=== PATIENT | female | born 1950 | race Caucasian/White ===

== ENCOUNTER 2016-09-25 15:00 | Inpatient (IN) | payer MEDICARE ==
[2016-09-25] MEDS ORDERED: methylPREDNISolone SOD SUCCI 125 MG/2 ML VIAL IV STA (15:08)
--- NOTE | 2016-09-25 15:13 | ED ---
SOB HPI - General Stated Complaint: FRANCOIS Time Seen by Provider: 09/25/16 15:00 Source: EMS, RN notes reviewed Mode of arrival: EMS - History of Present Illness Initial Comments: This is a 65-year-old female history of asthma who states she had the onset about one hour ago severe shortness of breath. She also states she's had a fever since last night and got up to 100F. She has had some green nasal discharge and cough with minimal phlegm production. No overt chest pain. She had very nervous when she cannot breathe. EMS was summoned she did get a DuoNeb treatment on the way in. She does feel somewhat better MD Complaint: shortness of breath - Related Data Home Medications Medication Instructions Recorded Confirmed Albuterol Inhaler [Ventolin Hfa 2 puff INHALATION RT-Q4H PRN 12/26/15 09/25/16 Inhaler] Aspirin EC [Ecotrin Low Dose] 81 mg PO DAILY 12/26/15 09/25/16 Gabapentin [Neurontin] 1,200 mg PO TID 12/26/15 09/25/16 Montelukast [Singulair] 10 mg PO HS 12/26/15 09/25/16 Nitroglycerin Sl Tabs [Nitrostat] 0.4 mg SUBLINGUAL Q5M PRN 12/26/15 09/25/16 Prazosin HCl [Minipress] 6 mg PO HS 02/10/16 09/25/16 Calcium Carbonate [Calcium] 600 mg PO TID 04/30/16 09/25/16 DULoxetine HCL [Cymbalta] 60 mg PO BID 04/30/16 09/25/16 Lisinopril [Prinivil] 10 mg PO QAM 04/30/16 09/25/16 Simvastatin [Zocor] 10 mg PO HS 06/02/16 09/25/16 Fluticasone/Salmeterol [Advair 2 puff INHALATION RT-BID 09/01/16 09/25/16 250-50 Diskus] Omeprazole [PriLOSEC] 20 mg PO AC-BRKFST 09/01/16 09/25/16 Sertraline HCl [Zoloft] 50 mg PO QAM 09/09/16 09/25/16 Etodolac [Lodine] 400 mg PO BID 09/16/16 09/25/16 Famotidine [Pepcid] 60 mg PO BID 09/16/16 09/25/16 Ferrous Gluconate 240 mg PO QAM 09/16/16 09/25/16 traZODone HCL [Desyrel] 100 mg PO HS 09/16/16 09/25/16 Hydrocodone/Acetaminophen [[place] 1 tab PO TID 09/25/16 09/25/16 7.5-325] Levothyroxine Sodium [Synthroid] 50 mcg PO DAILY 09/25/16 09/25/16 Ondansetron [Zofran] 4 mg PO Q8H PRN 09/25/16 09/25/16 Previous Rx's Medication Instructions Recorded oxyCODONE HCL [OxyCONTIN] 20 mg PO Q12H #60 tab.er.12h 08/02/16 QUEtiapine [SEROquel] 150 mg PO HS #30 tablet 09/03/16 Allergies Allergy/AdvReac Type Severity Reaction Status Date / Time amoxicillin Allergy Unknown Verified 09/25/16 15:20 baclofen Allergy Rash/Hives Verified 09/25/16 15:20 morphine Allergy Itching Verified 09/25/16 15:20 Penicillins Allergy Unknown Verified 09/25/16 15:20 prochlorperazine Allergy Racing Verified 09/25/16 15:20 [From Compazine] Heart prochlorperazine edisylate Allergy Racing Verified 09/25/16 15:20 [From Compazine] Heart prochlorperazine maleate Allergy Racing Verified 09/25/16 15:20 [From Compazine] Heart tetracycline Allergy Unknown Verified 09/25/16 15:20 SILK TAPE Allergy Unknown Uncoded 09/25/16 15:20 Review of Systems ROS Statement: Those systems with pertinent positive or pertinent negative responses have been documented in the HPI. ROS Other: All systems not noted in ROS Statement are negative. Past Medical History Past Medical History: Atrial Fibrillation, Asthma, COPD, Deep Vein Thrombosis ( DVT), Fibromyalgia, GERD/Reflux, Hypertension, Myocardial Infarction (non Q-wave ), Osteoarthritis (OA), Thyroid Disorder Additional Past Medical History / Comment(s): uterine cancer,CERVICAL CANCER, LEUKEMIA, RT BREAST CANCER, dvt in left calf, heart murmer, scoliosis, right foot drop, anemia, UTI'S,INCONT OF URINE WEARS A PAD, UTI(ECOLI 9-26-16), HEMORRHOIDS, RECTAL PROLAPSE Last Myocardial Infarction Date:: 2006 History of Any Multi-Drug Resistant Organisms: None Reported Date of last positivie culture/infection: 2007 MDRO Source:: stool Past Surgical History: Breast Surgery, Cholecystectomy, Heart Catheterization With Stent, Hysterectomy, Tonsillectomy Additional Past Surgical History / Comment(s): Lumpectomy right side from breast cancer, back surgery x7, ortho sx-recent Fx C5-pain in neck, 02/19/2016 revision S2-Thoracic/lumbar area, bilat. cataracts removed 2014, SX FOR PROLAPSED RECTUM APPROX MONTH AGO AT [facility]. Past Anesthesia/Blood Transfusion Reactions: No Reported Reaction Date of Last Stent Placement:: 2006 Past Psychological History: Anxiety, Depression Additional Psychological History / Comment(s): PT ADMITS TO FEELINGS OF SADNESS - SON A YEAR AGO. PT LIVES ALONE IN [facility], HAS SUPPORT FROM BROTHER,FRIEND AND [employer]RIENS. ALSO HAS [facility] CARE NURSE AND PT., USES A CANE WHEN UP Smoking Status: Never smoker Past Alcohol Use History: None Reported Past Drug Use History: None Reported - Past Family History Father Family Medical History: Cancer Additional Family Medical History / Comment(s): skin cancer. Mother Family Medical History: Cancer Additional Family Medical History / Comment(s): uterine cancer. Daughter(s) Family Medical History: Cancer, Thyroid Disorder Additional Family Medical History / Comment(s): Thyroid CA removed General Exam - General Exam Comments Initial Comments: This is a well-developed well-nourished awake alert anxious appearing female General appearance: alert, anxious, in distress Head exam: Present: atraumatic, normocephalic, normal inspection Eye exam: Present: normal appearance, PERRL, EOMI. Absent: scleral icterus, conjunctival injection, periorbital swelling ENT exam: Present: normal exam, mucous membranes moist Neck exam: Present: normal inspection. Absent: tenderness, meningismus, lymphadenopathy Respiratory exam: Present: decreased breath sounds, other (She does demonstrate marked kyphosis). Absent: respiratory distress, wheezes, rales, rhonchi, stridor Cardiovascular Exam: Present: normal rhythm, tachycardia, normal heart sounds. Absent: systolic murmur, diastolic murmur, rubs, gallop, clicks GI/Abdominal exam: Present: soft, normal bowel sounds. Absent: distended, tenderness, guarding, rebound, rigid Extremities exam: Present: normal inspection, full ROM, normal capillary refill. Absent: tenderness, pedal edema, joint swelling, calf tenderness Back exam: Present: normal inspection Neurological exam: Present: alert, oriented X3, CN II-XII intact Psychiatric exam: Present: normal affect, normal mood Skin exam: Present: warm, dry, intact, normal color. Absent: rash Course Vital Signs 09/25/16 09/25/16 09/25/16 15:05 15:36 16:06 Temperature 98.6 F Pulse Rate 103 H 108 H 86 Respiratory 26 H 24 24 Rate Blood Pressure 156/89 121/83 145/77 O2 Sat by Pulse 93 L 100 99 Oximetry 09/25/16 09/25/16 16:37 16:49 Temperature Pulse Rate 92 90 Respiratory Rate Blood Pressure O2 Sat by Pulse Oximetry - Reevaluation(s) Reevaluation #1: 09/25/16 16:53 The patient had minimal improvement for the initial treatment. She was still dyspneic. Reevaluation #2: 09/25/16 16:53 Reevaluation after repeated therapy shows patient is still dyspneic with diminished breath sounds and wheezing. Additionally patient did admit that she had a syncopal which she forgot to tell us about when she arrived. Medical Decision Making - Lab Data Result diagrams: 09/25/16 15:40 09/25/16 15:40 Lab Results 09/25/16 09/25/16 09/25/16 Range/Units 15:40 15:40 15:40 WBC 6.1 (3.8-10.6) k/uL RBC 4.24 (3.80-5.40) m/uL Hgb 11.0 L (11.4-16.0) gm/dL Hct 36.9 (34.0-46.0) % MCV 87.1 (80.0-100.0) fL MCH 26.0 (25.0-35.0) pg MCHC 29.8 L (31.0-37.0) g/dL RDW 16.6 H (11.5-15.5) % Plt Count 269 (150-450) k/uL Neutrophils % 73 % Lymphocytes % 17 % Monocytes % 6 % Eosinophils % 1 % Basophils % 0 % Neutrophils # 4.4 (1.3-7.7) k/uL Lymphocytes # 1.0 (1.0-4.8) k/uL Monocytes # 0.4 (0-1.0) k/uL Eosinophils # 0.1 (0-0.7) k/uL Basophils # 0.0 (0-0.2) k/uL Hypochromasia Slight Anisocytosis Slight PT (9.0-12.0) sec INR (<1.1) APTT (22.0-30.0) sec Sodium 143 (137-145) mmol/L Potassium 4.0 (3.5-5.1) mmol/L Chloride 108 H (98-107) mmol/L Carbon Dioxide 25 (22-30) mmol/L Anion Gap 10 mmol/L BUN 10 (7-17) mg/dL Creatinine 0.69 (0.52-1.04) mg/dL Est GFR (MDRD) Af Amer >60 (>60 ml/min/1.73 sqM) Est GFR (MDRD) Non-Af >60 (>60 ml/min/1.73 sqM) Glucose 108 H (74-99) mg/dL Calcium 9.0 (8.4-10.2) mg/dL Magnesium 2.0 (1.6-2.3) mg/dL Total Bilirubin 0.3 (0.2-1.3) mg/dL AST 19 (14-36) U/L ALT 26 (9-52) U/L Alkaline Phosphatase 81 (38-126) U/L Total Creatine Kinase 42 (30-135) U/L CK-MB (CK-2) <0.2 (0.0-2.4) ng/mL CK-MB (CK-2) Rel Index Troponin I <0.012 (0.000-0.034) ng/mL NT-Pro-B Natriuret Pep pg/mL Total Protein 6.3 (6.3-8.2) g/dL Albumin 3.6 (3.5-5.0) g/dL 09/25/16 09/25/16 Range/Units 15:40 15:40 WBC (3.8-10.6) k/uL RBC (3.80-5.40) m/uL Hgb (11.4-16.0) gm/dL Hct (34.0-46.0) % MCV (80.0-100.0) fL MCH (25.0-35.0) pg MCHC (31.0-37.0) g/dL RDW (11.5-15.5) % Plt Count (150-450) k/uL Neutrophils % % Lymphocytes % % Monocytes % % Eosinophils % % Basophils % % Neutrophils # (1.3-7.7) k/uL Lymphocytes # (1.0-4.8) k/uL Monocytes # (0-1.0) k/uL Eosinophils # (0-0.7) k/uL Basophils # (0-0.2) k/uL Hypochromasia Anisocytosis PT 9.7 (9.0-12.0) sec INR 0.9 (<1.1) APTT 23.2 (22.0-30.0) sec Sodium (137-145) mmol/L Potassium (3.5-5.1) mmol/L Chloride (98-107) mmol/L Carbon Dioxide (22-30) mmol/L Anion Gap mmol/L BUN (7-17) mg/dL Creatinine (0.52-1.04) mg/dL Est GFR (MDRD) Af Amer (>60 ml/min/1.73 sqM) Est GFR (MDRD) Non-Af (>60 ml/min/1.73 sqM) Glucose (74-99) mg/dL Calcium (8.4-10.2) mg/dL Magnesium (1.6-2.3) mg/dL Total Bilirubin (0.2-1.3) mg/dL AST (14-36) U/L ALT (9-52) U/L Alkaline Phosphatase (38-126) U/L Total Creatine Kinase (30-135) U/L CK-MB (CK-2) (0.0-2.4) ng/mL CK-MB (CK-2) Rel Index Troponin I (0.000-0.034) ng/mL NT-Pro-B Natriuret Pep 145 pg/mL Total Protein (6.3-8.2) g/dL Albumin (3.5-5.0) g/dL - EKG Data -: EKG Interpreted by Dc EKG shows normal: sinus rhythm (Sinus rhythm a rate of 90. Interval 154 QRS duration 82 QT/QTc is 370/452 middle voltage criteria for LVH artifact is present.) - Radiology Data Radiology results: report reviewed (3 shows no acute markings or findings that is consistent with COPD.), image reviewed Critical Care Time Critical Care Time: Yes Critical Care Time: 30 minutes of critical care time which includes initial monitoring of the EMS run and discussed with paramedics. History physical lab and x-ray evaluation. Multiple re-evaluations patient to responsive therapy. Review of old charting. Discussion with the admitting physician. Admission orders and documentation of the above. Disposition Clinical Impression: Adult respiratory distress syndrome, Acute exacerbation of chronic obstructive airways disease, Syncope Disposition: ADMITTED IP TO THIS HOSP Condition: Stable
[2016-09-25] MEDS ORDERED: HYDROmorphone 1 MG/ML 1 ML SYRINGE IVP STA (15:26)
[2016-09-25] MEDS ORDERED: LORazepam 2 MG/ML SYRINGE IV STA (15:26)
[2016-09-25 15:54] LABS: Anisocytosis Slight; Basophils % (A) 0 %; CH 27.2; CHCM 31.3; Eosinophils # (A) 0.1 k/uL (0-0.7); Eosinophils % (A) 1 %; HCT 36.9 % (34.0-46.0); HDW 2.61; Hypochromasia Slight; Luc # (Auto) 0.14; Luc % (Auto) 2; Lymphocytes % (A) 17 %; MCHC 29.8 g/dL (31.0-37.0); MCV 87.1 fL (80.0-100.0); Mean Platelet Volume 7.3; Monocytes # (A) 0.4 k/uL (0-1.0); Monocytes % (A) 6 %; Neutrophils # (A) 4.4 k/uL (1.3-7.7); Neutrophils % (A) 73 %; RBC 4.24 m/uL (3.80-5.40); RDW 16.6 % (11.5-15.5); WBC 6.1 k/uL (3.8-10.6); WBC (Perox) 6.51
--- NOTE | 2016-09-25 16:01 | XR ---
EXAMINATION TYPE: XR chest 2V DATE OF EXAM: 09/25/2016 3:57 PM COMPARISON: Prior chest x-ray September 16, 2016 HISTORY: Severe shortness of breath TECHNIQUE: Frontal and lateral views of the chest are obtained. FINDINGS: Underlying emphysematous change is present. There is left basilar linear scarring redemons trated. There is no focal air space opacity, pleural effusion, or pneumothorax seen. The cardiac brennan houette size is within normal limits. Retrocardiac opacity consistent with moderate size hiatal her santo is redemonstrated. Coronary stent left complex is suspected. No change into the upper lumbar spin e is redemonstrated. Surgical clips overlie the right breast. IMPRESSION: Chronic changes without acute pulmonary process. No significant change from prior.
[2016-09-25 16:07] LABS: ALT 26 U/L (9-52); AST 19 U/L (14-36); Alkaline Phosphatase 81 U/L (38-126); Anion Gap 10 mmol/L; Blood Urea Nitrogen 10 mg/dL (7-17); Carbon Dioxide 25 mmol/L (22-30); Chloride 108 mmol/L (98-107); Glucose 108 mg/dL (74-99); Non-African American GFR(MDRD) >60 (>60 ml/min/1.73 sqM); Sodium 143 mmol/L (137-145); Total Bilirubin 0.3 mg/dL (0.2-1.3); Total Protein 6.3 g/dL (6.3-8.2)
[2016-09-25 16:16] LABS: INR 0.9 (<1.1); Partial Thromboplastin Time 23.2 sec (22.0-30.0); Prothrombin Time 9.7 sec (9.0-12.0)
[2016-09-25 16:21] LABS: Creatine Kinase 42 U/L (30-135)
[2016-09-25] MEDS ORDERED: IPRATROPIUM-ALBUTEROL 3 ML NEB INHALATION STA (16:21)
[2016-09-25 16:34] LABS: Creatine Kinase MB <0.2 ng/mL (0.0-2.4); Troponin I <0.012 ng/mL (0.000-0.034)
[2016-09-25] MEDS ORDERED: NITROGLYCERIN SL TABS 0.4 MG TAB SUBLINGUAL PRN (16:57)
[2016-09-25] MEDS: oxyCODONE ER 20 MG TAB.ER.12H PO SCH (18:06)
[2016-09-25] MEDS: methylPREDNISolone SOD SUCCI 125 MG/2 ML VIAL IV SCH ×2 (18:57→23:01)
[2016-09-25] MEDS: HYDROmorphone 1 MG/ML 1 ML SYRINGE IVP PRN (19:46)
[2016-09-25] MEDS ORDERED: IPRATROPIUM-ALBUTEROL 3 ML NEB INHALATION SCH (20:00)
[2016-09-25] MEDS: SYMBICORT 80-4.5 MCG INHALER INHALATION SCH (20:42)
[2016-09-25] MEDS: IPRATROPIUM 0.5 MG/2.5 ML NEBU INHALATION SCH (20:42)
[2016-09-25] MEDS: LEVALBUTEROL NEB (CONC) 1.25 MG/0.5 ML AMP INHALATION SCH (20:42)
[2016-09-25 21:21] LABS: Glucose,Whole Blood 165 mg/dL (75-99)
[2016-09-25] MEDS: ATORVASTATIN 10 MG TAB PO SCH (21:25)
[2016-09-25] MEDS: DULoxetine HCL 60 MG CAPSULE.DR PO SCH (21:26)
[2016-09-25] MEDS: ETODOLAC 400 MG TAB PO SCH (21:26)
[2016-09-25] MEDS: PRAZOSIN 1 MG CAP PO SCH (21:26)
[2016-09-25] MEDS: MONTELUKAST 10 MG TAB PO SCH (21:26)
[2016-09-25] MEDS: GABAPENTIN 400 MG CAP PO SCH (21:26)
[2016-09-25] MEDS: FAMOTIDINE 20 MG TAB PO SCH (21:26)
[2016-09-25] MEDS: QUEtiapine 50 MG TAB PO SCH (21:27)
[2016-09-25] MEDS: traZODone HCL 100 MG TAB PO SCH (21:27)
[2016-09-25] MEDS: HYDROcodone/APAP 7.5-325MG 1 EACH TAB PO SCH (21:28)
[2016-09-25] MEDS: CALCIUM CARBONATE 500 MG CHEWABLE PO SCH (21:28)
[2016-09-25] MEDS: LORazepam 2 MG/ML SYRINGE IV PRN (21:46)
[2016-09-25] MEDS ORDERED: TEMAZEPAM 15 MG CAP PO PRN (21:46)
[2016-09-25] MEDS: HEPARIN SODIUM,PORCINE 5,000 UNIT/ML 1 ML VIAL SQ SCH (23:01)
[2016-09-26] MEDS: HYDROmorphone 1 MG/ML 1 ML SYRINGE IVP PRN ×5 (00:25→18:40)
[2016-09-26] MEDS: IPRATROPIUM-ALBUTEROL 3 ML NEB INHALATION PRN (02:47)
[2016-09-26] MEDS: oxyCODONE ER 20 MG TAB.ER.12H PO SCH ×2 (05:01→17:01)
[2016-09-26] MEDS: methylPREDNISolone SOD SUCCI 125 MG/2 ML VIAL IV SCH ×3 (06:07→17:06)
[2016-09-26] MEDS: LEVOTHYROXINE 50 MCG TAB PO SCH (06:07)
[2016-09-26 07:24] LABS: Glucose,Whole Blood 115 mg/dL (75-99)
[2016-09-26] MEDS: INSULIN LISPRO (humaLOG) 300 UNIT/3 ML VIAL SQ SCH ×4 (08:08→21:49)
[2016-09-26] MEDS: ASPIRIN 81 MG CHEW PO SCH (08:12)
[2016-09-26] MEDS: PANTOPRAZOLE 40 MG TABLET PO SCH (08:12)
[2016-09-26] MEDS: CALCIUM CARBONATE 500 MG CHEWABLE PO SCH ×3 (08:12→21:49)
[2016-09-26] MEDS: ETODOLAC 400 MG TAB PO SCH ×2 (08:12→21:49)
[2016-09-26] MEDS: DULoxetine HCL 60 MG CAPSULE.DR PO SCH ×2 (08:12→21:51)
[2016-09-26] MEDS: LISINOPRIL 10 MG TAB PO SCH (08:13)
[2016-09-26] MEDS: FERROUS SULFATE 325 MG TAB PO SCH (08:13)
[2016-09-26] MEDS: HEPARIN SODIUM,PORCINE 5,000 UNIT/ML 1 ML VIAL SQ SCH ×2 (08:13→21:49)
[2016-09-26] MEDS: FAMOTIDINE 20 MG TAB PO SCH ×2 (08:13→21:51)
[2016-09-26] MEDS: GABAPENTIN 400 MG CAP PO SCH ×3 (08:13→21:49)
[2016-09-26] MEDS: SERTRALINE 50 MG TAB PO SCH (08:14)
[2016-09-26] MEDS: HYDROcodone/APAP 7.5-325MG 1 EACH TAB PO SCH ×3 (08:14→22:06)
--- NOTE | 2016-09-26 08:33 | HP ---
DATE OF ADMISSION: 09/25/2016 HISTORY OF PRESENT ILLNESS: This 65-year-old woman with a past medical history of multiple medical problems, atrial fibrillation, asthma, chronic obstructive pulmonary disease, fibromyalgia, GERD, hypertension, history of uterine cancer, breast cancer, cholecystectomy, CAD stent being followed by Dr. Yudy Riggs in the outpatient setting was complaining of shortness of breath over the past several days. The patient also had a fever up to 100 degrees, and patient had greenish nasal discharge with some minimal phlegm. Because of multiple medical issues, patient came to [facility] and admitted for further evaluation and treatment. Chest x-ray was done on admission which showed chronic changes without an acute pulmonary process. The patient admitted for further evaluation and treatment. There is no history of any fever, rigors or chills. No history of headache, loss of consciousness or seizures. Diffuse tremors also present. PAST MEDICAL HISTORY: History of atrial fibrillation, asthma, COPD, DVT, fibromyalgia, GERD, hypertension, history of myocardial infarction, cholecystectomy, CAD/stent. Medications prior to admission include: 1. Desyrel 100 mg q.8h. 2. OxyContin 20 mg p.o. b.i.d. 3. Zocor 10 mg q.6h p.r.n. 4. Zoloft 250 mg 6. Zofran 4 mg q.8 p.r.n. 7. Prilosec 20 mg a.c. breakfast. 8. Nitrostat 0.4 q.5 p.r.n. 9. Singulair 10 mg q.h.s. 10. Prinivil 10 mg q.a.m. 11. Synthroid 50 mcg p.o. daily. 12. [place] 7.5 mg one p.o. t.i.d. 13. Neurontin 1200 mg p.o. t.i.d. 14. Advair 250/50 2 puffs b.i.d. 15. Gluconate 240 mg q.a.m. 16. Pepcid 60 mg p.o. b.i.d. 17. Lodine 400 mg p.o. b.i.d. 18. Cymbalta 60 mg daily. 19. Calcium 600 mg p.o. t.i.d. 20. Ecotrin 81 mg p.o. daily. 21. Ventolin HFA 2 puffs q.4 p.r.n. ALLERGIES: AMOXICILLIN, MORPHINE, PENICILLIN, COMPAZINE AND TETRACYCLINE, ADHESIVE TAPES. FAMILY HISTORY: History of skin cancer. SOCIAL HISTORY: No history of smoking. No history of alcohol intake. REVIEW OF SYSTEMS: ENT: No diminished hearing or diminished vision. CARDIOVASCULAR: No angina or palpitations. RESPIRATORY : As mentioned earlier. GASTROINTESTINAL: No nausea or vomiting. GENITOURINARY: No dysuria. CENTRAL NERVOUS SYSTEM: No numbness, weakness. ALLERGY/IMMUNOLOGY: No asthma or hayfever. MUSCULOSKELETAL: As mentioned earlier. HEMATOLOGY/ONCOLOGY: No history of anemia. ENDOCRINE: No history of diabetes mellitus. Hypothyroidism present. CONSTITUTIONAL: As mentioned earlier. DERMATOLOGY: Negative. RHEUMATOLOGY: Negative. PSYCHIATRY: As mentioned earlier. PHYSICAL EXAMINATION: GENERAL: Alert and oriented times three. VITAL SIGNS: Pulse 100, blood pressure 135/100, respiratory rate 20, temperature 99.1, pulse ox 98% on 2 L. HEENT: Conjunctivae normal. Oral mucosa moist. NECK: No jugular venous distention. No carotid bruit. No lymph node enlargement. CARDIOVASCULAR: S1, S2 muffled. RESPIRATORY: Breath sounds diminished at the bases. Bilateral scattered rhonchi and crackles. Expiratory wheezing also present. ABDOMEN: Soft, nontender. No mass palpable. LEGS: No edema. No swelling. CENTRAL NERVOUS SYSTEM: Higher functions as mentioned earlier. Moves all four limbs. No focal deficits. LYMPHATICS: No lymph nodes palpable in the neck, axillae or groin. SKIN: No ulcer, rash or bleeding. LABS: WBC 6.9, hemoglobin 11. Glucose 108. ASSESSMENT: 1. Chronic obstructive pulmonary disease exacerbation with acute purulent tracheobronchitis. 2. Increased random blood sugar. 3. Anemia, normocytic, anemia of chronic disease. 4. Diffuse tremors secondary to albuterol. 5. Atrial fibrillation history. 6. Asthma, chronic obstructive pulmonary disease. 7. History of DVTs. 8. Fibromyalgia. 9. History of gastroesophageal reflux disease. 10. Hypertension. 11. History of myocardial infarction. 12. History of degenerative joint disease. 13. History of uterine cancer. 14. History of leukemia. 15. History of cancer. 16. Right foot drop. 17. History of coronary artery disease and stent. 18. History of cholecystectomy. 19. Degenerative joint disease. 20. Anxiety, depression, not otherwise specified. RECOMMENDATIONS AND DISCUSSION: In this 65-year-old woman who presented with multiple complex medical issues, we will monitor the patient closely, continue the current medications, Atrovent and Xopenex, continue with empiric antibiotics. IV steroids. Monitor blood sugars closely. Continue antibiotics. I would also recommend pulmonary consultation. Continue current medications. DVT prophylaxis. See orders for further details. Further recommendations to follow. A copy of dictation will be forwarded to Dr. Yudy Riggs who is the primary care physician. QUIRINO
[2016-09-26] MEDS: LORazepam 2 MG/ML SYRINGE IV PRN ×2 (08:46→22:09)
[2016-09-26] MEDS: LEVALBUTEROL NEB (CONC) 1.25 MG/0.5 ML AMP INHALATION SCH ×4 (08:59→20:46)
[2016-09-26] MEDS: IPRATROPIUM 0.5 MG/2.5 ML NEBU INHALATION SCH ×4 (08:59→20:46)
[2016-09-26] MEDS: SYMBICORT 80-4.5 MCG INHALER INHALATION SCH ×2 (08:59→20:46)
[2016-09-26 10:14] LABS: Anisocytosis Slight; Basophils % (A) 0 %; CH 26.9; CHCM 30.2; Eosinophils % (A) 0 %; HCT 34.8 % (34.0-46.0); HDW 2.54; HGB 10.2 gm/dL (11.4-16.0); Hypochromasia Moderate; Luc # (Auto) 0.03; Luc % (Auto) 1; Lymphocytes # (A) 0.4 k/uL (1.0-4.8); Lymphocytes % (A) 9 %; MCH 26.2 pg (25.0-35.0); MCHC 29.3 g/dL (31.0-37.0); MCV 89.7 fL (80.0-100.0); Mean Platelet Volume 7.1; Monocytes # (A) 0.2 k/uL (0-1.0); Monocytes % (A) 4 %; Neutrophils # (A) 4.4 k/uL (1.3-7.7); Neutrophils % (A) 87 %; RBC 3.88 m/uL (3.80-5.40); RDW 16.6 % (11.5-15.5); WBC (Perox) 5.51
[2016-09-26 10:35] LABS: Anion Gap 9 mmol/L; Blood Urea Nitrogen 10 mg/dL (7-17); Calcium 8.7 mg/dL (8.4-10.2); Carbon Dioxide 24 mmol/L (22-30); Chloride 106 mmol/L (98-107); Glucose 173 mg/dL (74-99); Non-African American GFR(MDRD) >60 (>60 ml/min/1.73 sqM); Potassium 3.9 mmol/L (3.5-5.1); Sodium 139 mmol/L (137-145)
[2016-09-26] MEDS: ONDANSETRON 4 MG TAB PO PRN (11:12)
[2016-09-26 11:14] LABS: Hemoglobin A1C 5.1 % (4.2-6.1)
[2016-09-26] MEDS ORDERED: LORazepam 2 MG/ML SYRINGE IV PRN (11:17)
[2016-09-26 12:20] LABS: Glucose,Whole Blood 101 mg/dL (75-99)
[2016-09-26 17:02] LABS: Glucose,Whole Blood 124 mg/dL (75-99)
[2016-09-26 21:24] LABS: Glucose,Whole Blood 145 mg/dL (75-99)
[2016-09-26] MEDS: MONTELUKAST 10 MG TAB PO SCH (21:50)
[2016-09-26] MEDS: QUEtiapine 50 MG TAB PO SCH (21:50)
[2016-09-26] MEDS: PRAZOSIN 1 MG CAP PO SCH (21:51)
[2016-09-26] MEDS: traZODone HCL 100 MG TAB PO SCH (21:51)
[2016-09-26] MEDS: ATORVASTATIN 10 MG TAB PO SCH (21:51)
[2016-09-27] MEDS: methylPREDNISolone SOD SUCCI 125 MG/2 ML VIAL IV SCH ×5 (00:48→23:17)
[2016-09-27] MEDS: HYDROmorphone 1 MG/ML 1 ML SYRINGE IVP PRN ×6 (00:50→23:20)
[2016-09-27] MEDS: IPRATROPIUM-ALBUTEROL 3 ML NEB INHALATION PRN (02:55)
[2016-09-27] MEDS: oxyCODONE ER 20 MG TAB.ER.12H PO SCH ×2 (06:08→18:15)
[2016-09-27] MEDS: LEVOTHYROXINE 50 MCG TAB PO SCH (06:51)
[2016-09-27 07:26] LABS: Glucose,Whole Blood 150 mg/dL (75-99)
[2016-09-27] MEDS: HEPARIN SODIUM,PORCINE 5,000 UNIT/ML 1 ML VIAL SQ SCH ×2 (07:51→22:16)
[2016-09-27] MEDS: SERTRALINE 50 MG TAB PO SCH (07:51)
[2016-09-27] MEDS: CALCIUM CARBONATE 500 MG CHEWABLE PO SCH ×3 (07:51→22:15)
[2016-09-27] MEDS: FAMOTIDINE 20 MG TAB PO SCH ×2 (07:51→22:15)
[2016-09-27] MEDS: LISINOPRIL 10 MG TAB PO SCH (07:51)
[2016-09-27] MEDS: PANTOPRAZOLE 40 MG TABLET PO SCH (07:52)
[2016-09-27] MEDS: ASPIRIN 81 MG CHEW PO SCH (07:52)
[2016-09-27] MEDS: FERROUS SULFATE 325 MG TAB PO SCH (07:52)
[2016-09-27] MEDS: DULoxetine HCL 60 MG CAPSULE.DR PO SCH ×2 (07:52→22:16)
[2016-09-27] MEDS: GABAPENTIN 400 MG CAP PO SCH ×3 (07:52→22:16)
[2016-09-27] MEDS: ETODOLAC 400 MG TAB PO SCH ×2 (07:52→22:17)
[2016-09-27] MEDS: INSULIN LISPRO (humaLOG) 300 UNIT/3 ML VIAL SQ SCH ×4 (07:53→22:18)
[2016-09-27] MEDS: HYDROcodone/APAP 7.5-325MG 1 EACH TAB PO SCH ×2 (08:01→15:29)
[2016-09-27] MEDS: LEVALBUTEROL NEB (CONC) 1.25 MG/0.5 ML AMP INHALATION SCH ×4 (08:39→19:58)
[2016-09-27] MEDS: IPRATROPIUM 0.5 MG/2.5 ML NEBU INHALATION SCH ×4 (08:39→19:58)
[2016-09-27] MEDS: SYMBICORT 80-4.5 MCG INHALER INHALATION SCH (08:39)
[2016-09-27 09:09] LABS: Anisocytosis Slight; Basophils % (A) 0 %; CH 26.2; CHCM 29.4; Eosinophils % (A) 0 %; HCT 35.8 % (34.0-46.0); HDW 2.55; HGB 10.7 gm/dL (11.4-16.0); Hypochromasia Marked; Luc # (Auto) 0.09; Luc % (Auto) 2; Lymphocytes # (A) 0.4 k/uL (1.0-4.8); Lymphocytes % (A) 7 %; MCH 26.7 pg (25.0-35.0); MCHC 29.9 g/dL (31.0-37.0); MCV 89.2 fL (80.0-100.0); Mean Platelet Volume 6.6; Monocytes # (A) 0.2 k/uL (0-1.0); Monocytes % (A) 4 %; Neutrophils % (A) 87 %; RBC 4.02 m/uL (3.80-5.40); RDW 16.3 % (11.5-15.5); WBC 5.7 k/uL (3.8-10.6); WBC (Perox) 6.16
[2016-09-27 09:22] LABS: Anion Gap 11 mmol/L; Blood Urea Nitrogen 11 mg/dL (7-17); Carbon Dioxide 24 mmol/L (22-30); Chloride 108 mmol/L (98-107); Glucose 114 mg/dL (74-99); Non-African American GFR(MDRD) >60 (>60 ml/min/1.73 sqM); Potassium 4.6 mmol/L (3.5-5.1); Sodium 143 mmol/L (137-145)
[2016-09-27] MEDS: LORazepam 2 MG/ML SYRINGE IV PRN ×2 (09:41→15:28)
--- NOTE | 2016-09-27 10:26 | PN ---
DATE OF SERVICE: 09/26/2016 This 65-year-old woman who was admitted with COPD acute exacerbation, also had acute purulent tracheobronchitis. The patient is on bronchodilators and steroids also. The patient has significant anxiety. No chest pain or palpitations. No fever. On exam, alert and oriented. Pulse 102, blood pressure 130/70, respirations 20, temperature 99.4, pulse of 90% on 2 liters. HEENT: Conjunctivae normal. CARDIOVASCULAR: S1 and S2 muffled. LUNGS: Breath sounds are diminished at the bases. Few scattered rhonchi and crackles. ABDOMEN: Soft, nontender. EXTREMITIES: No edema. 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 LABS: Hemoglobin 10.2. WBC 5. Glucose 173. ASSESSMENT: 1. Chronic obstructive pulmonary disease acute exacerbation purulent tracheobronchitis. 2. Increased random blood sugar. 3. Anemia, normocytic, anemia of chronic disease. 4. Diffuse tremors secondary to albuterol. 5. Atrial fibrillation history. 6. History of asthma, chronic obstructive pulmonary disease. 7. History of DVTs. 8. History of fibromyalgia. 9. History of gastroesophageal reflux disease. 10. Hypertension. 11. History of myocardial infarction. 12. History of degenerative joint disease. 13. History of uterine cancer. 14. Leukemia. 15. Right foot drop. 16. History of coronary artery disease and stent. 17. History of cholecystectomy. 18. History of degenerative joint disease. 19. History of anxiety/depression, not otherwise specified. 20. FULL CODE. RECOMMENDATIONS AND DISCUSSION: This 65-year-old with multiple complex medical issues, we will monitor the patient closely, continue the current medications and continue with symptomatic treatment. Continue the bronchodilators and Ativan p.r.n. Otherwise, closely monitor. Further recommendations to follow. We will consult pulmonary also.
[2016-09-27 11:21] VITALS: BMI 24.1
[2016-09-27 11:46] LABS: Glucose,Whole Blood 89 mg/dL (75-99)
[2016-09-27] MEDS: ONDANSETRON 4 MG TAB PO PRN ×2 (13:00→22:14)
[2016-09-27] MEDS ORDERED: RX INFO: IV CONTRAST WAS GIVEN 1 EACH MISC MISCELLANE PRN (14:58)
--- NOTE | 2016-09-27 14:58 | P.CNPUL ---
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 This patient has moderate persistent bronchial asthma and she has been maintained on a combination of Advair 250/50 one puff twice a day and Singulair on an outpatient basis. She claims to have a nebulizer however she does not have the medication to use through the nebulizer. She was doing well and she started having worsening shortness of breath around August 2016. She was hospitalized around [facility] and after being admitted in the hospital for a total of 3 days she got released the day before on a short course of prednisone burst taper which included 20 mg of prednisone that was given to her for only 3 days. She took the treatment and she felt her breathing did not improve completely. She was having progressive tightness and wheezing and increased shortness of breath and this led the patient coming back to the hospital. The chest x-ray was repeated in the hospital and was found to have a small hiatal hernia and her lungs were hyperinflated and this raised the suspicion for COPD. Nevertheless, this patient was never exposed to any form of respiratory irritants or chemicals in the past. She has lived all her life and [facility] and she claims to have lived very close to a [employer] and she could have been exposed to various chemicals over the years. She has multiple other medical problems and comorbidities as listed in my note including coronary artery disease and previous history of breast cancer. In general, the patient tells that her asthma was under fair control. She has not required to take steroids frequently. She has not had multiple hospitalizations or emergency department visits because of breathing. She is not on any oxygen. He has a remote history of a clot in the left lower extremity and she is not on any anticoagulation Review of Systems Full review of system was done and the positive finding is almost above in history of present illness Past Medical History Past Medical History: Atrial Fibrillation, Asthma, COPD, Deep Vein Thrombosis ( DVT), Fibromyalgia, GERD/Reflux, Hypertension, Myocardial Infarction (non Q-wave ), Osteoarthritis (OA), Thyroid Disorder Additional Past Medical History / Comment(s): Bronchial asthma , coronary artery disease and previous history of myocardial infarction and stent insertion in 2006, hypertension uterine cancer, cervical cancer, right breast cancer, DVT in her left lower extremity, 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24, hemorrhoids, rectal prolapse that was surgically repaired,, heart murmur, scoliosis, right foot drop related to a previous back surgery in February 2016, chronic anemia, history of urinary incontinence which improved following her back surgery, UTI(ECOLI 06-14-16), HEMORRHOIDS, RECTAL PROLAPSE Last Myocardial Infarction Date:: 2006 History of Any Multi-Drug Resistant Organisms: None Reported Date of last positivie culture/infection: 2007 MDRO Source:: stool Past Surgical History: Breast Surgery, Cholecystectomy, Heart Catheterization With Stent, Hysterectomy, Tonsillectomy Additional Past Surgical History / Comment(s): Lumpectomy right side from breast cancer, back surgery x7, ortho sx-recent Fx C5-pain in neck, 02/19/2016 revision S2-Thoracic/lumbar area, bilat. cataracts removed 2014, the lateral knee replacement, surgery for rectal prolapse , cardiac catheterization and insertion of a coronary stent Past Anesthesia/Blood Transfusion Reactions: No Reported Reaction Date of Last Stent Placement:: 2006 Past Psychological History: Anxiety, Depression Additional Psychological History / Comment(s): Very apparent anxiety Smoking Status: Never smoker Past Alcohol Use History: None Reported Past Drug Use History: None Reported - Past Family History Father Family Medical History: Cancer Additional Family Medical History / Comment(s): skin cancer. Mother Family Medical History: Cancer Additional Family Medical History / Comment(s): uterine cancer. Daughter(s) Family Medical History: Cancer, Thyroid Disorder Additional Family Medical History / Comment(s): Thyroid CA removed Medications and Allergies Home Medications Medication Instructions Recorded Confirmed Type Albuterol Inhaler [Ventolin Hfa 2 puff INHALATION RT-Q4H PRN 12/26/15 09/25/16 History Inhaler] Aspirin EC [Ecotrin Low Dose] 81 mg PO DAILY 12/26/15 09/25/16 History Gabapentin [Neurontin] 1,200 mg PO TID 12/26/15 09/25/16 History Montelukast [Singulair] 10 mg PO HS 12/26/15 09/25/16 History Nitroglycerin Sl Tabs [Nitrostat] 0.4 mg SUBLINGUAL Q5M PRN 12/26/15 09/25/16 History Prazosin HCl [Minipress] 6 mg PO HS 02/10/16 09/25/16 History Calcium Carbonate [Calcium] 600 mg PO TID 04/30/16 09/25/16 History DULoxetine HCL [Cymbalta] 60 mg PO BID 04/30/16 09/25/16 History Lisinopril [Prinivil] 10 mg PO QAM 04/30/16 09/25/16 History Simvastatin [Zocor] 10 mg PO HS 06/02/16 09/25/16 History Fluticasone/Salmeterol [Advair 2 puff INHALATION RT-BID 09/01/16 09/25/16 History 250-50 Diskus] Omeprazole [PriLOSEC] 20 mg PO AC-BRKFST 09/01/16 09/25/16 History Sertraline HCl [Zoloft] 50 mg PO QAM 09/09/16 09/25/16 History Etodolac [Lodine] 400 mg PO BID 09/16/16 09/25/16 History Famotidine [Pepcid] 60 mg PO BID 09/16/16 09/25/16 History Ferrous Gluconate 240 mg PO QAM 09/16/16 09/25/16 History traZODone HCL [Desyrel] 100 mg PO HS 09/16/16 09/25/16 History Hydrocodone/Acetaminophen [[place] 1 tab PO TID 09/25/16 09/25/16 History 7.5-325] Levothyroxine Sodium [Synthroid] 50 mcg PO DAILY 09/25/16 09/25/16 History Ondansetron [Zofran] 4 mg PO Q8H PRN 09/25/16 09/25/16 History Allergies Allergy/AdvReac Type Severity Reaction Status Date / Time amoxicillin Allergy Unknown Verified 09/25/16 15:20 baclofen Allergy Rash/Hives Verified 09/25/16 15:20 morphine Allergy Itching Verified 09/25/16 15:20 Penicillins Allergy Unknown Verified 09/25/16 15:20 prochlorperazine Allergy Racing Verified 09/25/16 15:20 [From Compazine] Heart prochlorperazine edisylate Allergy Racing Verified 09/25/16 15:20 [From Compazine] Heart prochlorperazine maleate Allergy Racing Verified 09/25/16 15:20 [From Compazine] Heart tetracycline Allergy Unknown Verified 09/25/16 15:20 SILK TAPE Allergy Unknown Uncoded 09/25/16 15:20 Physical Exam Vitals: Vital Signs Temp Pulse Pulse Resp BP Pulse Ox 09/27/16 12:19 100 09/27/16 12:10 102 H 09/27/16 08:53 104 H 09/27/16 08:40 105 H 98 09/27/16 08:00 18 09/27/16 07:00 98.5 F 92 18 134/72 97 09/27/16 03:06 104 H 09/27/16 02:58 100 09/26/16 23:00 97.7 F 101 H 20 132/74 95 09/26/16 20:55 92 09/26/16 20:49 92 09/26/16 16:57 92 09/26/16 16:44 91 99 09/26/16 15:00 99.4 F 102 H 20 137/78 98 Intake and Output 09/26/16 09/27/16 09/27/16 22:59 06:59 14:59 Intake Total 960 Balance 960 Intake: Oral 960 Other: Voiding Method Bedside Commode # Voids 1 2 # Bowel Movements 0 0 Weight 65.771 kg Patient Weight 09/28/16 06:59 Weight 65.771 kg Head exam was generally normal. There was no scleral icterus or corneal arcus. Mucous membranes were moist.Neck was supple and without jugular venous distension, thyromegaly, or carotid bruits. Carotids were easily palpable bilaterally. There was no adenopathy. Lung sounds are diminished and there is some scattered expiratory wheezes heard throughout the lung irwin bilaterally. The patient also has prolongation of expiratory phase of breathing.Cardiac exam revealed the PMI to be normally situated and sized. The rhythm was regular and no extrasystoles were noted during several minutes of auscultation. The first and second heart sounds were normal and physiologic splitting of the second heart sound was noted. There were no murmurs, rubs, clicks, or gallops.Abdominal exam revealed normal bowel sounds. The abdomen was soft, non- tender, and without masses, organomegaly, or appreciable enlargement of the abdominal aorta.Examination of the extremities revealed easily palpable radial, femoral and pedal pulses. There was no cyanosis, clubbing or edema. Results - Laboratory Findings CBC and BMP: 09/27/16 08:17 09/27/16 08:13 PT/INR, D-dimer PT 9.7 sec (9.0-12.0) 09/25/16 15:40 INR 0.9 (<1.1) 09/25/16 15:40 Abnormal lab findings: Abnormal Labs 09/25/16 09/26/16 09/26/16 20:56 07:02 09:45 Hgb 10.2 L MCHC 29.3 L RDW 16.6 H Lymphocytes # 0.4 L Chloride Creatinine Glucose POC Glucose (mg/dL) 165 H 115 H 09/26/16 09/26/16 09/26/16 09:45 11:59 17:00 Hgb MCHC RDW Lymphocytes # Chloride Creatinine 0.42 L Glucose 173 H POC Glucose (mg/dL) 101 H 124 H 09/26/16 09/27/16 09/27/16 20:54 06:58 08:13 Hgb MCHC RDW Lymphocytes # Chloride 108 H Creatinine 0.37 L Glucose 114 H POC Glucose (mg/dL) 145 H 150 H 09/27/16 08:17 Hgb 10.7 L MCHC 29.9 L RDW 16.3 H Lymphocytes # 0.4 L Chloride Creatinine Glucose POC Glucose (mg/dL) - Diagnostic Findings Chest x-ray: image reviewed Assessment and Plan Plan: Assessment 1 shortness of breath secondary to asthma exacerbation. This patient is hospitalized twice over the past month for difficulties and asthma controlled. Rule out underlying COPD mainly due to exposure to respiratory irritants/ industrial chemicals over the years. The patient also has a hiatal hernia which could be another potential contributing factor for her recurrent asthma activity. A CAT scan of the chest will be needed to characterized these abnormalities further. 2 severe persistent bronchial asthma maintained on a combination of Advair and Singulair 3 coronary artery disease 4 breast cancer, history of 5 remote history of a left lower extremity DVT 6 degenerative arthritis of the recent back surgery 7 combination of malignancy including cervical cancer, uterine cancer and remote history of leukemia 8 hypertension 9 hiatal hernia Plan We'll offer this patient albuterol and ipratropium bromide nebulized treatments 4 times a day [id number]. We'll put the patient on a combination of Perforomist and Pulmicort neb last twice a day. He was placed on IV Solu- Medrol and ultimately she'll be transitioned to a prednisone burst taper once her asthma is under better control. Would proceed with a CAT scan of the chest to make sure there is no other pathology contributing to her chronic dyspnea. She is found to have a hiatal hernia that may be another potential trigger for asthma exacerbation. She'll be given with appropriate instructions on eating habits and ultimately she may consider even further evaluation in this regard. We'll place on ProtonSolarus for the time being
[2016-09-27 16:57] LABS: Glucose,Whole Blood 118 mg/dL (75-99)
--- NOTE | 2016-09-27 20:19 | PN ---
DATE OF SERVICE: 09/27/2016 PRESENTING COMPLAINT: Short of breath. INTERVAL HISTORY: This is a patient who has had 3 admissions since September 02. This time she presents with asthma exacerbation yet again. The patient other medical conditions include anxiety, depression, chronic fibromyalgia, GERD, hypertension, coronary artery disease and recent rectal prolapse. Prior to admission, the patient keeps asking for IV Dilaudid and had to get pain control involved and she has had family mishaps to an ( ) did get psychiatry involved on the last admission. On admission not much change in her medication. I spoke to the nurse Cathy and the nurse is very frustrated. Patient keeps asking for IV pain medications. On last admission had a long talk with the patient about cutting back on her pain medications. Also did leave a message with her family doctor. Patient's family and friend at the bedside and out of the room she did tell me they are all concerned about use of her pain medications. Patient has some wheezing. Patient also has got chronic nausea. Review of systems done for constitutional, cardiovascular, GI, pulmonary; relevant findings as above. Current medications are reviewed and include: 1. IV Solu-Medrol. 2. IV Dilaudid. 3. OxyContin. 4. Zoloft. On examination, temperature 98.5, pulse ox 96 respiration 18, blood pressure 142/87. Pulse ox 93% on 2 liters. GENERAL APPEARANCE: Sitting up, very anxious appearing. EYES: Pupils equal. Conjunctivae normal. NECK: JVD not raised. Mass not palpable. RESPIRATORY: Effort increased. LUNGS: Decreased breath sounds. Expiratory wheezing. CARDIOVASCULAR: First and second sounds normal. No edema. ABDOMEN: Soft, nontender. Liver and spleen not palpable. PSYCHIATRY: Alert and oriented x3. Very anxious appearing. INVESTIGATIONS: White count 5.7, hemoglobin 10.77. ASSESSMENT: 1. Acute exacerbation of moderate severe persistent asthma. 2. Anxiety, and depression not otherwise specified. 3. Chronic fibromyalgia. 4. Gastroesophageal reflux disease. 5. Essential hypertension. 6. Primary osteoarthritis of multiple joints. 7. Hypothyroidism. 8. Coronary artery disease with prior history of stent. 9. Recent rectal prolapse surgery with retrosternal pain. 10. Protein calorie malnutrition with decreased oral intake, mild. PLAN: I had very lengthy talk with the patient and patient every admission gets IV Dilaudid and I am really concerned about her. I did explain to her to length that this medication could actually kill the patient especially in asthma setting and she started crying about loss in the family and I was very sympathetic about that. Even talked with the patient's store custodian and store custodian's who is at the bedside to get involved more with Bible studies to help divert her mind. I also called Dr. Ohara and expressed my concern about the patient's events and wants pain medications and going to have him evaluate the patient further. My concern is about the patient's safety. Also placed a call to Dr. Riggs's office for her to call me back so I can discuss the same with her. Patient of course, not happy with my decision, but I did tell her my duty was to make sure she is safe and ( ) I do not think Dilaudid is to be given just because she is in the hospital.
[2016-09-27] MEDS: FORMOTEROL FUMARATE 20 MCG/2 ML NEBU INHALATION SCH (20:36)
[2016-09-27] MEDS: BUDESONIDE 0.5 MG/2 ML NEBU INHALATION SCH (20:36)
[2016-09-27 21:33] LABS: Glucose,Whole Blood 115 mg/dL (75-99)
[2016-09-27] MEDS: QUEtiapine 50 MG TAB PO SCH (22:14)
[2016-09-27] MEDS: traZODone HCL 100 MG TAB PO SCH (22:15)
[2016-09-27] MEDS: PRAZOSIN 1 MG CAP PO SCH (22:15)
[2016-09-27] MEDS: MONTELUKAST 10 MG TAB PO SCH (22:15)
[2016-09-27] MEDS: ATORVASTATIN 10 MG TAB PO SCH (22:15)
[2016-09-28] MEDS: HYDROmorphone 1 MG/ML 1 ML SYRINGE IVP PRN ×7 (02:57→21:38)
[2016-09-28] MEDS: LEVOTHYROXINE 50 MCG TAB PO SCH (06:37)
[2016-09-28] MEDS: methylPREDNISolone SOD SUCCI 125 MG/2 ML VIAL IV SCH ×3 (06:37→19:40)
[2016-09-28] MEDS: oxyCODONE ER 20 MG TAB.ER.12H PO SCH ×2 (06:38→17:56)
[2016-09-28] MEDS: LEVALBUTEROL NEB (CONC) 1.25 MG/0.5 ML AMP INHALATION SCH ×4 (07:14→19:48)
[2016-09-28] MEDS: BUDESONIDE 0.5 MG/2 ML NEBU INHALATION SCH ×2 (07:14→19:48)
[2016-09-28] MEDS: IPRATROPIUM 0.5 MG/2.5 ML NEBU INHALATION SCH ×4 (07:14→19:48)
[2016-09-28] MEDS: FORMOTEROL FUMARATE 20 MCG/2 ML NEBU INHALATION SCH ×2 (07:14→19:48)
[2016-09-28 07:46] LABS: Glucose,Whole Blood 112 mg/dL (75-99)
[2016-09-28] MEDS: INSULIN LISPRO (humaLOG) 300 UNIT/3 ML VIAL SQ SCH ×4 (07:59→22:05)
--- NOTE | 2016-09-28 08:25 | CT ---
EXAMINATION TYPE: CT chest w con DATE OF EXAM: 09/27/2016 6:11 PM COMPARISON: Chest x-ray 25 September 2016 HISTORY: Shortness of breath. History of multiple cancer diagnoses. CT DLP: 565 mGycm Automated exposure control for dose reduction was used. CONTRAST: CT scan of the chest is performed with IV Contrast, patient injected with 100 mL of Omnipaque 300. FINDINGS: LUNGS: Some minimal scarring or atelectasis suspected in the lingula, right middle lobe. Subpleural n odule on axial image 35 of the right lower lobe level measures approximately 4 to 5 mm, axial image 3 7 similar-appearing lesion in the right lower lobe present posteriorly measuring 5 mm. MEDIASTINUM: There are no greater than 1 cm hilar or mediastinal lymph nodes. No pericardial effusi on is seen. Probable coronary artery stent, calcifications noted. Breast calcifications noted on the right. AORTA: Atheromatous changes are present without aneurysm. OTHER: Partial intrathoracic stomach, hiatal hernia is present. Surgical clips are present in the ri ght upper quadrant and along the posterior pleura on the right, there is been rib resection and there are likely pleural calcifications associated suggesting postop change, patient is post cholecystecto my. Postop changes are noted to the lumbar spine. Postop changes are noted in the cervical spine. Deg enerative disc changes in the visualized spine. Some mild pelvic caliectasis present within the left kidney, cortical cyst likely present posterior aspect midpole. IMPRESSION: Indeterminate subpleural pulmonary nodules right lower lobe, follow-up recommended. Hiat al hernia. Postop changes. Indeterminate pelvic caliectasis left kidney. Correlate for possible urete ral obstruction. Additional findings above. Coronary artery disease.
[2016-09-28 09:19] LABS: Anisocytosis Slight; Basophils % (A) 0 %; CH 26.8; CHCM 30.7; Eosinophils % (A) 0 %; HCT 36.9 % (34.0-46.0); HDW 2.59; HGB 10.8 gm/dL (11.4-16.0); Hypochromasia Moderate; Luc # (Auto) 0.07; Luc % (Auto) 1; Lymphocytes # (A) 0.5 k/uL (1.0-4.8); Lymphocytes % (A) 9 %; MCH 25.7 pg (25.0-35.0); MCHC 29.4 g/dL (31.0-37.0); MCV 87.5 fL (80.0-100.0); Mean Platelet Volume 7.2; Monocytes # (A) 0.3 k/uL (0-1.0); Monocytes % (A) 5 %; Neutrophils # (A) 5.1 k/uL (1.3-7.7); Neutrophils % (A) 85 %; RBC 4.21 m/uL (3.80-5.40); RDW 16.6 % (11.5-15.5); WBC (Perox) 6.39
[2016-09-28 09:32] LABS: Anion Gap 8 mmol/L; Blood Urea Nitrogen 14 mg/dL (7-17); Carbon Dioxide 28 mmol/L (22-30); Chloride 105 mmol/L (98-107); Glucose 139 mg/dL (74-99); Non-African American GFR(MDRD) >60 (>60 ml/min/1.73 sqM); Potassium 4.5 mmol/L (3.5-5.1); Sodium 141 mmol/L (137-145)
[2016-09-28] MEDS: HEPARIN SODIUM,PORCINE 5,000 UNIT/ML 1 ML VIAL SQ SCH ×2 (09:45→21:43)
[2016-09-28] MEDS: ASPIRIN 81 MG CHEW PO SCH (09:45)
[2016-09-28] MEDS: GABAPENTIN 400 MG CAP PO SCH ×3 (09:45→21:42)
[2016-09-28] MEDS: SERTRALINE 50 MG TAB PO SCH (09:45)
[2016-09-28] MEDS: LISINOPRIL 10 MG TAB PO SCH (09:45)
[2016-09-28] MEDS: FAMOTIDINE 20 MG TAB PO SCH ×2 (09:45→21:43)
[2016-09-28] MEDS: PANTOPRAZOLE 40 MG TABLET PO SCH (09:45)
[2016-09-28] MEDS: FERROUS SULFATE 325 MG TAB PO SCH (09:45)
[2016-09-28] MEDS: ETODOLAC 400 MG TAB PO SCH ×2 (09:45→21:42)
[2016-09-28] MEDS: CALCIUM CARBONATE 500 MG CHEWABLE PO SCH ×3 (09:45→21:41)
[2016-09-28] MEDS: DULoxetine HCL 60 MG CAPSULE.DR PO SCH ×2 (09:45→21:41)
[2016-09-28] MEDS ORDERED: BISACODYL 5 MG TABLET.DR PO STA (09:51)
--- NOTE | 2016-09-28 11:07 | P.PN ---
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 This patient has moderate persistent bronchial asthma and she has been maintained on a combination of Advair 250/50 one puff twice a day and Singulair on an outpatient basis. She claims to have a nebulizer however she does not have the medication to use through the nebulizer. She was doing well and she started having worsening shortness of breath around August 2016. She was hospitalized around [facility] and after being admitted in the hospital for a total of 3 days she got released the day before on a short course of prednisone burst taper which included 20 mg of prednisone that was given to her for only 3 days. She took the treatment and she felt her breathing did not improve completely. She was having progressive tightness and wheezing and increased shortness of breath and this led the patient coming back to the hospital. The chest x-ray was repeated in the hospital and was found to have a small hiatal hernia and her lungs were hyperinflated and this raised the suspicion for COPD. Nevertheless, this patient was never exposed to any form of respiratory irritants or chemicals in the past. She has lived all her life and [facility] and she claims to have lived very close to a [employer] and she could have been exposed to various chemicals over the years. She has multiple other medical problems and comorbidities as listed in my note including coronary artery disease and previous history of breast cancer. In general, the patient tells that her asthma was under fair control. She has not required to take steroids frequently. She has not had multiple hospitalizations or emergency department visits because of breathing. She is not on any oxygen. He has a remote history of a clot in the left lower extremity and she is not on any anticoagulation On 09/28/2016 the patient is being seen in follow-up. She is slightly improved compared to yesterday. CAT scan of the chest was done and it does not show any evidence of COPD or emphysema. There is a large hiatal hernia which again is visualized. She is still on bronchodilators and systemic steroids. No significant cough or sputum production at this point. CAT scan of the chest did not reveal any pneumonia in addition. No active reflux symptoms and the patient is currently on Protonix. Objective - Vital Signs Vital signs: Vital Signs Temp 97.4 F L 09/28/16 07:00 Pulse 88 09/28/16 07:39 Resp 16 09/28/16 07:00 BP 120/64 09/28/16 07:00 Pulse Ox 97 09/28/16 07:17 Intake & Output 09/27/16 09/28/16 09/28/16 18:59 06:59 18:59 Intake Total 1200 800 Output Total 400 Balance 1200 800 -400 Weight 65.771 kg Intake: Oral 1200 800 Output: Urine 400 Other: Voiding Method Bedside Commode # Voids 2 0 1 # Bowel Movements 0 0 - Exam Head exam was generally normal. There was no scleral icterus or corneal arcus. Mucous membranes were moist.Neck was supple and without jugular venous distension, thyromegaly, or carotid bruits. Carotids were easily palpable bilaterally. There was no adenopathy. Lung sounds are diminished and there is some scattered expiratory wheezes heard throughout the lung irwin bilaterally. The patient also has prolongation of expiratory phase of breathing.Cardiac exam revealed the PMI to be normally situated and sized. The rhythm was regular and no extrasystoles were noted during several minutes of auscultation. The first and second heart sounds were normal and physiologic splitting of the second heart sound was noted. There were no murmurs, rubs, clicks, or gallops.Abdominal exam revealed normal bowel sounds. The abdomen was soft, non- tender, and without masses, organomegaly, or appreciable enlargement of the abdominal aorta.Examination of the extremities revealed easily palpable radial, femoral and pedal pulses. There was no cyanosis, clubbing or edema. - Labs CBC & Chem 7: 09/28/16 08:24 09/28/16 08:24 Labs: Abnormal Lab Results - Last 24 Hours (Table) 09/27/16 09/27/16 09/28/16 Range/Units 16:50 21:11 07:19 Hgb (11.4-16.0) gm/dL MCHC (31.0-37.0) g/dL RDW (11.5-15.5) % Lymphocytes # (1.0-4.8) k/uL Creatinine (0.52-1.04) mg/dL Glucose (74-99) mg/dL POC Glucose (mg/dL) 118 H 115 H 112 H (75-99) mg/dL 01/10/17 01/10/17 Range/Units 08:24 08:24 Hgb 10.8 L (11.4-16.0) gm/dL MCHC 29.4 L (31.0-37.0) g/dL RDW 16.6 H (11.5-15.5) % Lymphocytes # 0.5 L (1.0-4.8) k/uL Creatinine 0.44 L (0.52-1.04) mg/dL Glucose 139 H (74-99) mg/dL POC Glucose (mg/dL) (75-99) mg/dL Assessment and Plan Plan: Assessment 1 shortness of breath secondary to asthma exacerbation. This patient is hospitalized twice over the past month for difficulties and asthma controlled. Rule out underlying COPD mainly due to exposure to respiratory irritants/ industrial chemicals over the years. The patient also has a hiatal hernia which could be another potential contributing factor for her recurrent asthma activity. A CAT scan of the chest will be needed to characterized these abnormalities further. On 09/28/2016 the patient is improved. She is feeling better. She is less short of breath. She is on bronchodilators and systemic steroids. CAT scan of the chest was completed and there is no evidence of COPD or chronic parenchymal lung disease. There is a large hiatal hernia which probably is contributing to her 2 severe persistent bronchial asthma maintained on a combination of Advair and Singulair 3 coronary artery disease 4 breast cancer, history of 5 remote history of a left lower extremity DVT 6 degenerative arthritis of the recent back surgery 7 combination of malignancy including cervical cancer, uterine cancer and remote history of leukemia 8 hypertension 9 hiatal hernia Plan Continue same asthma treatment. Continue Protonix. Clinically improving. Anticipate improvement within next 24-48 hours. Outpatient evaluation and possible surgical evaluation regarding her hiatal hernia.
[2016-09-28 12:02] LABS: Glucose,Whole Blood 71 mg/dL (75-99)
[2016-09-28] MEDS: ONDANSETRON 4 MG/2 ML VIAL IVP PRN (12:24)
[2016-09-28 17:08] LABS: Glucose,Whole Blood 148 mg/dL (75-99)
--- NOTE | 2016-09-28 20:45 | P.CONS ---
History of Present Illness - Reason for Consult Consult date: 09/27/16 - History of Present Illness This is a 65 years FEMALE with a chronic history of severe low back pain, and she is followed at [facility] pain clinic, patient had multiple lumbar laminectomy and fusion surgery and she continued to have severe low back pain, and she is currently on OxyContin 20 mg twice a day, and Rochester 7.5/325 every 8 hours, and Neurontin 1200 mg every 8 hours, and patient was stable on this regimen as an outpatient, a few days ago ago she was admitted to [facility] because of shortness of breath and asthma exacerbation, and patient pain was not controlled with the current regimen, and pain management consultation was requested, patient denies any fever or night sweats she denies any change in the bowel movements or urination and she denies any motor or sensory deficits Past Medical History Past Medical History: Atrial Fibrillation, Asthma, COPD, Deep Vein Thrombosis ( DVT), Fibromyalgia, GERD/Reflux, Hypertension, Myocardial Infarction (non Q-wave ), Osteoarthritis (OA), Thyroid Disorder Additional Past Medical History / Comment(s): Bronchial asthma , coronary artery disease and previous history of myocardial infarction and stent insertion in 2006, hypertension uterine cancer, cervical cancer, right breast cancer, DVT in her left lower extremity, 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24, hemorrhoids, rectal prolapse that was surgically repaired,, heart murmur, scoliosis, right foot drop related to a previous back surgery in February 2016, chronic anemia, history of urinary incontinence which improved following her back surgery, UTI(ECOLI 9-26-16), HEMORRHOIDS, RECTAL PROLAPSE Last Myocardial Infarction Date:: 2006 History of Any Multi-Drug Resistant Organisms: None Reported Year Discovered:: 2008 MDRO Source:: stool Past Surgical History: Breast Surgery, Cholecystectomy, Heart Catheterization With Stent, Hysterectomy, Tonsillectomy Additional Past Surgical History / Comment(s): Lumpectomy right side from breast cancer, back surgery x7, ortho sx-recent Fx C5-pain in neck, 02/19/2016 revision S2-Thoracic/lumbar area, bilat. cataracts removed 2014, the lateral knee replacement, surgery for rectal prolapse , cardiac catheterization and insertion of a coronary stent Past Anesthesia/Blood Transfusion Reactions: No Reported Reaction Date of Last Stent Placement:: 2006 Past Psychological History: Anxiety, Depression Additional Psychological History / Comment(s): Very apparent anxiety Smoking Status: Never smoker Past Alcohol Use History: None Reported Past Drug Use History: None Reported - Past Family History Father Family Medical History: Cancer Additional Family Medical History / Comment(s): skin cancer. Mother Family Medical History: Cancer Additional Family Medical History / Comment(s): uterine cancer. Daughter(s) Family Medical History: Cancer, Thyroid Disorder Additional Family Medical History / Comment(s): Thyroid CA removed Medications and Allergies Home Medications Medication Instructions Recorded Confirmed Type Albuterol Inhaler [Ventolin Hfa 2 puff INHALATION RT-Q4H PRN 12/26/15 09/25/16 History Inhaler] Aspirin EC [Ecotrin Low Dose] 81 mg PO DAILY 12/26/15 09/25/16 History Gabapentin [Neurontin] 1,200 mg PO TID 12/26/15 09/25/16 History Montelukast [Singulair] 10 mg PO HS 12/26/15 09/25/16 History Nitroglycerin Sl Tabs [Nitrostat] 0.4 mg SUBLINGUAL Q5M PRN 12/26/15 09/25/16 History Prazosin HCl [Minipress] 6 mg PO HS 02/10/16 09/25/16 History Calcium Carbonate [Calcium] 600 mg PO TID 04/30/16 09/25/16 History DULoxetine HCL [Cymbalta] 60 mg PO BID 04/30/16 09/25/16 History Lisinopril [Prinivil] 10 mg PO QAM 04/30/16 09/25/16 History Simvastatin [Zocor] 10 mg PO HS 06/02/16 09/25/16 History Fluticasone/Salmeterol [Advair 2 puff INHALATION RT-BID 09/01/16 09/25/16 History 250-50 Diskus] Omeprazole [PriLOSEC] 20 mg PO AC-BRKFST 09/01/16 09/25/16 History Sertraline HCl [Zoloft] 50 mg PO QAM 09/09/16 09/25/16 History Etodolac [Lodine] 400 mg PO BID 09/16/16 09/25/16 History Famotidine [Pepcid] 60 mg PO BID 09/16/16 09/25/16 History Ferrous Gluconate 240 mg PO QAM 09/16/16 09/25/16 History traZODone HCL [Desyrel] 100 mg PO HS 09/16/16 09/25/16 History Hydrocodone/Acetaminophen [Rochester 1 tab PO TID 09/25/16 09/25/16 History 7.5-325] Levothyroxine Sodium [Synthroid] 50 mcg PO DAILY 09/25/16 09/25/16 History Ondansetron [Zofran] 4 mg PO Q8H PRN 09/25/16 09/25/16 History Allergies Allergy/AdvReac Type Severity Reaction Status Date / Time amoxicillin Allergy Unknown Verified 09/25/16 15:20 baclofen Allergy Rash/Hives Verified 09/25/16 15:20 morphine Allergy Itching Verified 09/25/16 15:20 Penicillins Allergy Unknown Verified 09/25/16 15:20 prochlorperazine Allergy Racing Verified 09/25/16 15:20 [From Compazine] Heart prochlorperazine edisylate Allergy Racing Verified 09/25/16 15:20 [From Compazine] Heart prochlorperazine maleate Allergy Racing Verified 09/25/16 15:20 [From Compazine] Heart tetracycline Allergy Unknown Verified 09/25/16 15:20 SILK TAPE Allergy Unknown Uncoded 09/25/16 15:20 Physical Exam Vitals: Vital Signs Temp Pulse Pulse Resp BP Pulse Ox 09/28/16 20:17 86 09/28/16 20:01 86 09/28/16 20:00 86 09/28/16 19:48 86 09/28/16 16:14 84 09/28/16 16:00 84 09/28/16 15:00 99.0 F 92 16 149/83 96 09/28/16 11:21 82 09/28/16 11:09 82 09/28/16 07:39 88 09/28/16 07:26 84 09/28/16 07:25 84 09/28/16 07:17 80 97 09/28/16 07:00 97.4 F L 86 16 120/64 97 09/27/16 23:55 98.1 F 99 20 126/67 97 Intake and Output 09/28/16 09/28/16 09/28/16 06:59 14:59 22:59 Intake Total 100 1250 Output Total 400 Balance 100 850 Intake: Oral 100 1250 Output: Urine 400 Other: # Voids 0 2 # Bowel Movements 0 Physical Examinations : 1-Constitutional : Cooperative , not in acute distress . 2-HEENT : nech ; supple , no Lymphadenopathy , no Thyromegaly , eyes , no icterus, no photophobia . ENT : , normal oropharynx , no Thrush 3- Respiratory : Diminished breath sounds Bilaterally , no wheezing . 4- Cardiovascular : regular rate and rhythem , S1 , S2 , no S3 , no S4. 5- Gastrointestinal: abdomen soft no tenderness , no organomegally . 6- Genitourinary : Defferred . 7-Integumentary : No cellulitis , no ulcers , normal skin turgor , no cyanotic . 8- neurologic : Cranial nerve II to XII intact , no focal neurological deffecit 9-psychatric : alert , oriented X 3 , appropriate affect , intact judgment and insight . 10-Lymphatic : no Lymphadenopathy. 11- musculoskeltal: exams of the Lumber spine = moter stegnth lower extremities , thigh and legs 4/5 Right side , 4/5 Left side deep tendon reflexes : normal Knee Jerk , normal ankle Jerk positive lumber facet Loading Test Range of motion of the lumbar spine Flexion 30 degrees, extension 10 degrees strait leg raising test , positive at 30 degree Fabere test positive RT and positive LT . Results CBC & Chem 7: 09/28/16 08:24 09/28/16 08:24 Labs: Abnormal Lab Results - Last 24 Hours (Table) 09/27/16 09/28/16 09/28/16 Range/Units 21:11 07:19 08:24 Hgb 10.8 L (11.4-16.0) gm/dL MCHC 29.4 L (31.0-37.0) g/dL RDW 16.6 H (11.5-15.5) % Lymphocytes # 0.5 L (1.0-4.8) k/uL Creatinine (0.52-1.04) mg/dL Glucose (74-99) mg/dL POC Glucose (mg/dL) 115 H 112 H (75-99) mg/dL 09/28/16 09/28/16 09/28/16 Range/Units 08:24 12:01 17:03 Hgb (11.4-16.0) gm/dL MCHC (31.0-37.0) g/dL RDW (11.5-15.5) % Lymphocytes # (1.0-4.8) k/uL Creatinine 0.44 L (0.52-1.04) mg/dL Glucose 139 H (74-99) mg/dL POC Glucose (mg/dL) 71 L 148 H (75-99) mg/dL Assessment and Plan Plan: Assessment and plan = - Chronic low back pain secondary to , lumbar spondylosis with facet arthropathy without myelopathy , failed back surgery syndrome lumbar area -chronic and current use of high-risk medication (Opioids). -Recommend continue OxyContin 20 mg twice a day, start patient on Dilaudid half a milligram every 2 hours when necessary for breakthrough pain, continue Neurontin 1200 mg 3 times a day, hold [place] 7.5/325 , and after the pain is controlled then we can restart Rochester Time with Patient: Less than 30
[2016-09-28] MEDS: ATORVASTATIN 10 MG TAB PO SCH (21:40)
[2016-09-28] MEDS: PRAZOSIN 1 MG CAP PO SCH (21:41)
[2016-09-28] MEDS: MONTELUKAST 10 MG TAB PO SCH (21:42)
[2016-09-28] MEDS: QUEtiapine 50 MG TAB PO SCH (21:42)
[2016-09-28] MEDS: traZODone HCL 100 MG TAB PO SCH (21:43)
[2016-09-28 21:57] LABS: Glucose,Whole Blood 114 mg/dL (75-99)
--- NOTE | 2016-09-28 22:14 | PN ---
SUBJECTIVE/HOSPITAL COURSE: This is a 65-year-old lady that was admitted to the hospital with progressive worsening of her breathing. Patient apparently has a diagnosis of moderate persistent bronchial asthma and was admitted to the hospital multiple times with exacerbation of asthma. Patient was initially cared by Dr. Jaime. This time around patient, however, requested another physician hence I have taken over care today. Initially patient's chest x-ray does not reveal any acute pneumonic infiltrate. Patient was noted to be ( ) and hence was started on IV steroids and breathing treatments. Patient apparently has a long history of lower back pain and has chronic pain issues. Patient states that she is had some acute worsening of pain and hence was requesting some IV pain medications. Patient was evaluated by Dr. Hines today and is currently maintained on IV Dilaudid as needed. Patient states that she is slightly improved today, however, is not back to her baseline at this time. Denies having any fevers, chills, nausea, vomiting. OBJECTIVE DATA: Temperature 97.4, heart rate 88, respiratory rate 16, blood pressure 120/64, pulse oxygen is 97% on 3 liters supplemental oxygen. GENERAL APPEARANCE: Alert, oriented x3 in no distress. Neck is supple. No JVD. LUNGS: Good air movement. No wheezing or rhonchi appreciated. However, wheezing is reported on examinations by earlier physicians. HEART: Regular rate and rhythm. No murmurs appreciated. ABDOMEN: Soft, nontender, no organomegaly. NEUROLOGIC: No focal motor or sensory deficits appreciated. LABORATORY DATA: Hemoglobin 10.8, hematocrit 36.9, white count of 6, platelets 238, sodium 141, potassium 4.4, chloride 105, bicarb 20, BUN 14, creatinine 0.44. ASSESSMENT AND PLAN: 1. Acute hypoxic respiratory failure currently maintained on 3 liters supplemental oxygen secondary to an acute exacerbation of asthma. Underlying CO2 is suspected due to the patient being exposed to chemicals at times in the past. 2. History of coronary artery disease. 3. History of breast cancer. 4. Remote history of thromboembolism. 5. Degenerative arthritis and degenerative arthritis of the upper lumbar and lower thoracic spine. 6. History of cervical cancer is also reported. 7. Hypertension. 8. Hiatal hernia. PLAN: Continue ongoing care with the current breathing treatments. The patient also maintained on steroids. The patient is evaluated by pain specialist. Will defer management of lower back pain that is chronic and may be mild acute component to Dr. Hines. Patient will likely be discharged in the next 24 to 48 hours. Patient should be evaluated by a neurosurgeon. However, discussed with her comorbidities and no clinical signs of radiculopathy that may be detrimental to treating her pain. We will defer to patient's outpatient visit to a neurosurgeon. Continue DVT prophylaxis. Will follow.
[2016-09-28] MEDS: LORazepam 2 MG/ML SYRINGE IV PRN (22:38)
[2016-09-29] MEDS: HYDROmorphone 1 MG/ML 1 ML SYRINGE IVP PRN ×10 (00:19→22:46)
[2016-09-29] MEDS: methylPREDNISolone SOD SUCCI 125 MG/2 ML VIAL IV SCH ×5 (00:51→23:37)
[2016-09-29] MEDS: oxyCODONE ER 20 MG TAB.ER.12H PO SCH ×2 (06:20→17:21)
[2016-09-29] MEDS: LEVOTHYROXINE 50 MCG TAB PO SCH (06:21)
[2016-09-29 07:00] LABS: Glucose,Whole Blood 126 mg/dL (75-99)
[2016-09-29] MEDS: INSULIN LISPRO (humaLOG) 300 UNIT/3 ML VIAL SQ SCH ×4 (08:02→21:35)
[2016-09-29 08:05] LABS: Anisocytosis Slight; Basophils % (A) 0 %; CH 26.4; CHCM 30.2; Eosinophils % (A) 0 %; HCT 36.8 % (34.0-46.0); HDW 2.55; HGB 11.2 gm/dL (11.4-16.0); Hypochromasia Marked; Luc # (Auto) 0.06; Luc % (Auto) 1; Lymphocytes # (A) 0.3 k/uL (1.0-4.8); Lymphocytes % (A) 6 %; MCH 26.7 pg (25.0-35.0); MCHC 30.4 g/dL (31.0-37.0); MCV 87.6 fL (80.0-100.0); Mean Platelet Volume 6.6; Monocytes # (A) 0.3 k/uL (0-1.0); Monocytes % (A) 5 %; Neutrophils # (A) 4.6 k/uL (1.3-7.7); Neutrophils % (A) 88 %; RDW 16.2 % (11.5-15.5); WBC 5.2 k/uL (3.8-10.6); WBC (Perox) 5.65
[2016-09-29] MEDS: ASPIRIN 81 MG CHEW PO SCH (08:21)
[2016-09-29] MEDS: CALCIUM CARBONATE 500 MG CHEWABLE PO SCH ×3 (08:22→22:45)
[2016-09-29] MEDS: FAMOTIDINE 20 MG TAB PO SCH ×2 (08:22→20:34)
[2016-09-29] MEDS: PANTOPRAZOLE 40 MG TABLET PO SCH (08:23)
[2016-09-29] MEDS: FERROUS SULFATE 325 MG TAB PO SCH (08:23)
[2016-09-29] MEDS: ETODOLAC 400 MG TAB PO SCH ×2 (08:23→20:34)
[2016-09-29] MEDS: GABAPENTIN 400 MG CAP PO SCH ×3 (08:23→22:46)
[2016-09-29] MEDS: DOCUSATE 100 MG CAP PO SCH (08:24)
[2016-09-29] MEDS: DULoxetine HCL 60 MG CAPSULE.DR PO SCH ×2 (08:24→20:35)
[2016-09-29] MEDS: LISINOPRIL 10 MG TAB PO SCH (08:25)
[2016-09-29] MEDS: HEPARIN SODIUM,PORCINE 5,000 UNIT/ML 1 ML VIAL SQ SCH ×2 (08:25→20:35)
[2016-09-29] MEDS: SERTRALINE 50 MG TAB PO SCH (08:26)
[2016-09-29] MEDS: BUDESONIDE 0.5 MG/2 ML NEBU INHALATION SCH ×2 (08:33→21:17)
[2016-09-29] MEDS: FORMOTEROL FUMARATE 20 MCG/2 ML NEBU INHALATION SCH ×2 (08:33→21:17)
[2016-09-29] MEDS: LEVALBUTEROL NEB (CONC) 1.25 MG/0.5 ML AMP INHALATION SCH ×4 (08:34→21:18)
[2016-09-29] MEDS: IPRATROPIUM 0.5 MG/2.5 ML NEBU INHALATION SCH ×4 (08:34→21:18)
[2016-09-29 08:44] LABS: Anion Gap 10 mmol/L; Blood Urea Nitrogen 17 mg/dL (7-17); Calcium 9.2 mg/dL (8.4-10.2); Carbon Dioxide 27 mmol/L (22-30); Chloride 104 mmol/L (98-107); Glucose 122 mg/dL (74-99); Non-African American GFR(MDRD) >60 (>60 ml/min/1.73 sqM); Potassium 4.3 mmol/L (3.5-5.1); Sodium 141 mmol/L (137-145)
[2016-09-29 11:59] LABS: Glucose,Whole Blood 85 mg/dL (75-99)
--- NOTE | 2016-09-29 16:06 | P.PN ---
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 This patient has moderate persistent bronchial asthma and she has been maintained on a combination of Advair 250/50 one puff twice a day and Singulair on an outpatient basis. She claims to have a nebulizer however she does not have the medication to use through the nebulizer. She was doing well and she started having worsening shortness of breath around August 2016. She was hospitalized around [facility] and after being admitted in the hospital for a total of 3 days she got released the day before on a short course of prednisone burst taper which included 20 mg of prednisone that was given to her for only 3 days. She took the treatment and she felt her breathing did not improve completely. She was having progressive tightness and wheezing and increased shortness of breath and this led the patient coming back to the hospital. The chest x-ray was repeated in the hospital and was found to have a small hiatal hernia and her lungs were hyperinflated and this raised the suspicion for COPD. Nevertheless, this patient was never exposed to any form of respiratory irritants or chemicals in the past. She has lived all her life and [facility] and she claims to have lived very close to a [employer] and she could have been exposed to various chemicals over the years. She has multiple other medical problems and comorbidities as listed in my note including coronary artery disease and previous history of breast cancer. In general, the patient tells that her asthma was under fair control. She has not required to take steroids frequently. She has not had multiple hospitalizations or emergency department visits because of breathing. She is not on any oxygen. He has a remote history of a clot in the left lower extremity and she is not on any anticoagulation. She is seen again today 09/29/2016 in follow-up. She is better today as compared to yesterday. She is less dyspneic on minimal exertion. Her CAT scan did not reveal any COPD or emphysema. She is mostly being treated for an acute exacerbation of chronic asthma. He is noted to have a large hiatal hernia and some of this may be from reflux. No evidence of pneumonia. He is maintaining good O2 saturations in the high 90s on 2 L/m per nasal cannula. She is afebrile. No leukocytosis. Objective - Vital Signs Vital signs: Vital Signs Temp 98.0 F 01/11/17 15:00 Pulse 84 09/29/16 15:51 Resp 20 09/29/16 15:00 BP 126/83 09/29/16 15:00 Pulse Ox 99 09/29/16 15:00 Intake & Output 09/28/16 09/29/16 09/29/16 18:59 06:59 18:59 Intake Total 1250 Output Total 400 4 Balance 850 -4 Intake: Oral 1250 Output: Urine 400 4 Other: Voiding Method Bedside Commode # Voids 2 3 # Bowel Movements 1 1 - Exam GENERAL EXAM: Alert, active, comfortable in no apparent distress. HEAD: Normocephalic. EYES: Normal reaction of pupils, equal size. NOSE: Clear with pink turbinates. THROAT: No erythema or exudates. NECK: No masses, no JVD. CHEST: No chest wall deformity. LUNGS: Equal air entry with no crackles, wheeze, rhonchi or dullness. CVS: S1 and S2 normal with no audible murmurs, regular rhythm. ABDOMEN: No hepatosplenomegaly, normal bowel sounds, no guarding or rigidity. SPINE: No scoliosis or deformity SKIN: No rashes CENTRAL NERVOUS SYSTEM: No focal deficits, tone is normal in all 4 extremities. Extremities: There is no significant peripheral edema. No clubbing, no cyanosis. Peripheral pulses are intact. - Labs CBC & Chem 7: 09/29/16 07:26 09/29/16 07:26 Labs: Abnormal Lab Results - Last 24 Hours (Table) 09/28/16 09/28/16 09/29/16 Range/Units 17:03 21:55 06:58 Hgb (11.4-16.0) gm/dL MCHC (31.0-37.0) g/dL RDW (11.5-15.5) % Lymphocytes # (1.0-4.8) k/uL Creatinine (0.52-1.04) mg/dL Glucose (74-99) mg/dL POC Glucose (mg/dL) 148 H 114 H 126 H (75-99) mg/dL 09/29/16 09/29/16 Range/Units 07:26 07:26 Hgb 11.2 L (11.4-16.0) gm/dL MCHC 30.4 L (31.0-37.0) g/dL RDW 16.2 H (11.5-15.5) % Lymphocytes # 0.3 L (1.0-4.8) k/uL Creatinine 0.36 L (0.52-1.04) mg/dL Glucose 122 H (74-99) mg/dL POC Glucose (mg/dL) (75-99) mg/dL Assessment and Plan Plan: Impression: #1 shortness of breath secondary to asthma exacerbation. This patient is hospitalized twice over the past month for difficulties and asthma controlled. Rule out underlying COPD mainly due to exposure to respiratory irritants/ industrial chemicals over the years. The patient also has a hiatal hernia which could be another potential contributing factor for her recurrent asthma activity. A CAT scan of the chest will be needed to characterized these abnormalities further. #2 severe persistent bronchial asthma maintained on a combination of Advair and Singulair #3 coronary artery disease #4 breast cancer, history of #5 remote history of a left lower extremity DVT #6 degenerative arthritis of the recent back surgery #7 combination of malignancy including cervical cancer, uterine cancer and remote history of leukemia #8 hypertension #9 hiatal hernia Plan: The patient was seen and evaluated by Dr. Kemp. She is better today as compared to yesterday. Most likely be discharged home tomorrow. We'll continue with her current medications. We'll increase her activity as tolerated. We'll continue to follow make further recommendations based on her clinical status.
[2016-09-29 16:51] LABS: Glucose,Whole Blood 132 mg/dL (75-99)
[2016-09-29] MEDS: ONDANSETRON 4 MG/2 ML VIAL IVP PRN (17:20)
[2016-09-29] MEDS: PRAZOSIN 1 MG CAP PO SCH (20:34)
[2016-09-29] MEDS: MONTELUKAST 10 MG TAB PO SCH (20:34)
[2016-09-29] MEDS: ATORVASTATIN 10 MG TAB PO SCH (20:35)
[2016-09-29 20:51] LABS: Glucose,Whole Blood 129 mg/dL (75-99)
--- NOTE | 2016-09-29 21:38 | PN ---
SUBJECTIVE DATA: This is a 65-year-old lady; I have taken over her care from Dr. Jaime. Patient was admitted for moderate persistent bronchial asthma with an acute exacerbation. Patient was started on IV steroids and breathing treatments. Patient apparently has some chronic lower back problems with some degenerative disc disease. Patient apparently was having worsening pain along her lower thoracic spine. We did discuss it could be pleuritic in nature. Patient was on IV pain medications and apparently the patient requests IV pain medications on every hospitalization. Patient was seen by Dr. Ohara, who is our pain specialist, and he changed ( ) some medications. Patient is currently happy with her pain control. States that she has a cough productive of yellowish sputum. Denies having any fevers, chills, nausea, vomiting at this time. OBJECTIVE DATA: VITALS: Temperature is 98 degrees. Heart rate is 96, respiratory rate 20, blood pressure 126/83. Saturating 99% on 2 L supplemental oxygen. GENERAL APPEARANCE: Alert, oriented x3. No distress. LUNGS: Good air movement. Trace expiratory wheeze appreciated today. HEART: Regular rate and rhythm. No murmurs appreciated. ABDOMEN: Soft, nontender. No organomegaly. Neurologically no focal motor or sensory deficit appreciated. PSYCHIATRIC: Calm. Denies any suicide ideation. ASSESSMENT AND PLAN: 1. Acute hypoxic respiratory failure secondary to an acute exacerbation of asthma with underlying chronic obstructive pulmonary disease that is suspected due to exposure to chemicals in the past. 2. History of coronary artery disease. 3. History of breast cancer. 4. Remote history of venous thromboembolism. 5. Degenerative disc disease of the spine. 6. History of cervical cancer. 7. Hypertension. 8. Hiatal hernia. PLAN: Patient is slightly improved. Continue current pain management. Will defer to Dr. Ohara for long-term management of her pain control. Continue with breathing treatments, steroids at this time. Patient will likely be discharged in the next 24 hours to continue oral steroid therapy and antibiotic therapy thereafter.
[2016-09-29] MEDS: traZODone HCL 100 MG TAB PO SCH (22:46)
[2016-09-29] MEDS: QUEtiapine 50 MG TAB PO SCH (22:46)
[2016-09-30] MEDS: HYDROmorphone 1 MG/ML 1 ML SYRINGE IVP PRN ×5 (01:13→13:18)
[2016-09-30] MEDS: oxyCODONE ER 20 MG TAB.ER.12H PO SCH (05:47)
[2016-09-30] MEDS: LEVOTHYROXINE 50 MCG TAB PO SCH (06:36)
[2016-09-30] MEDS: methylPREDNISolone SOD SUCCI 125 MG/2 ML VIAL IV SCH ×2 (06:37→13:16)
[2016-09-30 07:03] LABS: Glucose,Whole Blood 115 mg/dL (75-99)
[2016-09-30] MEDS: BUDESONIDE 0.5 MG/2 ML NEBU INHALATION SCH (07:39)
[2016-09-30] MEDS: FORMOTEROL FUMARATE 20 MCG/2 ML NEBU INHALATION SCH (07:39)
[2016-09-30] MEDS: DULoxetine HCL 60 MG CAPSULE.DR PO SCH (07:48)
[2016-09-30] MEDS: FAMOTIDINE 20 MG TAB PO SCH (07:48)
[2016-09-30] MEDS: SERTRALINE 50 MG TAB PO SCH (07:48)
[2016-09-30] MEDS: CALCIUM CARBONATE 500 MG CHEWABLE PO SCH (07:48)
[2016-09-30] MEDS: GABAPENTIN 400 MG CAP PO SCH (07:48)
[2016-09-30] MEDS: LISINOPRIL 10 MG TAB PO SCH (07:49)
[2016-09-30] MEDS: DOCUSATE 100 MG CAP PO SCH (07:49)
[2016-09-30] MEDS: PANTOPRAZOLE 40 MG TABLET PO SCH (07:49)
[2016-09-30] MEDS: ETODOLAC 400 MG TAB PO SCH (07:49)
[2016-09-30] MEDS: ASPIRIN 81 MG CHEW PO SCH (07:49)
[2016-09-30] MEDS: FERROUS SULFATE 325 MG TAB PO SCH (07:50)
[2016-09-30] MEDS: HEPARIN SODIUM,PORCINE 5,000 UNIT/ML 1 ML VIAL SQ SCH (07:50)
[2016-09-30] MEDS: IPRATROPIUM 0.5 MG/2.5 ML NEBU INHALATION SCH ×2 (07:51→11:26)
[2016-09-30] MEDS: LEVALBUTEROL NEB (CONC) 1.25 MG/0.5 ML AMP INHALATION SCH ×2 (07:51→11:26)
[2016-09-30] MEDS: INSULIN LISPRO (humaLOG) 300 UNIT/3 ML VIAL SQ SCH ×2 (07:51→13:16)
[2016-09-30 12:36] LABS: Glucose,Whole Blood 93 mg/dL (75-99)
[2016-09-30 14:42] VITALS: BP 142/82; PULSE 98; RESP 20; TEMP 98.8
--- NOTE | 2016-09-30 16:34 | P.DS ---
Providers Date of admission: 09/25/16 16:59 Expected date of discharge: 09/30/16 Attending physician: Kianna Brice Consults: 09/26/16 17:40 Consult Physician Routine Consulting Provider: Peyman Berman Consult Reason/Comments: copd Do you want consulting provider notified?: Yes 09/27/16 13:55 Consult Physician Routine Consulting Provider: Philip Ohara Consult Reason/Comments: pain management Do you want consulting provider notified?: Already Contacted Primary care physician: Ramon Riggs [facility] Course: #1 acute hypoxic respiratory failure secondary to an exacerbation of asthma This patient is hospitalized twice over the past month for difficulties and asthma controlled. Rule out underlying COPD mainly due to exposure to respiratory irritants/industrial chemicals over the years. The patient also has a hiatal hernia which could be another potential contributing factor for her recurrent asthma activity. A CAT scan of the chest will be needed to characterized these abnormalities further. #2 severe persistent bronchial asthma maintained on a combination of Advair and Singulair #3 coronary artery disease #4 breast cancer, history of #5 remote history of a left lower extremity DVT #6 degenerative arthritis of the recent back surgery #7 combination of malignancy including cervical cancer, uterine cancer and remote history of leukemia #8 hypertension #9 hiatal hernia This is a 65-year-old lady that was initially admitted to Dr. evans, then care was taken over by me as patient had some disagreement with her prior physician. Patient was admitted to the hospital difficulty in breathing was noted to have an acute exacerbation of asthma. Patient was given IV steroids and breathing treatments. Patient improved significantly. On the day of discharge patient had a mild cough however was able to a minute without difficulty. Patient was off oxygen at the same time. Patient initially was on 3 L supplement oxygen. Patient also complaining of some lower thoracic upper lumbar spine pain initially was attribute it to pleuritic kind of pain from the last exacerbation cough however patient stated that she is has a history of disc herniation the past and required IV pain medications. A pain specialist was consulted. Patient was given IV Dilaudid during the hospital physician. Patient is recommended to follow up with the the pain specialist on discharge. Patient will be given morphine XL 10 mg twice a day which patient retakes and Sun 10 mg/325 mg every 6 hours when necessary. Patient underwent to follow-up with Dr. Yudy Riggs in one week. Patient Condition at Discharge: Stable Plan - Discharge Summary New Discharge Prescriptions: Benzonatate [Tessalon Perles] 100 mg PO TID #20 cap Fluticasone/Salmeterol [Advair 250-50 Diskus] 2 puff INHALATION RT-BID #5 blst.w.dev HYDROcodone/APAP 10-325MG [Sun 10-325] 1 tab PO Q6H PRN #30 tab PRN Reason: Pain predniSONE [Deltasone] 20 mg PO DIRECTED #45 tablet Discharge Medication List Albuterol Inhaler [Ventolin Hfa Inhaler] 2 puff INHALATION RT-Q4H PRN 12/26/15 [ History] Aspirin EC [Ecotrin Low Dose] 81 mg PO DAILY 12/26/15 [History] Gabapentin [Neurontin] 1,200 mg PO TID 12/26/15 [History] Montelukast [Singulair] 10 mg PO HS 12/26/15 [History] Nitroglycerin Sl Tabs [Nitrostat] 0.4 mg SUBLINGUAL Q5M PRN 12/26/15 [History] Prazosin HCl [Minipress] 6 mg PO HS 02/10/16 [History] Calcium Carbonate [Calcium] 600 mg PO TID 04/30/16 [History] DULoxetine HCL [Cymbalta] 60 mg PO BID 04/30/16 [History] Lisinopril [Prinivil] 10 mg PO QAM 04/30/16 [History] Simvastatin [Zocor] 10 mg PO HS 06/02/16 [History] oxyCODONE HCL [OxyCONTIN] 20 mg PO Q12H #60 tab.er.12h 08/02/16 [Rx] Omeprazole [PriLOSEC] 20 mg PO AC-BRKFST 09/01/16 [History] QUEtiapine [SEROquel] 150 mg PO HS #30 tablet 09/03/16 [Rx] Sertraline HCl [Zoloft] 50 mg PO QAM 09/09/16 [History] Etodolac [Lodine] 400 mg PO BID 09/16/16 [History] Famotidine [Pepcid] 60 mg PO BID 09/16/16 [History] Ferrous Gluconate 240 mg PO QAM 09/16/16 [History] traZODone HCL [Desyrel] 100 mg PO HS 09/16/16 [History] Levothyroxine Sodium [Synthroid] 50 mcg PO DAILY 09/25/16 [History] Ondansetron [Zofran] 4 mg PO Q8H PRN 09/25/16 [History] Benzonatate [Tessalon Perles] 100 mg PO TID #20 cap 09/30/16 [Rx] Docusate [Colace] 100 mg PO DAILY cap 09/30/16 [Rx] Fluticasone/Salmeterol [Advair 250-50 Diskus] 2 puff INHALATION RT-BID #5 blst.w.dev 09/30/16 [Rx] HYDROcodone/APAP 10-325MG [Sun 10-325] 1 tab PO Q6H PRN #30 tab 09/30/16 [Rx] predniSONE [Deltasone] 20 mg PO DIRECTED #45 tablet 09/30/16 [Rx] Follow up Appointment(s)/Referral(s): Philip Ohara MD [STAFF PHYSICIAN] - 1 Week (Pt will schedule her own appointment) Ramon Riggs DO [Primary Care Provider] - 1-2 days (Pt will schedule her own appointment. ) Patient Instructions/Handouts: COPD (Chronic Obstructive Pulmonary Disease) (DC ) Activity/Diet/Wound Care/Special Instructions: Home Care [facility] - [phone] Cardiac diet. Discharge Disposition: HOME WITH HOME HEALTH SERVICES
== END 2016-09-30 16:14 | disposition home health service (06) | DRG 202 ==
LOC: EC 15:00 → 4MS4W 16:59 → 6SEL 17:11 → 4MS4W 17:43
PROVIDERS: ADMIT Internal Medicine; ATTEND Internal Medicine
DX: J45.51 Severe persistent asthma with (acute) exacerbation (principal); J96.01 Acute respiratory failure with hypoxia; E46 Unspecified protein-calorie malnutrition; C95.90 Leukemia, unspecified not having achieved remission; I48.91 Unspecified atrial fibrillation; J44.9 Chronic obstructive pulmonary disease, unspecified; M41.9 Scoliosis, unspecified; K21.9 Gastro-esophageal reflux disease without esophagitis; D63.8 Anemia in other chronic diseases classified elsewhere; E03.9 Hypothyroidism, unspecified; F32.9 Major depressive disorder, single episode, unspecified; I10 Essential (primary) hypertension; F41.9 Anxiety disorder, unspecified; I25.10 Atherosclerotic heart disease of native coronary artery without angina pectoris; K44.9 Diaphragmatic hernia without obstruction or gangrene; M19.91 Primary osteoarthritis, unspecified site; M21.371 Foot drop, right foot; M51.36 Other intervertebral disc degeneration, lumbar region; Z96.659 Presence of unspecified artificial knee joint; M79.7 Fibromyalgia; I25.2 Old myocardial infarction; Z79.51 Long term (current) use of inhaled steroids; Z85.3 Personal history of malignant neoplasm of breast; Z85.41 Personal history of malignant neoplasm of cervix uteri; Z85.42 Personal history of malignant neoplasm of other parts of uterus; Z86.718 Personal history of other venous thrombosis and embolism; Z95.5 Presence of coronary angioplasty implant and graft; Z79.899 Other long term (current) drug therapy; Z88.1 Allergy status to other antibiotic agents; Z88.5 Allergy status to narcotic agent; Z88.0 Allergy status to penicillin; Z57.5 Occupational exposure to toxic agents in other industries
CPT/HCPCS: 36415; 71020; 71260; 80048; 80053; 82550; 82553; 83036; 83735; 83880; 84484; 85025; 85610; 85730; 87040; 93005; 94640; 94760; 96374; 96375; 99291

== ENCOUNTER 2016-10-04 10:23 | Emergency (ER) | payer MEDICARE ==
[2016-10-04 11:15] LABS: Anisocytosis Slight; Basophils % (A) 0 %; CHCM 31.3; Eosinophils % (A) 0 %; HCT 37.6 % (34.0-46.0); HDW 2.54; HGB 11.4 gm/dL (11.4-16.0); Hypochromasia Slight; Luc # (Auto) 0.04; Luc % (Auto) 1; Lymphocytes # (A) 0.3 k/uL (1.0-4.8); Lymphocytes % (A) 3 %; MCH 26.3 pg (25.0-35.0); MCHC 30.4 g/dL (31.0-37.0); MCV 86.6 fL (80.0-100.0); Mean Platelet Volume 7.2; Monocytes # (A) 0.2 k/uL (0-1.0); Monocytes % (A) 2 %; Neutrophils # (A) 8.3 k/uL (1.3-7.7); Neutrophils % (A) 94 %; RBC 4.34 m/uL (3.80-5.40); RDW 16.7 % (11.5-15.5); WBC 8.8 k/uL (3.8-10.6); WBC (Perox) 9.04
[2016-10-04] MEDS ORDERED: LORazepam 2 MG/ML SYRINGE IV STA (11:22)
[2016-10-04] MEDS ORDERED: HYDROmorphone 1 MG/ML 1 ML SYRINGE IVP STA (11:22)
--- NOTE | 2016-10-04 11:30 | ED ---
General Adult HPI - General Chief complaint: Recheck/Abnormal Lab/Rx Stated complaint: Anxiety Time Seen by Provider: 10/04/16 10:43 Source: patient, EMS, RN notes reviewed Mode of arrival: EMS Limitations: no limitations - History of Present Illness Initial comments: This patient is a 65-year-old woman who comes in by EMS to be evaluated for which she is calling involuntary movements. The patient states that this is come on over the course of the last evening and this morning. She phoned her primary physician and was directed to come in here. She had started taking Zoloft about 3 weeks ago. Of note the patient is also complaining of feeling anxious and having nausea and vomiting. She has run out of her OxyContin about 3 days ago. She is also complaining of pain everywhere. -: hour(s) Associated Symptoms: nausea/vomiting Treatments Prior to Arrival: none - Related Data Home Medications Medication Instructions Recorded Confirmed Albuterol Inhaler [Ventolin Hfa 2 puff INHALATION RT-Q4H PRN 12/26/15 10/04/16 Inhaler] Aspirin EC [Ecotrin Low Dose] 81 mg PO DAILY 12/26/15 10/04/16 Gabapentin [Neurontin] 1,200 mg PO TID 12/26/15 10/04/16 Montelukast [Singulair] 10 mg PO HS 12/26/15 10/04/16 Nitroglycerin Sl Tabs [Nitrostat] 0.4 mg SUBLINGUAL Q5M PRN 12/26/15 10/04/16 Prazosin HCl [Minipress] 6 mg PO HS 02/10/16 10/04/16 Calcium Carbonate [Calcium] 600 mg PO TID 04/30/16 10/04/16 DULoxetine HCL [Cymbalta] 60 mg PO BID 04/30/16 10/04/16 Lisinopril [Prinivil] 10 mg PO QAM 04/30/16 10/04/16 Simvastatin [Zocor] 10 mg PO HS 06/02/16 10/04/16 Omeprazole [PriLOSEC] 20 mg PO AC-BRKFST 09/01/16 10/04/16 Sertraline HCl [Zoloft] 50 mg PO QAM 09/09/16 10/04/16 Etodolac [Lodine] 400 mg PO BID 09/16/16 10/04/16 Famotidine [Pepcid] 60 mg PO BID 09/16/16 10/04/16 Ferrous Gluconate 240 mg PO QAM 09/16/16 10/04/16 traZODone HCL [Desyrel] 100 mg PO HS 09/16/16 10/04/16 Levothyroxine Sodium [Synthroid] 50 mcg PO DAILY 09/25/16 10/04/16 Ondansetron [Zofran] 4 mg PO Q8H PRN 09/25/16 10/04/16 predniSONE [Deltasone] See Taper PO DAILY 10/04/16 10/04/16 Previous Rx's Medication Instructions Recorded oxyCODONE HCL [OxyCONTIN] 20 mg PO Q12H #60 tab.er.12h 08/02/16 QUEtiapine [SEROquel] 150 mg PO HS #30 tablet 09/03/16 Benzonatate [Tessalon Perles] 100 mg PO TID #20 cap 09/30/16 Docusate [Colace] 100 mg PO DAILY cap 09/30/16 Fluticasone/Salmeterol [Advair 2 puff INHALATION RT-BID #5 09/30/16 250-50 Diskus] blst.w.dev HYDROcodone/APAP 10-325MG [Green 1 tab PO Q6H PRN #30 tab 09/30/16 10-325] Allergies Allergy/AdvReac Type Severity Reaction Status Date / Time amoxicillin Allergy Unknown Verified 10/04/16 10:26 baclofen Allergy Rash/Hives Verified 10/04/16 10:26 morphine Allergy Itching Verified 10/04/16 10:26 Penicillins Allergy Unknown Verified 10/04/16 10:26 prochlorperazine Allergy Racing Verified 10/04/16 10:26 [From Compazine] Heart prochlorperazine edisylate Allergy Racing Verified 10/04/16 10:26 [From Compazine] Heart prochlorperazine maleate Allergy Racing Verified 10/04/16 10:26 [From Compazine] Heart tetracycline Allergy Unknown Verified 10/04/16 10:26 SILK TAPE Allergy Unknown Uncoded 10/04/16 10:26 Review of Systems ROS Statement: Those systems with pertinent positive or pertinent negative responses have been documented in the HPI. ROS Other: All systems not noted in ROS Statement are negative. Constitutional: Reports: chills. Denies: fever, weakness Eyes: Denies: vision change Respiratory: Denies: cough, dyspnea Cardiovascular: Denies: chest pain, palpitations, syncope Gastrointestinal: Reports: nausea, vomiting, diarrhea. Denies: abdominal pain, constipation, melena, hematochezia Genitourinary: Denies: dysuria, hematuria Musculoskeletal: Denies: back pain Skin: Denies: rash Neurological: Denies: headache, weakness, numbness Past Medical History Past Medical History: Atrial Fibrillation, Asthma, COPD, Deep Vein Thrombosis ( DVT), Fibromyalgia, GERD/Reflux, Hypertension, Myocardial Infarction (non Q-wave ), Osteoarthritis (OA), Thyroid Disorder Additional Past Medical History / Comment(s): uterine cancer,CERVICAL CANCER, LEUKEMIA, RT BREAST CANCER, dvt in left calf, heart murmer, scoliosis, right foot drop, anemia, UTI'S,INCONT OF URINE WEARS A PAD, UTI(ECOLI 9-26-16), HEMORRHOIDS, RECTAL PROLAPSE Last Myocardial Infarction Date:: 2006 History of Any Multi-Drug Resistant Organisms: C-DIFF Date of last positivie culture/infection: 2007 MDRO Source:: stool Past Surgical History: Breast Surgery, Cholecystectomy, Heart Catheterization With Stent, Hysterectomy, Tonsillectomy Additional Past Surgical History / Comment(s): Lumpectomy right side from breast cancer, back surgery x7, ortho sx-recent Fx C5-pain in neck, 02/19/2016 revision S2-Thoracic/lumbar area, bilat. cataracts removed 2014, SX FOR PROLAPSED RECTUM APPROX MONTH AGO AT [facility]. Past Anesthesia/Blood Transfusion Reactions: No Reported Reaction Date of Last Stent Placement:: 2006 Past Psychological History: Anxiety, Depression Additional Psychological History / Comment(s): Very apparent anxiety Smoking Status: Never smoker Past Alcohol Use History: None Reported Past Drug Use History: None Reported - Past Family History Father Family Medical History: Cancer Additional Family Medical History / Comment(s): skin cancer. Mother Family Medical History: Cancer Additional Family Medical History / Comment(s): uterine cancer. Daughter(s) Family Medical History: Cancer, Thyroid Disorder Additional Family Medical History / Comment(s): Thyroid CA removed General Exam Limitations: no limitations General appearance: alert Head exam: Present: atraumatic, normocephalic Eye exam: Present: normal appearance. Absent: scleral icterus, conjunctival injection ENT exam: Present: mucous membranes dry Neck exam: Present: normal inspection, full ROM Respiratory exam: Present: normal lung sounds bilaterally. Absent: respiratory distress, wheezes, rales, rhonchi, stridor Cardiovascular Exam: Present: regular rate, normal rhythm, normal heart sounds. Absent: systolic murmur, diastolic murmur, rubs, gallop GI/Abdominal exam: Present: soft. Absent: distended, tenderness, guarding, rebound, mass Extremities exam: Present: normal inspection, normal capillary refill. Absent: pedal edema, calf tenderness Back exam: Present: normal inspection. Absent: CVA tenderness (R), CVA tenderness (L) Neurological exam: Present: alert, oriented X3. Absent: motor sensory deficit Psychiatric exam: Present: agitated Skin exam: Present: warm, intact, normal color, diaphoretic. Absent: rash Course Vital Signs 10/04/16 10/04/16 10:23 14:34 Temperature 100.7 F H 98.7 F Pulse Rate 87 100 Respiratory 20 18 Rate Blood Pressure 151/77 149/72 O2 Sat by Pulse 96 98 Oximetry Medical Decision Making - Medical Decision Making Patient is a 65-year-old woman who presents with complaint of nausea and vomiting, feeling like she needs to move involuntarily. Her symptoms have improved markedly from arrival after receiving narcotic analgesia. Based on the timeline and her presentation, it seems to be the most of her symptoms are related to narcotic withdrawal, though given the possibility of serotonergic symptoms, patient advised to stop taking the Zoloft. Appropriate further care and follow-up discussed and the patient will return if any of the symptoms recur or if she develops any new symptoms. She is otherwise going to follow up with her physician, to have renewal of her pain regimen. She was given dose of long-acting relief of in the form of methadone. - Lab Data Result diagrams: 10/04/16 10:50 10/04/16 10:50 Lab Results 10/04/16 10/04/16 10/04/16 Range/Units 10:50 10:50 10:50 WBC 8.8 (3.8-10.6) k/uL RBC 4.34 (3.80-5.40) m/uL Hgb 11.4 (11.4-16.0) gm/dL Hct 37.6 (34.0-46.0) % MCV 86.6 (80.0-100.0) fL MCH 26.3 (25.0-35.0) pg MCHC 30.4 L (31.0-37.0) g/dL RDW 16.7 H (11.5-15.5) % Plt Count 259 (150-450) k/uL Neutrophils % 94 % Lymphocytes % 3 % Monocytes % 2 % Eosinophils % 0 % Basophils % 0 % Neutrophils # 8.3 H (1.3-7.7) k/uL Lymphocytes # 0.3 L (1.0-4.8) k/uL Monocytes # 0.2 (0-1.0) k/uL Eosinophils # 0.0 (0-0.7) k/uL Basophils # 0.0 (0-0.2) k/uL Hypochromasia Slight Anisocytosis Slight Sodium 135 L (137-145) mmol/L Potassium 5.4 H (3.5-5.1) mmol/L Chloride 102 (98-107) mmol/L Carbon Dioxide 24 (22-30) mmol/L Anion Gap 9 mmol/L BUN 12 (7-17) mg/dL Creatinine 0.44 L (0.52-1.04) mg/dL Est GFR (MDRD) Af Amer >60 (>60 ml/min/1.73 sqM) Est GFR (MDRD) Non-Af >60 (>60 ml/min/1.73 sqM) Glucose 119 H (74-99) mg/dL Calcium 8.6 (8.4-10.2) mg/dL Total Bilirubin 0.6 (0.2-1.3) mg/dL AST 37 H (14-36) U/L ALT 38 (9-52) U/L Alkaline Phosphatase 68 (38-126) U/L Total Creatine Kinase 25 L (30-135) U/L CK-MB (CK-2) 0.9 (0.0-2.4) ng/mL CK-MB (CK-2) Rel Index 3.6 Troponin I <0.012 (0.000-0.034) ng/mL Total Protein 6.2 L (6.3-8.2) g/dL Albumin 3.5 (3.5-5.0) g/dL Urine Color Urine Appearance (Clear) Urine pH (5.0-8.0) Ur Specific [place] (1.001-1.035) Urine Protein (Negative) Urine Glucose (UA) (Negative) Urine Ketones (Negative) Urine Blood (Negative) Urine Nitrate (Negative) Urine Bilirubin (Negative) Urine Urobilinogen (<2.0) mg/dL Ur Leukocyte Esterase (Negative) Serum Alcohol <10 mg/dL 10/04/16 Range/Units 12:14 WBC (3.8-10.6) k/uL RBC (3.80-5.40) m/uL Hgb (11.4-16.0) gm/dL Hct (34.0-46.0) % MCV (80.0-100.0) fL MCH (25.0-35.0) pg MCHC (31.0-37.0) g/dL RDW (11.5-15.5) % Plt Count (150-450) k/uL Neutrophils % % Lymphocytes % % Monocytes % % Eosinophils % % Basophils % % Neutrophils # (1.3-7.7) k/uL Lymphocytes # (1.0-4.8) k/uL Monocytes # (0-1.0) k/uL Eosinophils # (0-0.7) k/uL Basophils # (0-0.2) k/uL Hypochromasia Anisocytosis Sodium (137-145) mmol/L Potassium (3.5-5.1) mmol/L Chloride (98-107) mmol/L Carbon Dioxide (22-30) mmol/L Anion Gap mmol/L BUN (7-17) mg/dL Creatinine (0.52-1.04) mg/dL Est GFR (MDRD) Af Amer (>60 ml/min/1.73 sqM) Est GFR (MDRD) Non-Af (>60 ml/min/1.73 sqM) Glucose (74-99) mg/dL Calcium (8.4-10.2) mg/dL Total Bilirubin (0.2-1.3) mg/dL AST (14-36) U/L ALT (9-52) U/L Alkaline Phosphatase (38-126) U/L Total Creatine Kinase (30-135) U/L CK-MB (CK-2) (0.0-2.4) ng/mL CK-MB (CK-2) Rel Index Troponin I (0.000-0.034) ng/mL Total Protein (6.3-8.2) g/dL Albumin (3.5-5.0) g/dL Urine Color Light Yellow Urine Appearance Clear (Clear) Urine pH 7.0 (5.0-8.0) Ur Specific [place] 1.002 (1.001-1.035) Urine Protein Negative (Negative) Urine Glucose (UA) Negative (Negative) Urine Ketones Negative (Negative) Urine Blood Negative (Negative) Urine Nitrate Negative (Negative) Urine Bilirubin 1+ H (Negative) Urine Urobilinogen <2.0 (<2.0) mg/dL Ur Leukocyte Esterase Negative (Negative) Serum Alcohol mg/dL Disposition Clinical Impression: Withdrawal from opioids Disposition: HOME SELF-CARE Condition: Fair Instructions: Opioid Withdrawal (ED) Referrals: Ramon Riggs DO [Primary Care Provider] - 1-2 days
[2016-10-04 11:34] LABS: ALT 38 U/L (9-52); AST 37 U/L (14-36); Alcohol <10 mg/dL; Alkaline Phosphatase 68 U/L (38-126); Anion Gap 9 mmol/L; Blood Urea Nitrogen 12 mg/dL (7-17); Calcium 8.6 mg/dL (8.4-10.2); Carbon Dioxide 24 mmol/L (22-30); Chloride 102 mmol/L (98-107); Glucose 119 mg/dL (74-99); Non-African American GFR(MDRD) >60 (>60 ml/min/1.73 sqM); Sodium 135 mmol/L (137-145); Total Bilirubin 0.6 mg/dL (0.2-1.3); Total Protein 6.2 g/dL (6.3-8.2)
[2016-10-04] MEDS ORDERED: ONDANSETRON 4 MG/2 ML VIAL IVP STA (11:34)
[2016-10-04 11:42] LABS: Potassium 5.4 mmol/L (3.5-5.1)
[2016-10-04 12:14] LABS: Creatine Kinase 25 U/L (30-135)
[2016-10-04 12:27] LABS: Creatine Kinase MB 0.9 ng/mL (0.0-2.4); Troponin I <0.012 ng/mL (0.000-0.034)
[2016-10-04 12:28] LABS: Appearance,Urine Clear (Clear); Bilirubin,Urine 1+ (Negative); Glucose,Urine (UA) Negative (Negative); Ketones,Urine Negative (Negative); Leukocyte Esterase,Urine Negative (Negative); Nitrite,Urine Negative (Negative); Protein,Urine Negative (Negative); Specific Gravity,Urine 1.002 (1.001-1.035); UA Billing (MACRO vs. MICRO) CHEM; Urobilinogen,Urine <2.0 mg/dL (<2.0)
[2016-10-04] MEDS ORDERED: METHADONE 5 MG TAB PO STA (12:50)
[2016-10-04] MEDS ORDERED: METHADONE 10 MG TAB PO STA (12:56)
[2016-10-04 14:36] VITALS: BP 149/72; PULSE 100; RESP 18; TEMP 98.7
== END 2016-10-04 14:36 | disposition home or self-care (01) ==
LOC: EC 10:23
DX: F11.23 Opioid dependence with withdrawal (principal); I10 Essential (primary) hypertension; M79.7 Fibromyalgia; K21.9 Gastro-esophageal reflux disease without esophagitis; J44.9 Chronic obstructive pulmonary disease, unspecified; J45.909 Unspecified asthma, uncomplicated; M19.90 Unspecified osteoarthritis, unspecified site; Z88.8 Allergy status to other drugs, medicaments and biological substances; F41.9 Anxiety disorder, unspecified; F32.9 Major depressive disorder, single episode, unspecified; Z79.82 Long term (current) use of aspirin; Z79.1 Long term (current) use of non-steroidal anti-inflammatories (NSAID); Z79.899 Other long term (current) drug therapy; Z88.0 Allergy status to penicillin; Z88.1 Allergy status to other antibiotic agents; Z88.5 Allergy status to narcotic agent
CPT/HCPCS: 36415; 80053; 82550; 82553; 84484; 85025; 81003; 80320; 99284; 96374; 96375 ×2; J2060; J2405; S0109; J1170

== ENCOUNTER 2016-10-07 15:06 | Emergency (ER) | payer MEDICARE ==
[2016-10-07] MEDS ORDERED: LORazepam 2 MG/ML SYRINGE IV STA (15:27)
[2016-10-07] MEDS ORDERED: IPRATROPIUM-ALBUTEROL 3 ML NEB INHALATION STA (15:27)
[2016-10-07 15:49] LABS: Anisocytosis Slight; Basophils % (A) 0 %; Eosinophils % (A) 0 %; HCT 36.6 % (34.0-46.0); HDW 2.54; Hypochromasia Slight; Luc # (Auto) 0.02; Luc % (Auto) 0; Lymphocytes # (A) 0.4 k/uL (1.0-4.8); Lymphocytes % (A) 5 %; MCH 26.2 pg (25.0-35.0); MCV 87.5 fL (80.0-100.0); Mean Platelet Volume 7.6; Monocytes # (A) 0.2 k/uL (0-1.0); Monocytes % (A) 3 %; Neutrophils # (A) 7.1 k/uL (1.3-7.7); Neutrophils % (A) 92 %; RBC 4.19 m/uL (3.80-5.40); WBC 7.8 k/uL (3.8-10.6); WBC (Perox) 8.06
--- NOTE | 2016-10-07 15:53 | ED ---
SOB HPI - General Chief Complaint: Shortness of Breath Stated Complaint: diff breathing Time Seen by Provider: 10/07/16 15:18 Source: patient, EMS, RN notes reviewed Mode of arrival: EMS Limitations: no limitations - History of Present Illness Initial Comments: 65-year-old female presents emergency Department with chief complaint of shortness breath. Patient states she started having shortness of breath 1 hour prior arrival. Patient states she just feels tight and feels that she's having problems with her COPD. Patient states she was discharged one week ago for her COPD. Patient states that she does not have any of her albuterol at home so she called EMS. Patient denies any chest pain. Patient denies fever, chills. Patient states that she occasionally has a cough which is nonproductive. Denies any runny nose. Patient denies any headache, dizziness, nausea, vomiting. Patient does state that she is very anxious and states that she usually requires Ativan - Related Data Home Medications Medication Instructions Recorded Confirmed Albuterol Inhaler [Ventolin Hfa 2 puff INHALATION RT-Q4H PRN 12/26/15 10/07/16 Inhaler] Aspirin EC [Ecotrin Low Dose] 81 mg PO DAILY 12/26/15 10/07/16 Gabapentin [Neurontin] 1,200 mg PO TID 12/26/15 10/07/16 Montelukast [Singulair] 10 mg PO HS 12/26/15 10/07/16 Nitroglycerin Sl Tabs [Nitrostat] 0.4 mg SUBLINGUAL Q5M PRN 12/26/15 10/07/16 Prazosin HCl [Minipress] 6 mg PO HS 02/10/16 10/07/16 Calcium Carbonate [Calcium] 600 mg PO TID 04/30/16 10/07/16 DULoxetine HCL [Cymbalta] 60 mg PO BID 04/30/16 10/07/16 Lisinopril [Prinivil] 10 mg PO QAM 04/30/16 10/07/16 Simvastatin [Zocor] 10 mg PO HS 06/02/16 10/07/16 Omeprazole [PriLOSEC] 20 mg PO AC-BRKFST 09/01/16 10/07/16 Sertraline HCl [Zoloft] 50 mg PO QAM 09/09/16 10/07/16 Etodolac [Lodine] 400 mg PO BID 09/16/16 10/07/16 Famotidine [Pepcid] 60 mg PO BID 09/16/16 10/07/16 Ferrous Gluconate 240 mg PO QAM 09/16/16 10/07/16 traZODone HCL [Desyrel] 100 mg PO HS 09/16/16 10/07/16 Levothyroxine Sodium [Synthroid] 50 mcg PO DAILY 09/25/16 10/07/16 Ondansetron [Zofran] 4 mg PO Q8H PRN 09/25/16 10/07/16 predniSONE [Deltasone] See Taper PO DAILY 10/04/16 10/07/16 Previous Rx's Medication Instructions Recorded oxyCODONE HCL [OxyCONTIN] 20 mg PO Q12H #60 tab.er.12h 08/02/16 QUEtiapine [SEROquel] 150 mg PO HS #30 tablet 09/03/16 Benzonatate [Tessalon Perles] 100 mg PO TID #20 cap 09/30/16 Docusate [Colace] 100 mg PO DAILY cap 09/30/16 Fluticasone/Salmeterol [Advair 2 puff INHALATION RT-BID #5 09/30/16 250-50 Diskus] blst.w.dev HYDROcodone/APAP 10-325MG [[place] 1 tab PO Q6H PRN #30 tab 09/30/16 10-325] Albuterol Nebulized [Ventolin 2.5 mg INHALATION Q4H PRN #25 nebu 10/07/16 Nebulized] Allergies Allergy/AdvReac Type Severity Reaction Status Date / Time amoxicillin Allergy Unknown Verified 10/07/16 15:38 baclofen Allergy Rash/Hives Verified 10/07/16 15:38 morphine Allergy Itching Verified 10/07/16 15:38 Penicillins Allergy Unknown Verified 10/07/16 15:38 prochlorperazine Allergy Racing Verified 10/07/16 15:38 [From Compazine] Heart prochlorperazine edisylate Allergy Racing Verified 10/07/16 15:38 [From Compazine] Heart prochlorperazine maleate Allergy Racing Verified 10/07/16 15:38 [From Compazine] Heart tetracycline Allergy Unknown Verified 10/07/16 15:38 SILK TAPE Allergy Unknown Uncoded 10/07/16 15:19 Review of Systems ROS Statement: Those systems with pertinent positive or pertinent negative responses have been documented in the HPI. ROS Other: All systems not noted in ROS Statement are negative. Past Medical History Past Medical History: Atrial Fibrillation, Asthma, COPD, Deep Vein Thrombosis ( DVT), Fibromyalgia, GERD/Reflux, Hypertension, Myocardial Infarction (non Q-wave ), Osteoarthritis (OA), Thyroid Disorder Additional Past Medical History / Comment(s): uterine cancer,CERVICAL CANCER, LEUKEMIA, RT BREAST CANCER, dvt in left calf, heart murmer, scoliosis, right foot drop, anemia, UTI'S,INCONT OF URINE WEARS A PAD, UTI(ECOLI 9-26-16), HEMORRHOIDS, RECTAL PROLAPSE Last Myocardial Infarction Date:: 2006 History of Any Multi-Drug Resistant Organisms: C-DIFF Date of last positivie culture/infection: 2007 MDRO Source:: stool Past Surgical History: Breast Surgery, Cholecystectomy, Heart Catheterization With Stent, Hysterectomy, Tonsillectomy Additional Past Surgical History / Comment(s): Lumpectomy right side from breast cancer, back surgery x7, ortho sx-recent Fx C5-pain in neck, 02/19/2016 revision S2-Thoracic/lumbar area, bilat. cataracts removed 2014, SX FOR PROLAPSED RECTUM APPROX MONTH AGO AT [facility]. Past Anesthesia/Blood Transfusion Reactions: No Reported Reaction Date of Last Stent Placement:: 2006 Past Psychological History: Anxiety, Depression Additional Psychological History / Comment(s): Very apparent anxiety Smoking Status: Never smoker Past Alcohol Use History: None Reported Past Drug Use History: None Reported - Past Family History Father Family Medical History: Cancer Additional Family Medical History / Comment(s): skin cancer. Mother Family Medical History: Cancer Additional Family Medical History / Comment(s): uterine cancer. Daughter(s) Family Medical History: Cancer, Thyroid Disorder Additional Family Medical History / Comment(s): Thyroid CA removed General Exam Limitations: no limitations General appearance: alert, in no apparent distress Head exam: Present: atraumatic, normocephalic, normal inspection Neck exam: Present: normal inspection. Absent: tenderness, meningismus, lymphadenopathy Respiratory exam: Present: normal lung sounds bilaterally. Absent: respiratory distress, wheezes, rales, rhonchi, stridor Cardiovascular Exam: Present: regular rate, normal rhythm, normal heart sounds. Absent: systolic murmur, diastolic murmur, rubs, gallop, clicks Psychiatric exam: Present: anxious Course Vital Signs 10/07/16 10/07/16 10/07/16 15:16 15:42 15:49 Temperature 99.4 F Pulse Rate 95 90 89 Respiratory 24 Rate Blood Pressure 155/79 O2 Sat by Pulse 97 Oximetry Medical Decision Making - Medical Decision Making 65-year-old female presented emergency department for shortness breath. Patient ran out of her albuterol treatment. Patient we discharged with this. Chest x-ray shows no acute abnormality. Patient is very anxious though she regular comes emergency Department with similar complaints. Patient was given Ativan. She is requesting Dilaudid repeatedly for her chronic pain though she was recently here for opiate withdrawal. Patient we discharged at this time. Patient is resting comfortably in the bed she has no wheezing no hypoxia and no retractions noted. - Lab Data Result diagrams: 10/07/16 15:27 10/07/16 15:27 Lab Results 10/07/16 10/07/16 10/07/16 Range/Units 15:27 15:27 15:27 WBC 7.8 (3.8-10.6) k/uL RBC 4.19 (3.80-5.40) m/uL Hgb 11.0 L (11.4-16.0) gm/dL Hct 36.6 (34.0-46.0) % MCV 87.5 (80.0-100.0) fL MCH 26.2 (25.0-35.0) pg MCHC 30.0 L (31.0-37.0) g/dL RDW 17.0 H (11.5-15.5) % Plt Count 285 (150-450) k/uL Neutrophils % 92 % Lymphocytes % 5 % Monocytes % 3 % Eosinophils % 0 % Basophils % 0 % Neutrophils # 7.1 (1.3-7.7) k/uL Lymphocytes # 0.4 L (1.0-4.8) k/uL Monocytes # 0.2 (0-1.0) k/uL Eosinophils # 0.0 (0-0.7) k/uL Basophils # 0.0 (0-0.2) k/uL Hypochromasia Slight Anisocytosis Slight PT (9.0-12.0) sec INR (<1.1) APTT (22.0-30.0) sec Sodium 140 (137-145) mmol/L Potassium 4.5 (3.5-5.1) mmol/L Chloride 106 (98-107) mmol/L Carbon Dioxide 26 (22-30) mmol/L Anion Gap 8 mmol/L BUN 11 (7-17) mg/dL Creatinine 0.54 (0.52-1.04) mg/dL Est GFR (MDRD) Af Amer >60 (>60 ml/min/1.73 sqM) Est GFR (MDRD) Non-Af >60 (>60 ml/min/1.73 sqM) Glucose 165 H (74-99) mg/dL Calcium 8.3 L (8.4-10.2) mg/dL Magnesium 2.2 (1.6-2.3) mg/dL Total Bilirubin 0.3 (0.2-1.3) mg/dL AST 17 (14-36) U/L ALT 29 (9-52) U/L Alkaline Phosphatase 101 (38-126) U/L Total Creatine Kinase 26 L (30-135) U/L CK-MB (CK-2) 0.8 (0.0-2.4) ng/mL CK-MB (CK-2) Rel Index 3.1 Troponin I <0.012 (0.000-0.034) ng/mL NT-Pro-B Natriuret Pep pg/mL Total Protein 5.6 L (6.3-8.2) g/dL Albumin 3.2 L (3.5-5.0) g/dL 10/07/16 10/07/16 Range/Units 15:27 15:27 WBC (3.8-10.6) k/uL RBC (3.80-5.40) m/uL Hgb (11.4-16.0) gm/dL Hct (34.0-46.0) % MCV (80.0-100.0) fL MCH (25.0-35.0) pg MCHC (31.0-37.0) g/dL RDW (11.5-15.5) % Plt Count (150-450) k/uL Neutrophils % % Lymphocytes % % Monocytes % % Eosinophils % % Basophils % % Neutrophils # (1.3-7.7) k/uL Lymphocytes # (1.0-4.8) k/uL Monocytes # (0-1.0) k/uL Eosinophils # (0-0.7) k/uL Basophils # (0-0.2) k/uL Hypochromasia Anisocytosis PT 9.8 (9.0-12.0) sec INR 1.0 (<1.1) APTT 21.0 L (22.0-30.0) sec Sodium (137-145) mmol/L Potassium (3.5-5.1) mmol/L Chloride (98-107) mmol/L Carbon Dioxide (22-30) mmol/L Anion Gap mmol/L BUN (7-17) mg/dL Creatinine (0.52-1.04) mg/dL Est GFR (MDRD) Af Amer (>60 ml/min/1.73 sqM) Est GFR (MDRD) Non-Af (>60 ml/min/1.73 sqM) Glucose (74-99) mg/dL Calcium (8.4-10.2) mg/dL Magnesium (1.6-2.3) mg/dL Total Bilirubin (0.2-1.3) mg/dL AST (14-36) U/L ALT (9-52) U/L Alkaline Phosphatase (38-126) U/L Total Creatine Kinase (30-135) U/L CK-MB (CK-2) (0.0-2.4) ng/mL CK-MB (CK-2) Rel Index Troponin I (0.000-0.034) ng/mL NT-Pro-B Natriuret Pep 491 pg/mL Total Protein (6.3-8.2) g/dL Albumin (3.5-5.0) g/dL 10/07/16 15:53 EKG performed at 15:29 sinus rhythm with PAC, rate 92 [place] interval 146 QRS duration 86 QT/QTC 358/442 Disposition Clinical Impression: COPD (chronic obstructive pulmonary disease), Anxiety Disposition: HOME SELF-CARE Condition: Stable Instructions: COPD (Chronic Obstructive Pulmonary Disease) (ED) Additional Instructions: Please return to the Emergency Department if symptoms worsen or any other concerns. Prescriptions: Albuterol Nebulized [Ventolin Nebulized] 2.5 mg INHALATION Q4H PRN #25 nebu PRN Reason: difficulty in breathing Time of Disposition: 16:51
[2016-10-07 16:02] LABS: ALT 29 U/L (9-52); AST 17 U/L (14-36); Alkaline Phosphatase 101 U/L (38-126); Anion Gap 8 mmol/L; Blood Urea Nitrogen 11 mg/dL (7-17); Calcium 8.3 mg/dL (8.4-10.2); Carbon Dioxide 26 mmol/L (22-30); Chloride 106 mmol/L (98-107); Glucose 165 mg/dL (74-99); Magnesium 2.2 mg/dL (1.6-2.3); Non-African American GFR(MDRD) >60 (>60 ml/min/1.73 sqM); Potassium 4.5 mmol/L (3.5-5.1); Sodium 140 mmol/L (137-145); Total Bilirubin 0.3 mg/dL (0.2-1.3); Total Protein 5.6 g/dL (6.3-8.2)
[2016-10-07 16:04] LABS: Prothrombin Time 9.8 sec (9.0-12.0)
--- NOTE | 2016-10-07 16:11 | XR ---
2 view chest x-ray HISTORY: Difficulty breathing 2 views of the chest correlated to prior dated 25 September 2016 Prominent lung volumes suggest COPD. Retrocardiac lucency and density compatible with hiatal hernia. Postop changes present in the thoracic lumbar junction. No pneumothorax or pleural effusion. Patient is rotated. Cardiac mediastinal silhouette, pulmonary vascularity and nica are stable. Surgical clips over the right chest as on prior exam, there are overlying cardiac leads. IMPRESSION: Postoperative changes, hiatal hernia, COPD, no acute cardiopulmonary disease is evident.
[2016-10-07 16:14] LABS: Creatine Kinase 26 U/L (30-135)
[2016-10-07 16:26] LABS: Creatine Kinase MB 0.8 ng/mL (0.0-2.4); Troponin I <0.012 ng/mL (0.000-0.034)
[2016-10-07] MEDS ORDERED: KETOROLAC 30 MG/ML 1 ML VIAL IVP STA (16:43)
[2016-10-07 17:04] VITALS: BP 125/82; PULSE 83; RESP 18; TEMP 99.8
== END 2016-10-07 17:16 | disposition home or self-care (01) ==
LOC: EC 15:06
DX: J44.9 Chronic obstructive pulmonary disease, unspecified (principal); F41.9 Anxiety disorder, unspecified; Z79.899 Other long term (current) drug therapy; Z79.82 Long term (current) use of aspirin; I10 Essential (primary) hypertension; K21.9 Gastro-esophageal reflux disease without esophagitis; Z79.51 Long term (current) use of inhaled steroids; Z88.5 Allergy status to narcotic agent; Z88.0 Allergy status to penicillin; Z88.8 Allergy status to other drugs, medicaments and biological substances; Z91.048 Other nonmedicinal substance allergy status; E07.9 Disorder of thyroid, unspecified; M79.7 Fibromyalgia; M19.90 Unspecified osteoarthritis, unspecified site; F32.9 Major depressive disorder, single episode, unspecified; I25.2 Old myocardial infarction; I48.91 Unspecified atrial fibrillation; Z86.718 Personal history of other venous thrombosis and embolism
CPT/HCPCS: 36415; 94640; 93005; 83880; 80053; 82550; 82553; 83735; 84484; 85025; 85610; 85730; 71020; 96374; 96375; 99285; J2060; J1885

== ENCOUNTER 2016-10-10 10:09 | Inpatient (IN) | payer MEDICARE ==
--- NOTE | 2016-10-10 10:34 | ED ---
General Adult HPI - General Chief complaint: Shortness of Breath Stated complaint: Anxiety Time Seen by Provider: 10/10/16 10:13 Source: patient, EMS, RN notes reviewed Mode of arrival: EMS Limitations: no limitations - History of Present Illness Initial comments: Patient is a pleasant 65-year-old female presenting to the emergency department complaining of shortness of breath and anxiety. Patient has had previous symptoms associated with COPD. Patient took her inhaler at home without improvement of symptoms. Patient had a nebulizer treatment by EMS states symptoms are much improved at this time. Patient still feels anxious and requests medication for anxiety. No fevers. Occasional cough. No chest pain. Patient requests medication for anxiety. - Related Data Home Medications Medication Instructions Recorded Confirmed Aspirin EC [Ecotrin Low Dose] 81 mg PO DAILY 12/26/15 10/10/16 Gabapentin [Neurontin] 1,200 mg PO TID 12/26/15 10/10/16 Montelukast [Singulair] 10 mg PO HS 12/26/15 10/10/16 Nitroglycerin Sl Tabs [Nitrostat] 0.4 mg SUBLINGUAL Q5M PRN 12/26/15 10/10/16 Prazosin HCl [Minipress] 6 mg PO HS 02/10/16 10/10/16 Calcium Carbonate [Calcium] 600 mg PO TID 04/30/16 10/10/16 DULoxetine HCL [Cymbalta] 60 mg PO BID 04/30/16 10/10/16 Lisinopril [Prinivil] 10 mg PO QAM 04/30/16 10/10/16 Simvastatin [Zocor] 10 mg PO HS 06/02/16 10/10/16 Omeprazole [PriLOSEC] 20 mg PO AC-BRKFST 09/01/16 10/10/16 Sertraline HCl [Zoloft] 50 mg PO QAM 09/09/16 10/10/16 Etodolac [Lodine] 400 mg PO BID 09/16/16 10/10/16 Famotidine [Pepcid] 60 mg PO BID 09/16/16 10/10/16 Ferrous Gluconate 240 mg PO QAM 09/16/16 10/10/16 traZODone HCL [Desyrel] 100 mg PO HS 09/16/16 10/10/16 Levothyroxine Sodium [Synthroid] 50 mcg PO DAILY 09/25/16 10/10/16 Ondansetron [Zofran] 4 mg PO Q8H PRN 09/25/16 10/10/16 predniSONE [Deltasone] See Taper PO DAILY 10/04/16 10/10/16 Levalbuterol Hfa Inhaler [Xopenex 1 puff INHALATION RT-Q6H 10/10/16 10/10/16 Hfa Inhaler] Previous Rx's Medication Instructions Recorded oxyCODONE HCL [OxyCONTIN] 20 mg PO Q12H #60 tab.er.12h 08/02/16 QUEtiapine [SEROquel] 150 mg PO HS #30 tablet 09/03/16 Benzonatate [Tessalon Perles] 100 mg PO TID #20 cap 09/30/16 Docusate [Colace] 100 mg PO DAILY cap 09/30/16 Fluticasone/Salmeterol [Advair 2 puff INHALATION RT-BID #5 09/30/16 250-50 Diskus] [facility] HYDROcodone/APAP 10-325MG [[place] 1 tab PO Q6H PRN #30 tab 09/30/16 10-325] Albuterol Nebulized [Ventolin 2.5 mg INHALATION Q4H PRN #25 nebu 10/07/16 Nebulized] Allergies Allergy/AdvReac Type Severity Reaction Status Date / Time amoxicillin Allergy Unknown Verified 10/10/16 12:30 baclofen Allergy Rash/Hives Verified 10/10/16 12:30 morphine Allergy Itching Verified 10/10/16 12:30 Penicillins Allergy Unknown Verified 10/10/16 12:30 prochlorperazine Allergy Racing Verified 10/10/16 12:30 [From Compazine] Heart prochlorperazine edisylate Allergy Racing Verified 10/10/16 12:30 [From Compazine] Heart prochlorperazine maleate Allergy Racing Verified 10/10/16 12:30 [From Compazine] Heart tetracycline Allergy Unknown Verified 10/10/16 12:30 SILK TAPE Allergy Unknown Uncoded 10/10/16 10:12 Review of Systems ROS Statement: Those systems with pertinent positive or pertinent negative responses have been documented in the HPI. ROS Other: All systems not noted in ROS Statement are negative. Constitutional: Denies: fever, chills Eyes: Denies: eye pain ENT: Denies: ear pain Respiratory: Reports: dyspnea Cardiovascular: Denies: chest pain Endocrine: Denies: fatigue Gastrointestinal: Denies: abdominal pain Genitourinary: Denies: dysuria Musculoskeletal: Denies: back pain Skin: Denies: rash Neurological: Denies: weakness Psychiatric: Reports: anxiety Past Medical History Past Medical History: Atrial Fibrillation, Asthma, COPD, Deep Vein Thrombosis ( DVT), Fibromyalgia, GERD/Reflux, Hypertension, Myocardial Infarction (non Q-wave ), Osteoarthritis (OA), Thyroid Disorder Additional Past Medical History / Comment(s): uterine cancer,CERVICAL CANCER, LEUKEMIA, RT BREAST CANCER, dvt in left calf, heart murmer, scoliosis, right foot drop, anemia, UTI'S,INCONT OF URINE WEARS A PAD, UTI(ECOLI 9-26-16), HEMORRHOIDS, RECTAL PROLAPSE Last Myocardial Infarction Date:: 2006 History of Any Multi-Drug Resistant Organisms: C-DIFF Date of last positivie culture/infection: 2007 MDRO Source:: stool Past Surgical History: Breast Surgery, Cholecystectomy, Heart Catheterization With Stent, Hysterectomy, Tonsillectomy Additional Past Surgical History / Comment(s): Lumpectomy right side from breast cancer, back surgery x7, ortho sx-recent Fx C5-pain in neck, 02/19/2016 revision S2-Thoracic/lumbar area, bilat. cataracts removed 2014, SX FOR PROLAPSED RECTUM APPROX MONTH AGO AT [facility]. Past Anesthesia/Blood Transfusion Reactions: No Reported Reaction Date of Last Stent Placement:: 2006 Past Psychological History: Anxiety, Depression Additional Psychological History / Comment(s): Very apparent anxiety Smoking Status: Never smoker Past Alcohol Use History: None Reported Past Drug Use History: None Reported - Past Family History Father Family Medical History: Cancer Additional Family Medical History / Comment(s): skin cancer. Mother Family Medical History: Cancer Additional Family Medical History / Comment(s): uterine cancer. Daughter(s) Family Medical History: Cancer, Thyroid Disorder Additional Family Medical History / Comment(s): Thyroid CA removed General Exam Limitations: no limitations General appearance: alert, in no apparent distress Head exam: Present: atraumatic Eye exam: Present: normal appearance, PERRL ENT exam: Present: normal oropharynx Neck exam: Present: normal inspection Respiratory exam: Present: wheezes (Occasional expiratory wheeze). Absent: respiratory distress, accessory muscle use Cardiovascular Exam: Present: regular rate, normal rhythm GI/Abdominal exam: Present: soft. Absent: tenderness Extremities exam: Present: normal inspection. Absent: pedal edema, calf tenderness Neurological exam: Present: alert Psychiatric exam: Present: normal affect, normal mood Skin exam: Absent: rash Course Vital Signs 10/10/16 10/10/16 10/10/16 10:12 12:31 12:39 Temperature 97.8 F Pulse Rate 97 96 92 Respiratory 20 Rate Blood Pressure 165/90 O2 Sat by Pulse 97 Oximetry Medical Decision Making - Medical Decision Making Patient was seen by mental health services, who will admit. - Lab Data Result diagrams: 10/10/16 11:50 10/10/16 11:50 Lab Results 10/10/16 10/10/16 Range/Units 11:50 11:50 WBC 8.8 (3.8-10.6) k/uL RBC 4.24 (3.80-5.40) m/uL Hgb 11.2 L (11.4-16.0) gm/dL Hct 36.8 (34.0-46.0) % MCV 86.6 (80.0-100.0) fL MCH 26.5 (25.0-35.0) pg MCHC 30.6 L (31.0-37.0) g/dL RDW 17.0 H (11.5-15.5) % Plt Count 282 (150-450) k/uL Neutrophils % 90 % Lymphocytes % 5 % Monocytes % 5 % Eosinophils % 0 % Basophils % 0 % Neutrophils # 7.9 H (1.3-7.7) k/uL Lymphocytes # 0.4 L (1.0-4.8) k/uL Monocytes # 0.4 (0-1.0) k/uL Eosinophils # 0.0 (0-0.7) k/uL Basophils # 0.0 (0-0.2) k/uL Hypochromasia Slight Anisocytosis Slight Sodium 141 (137-145) mmol/L Potassium 5.1 (3.5-5.1) mmol/L Chloride 102 (98-107) mmol/L Carbon Dioxide 32 H (22-30) mmol/L Anion Gap 7 mmol/L BUN 11 (7-17) mg/dL Creatinine 0.57 (0.52-1.04) mg/dL Est GFR (MDRD) Af Amer >60 (>60 ml/min/1.73 sqM) Est GFR (MDRD) Non-Af >60 (>60 ml/min/1.73 sqM) Glucose 125 H (74-99) mg/dL Calcium 8.8 (8.4-10.2) mg/dL Serum Alcohol <10 mg/dL - Radiology Data Radiology results: image reviewed (Chest x-ray shows hiatal hernia and some right hilar fullness.) Disposition Clinical Impression: Depression, Anxiety Disposition: TRANSFER TO PSYCH HOSP/UNIT
[2016-10-10] MEDS ORDERED: LORazepam 2 MG/ML SYRINGE IM STA (10:42)
--- NOTE | 2016-10-10 11:24 | XR ---
EXAMINATION TYPE: XR chest 2V DATE OF EXAM: 10/10/2016 11:19 AM COMPARISON: 10/07/2016 INDICATION: Dyspnea COPD short of breath TECHNIQUE: Frontal and lateral views of the chest are obtained. FINDINGS: The heart size is normal. The pulmonary vasculature is normal. Some right perihilar infiltrate may be developing. Peripheral consolidation is not identified. Hiata l hernia is present. IMPRESSION: 1. Clinical correlation recommended for developing right perihilar infiltrate. This is a change from comparison. Follow-up can be performed as clinically indicated. 2. Hiatal hernia.
[2016-10-10 12:10] LABS: Anisocytosis Slight; Basophils % (A) 0 %; CH 26.9; CHCM 31.2; Eosinophils % (A) 0 %; HCT 36.8 % (34.0-46.0); HDW 2.58; HGB 11.2 gm/dL (11.4-16.0); Hypochromasia Slight; Luc # (Auto) 0.04; Luc % (Auto) 1; Lymphocytes # (A) 0.4 k/uL (1.0-4.8); Lymphocytes % (A) 5 %; MCH 26.5 pg (25.0-35.0); MCHC 30.6 g/dL (31.0-37.0); MCV 86.6 fL (80.0-100.0); Mean Platelet Volume 7.1; Monocytes # (A) 0.4 k/uL (0-1.0); Monocytes % (A) 5 %; Neutrophils # (A) 7.9 k/uL (1.3-7.7); Neutrophils % (A) 90 %; RBC 4.24 m/uL (3.80-5.40); WBC 8.8 k/uL (3.8-10.6); WBC (Perox) 9.02
[2016-10-10 12:19] LABS: Alcohol <10 mg/dL; Anion Gap 7 mmol/L; Blood Urea Nitrogen 11 mg/dL (7-17); Calcium 8.8 mg/dL (8.4-10.2); Carbon Dioxide 32 mmol/L (22-30); Chloride 102 mmol/L (98-107); Glucose 125 mg/dL (74-99); Non-African American GFR(MDRD) >60 (>60 ml/min/1.73 sqM); Potassium 5.1 mmol/L (3.5-5.1); Sodium 141 mmol/L (137-145)
[2016-10-10] MEDS ORDERED: IPRATROPIUM-ALBUTEROL 3 ML NEB INHALATION STA (12:22)
[2016-10-10] MEDS ORDERED: ACETAMINOPHEN TAB 325 MG TAB PO STA (12:22)
[2016-10-10] MEDS ORDERED: KETOROLAC 30 MG/ML 1 ML VIAL IVP STA (12:28)
[2016-10-10] MEDS ORDERED: GABAPENTIN 400 MG CAP PO STA (14:43)
[2016-10-10] MEDS ORDERED: MAGNESIUM HYDROXIDE 2,400 MG/10 ML CUP PO PRN (15:22)
[2016-10-10] MEDS ORDERED: MAG HYDROX/AL HYDROX/SIMETH 30 ML CUP PO PRN (15:22)
[2016-10-10] MEDS ORDERED: ALBUTEROL NEBULIZED 2.5 MG/3 ML INHALATION PRN (15:29)
[2016-10-10] MEDS ORDERED: NITROGLYCERIN SL TABS 0.4 MG TAB SUBLINGUAL PRN (15:50)
[2016-10-10] MEDS ORDERED: ONDANSETRON 4 MG TAB PO PRN (15:50)
[2016-10-10 16:12] VITALS: BMI 25.4
[2016-10-10] MEDS: ACETAMINOPHEN TAB 325 MG TAB PO PRN (17:08)
[2016-10-10] MEDS: LORazepam 1 MG TAB PO PRN ×2 (17:10→20:44)
[2016-10-10] MEDS: CALCIUM CARBONATE 500 MG CHEWABLE PO SCH ×2 (17:10→20:43)
[2016-10-10] MEDS: BENZONATATE 100 MG CAP PO SCH ×2 (17:13→20:43)
[2016-10-10] MEDS: SYMBICORT 80-4.5 MCG INHALER INHALATION SCH (20:08)
[2016-10-10] MEDS ORDERED: predniSONE 20 MG TAB PO STA (20:14)
[2016-10-10] MEDS: IPRATROPIUM-ALBUTEROL 3 ML NEB INHALATION PRN (20:16)
[2016-10-10 20:37] LABS: Glucose,Whole Blood 94 mg/dL (75-99)
[2016-10-10] MEDS: GABAPENTIN 400 MG CAP PO SCH (20:42)
[2016-10-10] MEDS: FAMOTIDINE 20 MG TAB PO SCH (20:42)
[2016-10-10] MEDS: ATORVASTATIN 10 MG TAB PO SCH (20:43)
[2016-10-10] MEDS ORDERED: predniSONE 20 MG TAB PO SCH (21:00)
[2016-10-10] MEDS: LEVOFLOXACIN 500 MG TAB PO SCH (21:55)
[2016-10-10] MEDS: QUEtiapine 50 MG TAB PO SCH (22:25)
[2016-10-10] MEDS: PRAZOSIN 1 MG CAP PO SCH (22:25)
[2016-10-10] MEDS: oxyCODONE ER 20 MG TAB.ER.12H PO SCH (22:25)
[2016-10-10] MEDS: traZODone HCL 100 MG TAB PO SCH (22:27)
[2016-10-10] MEDS: DULoxetine HCL 60 MG CAPSULE.DR PO SCH (22:28)
[2016-10-11] MEDS: LEVOTHYROXINE 50 MCG TAB PO SCH (05:38)
[2016-10-11] MEDS: ACETAMINOPHEN TAB 325 MG TAB PO PRN ×2 (05:40→16:33)
[2016-10-11] MEDS: IPRATROPIUM-ALBUTEROL 3 ML NEB INHALATION PRN ×4 (06:24→19:13)
[2016-10-11] MEDS: SYMBICORT 80-4.5 MCG INHALER INHALATION SCH (06:24)
[2016-10-11] MEDS ORDERED: predniSONE 20 MG TAB PO SCH ×2 (08:00→09:00)
[2016-10-11] MEDS: LISINOPRIL 10 MG TAB PO SCH (09:06)
[2016-10-11] MEDS: BENZONATATE 100 MG CAP PO SCH ×3 (09:06→21:26)
[2016-10-11] MEDS: DOCUSATE 100 MG CAP PO SCH (09:06)
[2016-10-11] MEDS: CALCIUM CARBONATE 500 MG CHEWABLE PO SCH ×3 (09:06→21:26)
[2016-10-11] MEDS: predniSONE 20 MG TAB PO SCH (09:06)
[2016-10-11] MEDS: ASPIRIN 81 MG CHEW PO SCH (09:07)
[2016-10-11] MEDS: GABAPENTIN 400 MG CAP PO SCH ×3 (09:10→21:28)
[2016-10-11] MEDS: FERROUS SULFATE 325 MG TAB PO SCH (09:10)
[2016-10-11] MEDS: PANTOPRAZOLE 40 MG TABLET PO SCH (09:10)
[2016-10-11] MEDS: oxyCODONE ER 20 MG TAB.ER.12H PO SCH ×2 (09:13→21:52)
[2016-10-11] MEDS: DULoxetine HCL 60 MG CAPSULE.DR PO SCH ×2 (09:13→21:24)
[2016-10-11] MEDS: LORazepam 1 MG TAB PO PRN ×2 (09:57→19:33)
--- NOTE | 2016-10-11 10:25 | P.CNPUL ---
History of Present Illness Consult date: 10/11/16 Reason for consult: dyspnea, asthma, COPD Chief complaint: Shortness of breath History of present illness: This is a 65-year-old female who is in the psychiatric unit. She was admitted with a apparently with a diagnosis of anxiety and possible depression. She apparently lost her son recently to suicide. Airway most that history can be obtained from the psychiatric evaluation. I'm asked to see this patient because of difficulty breathing. She apparently sees Dr. Kemp in the outpatient setting for "COPD/asthma". Anyway the patient states that she's been short of breath. She is coughing and wheezing. Not really bringing up much phlegm up any phlegm. Not coughing up any blood. No fever no chills. His been going on for a couple days. She does apparently have appointment with Dr. Kemp on the of this month. At home she apparently takes she says Brethine 10 mg at bedtime she also apparently is on Advair discus 500/50 one puff twice and has an albuterol rescue inhaler. She also states that she apparently was recently on some prednisone or still may be on prednisone. Review of Systems A 12 point review of system is positive for shortness breath chest tightness wheezing and cough under the pulmonary system. The rest of the 12 point review of system is unremarkable. Past Medical History Past Medical History: Atrial Fibrillation, Asthma, COPD, Deep Vein Thrombosis ( DVT), Fibromyalgia, GERD/Reflux, Hypertension, Myocardial Infarction (non Q-wave ), Osteoarthritis (OA), Thyroid Disorder Additional Past Medical History / Comment(s): uterine cancer,CERVICAL CANCER, LEUKEMIA, RT BREAST CANCER, dvt in left calf, heart murmer, scoliosis, right foot drop, anemia, UTI'S,INCONT OF URINE WEARS A PAD, UTI(ECOLI 9-26-16), HEMORRHOIDS, RECTAL PROLAPSE Last Myocardial Infarction Date:: 2006 History of Any Multi-Drug Resistant Organisms: None Reported Date of last positivie culture/infection: None MDRO Source:: None Past Surgical History: Breast Surgery, Cholecystectomy, Heart Catheterization With Stent, Hysterectomy, Tonsillectomy Additional Past Surgical History / Comment(s): Lumpectomy right side from breast cancer, back surgery x7, ortho sx-recent Fx C5-pain in neck, 02/19/2016 revision S2-Thoracic/lumbar area, bilat. cataracts removed 2014, SX FOR PROLAPSED RECTUM APPROX MONTH AGO AT [facility]. Past Anesthesia/Blood Transfusion Reactions: No Reported Reaction Date of Last Stent Placement:: 2006 Past Psychological History: Anxiety, Depression Additional Psychological History / Comment(s): Very apparent anxiety Smoking Status: Never smoker Past Alcohol Use History: None Reported Past Drug Use History: None Reported - Past Family History Father Family Medical History: Cancer Additional Family Medical History / Comment(s): skin cancer. Mother Family Medical History: Cancer Additional Family Medical History / Comment(s): uterine cancer. Daughter(s) Family Medical History: Cancer, Thyroid Disorder Additional Family Medical History / Comment(s): Thyroid CA removed Medications and Allergies Home Medications Medication Instructions Recorded Confirmed Type Aspirin EC [Ecotrin Low Dose] 81 mg PO DAILY 12/26/15 10/10/16 History Gabapentin [Neurontin] 1,200 mg PO TID 12/26/15 10/10/16 History Montelukast [Singulair] 10 mg PO HS 12/26/15 10/10/16 History Nitroglycerin Sl Tabs [Nitrostat] 0.4 mg SUBLINGUAL Q5M PRN 12/26/15 10/10/16 History Prazosin HCl [Minipress] 6 mg PO HS 02/10/16 10/10/16 History Calcium Carbonate [Calcium] 600 mg PO TID 04/30/16 10/10/16 History DULoxetine HCL [Cymbalta] 60 mg PO BID 04/30/16 10/10/16 History Lisinopril [Prinivil] 10 mg PO QAM 04/30/16 10/10/16 History Simvastatin [Zocor] 10 mg PO HS 06/02/16 10/10/16 History Omeprazole [PriLOSEC] 20 mg PO AC-BRKFST 09/01/16 10/10/16 History Sertraline HCl [Zoloft] 50 mg PO QAM 09/09/16 10/10/16 History Etodolac [Lodine] 400 mg PO BID 09/16/16 10/10/16 History Famotidine [Pepcid] 60 mg PO BID 09/16/16 10/10/16 History Ferrous Gluconate 240 mg PO QAM 09/16/16 10/10/16 History traZODone HCL [Desyrel] 100 mg PO HS 09/16/16 10/10/16 History Levothyroxine Sodium [Synthroid] 50 mcg PO DAILY 09/25/16 10/10/16 History Ondansetron [Zofran] 4 mg PO Q8H PRN 09/25/16 10/10/16 History predniSONE [Deltasone] See Taper PO DAILY 10/04/16 10/10/16 History Levalbuterol Hfa Inhaler [Xopenex 1 puff INHALATION RT-Q6H 10/10/16 10/10/16 History Hfa Inhaler] Allergies Allergy/AdvReac Type Severity Reaction Status Date / Time amoxicillin Allergy Unknown Verified 10/10/16 12:30 baclofen Allergy Rash/Hives Verified 10/10/16 12:30 morphine Allergy Itching Verified 10/10/16 12:30 Penicillins Allergy Unknown Verified 10/10/16 12:30 prochlorperazine Allergy Racing Verified 10/10/16 12:30 [From Compazine] Heart prochlorperazine edisylate Allergy Racing Verified 10/10/16 12:30 [From Compazine] Heart prochlorperazine maleate Allergy Racing Verified 10/10/16 12:30 [From Compazine] Heart tetracycline Allergy Unknown Verified 10/10/16 12:30 SILK TAPE Allergy Unknown Uncoded 10/10/16 10:12 Physical Exam Osteopathic Statement: *. No significant issues noted on an osteopathic structural exam other than those noted in the History and Physical/Consult. Vitals: Vital Signs Temp Pulse Pulse Pulse Resp BP BP 10/11/16 10:00 88 10/11/16 09:50 80 10/11/16 06:30 76 10/11/16 06:15 84 10/11/16 06:00 98.3 F 86 18 10/10/16 22:10 97 14 10/10/16 21:23 89 10/10/16 20:29 96 10/10/16 20:16 96 10/10/16 19:53 90 18 10/10/16 15:25 99.0 F 109 H 22 163/82 10/10/16 15:19 99 F 103 H 16 148/70 BP Pulse Ox 10/11/16 10:00 10/11/16 09:50 10/11/16 06:30 10/11/16 06:15 10/11/16 06:00 121/61 96 10/10/16 22:10 119/60 97 10/10/16 21:23 169/85 99 10/10/16 20:29 10/10/16 20:16 10/10/16 19:53 134/83 96 10/10/16 15:25 97 10/10/16 15:19 98 Intake and Output 10/10/16 10/11/16 10/11/16 22:59 06:59 14:59 Other: Weight 69.4 kg No acute distress, oriented 3. No audible wheezing. No haider respiratory difficulty. HEENT examination is grossly unremarkable. Mucous membranes are moist. Neck supple. Full range of motion. No adenopathy. Cardiovascular examination reveals regular rhythm rate. S1-S2 normal. Lungs reveal some coarse rhonchi. Symmetrical story wheezes. Breath sounds are heard diminished throughout. The rest of the examination including the abdomen and extremities are normal. Results - Laboratory Findings CBC and BMP: 10/10/16 11:50 10/10/16 11:50 - Diagnostic Findings Chest x-ray: image reviewed (Chest x-ray shows a possible infiltrate in the right perihilar region as well as a large hiatal hernia.) Assessment and Plan (1) Asthma exacerbation Status: Acute (2) Acute exacerbation of chronic obstructive airways disease Status: Acute Plan: Plan Medications will be reviewed. Additional recommendations suggestions will be forthcoming. We'll make sure the patient's on appropriate medication for it appears to be an asthma exacerbation possibly competent by minimal infiltrate in the right lung versus tracheobronchitis. The patient apparently does have an appointment with Dr. Kemp October 15. She hopes to be out of the psychiatric unit before then so she can go to an appointment. Time with Patient: Greater than 30
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
[2016-10-11] MEDS: FAMOTIDINE 20 MG TAB PO SCH ×2 (14:40→21:24)
[2016-10-11] MEDS: HYDROcodone/APAP 5-325MG 1 EACH TAB PO PRN (17:41)
[2016-10-11] MEDS: SYMBICORT 160-4.5 MCG INHALER INHALATION SCH (19:13)
[2016-10-11] MEDS: ATORVASTATIN 10 MG TAB PO SCH (21:23)
[2016-10-11] MEDS: MONTELUKAST 10 MG TAB PO SCH (21:23)
[2016-10-11] MEDS: LEVOFLOXACIN 500 MG TAB PO SCH (21:24)
[2016-10-11] MEDS: PRAZOSIN 1 MG CAP PO SCH (21:25)
[2016-10-11] MEDS: traZODone HCL 100 MG TAB PO SCH (21:26)
[2016-10-11] MEDS: QUEtiapine 50 MG TAB PO SCH (21:52)
[2016-10-12] MEDS: LEVOTHYROXINE 50 MCG TAB PO SCH (06:32)
[2016-10-12] MEDS: SYMBICORT 160-4.5 MCG INHALER INHALATION SCH ×2 (07:44→20:15)
[2016-10-12] MEDS: IPRATROPIUM-ALBUTEROL 3 ML NEB INHALATION PRN ×4 (07:45→20:15)
[2016-10-12] MEDS: HYDROcodone/APAP 5-325MG 1 EACH TAB PO PRN ×2 (08:04→16:24)
[2016-10-12] MEDS: BENZONATATE 100 MG CAP PO SCH ×3 (09:16→21:10)
[2016-10-12] MEDS: PANTOPRAZOLE 40 MG TABLET PO SCH (09:16)
[2016-10-12] MEDS: CALCIUM CARBONATE 500 MG CHEWABLE PO SCH ×3 (09:16→21:10)
[2016-10-12] MEDS: FERROUS SULFATE 325 MG TAB PO SCH (09:16)
[2016-10-12] MEDS: FAMOTIDINE 20 MG TAB PO SCH ×2 (09:16→21:08)
[2016-10-12] MEDS: ASPIRIN 81 MG CHEW PO SCH (09:16)
[2016-10-12] MEDS: oxyCODONE ER 20 MG TAB.ER.12H PO SCH ×2 (09:17→21:06)
[2016-10-12] MEDS: GABAPENTIN 400 MG CAP PO SCH ×3 (09:17→21:12)
[2016-10-12] MEDS: DOCUSATE 100 MG CAP PO SCH (09:18)
[2016-10-12] MEDS: predniSONE 20 MG TAB PO SCH (09:18)
[2016-10-12] MEDS: LISINOPRIL 10 MG TAB PO SCH (09:19)
[2016-10-12] MEDS: DULoxetine HCL 60 MG CAPSULE.DR PO SCH ×2 (09:19→21:08)
[2016-10-12] MEDS: LORazepam 1 MG TAB PO PRN ×2 (10:21→21:14)
--- NOTE | 2016-10-12 13:11 | P.PN ---
Progress Note - Text SUBJECTIVE: Ms. Flores talked about her concerns over her medical problems. She described increasing anxiety as she developed shortness of breath. The anxiety increases to a "panic state" where she becomes frightened that she would . When she becomes extremely anxious she is unable to control her anxiety or her breathing. We talked about treatment options and she reported a marked decrease in anxiety and improved control over her breathing with the 1 mg dose of Ativan. She pleaded to be given a prescription of Ativan 1 mg when she she is discharged. She also talked about her difficulties with sleep. She recognizes that she has several reasons for her poor sleep including her multiple medical problems and her advanced age. However she requested if she can try a different sleep medication than the current regimen. We discussed options. She agreed to discontinue trazodone and begin a trial of Sinequan. OBJECTIVE: She presented as an elderly and pale appearing 65-year-old woman who looked much older than her stated age. She walks slowly with the aid of a wheeled walker. Her gait was unsteady. She maintained eye contact, tended to the interview and engaged in the interview. She had a anxious facial expression. She was alert and oriented to person, place and time. She showed psychomotor retardation but no abnormal movements. Her speech was spontaneous with normal rate, rhythm and volume. She had no articulation difficulties. She was anxious. She denied suicidal ideation or wishes. She denied homicidal ideation. She expressed some depressive cognitions including helplessness and hopelessness or her severe and multiple medical problems. She ruminated about the difficulty she has adjusting to her respiratory problems and talked about how anxious she has when she becomes short of breath. She denied obsessions or compulsions. She did not express ideas reference or paranoid ideation. Her thinking was abstract and associations are coherent and logical. She denied hallucinations and didn't appear to responding to internal stimuli. ASSESSMENT: She appears less anxious than on admission and her anxiety fluctuates with the severity of her respiratory distress. PLAN: Discontinue trazodone 100 mg at bedtime and begin a trial of Sinequan 10 mg at bedtime for sleep, continue Seroquel 150 mg at bedtime and duloxetine 60 mg twice a day. Continue duloxetine 60 mg by mouth twice a day. Continue other medications as prescribed including respiratory treatments as needed. Social work has submitted a request with [facility] for home-based mental health services. Continue participation in therapeutic groups and activities. Evaluate clinical status response to treatment on a daily basis. Consider discharge on 10/13/2016.
[2016-10-12] MEDS: MONTELUKAST 10 MG TAB PO SCH ×2 (21:06→23:41)
[2016-10-12] MEDS: ATORVASTATIN 10 MG TAB PO SCH (21:07)
[2016-10-12] MEDS: DOXEPIN 10 MG CAP PO SCH (21:07)
[2016-10-12] MEDS: LEVOFLOXACIN 500 MG TAB PO SCH (21:08)
[2016-10-12] MEDS: QUEtiapine 50 MG TAB PO SCH (21:09)
[2016-10-12] MEDS: PRAZOSIN 1 MG CAP PO SCH (21:11)
[2016-10-13] MEDS: HYDROcodone/APAP 5-325MG 1 EACH TAB PO PRN ×2 (04:04→13:12)
[2016-10-13] MEDS: LEVOTHYROXINE 50 MCG TAB PO SCH (06:25)
[2016-10-13] MEDS: LORazepam 1 MG TAB PO PRN ×2 (06:32→16:01)
[2016-10-13] MEDS ORDERED: predniSONE 10 MG TAB PO SCH (08:00)
[2016-10-13] MEDS: predniSONE 20 MG TAB PO SCH (08:56)
[2016-10-13] MEDS: LISINOPRIL 10 MG TAB PO SCH (08:56)
[2016-10-13] MEDS: CALCIUM CARBONATE 500 MG CHEWABLE PO SCH ×3 (08:57→21:01)
[2016-10-13] MEDS: PANTOPRAZOLE 40 MG TABLET PO SCH (08:57)
[2016-10-13] MEDS: ASPIRIN 81 MG CHEW PO SCH (08:57)
[2016-10-13] MEDS: DULoxetine HCL 60 MG CAPSULE.DR PO SCH ×2 (08:57→21:03)
[2016-10-13] MEDS: DOCUSATE 100 MG CAP PO SCH (08:57)
[2016-10-13] MEDS: FAMOTIDINE 20 MG TAB PO SCH ×2 (08:57→21:01)
[2016-10-13] MEDS: GABAPENTIN 400 MG CAP PO SCH ×3 (08:57→21:02)
[2016-10-13] MEDS: oxyCODONE ER 20 MG TAB.ER.12H PO SCH ×2 (08:58→21:03)
[2016-10-13] MEDS: FERROUS SULFATE 325 MG TAB PO SCH (08:58)
[2016-10-13] MEDS: BENZONATATE 100 MG CAP PO SCH ×3 (09:01→21:02)
[2016-10-13] MEDS: IPRATROPIUM-ALBUTEROL 3 ML NEB INHALATION PRN ×3 (09:39→21:42)
[2016-10-13] MEDS: SYMBICORT 160-4.5 MCG INHALER INHALATION SCH ×2 (09:40→21:42)
[2016-10-13] MEDS ORDERED: QUEtiapine 25 MG TAB PO STA (12:37)
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
[2016-10-13] MEDS: QUEtiapine 50 MG TAB PO SCH ×2 (17:18→21:04)
[2016-10-13] MEDS: ATORVASTATIN 10 MG TAB PO SCH (21:01)
[2016-10-13] MEDS: LEVOFLOXACIN 500 MG TAB PO SCH (21:01)
[2016-10-13] MEDS: MONTELUKAST 10 MG TAB PO SCH (21:01)
[2016-10-13] MEDS: PRAZOSIN 1 MG CAP PO SCH (21:01)
[2016-10-13] MEDS: DOXEPIN 10 MG CAP PO SCH (21:02)
[2016-10-13] MEDS: ALBUTEROL INHALER 60 PUFF/8 GM INHALER INHALATION SCH ×3 (22:14→22:16)
[2016-10-14] MEDS: HYDROcodone/APAP 5-325MG 1 EACH TAB PO PRN ×2 (00:28→07:51)
[2016-10-14 00:37] VITALS: TEMP 97.9
[2016-10-14] MEDS: LEVOTHYROXINE 50 MCG TAB PO SCH (05:56)
[2016-10-14] MEDS: LORazepam 1 MG TAB PO PRN (06:52)
[2016-10-14 07:55] VITALS: BP 142/64; RESP 20
[2016-10-14] MEDS: PANTOPRAZOLE 40 MG TABLET PO SCH (08:43)
[2016-10-14] MEDS: QUEtiapine 50 MG TAB PO SCH (08:43)
[2016-10-14] MEDS: DOCUSATE 100 MG CAP PO SCH (08:44)
[2016-10-14] MEDS: DULoxetine HCL 60 MG CAPSULE.DR PO SCH (08:44)
[2016-10-14] MEDS: oxyCODONE ER 20 MG TAB.ER.12H PO SCH (08:44)
[2016-10-14] MEDS: BENZONATATE 100 MG CAP PO SCH (08:44)
[2016-10-14] MEDS: ASPIRIN 81 MG CHEW PO SCH (08:44)
[2016-10-14] MEDS: FAMOTIDINE 20 MG TAB PO SCH (08:44)
[2016-10-14] MEDS: CALCIUM CARBONATE 500 MG CHEWABLE PO SCH (08:44)
[2016-10-14] MEDS: GABAPENTIN 400 MG CAP PO SCH (08:45)
[2016-10-14] MEDS: FERROUS SULFATE 325 MG TAB PO SCH (08:45)
[2016-10-14] MEDS: LISINOPRIL 10 MG TAB PO SCH (08:46)
[2016-10-14] MEDS: SYMBICORT 160-4.5 MCG INHALER INHALATION SCH (08:46)
[2016-10-14] MEDS: IPRATROPIUM-ALBUTEROL 3 ML NEB INHALATION PRN (08:46)
[2016-10-14] MEDS ORDERED: predniSONE 50 MG TAB PO SCH (09:00)
[2016-10-14 09:03] VITALS: PULSE 94
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
[2016-10-17] MEDS ORDERED: predniSONE 20 MG TAB PO SCH (09:00)
[2016-10-20] MEDS ORDERED: predniSONE 10 MG TAB PO SCH (09:00)
[2016-10-23] MEDS ORDERED: predniSONE 20 MG TAB PO SCH (09:00)
[2016-10-26] MEDS ORDERED: predniSONE 10 MG TAB PO SCH (09:00)
== END 2016-10-14 12:55 | disposition home or self-care (01) | DRG 885 ==
LOC: EC 10:09 → 3MHU 15:01
PROVIDERS: ADMIT Psychiatry & Neurology Psychiatry; ATTEND Psychiatry & Neurology Psychiatry
DX: F33.9 Major depressive disorder, recurrent, unspecified (principal); F03.90 Unspecified dementia, unspecified severity, without behavioral disturbance, psychotic disturbance, mood disturbance, and anxiety; I48.91 Unspecified atrial fibrillation; J44.1 Chronic obstructive pulmonary disease with (acute) exacerbation; J45.901 Unspecified asthma with (acute) exacerbation; E03.9 Hypothyroidism, unspecified; D64.9 Anemia, unspecified; F41.0 Panic disorder [episodic paroxysmal anxiety]; G89.4 Chronic pain syndrome; I10 Essential (primary) hypertension; I25.10 Atherosclerotic heart disease of native coronary artery without angina pectoris; I25.2 Old myocardial infarction; K21.9 Gastro-esophageal reflux disease without esophagitis; K44.9 Diaphragmatic hernia without obstruction or gangrene; K64.9 Unspecified hemorrhoids; M21.371 Foot drop, right foot; M41.9 Scoliosis, unspecified; M79.7 Fibromyalgia; R32 Unspecified urinary incontinence; Z85.3 Personal history of malignant neoplasm of breast; Z85.41 Personal history of malignant neoplasm of cervix uteri; Z85.42 Personal history of malignant neoplasm of other parts of uterus; Z85.6 Personal history of leukemia; Z86.718 Personal history of other venous thrombosis and embolism; Z92.21 Personal history of antineoplastic chemotherapy; Z92.3 Personal history of irradiation; Z95.5 Presence of coronary angioplasty implant and graft; Z88.1 Allergy status to other antibiotic agents; Z88.5 Allergy status to narcotic agent; Z88.0 Allergy status to penicillin; Z88.8 Allergy status to other drugs, medicaments and biological substances
CPT/HCPCS: 36415; 71020; 80048; 80320; 82075; 84443; 85025; 94640; 96372; 96374; 99285

== ENCOUNTER → 2016-10-18 | Outpatient (CLI) | payer MEDICARE ==
[2016-10-18 13:22] VITALS: BP 107/62; PULSE 104; RESP 16; TEMP 99.1
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
== END | disposition home or self-care (01) ==
LOC: PNWHC3 13:01
PROVIDERS: ATTEND Anesthesiology
DX: M47.896 Other spondylosis, lumbar region (principal); M47.894 Other spondylosis, thoracic region; F32.9 Major depressive disorder, single episode, unspecified; R63.4 Abnormal weight loss
CPT/HCPCS: 80307; G0463; 80346; 80364; 99211

== ENCOUNTER 2016-10-21 09:55 | Inpatient (IN) | payer MEDICARE ==
[2016-10-21] MEDS ORDERED: SODIUM CHLORIDE 0.9% 500 ML IV STA (10:25)
[2016-10-21] MEDS ORDERED: SODIUM CHLORIDE 0.9% 1,000 ML IV STA (10:25)
--- NOTE | 2016-10-21 10:27 | ED ---
General Adult HPI - General Chief complaint: Shortness of Breath Stated complaint: Difficulty Breathing Time Seen by Provider: 10/21/16 10:22 Source: patient, EMS, RN notes reviewed, old records reviewed Mode of arrival: EMS Limitations: no limitations - History of Present Illness Initial comments: This is a 65-year-old female year for evaluation. Patient presents here today for evaluation of shortness of breath cough and congestion. Patient's also complaining of back pain. Does have a significant medical history will noticed facility. Patient states her shortness of breath and cough going on for a few days, getting progressively worse did notice fever yesterday. No nausea vomiting diarrhea and no sick contacts or travel history, multiple recent hospitalizations - Related Data Home Medications Medication Instructions Recorded Confirmed Aspirin EC [Ecotrin Low Dose] 81 mg PO DAILY 12/26/15 10/21/16 Gabapentin [Neurontin] 1,200 mg PO TID 12/26/15 10/21/16 Montelukast [Singulair] 10 mg PO HS 12/26/15 10/21/16 Nitroglycerin Sl Tabs [Nitrostat] 0.4 mg SUBLINGUAL Q5M PRN 12/26/15 10/21/16 Prazosin HCl [Minipress] 6 mg PO HS 02/10/16 10/21/16 Calcium Carbonate [Calcium] 600 mg PO TID 04/30/16 10/21/16 DULoxetine HCL [Cymbalta] 60 mg PO BID 04/30/16 10/21/16 Lisinopril [Prinivil] 10 mg PO QAM 04/30/16 10/21/16 Simvastatin [Zocor] 10 mg PO HS 06/02/16 10/21/16 Omeprazole [PriLOSEC] 20 mg PO AC-BRKFST 09/01/16 10/21/16 Etodolac [Lodine] 400 mg PO BID 09/16/16 10/21/16 Famotidine [Pepcid] 60 mg PO BID 09/16/16 10/21/16 Ferrous Gluconate 240 mg PO QAM 09/16/16 10/21/16 Levothyroxine Sodium [Synthroid] 50 mcg PO DAILY 09/25/16 10/21/16 Ondansetron [Zofran] 4 mg PO Q8H PRN 09/25/16 10/21/16 Levalbuterol Hfa Inhaler [Xopenex 1 puff INHALATION RT-Q6H 10/10/16 10/21/16 Hfa Inhaler] HYDROcodone/APAP 10-325MG [[place] 1 tab PO Q8HR PRN 10/18/16 10/21/16 10-325] LORazepam [Ativan] 1 mg PO TID 10/18/16 10/21/16 predniSONE 20 mg PO DAILY 10/18/16 10/21/16 Previous Rx's Medication Instructions Recorded oxyCODONE HCL [OxyCONTIN] 20 mg PO Q12H #60 tab.er.12h 08/02/16 Benzonatate [Tessalon Perles] 100 mg PO TID #20 cap 09/30/16 Docusate [Colace] 100 mg PO DAILY cap 09/30/16 Fluticasone/Salmeterol [Advair 2 puff INHALATION RT-BID #5 09/30/16 250-50 Diskus] blst.w.dev Albuterol Nebulized [Ventolin 2.5 mg INHALATION Q4H PRN #25 nebu 10/07/16 Nebulized] Budesonide-Formot 160-4.5 Mcg 2 puff INHALATION RT-BID puff 10/14/16 [Symbicort 160-4.5 Mcg Inhaler] Doxepin [SINEquan] 10 mg PO HS 30 Days 10/14/16 Ipratropium-Albuterol Nebulize 3 ml INHALATION RT-QID PRN #0 10/14/16 [Duoneb 0.5 mg-3 mg/3 ml Soln] ampul.neb QUEtiapine [SEROquel] 50 mg PO BID-W/MEALS 30 Days 10/14/16 Allergies Allergy/AdvReac Type Severity Reaction Status Date / Time amoxicillin Allergy Unknown Verified 10/21/16 10:10 baclofen Allergy Rash/Hives Verified 10/21/16 10:10 morphine Allergy Itching Verified 10/21/16 10:10 Penicillins Allergy Unknown Verified 10/21/16 10:10 prochlorperazine Allergy Racing Verified 10/21/16 10:10 [From Compazine] Heart prochlorperazine edisylate Allergy Racing Verified 10/21/16 10:10 [From Compazine] Heart prochlorperazine maleate Allergy Racing Verified 10/21/16 10:10 [From Compazine] Heart tetracycline Allergy Unknown Verified 10/21/16 10:10 SILK TAPE Allergy Unknown Uncoded 10/21/16 10:10 Review of Systems ROS Statement: Those systems with pertinent positive or pertinent negative responses have been documented in the HPI. ROS Other: All systems not noted in ROS Statement are negative. Past Medical History Past Medical History: Atrial Fibrillation, Asthma, COPD, Deep Vein Thrombosis ( DVT), Fibromyalgia, GERD/Reflux, Hypertension, Myocardial Infarction (non Q-wave ), Osteoarthritis (OA), Thyroid Disorder Additional Past Medical History / Comment(s): uterine cancer,CERVICAL CANCER, LEUKEMIA, RT BREAST CANCER, dvt in left calf, heart murmer, scoliosis, right foot drop, anemia, UTI'S,INCONT OF URINE WEARS A PAD, UTI(ECOLI 9-16), HEMORRHOIDS, RECTAL PROLAPSE Last Myocardial Infarction Date:: 2006 History of Any Multi-Drug Resistant Organisms: None Reported Date of last positivie culture/infection: None MDRO Source:: None Past Surgical History: Breast Surgery, Cholecystectomy, Heart Catheterization With Stent, Hysterectomy, Tonsillectomy Additional Past Surgical History / Comment(s): Lumpectomy right side from breast cancer, back surgery x7, ortho sx-recent Fx C5-pain in neck, 02/19/2016 revision S2-Thoracic/lumbar area, bilat. cataracts removed 2014, SX FOR PROLAPSED RECTUM APPROX MONTH AGO AT [facility]. Past Anesthesia/Blood Transfusion Reactions: No Reported Reaction Date of Last Stent Placement:: 2006 Past Psychological History: Anxiety, Depression Additional Psychological History / Comment(s): Very apparent anxiety Smoking Status: Never smoker Past Alcohol Use History: None Reported Past Drug Use History: None Reported - Past Family History Father Family Medical History: Cancer Additional Family Medical History / Comment(s): skin cancer. Mother Family Medical History: Cancer Additional Family Medical History / Comment(s): uterine cancer. Daughter(s) Family Medical History: Cancer, Thyroid Disorder Additional Family Medical History / Comment(s): Thyroid CA removed General Exam Limitations: no limitations General appearance: alert, in no apparent distress, anxious Head exam: Present: atraumatic, normocephalic, normal inspection Eye exam: Present: normal appearance, PERRL, EOMI. Absent: scleral icterus, conjunctival injection, periorbital swelling ENT exam: Present: normal exam, mucous membranes moist Neck exam: Present: normal inspection. Absent: tenderness, meningismus, lymphadenopathy Respiratory exam: Present: normal lung sounds bilaterally. Absent: respiratory distress, wheezes, rales, rhonchi, stridor Cardiovascular Exam: Present: normal rhythm, tachycardia, normal heart sounds. Absent: systolic murmur, diastolic murmur, rubs, gallop, clicks GI/Abdominal exam: Present: soft, normal bowel sounds. Absent: distended, tenderness, guarding, rebound, rigid Extremities exam: Present: normal inspection, full ROM, normal capillary refill. Absent: tenderness, pedal edema, joint swelling, calf tenderness Back exam: Present: normal inspection Neurological exam: Present: alert, oriented X3, CN II-XII intact Psychiatric exam: Present: normal affect, normal mood Skin exam: Present: warm, dry, intact, normal color. Absent: rash Course Vital Signs 10/21/16 10/21/16 10/21/16 10:06 12:20 12:29 Temperature 102.4 F H Pulse Rate 112 H 101 H 109 H Respiratory 20 Rate Blood Pressure 112/64 O2 Sat by Pulse 97 Oximetry - Reevaluation(s) Reevaluation #1: 10/21/16 12:46 The patient pain is able to be controlled but still not feeling well, short of breath EKG Findings - EKG Comments: EKG Findings:: EKG shows sinus tachycardia rate 113, W[place] 1:30, QRS 76, QTC 444 Medical Decision Making - Medical Decision Making 65-year-old ER for evaluation of shortness of breath, congestion and fever. Patient found to have pneumonia, nosocomial acquired, we started on broad- spectrum antibiotics with pseudomonas coverage. Patient given breathing treatments and will be admitted to the hospital for further evaluation and treatment, pain control - Lab Data Result diagrams: 10/21/16 12:04 10/21/16 12:04 Lab Results 10/21/16 10/21/16 10/21/16 Range/Units 10:44 12:04 12:04 WBC 5.4 (3.8-10.6) k/uL RBC 3.70 L (3.80-5.40) m/uL Hgb 9.9 L (11.4-16.0) gm/dL Hct 33.7 L (34.0-46.0) % MCV 91.1 (80.0-100.0) fL MCH 26.7 (25.0-35.0) pg MCHC 29.3 L (31.0-37.0) g/dL RDW 16.5 H (11.5-15.5) % Plt Count 218 (150-450) k/uL Neutrophils % 85 % Lymphocytes % 5 % Monocytes % 6 % Eosinophils % 1 % Basophils % 0 % Neutrophils # 4.6 (1.3-7.7) k/uL Lymphocytes # 0.3 L (1.0-4.8) k/uL Monocytes # 0.3 (0-1.0) k/uL Eosinophils # 0.1 (0-0.7) k/uL Basophils # 0.0 (0-0.2) k/uL Hypochromasia Marked Anisocytosis Slight Sodium 136 L (137-145) mmol/L Potassium 3.8 (3.5-5.1) mmol/L Chloride 108 H (98-107) mmol/L Carbon Dioxide 21 L (22-30) mmol/L Anion Gap 7 mmol/L BUN 20 H (7-17) mg/dL Creatinine 0.50 L (0.52-1.04) mg/dL Est GFR (MDRD) Af Amer >60 (>60 ml/min/1.73 sqM) Est GFR (MDRD) Non-Af >60 (>60 ml/min/1.73 sqM) Glucose 103 H (74-99) mg/dL Calcium 7.5 L (8.4-10.2) mg/dL Phosphorus 2.1 L (2.5-4.5) mg/dL Magnesium 1.9 (1.6-2.3) mg/dL Total Bilirubin 0.6 (0.2-1.3) mg/dL AST 15 (14-36) U/L ALT 35 (9-52) U/L Alkaline Phosphatase 64 (38-126) U/L Total Protein 4.4 L (6.3-8.2) g/dL Albumin 2.4 L (3.5-5.0) g/dL Influenza Type A RNA Not Detected (Not Detectd) Influenza Type B (PCR) Not Detected (Not Detectd) - Radiology Data Radiology results: report reviewed (Chest x-ray two-view positive for pneumonia) , image reviewed Disposition Clinical Impression: Nosocomial pneumonia, Sepsis Disposition: ADMITTED IP TO THIS HOSP Condition: Fair Referrals: Ramon Riggs DO [Primary Care Provider] - 1-2 days
[2016-10-21] MEDS ORDERED: ACETAMINOPHEN IV (For NPO) 1,000 MG in EMPTY BAG 1 BAG IVPB STA (10:46)
[2016-10-21] MEDS ORDERED: IBUPROFEN 800 MG TAB PO STA (10:46)
[2016-10-21] MEDS ORDERED: HYDROmorphone 1 MG/ML 1 ML SYRINGE IVP STA (11:46)
[2016-10-21] MEDS ORDERED: IPRATROPIUM-ALBUTEROL 3 ML NEB INHALATION STA (11:46)
[2016-10-21] MEDS ORDERED: LEVOFLOXACIN 750MG-D5W PMX 750 MG in DEXTROSE/WATER 1 150ML.BAG IVPB STA (11:46)
--- NOTE | 2016-10-21 12:00 | XR ---
EXAMINATION TYPE: XR chest 2V DATE OF EXAM: 10/21/2016 11:30 AM COMPARISON: Prior chest x-ray September HISTORY: Shortness of breath, asthma and hypertension TECHNIQUE: Frontal and lateral views of the chest are obtained. FINDINGS: Interval progression of airspace disease in the perihilar region on the right. There may b e some central lucency which may be due to necrosis, air bronchograms. Retrocardiac density with cent ral lucency is noted compatible with hiatal hernia. Postop changes are noted near the thoracic lumbar junction. Prominent lung volumes compatible with underlying COPD. There may be a spinal curvature, p atient appears rotated. No pneumothorax or pleural effusion. IMPRESSION: Findings may represent pneumonia, follow-up to resolution is recommended.
[2016-10-21 12:27] LABS: Anisocytosis Slight; Basophils % (A) 0 %; CH 26.3; Eosinophils # (A) 0.1 k/uL (0-0.7); Eosinophils % (A) 1 %; HCT 33.7 % (34.0-46.0); HDW 2.54; HGB 9.9 gm/dL (11.4-16.0); Hypochromasia Marked; Luc # (Auto) 0.13; Luc % (Auto) 2; Lymphocytes # (A) 0.3 k/uL (1.0-4.8); Lymphocytes % (A) 5 %; MCH 26.7 pg (25.0-35.0); MCHC 29.3 g/dL (31.0-37.0); MCV 91.1 fL (80.0-100.0); Mean Platelet Volume 6.6; Monocytes # (A) 0.3 k/uL (0-1.0); Monocytes % (A) 6 %; Neutrophils # (A) 4.6 k/uL (1.3-7.7); Neutrophils % (A) 85 %; RDW 16.5 % (11.5-15.5); WBC 5.4 k/uL (3.8-10.6); WBC (Perox) 5.66
[2016-10-21] MEDS ORDERED: PNEUMONIA PROTOCOL UTILIZED 1 EACH MISC PO PRN (12:35)
[2016-10-21 12:38] LABS: ALT 35 U/L (9-52); AST 15 U/L (14-36); Alkaline Phosphatase 64 U/L (38-126); Anion Gap 7 mmol/L; Blood Urea Nitrogen 20 mg/dL (7-17); Calcium 7.5 mg/dL (8.4-10.2); Carbon Dioxide 21 mmol/L (22-30); Chloride 108 mmol/L (98-107); Glucose 103 mg/dL (74-99); Magnesium 1.9 mg/dL (1.6-2.3); Non-African American GFR(MDRD) >60 (>60 ml/min/1.73 sqM); Phosphorous 2.1 mg/dL (2.5-4.5); Potassium 3.8 mmol/L (3.5-5.1); Sodium 136 mmol/L (137-145); Total Bilirubin 0.6 mg/dL (0.2-1.3); Total Protein 4.4 g/dL (6.3-8.2)
[2016-10-21] MEDS ORDERED: CEFEPIME 2 GM in SODIUM CHLORIDE 0.9% 50 ML IVPB STA (12:44)
[2016-10-21 12:47] LABS: Prothrombin Time 10.5 sec (9.0-12.0)
[2016-10-21 12:52] LABS: Partial Thromboplastin Time 21.4 sec (22.0-30.0)
[2016-10-21 12:55] LABS: Creatine Kinase <20 U/L (30-135)
[2016-10-21 13:09] LABS: Creatine Kinase MB 0.4 ng/mL (0.0-2.4); Troponin I <0.012 ng/mL (0.000-0.034)
[2016-10-21] MEDS: SODIUM CHLORIDE 0.9% 1,000 ML IV SCH ×2 (13:35→21:10)
[2016-10-21] MEDS ORDERED: SODIUM CHLORIDE 0.9% 1,000 ML IV ONE (14:29)
[2016-10-21] MEDS ORDERED: NITROGLYCERIN SL TABS 0.4 MG TAB SUBLINGUAL PRN (15:44)
[2016-10-21] MEDS ORDERED: ONDANSETRON 4 MG TAB PO PRN (15:44)
[2016-10-21] MEDS ORDERED: IPRATROPIUM-ALBUTEROL 3 ML NEB INHALATION SCH (16:00)
[2016-10-21] MEDS: IPRATROPIUM 0.5 MG/2.5 ML NEBU INHALATION SCH ×2 (16:09→20:03)
[2016-10-21] MEDS: LEVALBUTEROL NEB (CONC) 1.25 MG/0.5 ML AMP INHALATION SCH ×2 (16:10→20:03)
[2016-10-21] MEDS: GABAPENTIN 400 MG CAP PO SCH ×2 (16:47→21:28)
[2016-10-21] MEDS: CALCIUM CARBONATE 500 MG CHEWABLE PO SCH ×2 (16:47→21:28)
[2016-10-21] MEDS: QUEtiapine 50 MG TAB PO SCH (16:48)
[2016-10-21] MEDS: BENZONATATE 100 MG CAP PO SCH ×2 (16:48→20:04)
[2016-10-21] MEDS: OSELTAMIVIR 75 MG CAP PO SCH (16:49)
[2016-10-21] MEDS: methylPREDNISolone SOD SUCCI 125 MG/2 ML VIAL IV SCH (16:50)
[2016-10-21] MEDS: oxyCODONE ER 20 MG TAB.ER.12H PO SCH (16:51)
[2016-10-21] MEDS: LORazepam 1 MG TAB PO SCH ×2 (16:52→21:28)
[2016-10-21 16:53] LABS: Appearance,Urine Clear (Clear); Bacteria,Urine Rare /hpf; Bilirubin,Urine 2+ (Negative); Glucose,Urine (UA) Negative (Negative); Ketones,Urine Negative (Negative); Leukocyte Esterase,Urine Trace (Negative); Nitrite,Urine Negative (Negative); PH, Urine 6.5 (5.0-8.0); Particle Count 1443; Protein,Urine Negative (Negative); RBC,Urine <1 /hpf (0-5); Squamous Epithelial Cell,Urine 1 /hpf (0-4); UA Billing (MACRO vs. MICRO) MICRO; Urobilinogen,Urine <2.0 mg/dL (<2.0); WBC,Urine 2 /hpf (0-5)
--- NOTE | 2016-10-21 17:27 | HP ---
DATE OF ADMISSION: 10/21/2016 CHIEF COMPLAINT: Shortness of breath. HISTORY OF PRESENT ILLNESS: This 65-year-old woman with a past medical history of atrial fibrillation, history of chronic pain syndrome, history of CAD, COPD, DVT, history of GERD, hypertension, hyperlipidemia, history of myocardial infarction, history of back surgery, history of CAD and stent, being followed by Dr. Ramon Riggs in the outpatient setting, was complaining of not feeling well over the past several days. Patient complains of feeling really weak and tired, cough and sputum. Patient came to [facility]. Right lower lobe pneumonia was suspected. Patient was admitted for further evaluation and treatment. Her blood pressure was also slightly low, indicating the possibility of sepsis. The patient complained of acute on chronic back pain also. The previous CT scan also showed some hiatal hernia. There is no history of any fever, rigors or chills. No history or headache, loss of consciousness, seizures. PAST MEDICAL HISTORY: 1. History of atrial fibrillation. 2. Asthma. 3. CAD. 4. COPD. 5. DVT. 6. Fibromyalgia. 7. GERD. 8. History of myocardial infarction. 9. History of hypothyroidism. 10. History of back surgery. 11. DJD. HOME MEDICATIONS: 1. Prednisone 20 mg p.o. daily. 2. OxyContin 20 mg p.o. b.i.d. 3. Zocor 10 mg at bedtime. 4. Seroquel 50 mg p.o. b.i.d. 5. Minipress 6 mg at bedtime. 6. Zofran 4 mg q.8. 7. Prilosec 20 mg before breakfast. 8. Nitrostat 0.4 sublingually q.5 p.r.n. 9. Singulair 10 mg at bedtime. 10. Prinivil 10 mg each morning. 11. Synthroid 50 mcg p.o. daily. 12. Xopenex 1 puff q.6 hours. 13. Ativan 1 mg p.o. t.i.d. 14. DuoNeb q.i.d. and p.r.n. 15. [place] 10 mg q.8 p.r.n. 16. Neurontin 1200 mg p.o. t.i.d. 17. Advair 250/50 two puffs b.i.d. 18. Gluconate 240 mg p.o. each morning. 19. Pepcid 60 mg p.o. b.i.d. 20. Lodine 400 mg b.i.d. 21. Doxepin 10 mg at bedtime p.r.n. 22. Colace 100 mg p.o. daily. 23. Cymbalta 60 mg p.o. b.i.d. 24. Calcium 600 mg p.o. t.i.d. 25. Symbicort 160/4.5 two puffs b.i.d. 26. Tessalon Perles 100 mg p.o. t.i.d. 27. Ecotrin 81 mg p.o. daily. 28. Albuterol 2.5 q.4 p.r.n. ALLERGIES: 1. AMOXICILLIN. 2. BACLOFEN. 3. MORPHINE. 4. PENICILLIN. 5. PROCHLORPERAZINE. 6. TETRACYCLINE. 7. SILK TAPE. FAMILY HISTORY: History of skin cancer in the family. SOCIAL HISTORY: No history of smoking. No history of alcohol intake. REVIEW OF SYSTEMS: ENT: No diminished hearing. No diminished vision. CARDIOVASCULAR: No angina or palpitations. RESPIRATORY: As mentioned earlier. GI: No nausea, vomiting. : No dysuria. NERVOUS SYSTEM: No numbness or weakness. ALLERGY/IMMUNOLOGY: As mentioned earlier. MUSCULOSKELETAL: As mentioned earlier. HEMATOLOGY/ONCOLOGY: No history of anemia. ENDOCRINE: As mentioned earlier. CONSTITUTIONAL: As mentioned earlier. DERMATOLOGY: Negative. RHEUMATOLOGY: Negative. PSYCHIATRY: As mentioned earlier. PHYSICAL EXAMINATION: Patient is alert and oriented x3. Pulse 115, blood pressure 86/47, respiration 18, temperature 100.4, pulse ox 90% on 2 L. HEENT: Conjunctivae normal. Oral mucosa moist. NECK: No jugular venous distention. No carotid bruit. No lymph node enlargement. CARDIOVASCULAR SYSTEM: S1, S2 muffled. No S3. No S4. RESPIRATORY: Breath sounds diminished at the bases. Bilateral scattered rhonchi and expiratory wheezing, especially in the bases. ABDOMEN: Soft, nontender. No mass palpable. LEGS: No edema. No swelling. NERVOUS SYSTEM: Higher functions as mentioned earlier. Moves all 4 limbs. No focal motor or sensory deficit. LYMPHATICS: No lymph node palpable in neck, axillae or groin. SKIN: No ulcer, rash, bleeding. LABS: WBC 5.4, hemoglobin 9.9. Sodium 136, potassium 3.8. ASSESSMENT: 1. Acute right lower lobe pneumonia and severe sepsis and hypotension. 2. Chronic obstructive pulmonary disease, acute exacerbation. 3. Rule out acute flu. 4. Anemia; normocytic anemia of chronic disease. 5. Hyponatremia. 6. Hypoalbuminemia. 7. Hiatal hernia. 8. Asthma, chronic obstructive pulmonary disease. 9. History of atrial fibrillation. 10. History of coronary artery disease. 11. History of deep venous thrombosis. 12. History of fibromyalgia. 13. History of gastroesophageal reflux disease. 14. Hypertension. 15. Hyperlipidemia. 16. History of coronary artery disease and stent and myocardial infarction. 17. History of acute hypoxic respiratory failure secondary to asthma exacerbation. 18. History of leukemia. 19. History of breast cancer. 20. History of back pain, degenerative joint disease. 21. History of coronary artery disease and stent. 22. History of anxiety, depression not otherwise specified. 23. FULL CODE. RECOMMENDATIONS AND DISCUSSION: In this 65-year-old woman who presented with multiple complex medical issues, we will monitor the patient closely, continue the current medications, continue with symptomatic treatment. Will initiate broad-spectrum IV antibiotics. I would also recommend bronchodilators and IV fluids. Consult Dr. Kemp. Cefepime has been initiated. DVT prophylaxis. Resume the home medications. IV boluses. Guarded prognosis because of multiple complex medical issues. Further recommendations to follow. A copy of this dictation is being forwarded to Dr. Ramon Riggs, who is the primary physician.
[2016-10-21 17:31] LABS: Glucose,Whole Blood 100 mg/dL (75-99)
[2016-10-21] MEDS: INSULIN LISPRO (humaLOG) 300 UNIT/3 ML VIAL SQ SCH ×2 (17:42→21:28)
[2016-10-21] MEDS: HYDROmorphone 1 MG/ML 1 ML SYRINGE IVP PRN ×2 (18:35→22:25)
[2016-10-21] MEDS: FORMOTEROL FUMARATE 20 MCG/2 ML NEBU INHALATION SCH (20:03)
[2016-10-21] MEDS: BUDESONIDE 1 MG/2 ML NEBU INHALATION SCH (20:03)
[2016-10-21] MEDS: ATORVASTATIN 10 MG TAB PO SCH (20:04)
[2016-10-21] MEDS: HYDROcodone/APAP 10-325MG 1 EACH TAB PO PRN (20:04)
[2016-10-21] MEDS: DOXEPIN 10 MG CAP PO SCH (20:04)
[2016-10-21] MEDS: PRAZOSIN 1 MG CAP PO SCH (20:04)
[2016-10-21] MEDS: MONTELUKAST 10 MG TAB PO SCH (20:04)
[2016-10-21] MEDS: DULoxetine HCL 60 MG CAPSULE.DR PO SCH (20:04)
[2016-10-21 20:36] LABS: Glucose,Whole Blood 151 mg/dL (75-99)
[2016-10-21] MEDS: CEFEPIME 2 GM in SODIUM CHLORIDE 0.9% 50 ML IVPB SCH (21:28)
[2016-10-21 22:36] LABS: Hemoglobin A1C 5.3 % (4.2-6.1)
[2016-10-22] MEDS: methylPREDNISolone SOD SUCCI 125 MG/2 ML VIAL IV SCH ×5 (00:52→23:30)
[2016-10-22] MEDS: HYDROmorphone 1 MG/ML 1 ML SYRINGE IVP PRN ×4 (03:12→19:41)
[2016-10-22] MEDS: oxyCODONE ER 20 MG TAB.ER.12H PO SCH ×2 (05:40→17:13)
[2016-10-22] MEDS: LEVOTHYROXINE 50 MCG TAB PO SCH (06:23)
[2016-10-22] MEDS: BUDESONIDE 1 MG/2 ML NEBU INHALATION SCH ×2 (07:10→20:45)
[2016-10-22] MEDS: FORMOTEROL FUMARATE 20 MCG/2 ML NEBU INHALATION SCH ×2 (07:10→20:45)
[2016-10-22] MEDS: LEVALBUTEROL NEB (CONC) 1.25 MG/0.5 ML AMP INHALATION SCH ×4 (07:10→20:45)
[2016-10-22] MEDS: IPRATROPIUM 0.5 MG/2.5 ML NEBU INHALATION SCH ×4 (07:10→20:45)
[2016-10-22] MEDS ORDERED: NON-FORMULARY DRUG (Omeprazole 20 MG) PO SCH (07:30)
[2016-10-22] MEDS: INSULIN LISPRO (humaLOG) 300 UNIT/3 ML VIAL SQ SCH ×4 (07:42→22:11)
[2016-10-22] MEDS: PANTOPRAZOLE 40 MG TABLET PO SCH (07:43)
[2016-10-22] MEDS: QUEtiapine 50 MG TAB PO SCH ×2 (07:43→17:13)
[2016-10-22] MEDS: SODIUM CHLORIDE 0.9% 1,000 ML IV SCH ×2 (07:49→23:30)
[2016-10-22 08:00] LABS: Glucose,Whole Blood 116 mg/dL (75-99)
[2016-10-22] MEDS: OSELTAMIVIR 75 MG CAP PO SCH ×2 (08:24→22:10)
[2016-10-22] MEDS: BENZONATATE 100 MG CAP PO SCH ×3 (08:24→22:09)
[2016-10-22] MEDS: DOCUSATE 100 MG CAP PO SCH (08:24)
[2016-10-22] MEDS: CALCIUM CARBONATE 500 MG CHEWABLE PO SCH ×3 (08:24→22:11)
[2016-10-22] MEDS: ASPIRIN 81 MG CHEW PO SCH (08:24)
[2016-10-22] MEDS: LORazepam 1 MG TAB PO SCH ×3 (08:24→22:14)
[2016-10-22] MEDS: HYDROcodone/APAP 10-325MG 1 EACH TAB PO PRN ×2 (08:25→15:12)
[2016-10-22] MEDS: GABAPENTIN 400 MG CAP PO SCH ×3 (08:25→22:11)
[2016-10-22] MEDS: ENOXAPARIN 40 MG/0.4 ML SYRINGE SQ SCH (08:25)
[2016-10-22] MEDS: DULoxetine HCL 60 MG CAPSULE.DR PO SCH ×2 (08:25→20:39)
[2016-10-22] MEDS: CEFEPIME 2 GM in SODIUM CHLORIDE 0.9% 50 ML IVPB SCH ×2 (09:19→22:09)
--- NOTE | 2016-10-22 09:45 | XR ---
EXAMINATION TYPE: XR chest 2V DATE OF EXAM: 10/22/2016 8:04 AM COMPARISON: 10/21/2016 HISTORY: Cough FINDINGS: Right perihilar consolidation stable. There is postsurgical change and evidence of a hiatal hernia. S urgery involving the vertebral column noted. Tiny pleural effusion on the right suspected. No pneumot horax. Heart size stable. IMPRESSION: 1. Perihilar pneumonia or mass is unchanged. Underlying chronic interstitial lung disease or venous c ongestion suspected.
[2016-10-22 11:46] LABS: Glucose,Whole Blood 115 mg/dL (75-99)
[2016-10-22] MEDS: FERROUS SULFATE 325 MG TAB PO SCH (11:48)
[2016-10-22] MEDS ORDERED: LEVOFLOXACIN 750MG-D5W PMX 750 MG in DEXTROSE/WATER 1 150ML.BAG IVPB SCH (13:00)
[2016-10-22 13:54] VITALS: BMI 24.1
[2016-10-22 14:56] LABS: Anisocytosis Slight; CH 26.6; CHCM 29.4; HCT 29.9 % (34.0-46.0); HDW 2.68; HGB 8.8 gm/dL (11.4-16.0); Hypochromasia Marked; MCH 26.8 pg (25.0-35.0); MCHC 29.5 g/dL (31.0-37.0); MCV 90.7 fL (80.0-100.0); Mean Platelet Volume 7.7; RBC 3.29 m/uL (3.80-5.40); RDW 16.9 % (11.5-15.5); WBC 12.6 k/uL (3.8-10.6); WBC (Perox) 13.15
[2016-10-22 15:14] LABS: Anion Gap 10 mmol/L; Blood Urea Nitrogen 9 mg/dL (7-17); Calcium 8.2 mg/dL (8.4-10.2); Carbon Dioxide 20 mmol/L (22-30); Chloride 107 mmol/L (98-107); Glucose 214 mg/dL (74-99); Non-African American GFR(MDRD) >60 (>60 ml/min/1.73 sqM); Potassium 3.6 mmol/L (3.5-5.1); Sodium 137 mmol/L (137-145)
[2016-10-22 15:16] LABS: Add Differential Manual Differential
[2016-10-22 15:19] LABS: Nucleated Red Blood Cells 0 /100 WBC (0-0); Total Cells Counted 100
[2016-10-22 15:22] LABS: Ovalocytes Present
[2016-10-22 16:46] LABS: Glucose,Whole Blood 127 mg/dL (75-99)
--- NOTE | 2016-10-22 18:36 | P.CNPUL ---
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 The patient started having worsening shortness of breath around August 2016. She was hospitalized initially around 2015 and after staying in hospital for that 3 days the patient was released home on a prednisone burst taper, Advair, and Singulair as maintenance and albuterol nebulized treatments around the clock. The patient got to the hospitalized on 09/25/2016 for the same. She was having increased shortness of breath. I ordered a CAT scan of the chest on her at that time that showed a hiatal hernia and subcentimeter subpleural nodule in the right lung base. No evidence of emphysema. No bronchiectasis. The patient was treated and was discharged home to be readmitted again for the same symptoms and she was seen by my associate during her last hospital stay.. The patient is still having some shortness of breath. She is taking a prednisone burst taper and she was started a dose of 50 mg by mouth daily following her discharge from the hospital yesterday. She is having some soreness in her throat and she is febrile with a temperature of 100.6. She is having some occasional wheezing. Shortness of breath has not fully recovered. The patient is having symptoms of reflux probably a complication of a hiatal hernia and at times she feels gastric juices coming all the way up to her mouth. She is taking only Pepcid for now. The patient lived all her life in [facility] and she claims to live very close to a [employer]. She is on no oxygen at this point. She has a remote history of clot in the left lower extremity and she is currently on no anticoagulation. I saw this patient in my office on 10/15/2016 and back then she was felt to be quite appropriate and recovering from her acute asthma exacerbation. At the same time I felt that the exacerbating factor for her asthma was her ongoing symptoms of GE reflux which was probably related to a moderate-sized hiatal hernia as visualized on previous chest x-ray and CAT scan of the chest. I started this patient on Prevacid 30 mg by mouth daily. She was having some edema in lower extremities and I started on Lasix 20 mg by mouth daily. I asked her to complete a prednisone burst taper. I asked her to increase her Ativan to 1 mg 3 times a day for increased anxiety. With all this interventions , the patient was doing well until yesterday when she woke up and she was having increased cough chest congestion and wheezing and for that reason she came back to the hospital. Her chest x-ray shows a new onset right perihilar pulmonary infiltrate suggestive of pneumonia. She again is certain that she has food material coming up her esophagus up to her posterior oropharynx causing her to regurgitate and possibly aspirate. Based on all these abnormalities, the patient was rehospitalized. Review of Systems Full review of system was done and the positive findings are almost above in history of present illness Past Medical History Past Medical History: Atrial Fibrillation, Asthma, Coronary Artery Disease (CAD) , Cancer, COPD, Deep Vein Thrombosis (DVT), Fibromyalgia, GERD/Reflux, Hyperlipidemia, Hypertension, Myocardial Infarction (non Q-wave), Osteoarthritis (OA), Thyroid Disorder Additional Past Medical History / Comment(s): Severe persistent bronchial asthma , hiatal hernia, chronic lower extremity edema, coronary artery disease, history of breast cancer, hypertension, osteoarthritis, malignancy of the cervix /cervical cancer, uterine cancer, right lower extremity DVT, chronic atrial fibrillation, hypothyroidism, GERD, scoliosis deformity of the spine, right foot drop, hiatal hernia, frequent exacerbation of COPD, cardiac murmur, urinary incontinence, rectal prolapse with repair, C5 cervical fracture with chronic neck pain, chronic anemia, E. coli urine checked infection on May 2016 Last Myocardial Infarction Date:: 2006 History of Any Multi-Drug Resistant Organisms: None Reported Date of last positivie culture/infection: None MDRO Source:: None Past Surgical History: Back Surgery, Breast Surgery, Cholecystectomy, Heart Catheterization With Stent, Hysterectomy, Tonsillectomy Additional Past Surgical History / Comment(s): Right umpectomy d/t breast cancer , back surgery x7, ortho sx-recent Fx C5-pain in neck, 02/19/2016 revision S2- Thoracic/lumbar area, bilat. cataracts removed 2014, SX FOR PROLAPSED RECTUM AT [facility]. Past Anesthesia/Blood Transfusion Reactions: No Reported Reaction Date of Last Stent Placement:: 2006 Past Psychological History: Anxiety, Depression Additional Psychological History / Comment(s): Pt states she is on medication for anxiety/depression which helps some and is going to be starting to see a councelor soon. She uses a cane/walker to ambulate. She drives. She currently has [facility] nurse twice a week and an aide twice a week. Smoking Status: Never smoker Past Alcohol Use History: None Reported Past Drug Use History: None Reported - Past Family History Father Family Medical History: Cancer Additional Family Medical History / Comment(s): skin cancer. Mother Family Medical History: Cancer Additional Family Medical History / Comment(s): uterine cancer. Daughter(s) Family Medical History: Cancer, Thyroid Disorder Additional Family Medical History / Comment(s): Thyroid CA removed Medications and Allergies Home Medications Medication Instructions Recorded Confirmed Type Aspirin EC [Ecotrin Low Dose] 81 mg PO DAILY 12/26/15 10/21/16 History Gabapentin [Neurontin] 1,200 mg PO TID 12/26/15 10/21/16 History Montelukast [Singulair] 10 mg PO HS 12/26/15 10/21/16 History Nitroglycerin Sl Tabs [Nitrostat] 0.4 mg SUBLINGUAL Q5M PRN 12/26/15 10/21/16 History Prazosin HCl [Minipress] 6 mg PO HS 02/10/16 10/21/16 History Calcium Carbonate [Calcium] 600 mg PO TID 04/30/16 10/21/16 History DULoxetine HCL [Cymbalta] 60 mg PO BID 04/30/16 10/21/16 History Lisinopril [Prinivil] 10 mg PO QAM 04/30/16 10/21/16 History Simvastatin [Zocor] 10 mg PO HS 06/02/16 10/21/16 History Omeprazole [PriLOSEC] 20 mg PO AC-BRKFST 09/01/16 10/21/16 History Etodolac [Lodine] 400 mg PO BID 09/16/16 10/21/16 History Famotidine [Pepcid] 60 mg PO BID 09/16/16 10/21/16 History Ferrous Gluconate 240 mg PO QAM 09/16/16 10/21/16 History Levothyroxine Sodium [Synthroid] 50 mcg PO DAILY 09/25/16 10/21/16 History Ondansetron [Zofran] 4 mg PO Q8H PRN 09/25/16 10/21/16 History Levalbuterol Hfa Inhaler [Xopenex 1 puff INHALATION RT-Q6H 10/10/16 10/21/16 History Hfa Inhaler] HYDROcodone/APAP 10-325MG [Smoot 1 tab PO Q8HR PRN 10/18/16 10/21/16 History 10-325] LORazepam [Ativan] 1 mg PO TID 10/18/16 10/21/16 History predniSONE 20 mg PO DAILY 10/18/16 10/21/16 History Allergies Allergy/AdvReac Type Severity Reaction Status Date / Time amoxicillin Allergy Unknown Verified 10/21/16 10:10 baclofen Allergy Rash/Hives Verified 10/21/16 10:10 morphine Allergy Itching Verified 10/21/16 10:10 Penicillins Allergy Unknown Verified 10/21/16 10:10 prochlorperazine Allergy Racing Verified 10/21/16 10:10 [From Compazine] Heart prochlorperazine edisylate Allergy Racing Verified 10/21/16 10:10 [From Compazine] Heart prochlorperazine maleate Allergy Racing Verified 10/21/16 10:10 [From Compazine] Heart tetracycline Allergy Unknown Verified 10/21/16 10:10 SILK TAPE Allergy Unknown Uncoded 10/21/16 10:10 Physical Exam Vitals: Vital Signs Temp Pulse Pulse Pulse Pulse Resp BP 10/22/16 16:44 98 10/22/16 16:35 96 10/22/16 16:00 18 10/22/16 15:52 20 10/22/16 15:28 98.8 F 88 18 133/70 10/22/16 15:00 98.8 F 81 16 157/79 10/22/16 11:30 95 10/22/16 11:23 92 10/22/16 08:00 16 10/22/16 07:31 92 10/22/16 07:21 90 10/22/16 07:20 90 10/22/16 07:10 90 10/22/16 07:00 98.8 F 92 92 H 150/67 10/22/16 04:13 97.8 F 83 16 129/67 10/22/16 01:01 97.5 F L 86 18 127/67 10/21/16 22:53 98.9 F 88 18 143/65 10/21/16 20:23 104 H 10/21/16 20:11 100 10/21/16 20:05 96 10/21/16 19:47 95 129/66 10/21/16 19:17 97.7 F 98 21 Pulse Ox 10/22/16 16:44 10/22/16 16:35 10/22/16 16:00 10/22/16 15:52 10/22/16 15:28 99 10/22/16 15:00 98 10/22/16 11:30 10/22/16 11:23 10/22/16 08:00 10/22/16 07:31 10/22/16 07:21 10/22/16 07:20 10/22/16 07:10 10/22/16 07:00 96 10/22/16 04:13 96 10/22/16 01:01 95 10/21/16 22:53 95 10/21/16 20:23 10/21/16 20:11 10/21/16 20:05 10/21/16 19:47 10/21/16 19:17 95 Intake and Output 10/22/16 10/22/16 10/22/16 06:59 14:59 22:59 Intake Total 1880 700 Balance 1880 700 Intake: IV 900 700 Sodium Chloride 0.9% 1, 900 700 000 ml @ 100 mls/hr IV . Q10H [facility] Rx#:[id number] Oral 980 Other: Voiding Method Toilet Bedside Commode Bedside Commode # Voids 1 2 # Bowel Movements 1 Weight 65.771 kg Patient Weight 10/23/16 06:59 Weight 65.771 kg Head exam was generally normal. There was no scleral icterus or corneal arcus. Mucous membranes were moist.Neck was supple and without jugular venous distension, thyromegaly, or carotid bruits. Carotids were easily palpable bilaterally. There was no adenopathy. Lung sounds are diminished along with some few scattered external wheezes bilaterally.Cardiac exam revealed the PMI to be normally situated and sized. The rhythm was regular and no extrasystoles were noted during several minutes of auscultation. The first and second heart sounds were normal and physiologic splitting of the second heart sound was noted. There were no murmurs, rubs, clicks, or gallops.Abdominal exam revealed normal bowel sounds. The abdomen was soft, non-tender, and without masses, organomegaly, or appreciable enlargement of the abdominal aorta.Examination of the extremities revealed easily palpable radial, femoral and pedal pulses. There was no cyanosis, clubbing or edema. Results - Laboratory Findings CBC and BMP: 10/22/16 14:34 10/22/16 14:34 PT/INR, D-dimer PT 10.5 sec (9.0-12.0) 10/21/16 12:04 INR 1.0 (<1.1) 10/21/16 12:04 Abnormal lab findings: Abnormal Labs 10/21/16 10/21/16 10/21/16 14:40 17:29 20:22 WBC RBC Hgb Hct MCHC RDW Neutrophils # (Manual) Lymphocytes # (Manual) Carbon Dioxide Creatinine Glucose POC Glucose (mg/dL) 100 H 151 H Calcium Urine Bilirubin 2+ H Ur Leukocyte Esterase Trace H Urine Bacteria Rare H 10/22/16 10/22/16 10/22/16 07:40 11:45 14:34 WBC 12.6 H RBC 3.29 L Hgb 8.8 L Hct 29.9 L MCHC 29.5 L RDW 16.9 H Neutrophils # (Manual) 12.1 H Lymphocytes # (Manual) 0.1 L Carbon Dioxide Creatinine Glucose POC Glucose (mg/dL) 116 H 115 H Calcium Urine Bilirubin Ur Leukocyte Esterase Urine Bacteria 10/22/16 10/22/16 14:34 16:45 WBC RBC Hgb Hct MCHC RDW Neutrophils # (Manual) Lymphocytes # (Manual) Carbon Dioxide 20 L Creatinine 0.37 L Glucose 214 H POC Glucose (mg/dL) 127 H Calcium 8.2 L Urine Bilirubin Ur Leukocyte Esterase Urine Bacteria - Diagnostic Findings Chest x-ray: image reviewed Assessment and Plan Plan: Impression 1 right perihilar pneumonia, rule out aspiration 2 severe persistent asthma- the patient is having complications of bronchial asthma and she was hospitalized 3 times over the past 2 months for asthma activity and exacerbations. It's likely that the patient is having massive GE reflux contributing to her poor asthma control. She is identified to have a large hiatal hernia and she is having active reflux symptoms. I was aware that the patient was having this symptoms of regurgitation and reflux and possibly aspiration. I put her on Prevacid 30 mg by mouth daily on outpatient basis. I would also consult general surgery for an EGD and possible surgical repair of the hiatal hernia of this becomes an ongoing issue. 3 hiatal hernia on Prevacid in conjunction with Pepcid 4 lower oximetry edema 5 malignant neoplasm of the breast 6 hypertension 7 history of cervical cancer 8 history of uterine cancer 9 chronic atrial fibrillation 10 hypothyroidism 11 GERD 12 scoliosis deformity of the spine 13 right foot. 14 hypothyroidism 15 coronary artery disease with a previous [place] in 2006 requiring a stent insertion 16 DVT of the left lower extremity 17 questionable leukemia at a young age 18 urinary incontinence with occasional urine checked infections Plan I am becoming more certain that this patient is aspirating. Her previous CAT scan of the chest showed no acute pulmonary infiltrates. It's very much likely the patient is having regurgitation and aspiration of gastric material in this patient with her gastric hiatal hernia. She is on IV cefepime and she has responded nicely to the antibiotics and there is improvement in the right perihilar pulmonary infiltrates compared to her admission date. Continue bronchodilators. Continue steroids. Stop Tamiflu as the patient has no indication. We'll follow
--- NOTE | 2016-10-22 19:24 | PN ---
DATE OF SERVICE: 10/22/2016 This 65-year-old woman who was admitted with right lower lobe pneumonia also had asthma, chronic obstructive pulmonary disease exacerbation also. The patient was feeling short of breath. The patient is being closely monitored. Past medical history reviewed. PHYSICAL EXAMINATION: Patient is alert and oriented times three. Pulse is 90, blood pressure is 150/67, respirations 20, temperature 98.8, pulse ox 96% on 2 L. HEENT: Conjunctivae normal. NECK: No jugular venous distention. CARDIOVASCULAR: S1, S2 muffled. RESPIRATORY: Breath sounds diminished at the bases. Bilateral scattered rhonchi and crackles. ABDOMEN: Soft, nontender. Legs: No edema, no swelling. Nervous system: No focal deficits. LABS: Hemoglobin 9.9, sodium 136. ASSESSMENT: 1. Acute right lower lobe pneumonia with severe sepsis and hypotension present on admission. 2. Chronic obstructive pulmonary disease/asthma acute exacerbation. 3. Rule out acute flu. 4. Anemia, normocytic, anemia of chronic disease. 5. Hyponatremia. 6. Hypoalbuminemia. 7. Hiatal hernia. 8. Asthma, chronic obstructive pulmonary disease history. 9. History of atrial fibrillation. 10. History of coronary artery disease. 11. History of deep venous thrombosis. 12. History of fibromyalgia. 13. History of gastroesophageal reflux disease. 14. Hypertension. 15. Hyperlipidemia. 16. History of coronary artery disease and stent myocardial infarction. 17. History of acute hypoxic respiratory failure acute exacerbation. 18. History of leukemia. 19. History of breast cancer. 20. History of back pain. 21. Degenerative joint disease. 22. History of coronary artery disease/stent. 23. History of anxiety, depression, not otherwise specified. 24. FULL CODE. RECOMMENDATIONS AND DISCUSSION: In this 65-year-old woman who presented with multiple complex medical issues, we will monitor the patient closely. Optimize bronchodilator. Symptomatic treatment. Otherwise, antibiotics, steroids. Guarded prognosis because of multiple complex medical issues and empiric Tamiflu. Guarded prognosis. Further recommendations to follow. Repeat labs will be ordered. MTDD
[2016-10-22 20:26] LABS: Glucose,Whole Blood 182 mg/dL (75-99)
[2016-10-22] MEDS: ATORVASTATIN 10 MG TAB PO SCH (20:37)
[2016-10-22] MEDS: DOXEPIN 10 MG CAP PO SCH (20:38)
[2016-10-22] MEDS: PRAZOSIN 1 MG CAP PO SCH (22:10)
[2016-10-22] MEDS: MONTELUKAST 10 MG TAB PO SCH (22:10)
[2016-10-22] MEDS: ZOLPIDEM 5 MG TAB PO PRN (23:35)
[2016-10-23] MEDS: LEVOTHYROXINE 50 MCG TAB PO SCH (06:20)
[2016-10-23] MEDS: oxyCODONE ER 20 MG TAB.ER.12H PO SCH ×2 (06:20→17:24)
[2016-10-23] MEDS: methylPREDNISolone SOD SUCCI 125 MG/2 ML VIAL IV SCH ×4 (06:21→23:41)
[2016-10-23 06:54] LABS: Glucose,Whole Blood 124 mg/dL (75-99)
[2016-10-23] MEDS: LEVALBUTEROL NEB (CONC) 1.25 MG/0.5 ML AMP INHALATION SCH ×4 (07:30→21:36)
[2016-10-23] MEDS: BUDESONIDE 1 MG/2 ML NEBU INHALATION SCH ×2 (07:33→21:36)
[2016-10-23] MEDS: FORMOTEROL FUMARATE 20 MCG/2 ML NEBU INHALATION SCH ×2 (07:33→21:36)
[2016-10-23] MEDS: IPRATROPIUM 0.5 MG/2.5 ML NEBU INHALATION SCH ×4 (07:33→21:36)
[2016-10-23] MEDS: INSULIN LISPRO (humaLOG) 300 UNIT/3 ML VIAL SQ SCH ×4 (07:45→21:28)
[2016-10-23] MEDS: SODIUM CHLORIDE 0.9% 1,000 ML IV SCH ×4 (07:45→18:40)
[2016-10-23] MEDS: LORazepam 1 MG TAB PO SCH ×3 (07:56→21:28)
[2016-10-23] MEDS: ENOXAPARIN 40 MG/0.4 ML SYRINGE SQ SCH (07:56)
[2016-10-23] MEDS: GABAPENTIN 400 MG CAP PO SCH ×3 (07:57→21:29)
[2016-10-23] MEDS: ASPIRIN 81 MG CHEW PO SCH (07:58)
[2016-10-23] MEDS: BENZONATATE 100 MG CAP PO SCH ×3 (07:58→21:29)
[2016-10-23] MEDS: OSELTAMIVIR 75 MG CAP PO SCH (07:59)
[2016-10-23] MEDS: DULoxetine HCL 60 MG CAPSULE.DR PO SCH ×2 (08:00→21:28)
[2016-10-23] MEDS: CALCIUM CARBONATE 500 MG CHEWABLE PO SCH ×3 (08:00→21:29)
[2016-10-23 08:01] LABS: Anisocytosis Slight; Basophils % (A) 0 %; CH 26.1; CHCM 28.8; Eosinophils % (A) 0 %; HCT 31.2 % (34.0-46.0); HGB 9.2 gm/dL (11.4-16.0); Hypochromasia Marked; Luc % (Auto) 1; Lymphocytes # (A) 0.3 k/uL (1.0-4.8); Lymphocytes % (A) 3 %; MCHC 29.6 g/dL (31.0-37.0); MCV 91.2 fL (80.0-100.0); Mean Platelet Volume 7.2; Monocytes # (A) 0.5 k/uL (0-1.0); Monocytes % (A) 5 %; Neutrophils % (A) 92 %; RBC 3.42 m/uL (3.80-5.40); RDW 16.6 % (11.5-15.5); WBC 10.9 k/uL (3.8-10.6); WBC (Perox) 12.02
[2016-10-23] MEDS: QUEtiapine 50 MG TAB PO SCH ×2 (08:01→17:24)
[2016-10-23] MEDS: CEFEPIME 2 GM in SODIUM CHLORIDE 0.9% 50 ML IVPB SCH ×2 (08:01→21:27)
[2016-10-23] MEDS: PANTOPRAZOLE 40 MG TABLET PO SCH (08:01)
[2016-10-23] MEDS: DOCUSATE 100 MG CAP PO SCH (08:02)
[2016-10-23 08:12] LABS: Anion Gap 9 mmol/L; Blood Urea Nitrogen 11 mg/dL (7-17); Calcium 8.5 mg/dL (8.4-10.2); Carbon Dioxide 21 mmol/L (22-30); Chloride 109 mmol/L (98-107); Glucose 106 mg/dL (74-99); Non-African American GFR(MDRD) >60 (>60 ml/min/1.73 sqM); Potassium 4.1 mmol/L (3.5-5.1); Sodium 139 mmol/L (137-145)
[2016-10-23] MEDS: HYDROmorphone 1 MG/ML 1 ML SYRINGE IVP PRN ×3 (08:14→21:38)
[2016-10-23 11:49] LABS: Glucose,Whole Blood 110 mg/dL (75-99)
--- NOTE | 2016-10-23 12:18 | XR ---
EXAMINATION TYPE: XR chest 2V DATE OF EXAM: 10/23/2016 12:13 PM COMPARISON: October 22, 2016 HISTORY: Shortness of breath TECHNIQUE: Frontal and lateral views of the chest are obtained. FINDINGS: Scattered senescent parenchymal changes noted. Hyperinflation compatible with COPD. There is persistent right perihilar infiltrate without significant interval change. Heart size is stable. Mediastinal structures are stable and grossly unremarkable. No evidence for hilar prominence. Degenerative changes dorsal spine. Fixed hiatal hernia noted. IMPRESSION: 1. There is persistent right perihilar infiltrate without significant interval change.
--- NOTE | 2016-10-23 12:28 | P.GSCN ---
History of Present Illness Consult date: 10/23/16 Reason for Consult: GERD History of present illness: This is a 65-year-old female who is admitted to the hospital for treatment of asthma. The patient has had several admissions for the treatment of asthma over the last several weeks. The patient states that she has significant reflux. She states that when she lies down and is in the supine position she' ll reflux 3-4 times per night the patient states that she needs to get up to spit the vomit out of her mouth. She states that she's been having significant reflux for 3-4 years. She has been on multiple medications for acid suppression. Review of Systems - Constitutional Reports as per HPI Past Medical History Past Medical History: Atrial Fibrillation, Asthma, Coronary Artery Disease (CAD) , Cancer, COPD, Deep Vein Thrombosis (DVT), Fibromyalgia, GERD/Reflux, Hyperlipidemia, Hypertension, Myocardial Infarction (non Q-wave), Osteoarthritis (OA), Thyroid Disorder Additional Past Medical History / Comment(s): Severe persistent bronchial asthma , hiatal hernia, chronic lower extremity edema, coronary artery disease, history of breast cancer, hypertension, osteoarthritis, malignancy of the cervix /cervical cancer, uterine cancer, right lower extremity DVT, chronic atrial fibrillation, hypothyroidism, GERD, scoliosis deformity of the spine, right foot drop, hiatal hernia, frequent exacerbation of COPD, cardiac murmur, urinary incontinence, rectal prolapse with repair, C5 cervical fracture with chronic neck pain, chronic anemia, E. coli urine checked infection on May 2016 Last Myocardial Infarction Date:: 2006 History of Any Multi-Drug Resistant Organisms: None Reported Year Discovered:: None MDRO Source:: None Past Surgical History: Back Surgery, Breast Surgery, Cholecystectomy, Heart Catheterization With Stent, Hysterectomy, Tonsillectomy Additional Past Surgical History / Comment(s): Right umpectomy d/t breast cancer , back surgery x7, ortho sx-recent Fx C5-pain in neck, 02/19/2016 revision S2- Thoracic/lumbar area, bilat. cataracts removed 2014, SX FOR PROLAPSED RECTUM AT [facility]. Past Anesthesia/Blood Transfusion Reactions: No Reported Reaction Date of Last Stent Placement:: 2006 Past Psychological History: Anxiety, Depression Additional Psychological History / Comment(s): Pt states she is on medication for anxiety/depression which helps some and is going to be starting to see a councelor soon. She uses a cane/walker to ambulate. She drives. She currently has [facility] nurse twice a week and an aide twice a week. Smoking Status: Never smoker Past Alcohol Use History: None Reported Past Drug Use History: None Reported - Past Family History Father Family Medical History: Cancer Additional Family Medical History / Comment(s): skin cancer. Mother Family Medical History: Cancer Additional Family Medical History / Comment(s): uterine cancer. Daughter(s) Family Medical History: Cancer, Thyroid Disorder Additional Family Medical History / Comment(s): Thyroid CA removed Medications and Allergies Home Medications Medication Instructions Recorded Confirmed Type Aspirin EC [Ecotrin Low Dose] 81 mg PO DAILY 12/26/15 10/21/16 History Gabapentin [Neurontin] 1,200 mg PO TID 12/26/15 10/21/16 History Montelukast [Singulair] 10 mg PO HS 12/26/15 10/21/16 History Nitroglycerin Sl Tabs [Nitrostat] 0.4 mg SUBLINGUAL Q5M PRN 12/26/15 10/21/16 History Prazosin HCl [Minipress] 6 mg PO HS 02/10/16 10/21/16 History Calcium Carbonate [Calcium] 600 mg PO TID 04/30/16 10/21/16 History DULoxetine HCL [Cymbalta] 60 mg PO BID 04/30/16 10/21/16 History Lisinopril [Prinivil] 10 mg PO QAM 04/30/16 10/21/16 History Simvastatin [Zocor] 10 mg PO HS 06/02/16 10/21/16 History Omeprazole [PriLOSEC] 20 mg PO AC-BRKFST 09/01/16 10/21/16 History Etodolac [Lodine] 400 mg PO BID 09/16/16 10/21/16 History Famotidine [Pepcid] 60 mg PO BID 09/16/16 10/21/16 History Ferrous Gluconate 240 mg PO QAM 09/16/16 10/21/16 History Levothyroxine Sodium [Synthroid] 50 mcg PO DAILY 09/25/16 10/21/16 History Ondansetron [Zofran] 4 mg PO Q8H PRN 09/25/16 10/21/16 History Levalbuterol Hfa Inhaler [Xopenex 1 puff INHALATION RT-Q6H 10/10/16 10/21/16 History Hfa Inhaler] HYDROcodone/APAP 10-325MG [[place] 1 tab PO Q8HR PRN 10/18/16 10/21/16 History 10-325] LORazepam [Ativan] 1 mg PO TID 10/18/16 10/21/16 History predniSONE 20 mg PO DAILY 10/18/16 10/21/16 History Allergies Allergy/AdvReac Type Severity Reaction Status Date / Time amoxicillin Allergy Unknown Verified 10/21/16 10:10 baclofen Allergy Rash/Hives Verified 10/21/16 10:10 morphine Allergy Itching Verified 10/21/16 10:10 Penicillins Allergy Unknown Verified 10/21/16 10:10 prochlorperazine Allergy Racing Verified 10/21/16 10:10 [From Compazine] Heart prochlorperazine edisylate Allergy Racing Verified 10/21/16 10:10 [From Compazine] Heart prochlorperazine maleate Allergy Racing Verified 10/21/16 10:10 [From Compazine] Heart tetracycline Allergy Unknown Verified 10/21/16 10:10 SILK TAPE Allergy Unknown Uncoded 10/21/16 10:10 Surgical - Exam Vital Signs Temp Pulse Resp BP Pulse Ox 102.4 F H 112 H 20 112/64 97 10/21/16 10:06 10/21/16 10:06 10/21/16 10:06 10/21/16 10:06 10/21/16 10:06 - General well developed, no distress - Eyes PERRL - ENT normal pinna - Neck no masses - Respiratory normal expansion - Cardiovascular Rhythm: regular - Abdomen Abdomen: soft, non tender Results - Labs 10/23/16 07:05 10/23/16 07:05 Abnormal Lab Results - Last 24 Hours (Table) 10/22/16 10/22/16 10/22/16 Range/Units 14:34 14:34 16:45 WBC 12.6 H (3.8-10.6) k/uL RBC 3.29 L (3.80-5.40) m/uL Hgb 8.8 L (11.4-16.0) gm/dL Hct 29.9 L (34.0-46.0) % MCHC 29.5 L (31.0-37.0) g/dL RDW 16.9 H (11.5-15.5) % Neutrophils # (1.3-7.7) k/uL Neutrophils # (Manual) 12.1 H (1.3-7.7) k/uL Lymphocytes # (1.0-4.8) k/uL Lymphocytes # (Manual) 0.1 L (1.0-4.8) k/uL Chloride (98-107) mmol/L Carbon Dioxide 20 L (22-30) mmol/L Creatinine 0.37 L (0.52-1.04) mg/dL Glucose 214 H (74-99) mg/dL POC Glucose (mg/dL) 127 H (75-99) mg/dL Calcium 8.2 L (8.4-10.2) mg/dL 10/22/16 10/23/16 10/23/16 Range/Units 20:24 06:52 07:05 WBC 10.9 H (3.8-10.6) k/uL RBC 3.42 L (3.80-5.40) m/uL Hgb 9.2 L (11.4-16.0) gm/dL Hct 31.2 L (34.0-46.0) % MCHC 29.6 L (31.0-37.0) g/dL RDW 16.6 H (11.5-15.5) % Neutrophils # 10.0 H (1.3-7.7) k/uL Neutrophils # (Manual) (1.3-7.7) k/uL Lymphocytes # 0.3 L (1.0-4.8) k/uL Lymphocytes # (Manual) (1.0-4.8) k/uL Chloride (98-107) mmol/L Carbon Dioxide (22-30) mmol/L Creatinine (0.52-1.04) mg/dL Glucose (74-99) mg/dL POC Glucose (mg/dL) 182 H 124 H (75-99) mg/dL Calcium (8.4-10.2) mg/dL 10/23/16 10/23/16 Range/Units 07:05 11:48 WBC (3.8-10.6) k/uL RBC (3.80-5.40) m/uL Hgb (11.4-16.0) gm/dL Hct (34.0-46.0) % MCHC (31.0-37.0) g/dL RDW (11.5-15.5) % Neutrophils # (1.3-7.7) k/uL Neutrophils # (Manual) (1.3-7.7) k/uL Lymphocytes # (1.0-4.8) k/uL Lymphocytes # (Manual) (1.0-4.8) k/uL Chloride 109 H (98-107) mmol/L Carbon Dioxide 21 L (22-30) mmol/L Creatinine 0.34 L (0.52-1.04) mg/dL Glucose 106 H (74-99) mg/dL POC Glucose (mg/dL) 110 H (75-99) mg/dL Calcium (8.4-10.2) mg/dL Microbiology - Last 24 Hours (Table) 10/21/16 14:40 Urine Culture - Final Urine,Clean Catch Diabetes panel 10/22/16 10/23/16 Range/Units 14:34 07:05 Sodium 137 139 (137-145) mmol/L Potassium 3.6 4.1 (3.5-5.1) mmol/L Chloride 107 109 H (98-107) mmol/L Carbon Dioxide 20 L 21 L (22-30) mmol/L BUN 9 11 (7-17) mg/dL Creatinine 0.37 L 0.34 L (0.52-1.04) mg/dL Glucose 214 H 106 H (74-99) mg/dL Calcium 8.2 L 8.5 (8.4-10.2) mg/dL Calcium panel 10/22/16 10/23/16 Range/Units 14:34 07:05 Calcium 8.2 L 8.5 (8.4-10.2) mg/dL Pituitary panel 10/22/16 10/23/16 Range/Units 14:34 07:05 Sodium 137 139 (137-145) mmol/L Potassium 3.6 4.1 (3.5-5.1) mmol/L Chloride 107 109 H (98-107) mmol/L Carbon Dioxide 20 L 21 L (22-30) mmol/L BUN 9 11 (7-17) mg/dL Creatinine 0.37 L 0.34 L (0.52-1.04) mg/dL Glucose 214 H 106 H (74-99) mg/dL Calcium 8.2 L 8.5 (8.4-10.2) mg/dL Adrenal panel 10/22/16 10/23/16 Range/Units 14:34 07:05 Sodium 137 139 (137-145) mmol/L Potassium 3.6 4.1 (3.5-5.1) mmol/L Chloride 107 109 H (98-107) mmol/L Carbon Dioxide 20 L 21 L (22-30) mmol/L BUN 9 11 (7-17) mg/dL Creatinine 0.37 L 0.34 L (0.52-1.04) mg/dL Glucose 214 H 106 H (74-99) mg/dL Calcium 8.2 L 8.5 (8.4-10.2) mg/dL - Imaging Chest x-ray: report reviewed (Right perihilar pneumonia) CT scan - chest: report reviewed Assessment and Plan Plan: 65-year-old female with significant GERD. Patient's asthma symptoms are most likely related to her GERD. Patient will undergo EGD on Tuesday for evaluation of her intrathoracic stomach.
--- NOTE | 2016-10-23 13:00 | P.PN ---
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 The patient started having worsening shortness of breath around August 2016. She was hospitalized initially around 2015 and after staying in hospital for that 3 days the patient was released home on a prednisone burst taper, Advair, and Singulair as maintenance and albuterol nebulized treatments around the clock. The patient got to the hospitalized on 09/25/2016 for the same. She was having increased shortness of breath. I ordered a CAT scan of the chest on her at that time that showed a hiatal hernia and subcentimeter subpleural nodule in the right lung base. No evidence of emphysema. No bronchiectasis. The patient was treated and was discharged home to be readmitted again for the same symptoms and she was seen by my associate during her last hospital stay.. The patient is still having some shortness of breath. She is taking a prednisone burst taper and she was started a dose of 50 mg by mouth daily following her discharge from the hospital yesterday. She is having some soreness in her throat and she is febrile with a temperature of 100.6. She is having some occasional wheezing. Shortness of breath has not fully recovered. The patient is having symptoms of reflux probably a complication of a hiatal hernia and at times she feels gastric juices coming all the way up to her mouth. She is taking only Pepcid for now. The patient lived all her life in [facility] and she claims to live very close to a [employer]. She is on no oxygen at this point. She has a remote history of clot in the left lower extremity and she is currently on no anticoagulation. I saw this patient in my office on 10/15/2016 and back then she was felt to be quite appropriate and recovering from her acute asthma exacerbation. At the same time I felt that the exacerbating factor for her asthma was her ongoing symptoms of GE reflux which was probably related to a moderate-sized hiatal hernia as visualized on previous chest x-ray and CAT scan of the chest. I started this patient on Prevacid 30 mg by mouth daily. She was having some edema in lower extremities and I started on Lasix 20 mg by mouth daily. I asked her to complete a prednisone burst taper. I asked her to increase her Ativan to 1 mg 3 times a day for increased anxiety. With all this interventions , the patient was doing well until yesterday when she woke up and she was having increased cough chest congestion and wheezing and for that reason she came back to the hospital. Her chest x-ray shows a new onset right perihilar pulmonary infiltrate suggestive of pneumonia. She again is certain that she has food material coming up her esophagus up to her posterior oropharynx causing her to regurgitate and possibly aspirate. Based on all these abnormalities, the patient was rehospitalized. On 10/23/2016 I'm seeing this patient in follow-up. The patient is less short of breath compared to yesterday. As mentioned the patient is having massive regurgitation and aspiration of gastric juice/vomitus and this has been occurring on multiple occasions. She had developed a right perihilar pneumonia and she seems to be doing well on the current antibiotic coverage. I discussed the case with Dr. Radha clark from general surgery and the patient will be considered for EGD and possible surgical repair of the hiatal hernia to later stage. She is currently on IV Protonix. Antibiotic coverage would include cefepime. The patient is also IV Solu-Medrol. She is on bronchodilators around the clock. Tamiflu can be discontinued as there is no indication of any acute influenza infection. Objective - Vital Signs Vital signs: Vital Signs Temp 98.8 F 10/23/16 07:00 Pulse 80 10/23/16 11:14 Resp 16 10/23/16 07:00 BP 161/99 10/23/16 07:00 Pulse Ox 95 10/23/16 07:00 Intake & Output 10/22/16 10/23/16 10/23/16 18:59 06:59 18:59 Intake Total 700 1150 Balance 700 1150 Weight 65.771 kg Intake: IV 700 1150 Sodium Chloride 0.9% 1, 700 1150 000 ml @ 100 mls/hr IV . Q10H [facility] Rx#:[id number] Other: Voiding Method Bedside Commode Bedside Commode Bedside Commode # Voids 2 1 1 - Exam Head exam was generally normal. There was no scleral icterus or corneal arcus. Mucous membranes were moist.Neck was supple and without jugular venous distension, thyromegaly, or carotid bruits. Carotids were easily palpable bilaterally. There was no adenopathy. Lung sounds are diminished bilaterally along with some few scattered external wheezes throughout the lung irwin.Cardiac exam revealed the PMI to be normally situated and sized. The rhythm was regular and no extrasystoles were noted during several minutes of auscultation. The first and second heart sounds were normal and physiologic splitting of the second heart sound was noted. There were no murmurs, rubs, clicks, or gallops. Abdominal exam revealed normal bowel sounds. The abdomen was soft, non-tender, and without masses, organomegaly, or appreciable enlargement of the abdominal aorta. Examination of the extremities revealed easily palpable radial, femoral and pedal pulses. There was no cyanosis, clubbing or edema. - Labs CBC & Chem 7: 10/23/16 07:05 10/23/16 07:05 Labs: Abnormal Lab Results - Last 24 Hours (Table) 10/22/16 10/22/16 10/22/16 Range/Units 14:34 14:34 16:45 WBC 12.6 H (3.8-10.6) k/uL RBC 3.29 L (3.80-5.40) m/uL Hgb 8.8 L (11.4-16.0) gm/dL Hct 29.9 L (34.0-46.0) % MCHC 29.5 L (31.0-37.0) g/dL RDW 16.9 H (11.5-15.5) % Neutrophils # (1.3-7.7) k/uL Neutrophils # (Manual) 12.1 H (1.3-7.7) k/uL Lymphocytes # (1.0-4.8) k/uL Lymphocytes # (Manual) 0.1 L (1.0-4.8) k/uL Chloride (98-107) mmol/L Carbon Dioxide 20 L (22-30) mmol/L Creatinine 0.37 L (0.52-1.04) mg/dL Glucose 214 H (74-99) mg/dL POC Glucose (mg/dL) 127 H (75-99) mg/dL Calcium 8.2 L (8.4-10.2) mg/dL 10/22/16 10/23/16 10/23/16 Range/Units 20:24 06:52 07:05 WBC 10.9 H (3.8-10.6) k/uL RBC 3.42 L (3.80-5.40) m/uL Hgb 9.2 L (11.4-16.0) gm/dL Hct 31.2 L (34.0-46.0) % MCHC 29.6 L (31.0-37.0) g/dL RDW 16.6 H (11.5-15.5) % Neutrophils # 10.0 H (1.3-7.7) k/uL Neutrophils # (Manual) (1.3-7.7) k/uL Lymphocytes # 0.3 L (1.0-4.8) k/uL Lymphocytes # (Manual) (1.0-4.8) k/uL Chloride (98-107) mmol/L Carbon Dioxide (22-30) mmol/L Creatinine (0.52-1.04) mg/dL Glucose (74-99) mg/dL POC Glucose (mg/dL) 182 H 124 H (75-99) mg/dL Calcium (8.4-10.2) mg/dL 10/23/16 10/23/16 Range/Units 07:05 11:48 WBC (3.8-10.6) k/uL RBC (3.80-5.40) m/uL Hgb (11.4-16.0) gm/dL Hct (34.0-46.0) % MCHC (31.0-37.0) g/dL RDW (11.5-15.5) % Neutrophils # (1.3-7.7) k/uL Neutrophils # (Manual) (1.3-7.7) k/uL Lymphocytes # (1.0-4.8) k/uL Lymphocytes # (Manual) (1.0-4.8) k/uL Chloride 109 H (98-107) mmol/L Carbon Dioxide 21 L (22-30) mmol/L Creatinine 0.34 L (0.52-1.04) mg/dL Glucose 106 H (74-99) mg/dL POC Glucose (mg/dL) 110 H (75-99) mg/dL Calcium (8.4-10.2) mg/dL Microbiology - Last 24 Hours (Table) 10/21/16 14:40 Urine Culture - Final Urine,Clean Catch Assessment and Plan Plan: Impression 1 right perihilar pneumonia, rule out aspiration 2 severe persistent asthma- the patient is having complications of bronchial asthma and she was hospitalized 3 times over the past 2 months for asthma activity and exacerbations. It's likely that the patient is having massive GE reflux contributing to her poor asthma control. She is identified to have a large hiatal hernia and she is having active reflux symptoms. I was aware that the patient was having this symptoms of regurgitation and reflux and possibly aspiration. I put her on Prevacid 30 mg by mouth daily on outpatient basis. I would also consult general surgery for an EGD and possible surgical repair of the hiatal hernia of this becomes an ongoing issue. On 10/23/2016 the patient is being seen in follow-up. She is doing better. Pneumonia is being treated. She is on bronchodilators. She is on systemic steroids. She is on IV Protonix. Gen. surgery will be consulting on this patient in regards to the hiatal hernia and recurrent aspirations. 3 hiatal hernia on Prevacid in conjunction with Pepcid 4 lower extremity edema 5 malignant neoplasm of the breast 6 hypertension 7 history of cervical cancer 8 history of uterine cancer 9 chronic atrial fibrillation 10 hypothyroidism 11 GERD 12 scoliosis deformity of the spine 13 right foot. 14 hypothyroidism 15 coronary artery disease with a previous AL in 2006 requiring a stent insertion 16 DVT of the left lower extremity 17 questionable leukemia at a young age 18 urinary incontinence with occasional urine checked infections Plan I am becoming more certain that this patient is aspirating. Her previous CAT scan of the chest showed no acute pulmonary infiltrates. It's very much likely the patient is having regurgitation and aspiration of gastric material in this patient with her gastric hiatal hernia. She is on IV cefepime and she has responded nicely to the antibiotics and there is improvement in the right perihilar pulmonary infiltrates compared to her admission date. Continue bronchodilators. Continue steroids. Stop Tamiflu as the patient has no indication. Will repeat the chest x-ray in a.m. EGD on Tuesday. Consult Dr. Araya regarding her hiatal hernia and GE reflux.
[2016-10-23] MEDS: FERROUS SULFATE 325 MG TAB PO SCH (13:14)
[2016-10-23] MEDS: ONDANSETRON 4 MG/2 ML VIAL IVP PRN (15:15)
[2016-10-23] MEDS: HYDROcodone/APAP 10-325MG 1 EACH TAB PO PRN ×2 (15:17→23:45)
[2016-10-23 16:34] LABS: Glucose,Whole Blood 139 mg/dL (75-99)
--- NOTE | 2016-10-23 18:21 | PN ---
DATE OF SERVICE: 10/23/2016 This 65-year-old woman who was admitted with a right lower lobe pneumonia, also history of acute exacerbation. The patient is being closely monitored. No chest pain, no palpitations. No fever. On exam, alert and oriented x3. Pulse 87, blood pressure 119/90, respirations 16, temperature 97 degrees, pulse ox 94% on room air. HEENT: Conjunctivae normal. NECK: No jugular venous distention. CARDIOVASCULAR: S1 and S2, muffled. RESPIRATORY: Breath sounds diminished at the bases. Bilateral scattered rhonchi and crackles. ABDOMEN: Soft, nontender. LEGS: No edema, no swelling. NERVOUS SYSTEM: No focal deficits. LABS: WBC 6.9, hemoglobin 9.2. Other labs are noted. ASSESSMENT: 1. Acute right lower lobe pneumonia with severe sepsis and hypotension present on admission. 2. Chronic obstructive pulmonary disease, acute exacerbation. 3. Anemia, normocytic, anemia of chronic disease. 4. Hyponatremia. 5. Hypoalbuminemia. 6. Hiatal hernia. 7. Asthma and chronic obstructive pulmonary disease. 8. History of atrial fibrillation. 9. History of coronary artery disease. 10. History of deep venous thrombosis. 11. History of fibromyalgia. 12. History of gastroesophageal reflux disease. 13. Hypertension. 14. Hyperlipidemia. 15. History of coronary artery disease and stent and myocardial infarction. 16. History of acute hypoxic respiratory failure previously. 17. History of leukemia. 18. History of breast cancer. 19. History of back pain. 20. History of degenerative joint disease. 21. History of anxiety and depression, not otherwise specified. 22. FULL CODE. RECOMMENDATIONS AND DISCUSSION: In this 65-year-old woman who presented with multiple complex medical issues, will monitor the patient closely. Continue the current medications and symptomatic treatment. Otherwise bronchodilators, steroids. Closely follow with Dr. Kemp. Guarded prognosis. Further recommendations to follow.
[2016-10-23 20:38] LABS: Glucose,Whole Blood 215 mg/dL (75-99)
[2016-10-23] MEDS: ATORVASTATIN 10 MG TAB PO SCH (21:27)
[2016-10-23] MEDS: DOXEPIN 10 MG CAP PO SCH (21:28)
[2016-10-23] MEDS: MONTELUKAST 10 MG TAB PO SCH (21:28)
[2016-10-23] MEDS: PRAZOSIN 1 MG CAP PO SCH (21:29)
[2016-10-23] MEDS: ZOLPIDEM 5 MG TAB PO PRN (23:23)
[2016-10-24] MEDS: HYDROmorphone 1 MG/ML 1 ML SYRINGE IVP PRN ×3 (03:57→16:22)
[2016-10-24] MEDS: LEVOTHYROXINE 50 MCG TAB PO SCH (06:31)
[2016-10-24] MEDS: methylPREDNISolone SOD SUCCI 125 MG/2 ML VIAL IV SCH ×4 (06:32→23:22)
[2016-10-24] MEDS: oxyCODONE ER 20 MG TAB.ER.12H PO SCH ×2 (06:32→18:34)
[2016-10-24] MEDS: SODIUM CHLORIDE 0.9% 1,000 ML IV SCH ×4 (06:35→23:13)
[2016-10-24 06:57] LABS: Glucose,Whole Blood 130 mg/dL (75-99)
[2016-10-24] MEDS: IPRATROPIUM 0.5 MG/2.5 ML NEBU INHALATION SCH ×4 (07:20→19:34)
[2016-10-24] MEDS: BUDESONIDE 1 MG/2 ML NEBU INHALATION SCH ×2 (07:20→19:34)
[2016-10-24] MEDS: LEVALBUTEROL NEB (CONC) 1.25 MG/0.5 ML AMP INHALATION SCH ×4 (07:20→19:34)
[2016-10-24] MEDS: FORMOTEROL FUMARATE 20 MCG/2 ML NEBU INHALATION SCH ×2 (07:20→19:34)
[2016-10-24 07:24] LABS: Anisocytosis Slight; Basophils % (A) 0 %; CH 26.7; CHCM 30.7; Eosinophils # (A) 0.1 k/uL (0-0.7); Eosinophils % (A) 1 %; HCT 29.3 % (34.0-46.0); HDW 2.91; HGB 9.1 gm/dL (11.4-16.0); Hypochromasia Moderate; Luc # (Auto) 0.06; Luc % (Auto) 1; Lymphocytes # (A) 0.4 k/uL (1.0-4.8); Lymphocytes % (A) 5 %; MCV 87.1 fL (80.0-100.0); Mean Platelet Volume 7.2; Monocytes # (A) 0.4 k/uL (0-1.0); Monocytes % (A) 5 %; Neutrophils # (A) 7.4 k/uL (1.3-7.7); Neutrophils % (A) 89 %; RBC 3.37 m/uL (3.80-5.40); RDW 16.7 % (11.5-15.5); WBC 8.4 k/uL (3.8-10.6)
[2016-10-24 08:24] LABS: Anion Gap 7 mmol/L; Blood Urea Nitrogen 15 mg/dL (7-17); Calcium 8.5 mg/dL (8.4-10.2); Carbon Dioxide 24 mmol/L (22-30); Chloride 109 mmol/L (98-107); Glucose 115 mg/dL (74-99); Non-African American GFR(MDRD) >60 (>60 ml/min/1.73 sqM); Sodium 140 mmol/L (137-145)
[2016-10-24 08:27] LABS: Potassium 3.9 mmol/L (3.5-5.1)
[2016-10-24] MEDS: CEFEPIME 2 GM in SODIUM CHLORIDE 0.9% 50 ML IVPB SCH ×2 (09:04→21:05)
[2016-10-24] MEDS: CALCIUM CARBONATE 500 MG CHEWABLE PO SCH ×3 (09:06→21:08)
[2016-10-24] MEDS: LORazepam 1 MG TAB PO SCH ×3 (09:06→22:15)
[2016-10-24] MEDS: FUROSEMIDE 40 MG TAB PO SCH (09:06)
[2016-10-24] MEDS: GABAPENTIN 400 MG CAP PO SCH ×3 (09:07→21:04)
[2016-10-24] MEDS: INSULIN LISPRO (humaLOG) 300 UNIT/3 ML VIAL SQ SCH ×4 (09:08→21:07)
[2016-10-24] MEDS: ENOXAPARIN 40 MG/0.4 ML SYRINGE SQ SCH (09:08)
[2016-10-24] MEDS: BENZONATATE 100 MG CAP PO SCH ×3 (09:09→21:08)
[2016-10-24] MEDS: ASPIRIN 81 MG CHEW PO SCH (09:09)
[2016-10-24] MEDS: QUEtiapine 50 MG TAB PO SCH ×2 (09:09→18:34)
[2016-10-24] MEDS: DULoxetine HCL 60 MG CAPSULE.DR PO SCH ×2 (09:09→21:07)
[2016-10-24] MEDS: PANTOPRAZOLE 40 MG TABLET PO SCH (09:09)
[2016-10-24] MEDS: DOCUSATE 100 MG CAP PO SCH (09:10)
[2016-10-24] MEDS: ONDANSETRON 4 MG/2 ML VIAL IVP PRN (10:22)
[2016-10-24 11:05] LABS: Glucose,Whole Blood 115 mg/dL (75-99)
--- NOTE | 2016-10-24 11:23 | P.PN ---
Progress Note - Text The patient is resting comfortably in bed. She states she had some reflux last night. On exam her vital signs are stable. Her abdomen soft. Patient be scheduled for EGD in a.m.
[2016-10-24] MEDS: HYDROcodone/APAP 10-325MG 1 EACH TAB PO PRN ×2 (12:05→21:18)
[2016-10-24] MEDS: FERROUS SULFATE 325 MG TAB PO SCH (12:06)
--- NOTE | 2016-10-24 12:46 | P.PN ---
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 The patient started having worsening shortness of breath around August 2016. She was hospitalized initially around 2015 and after staying in hospital for that 3 days the patient was released home on a prednisone burst taper, Advair, and Singulair as maintenance and albuterol nebulized treatments around the clock. The patient got to the hospitalized on 09/25/2016 for the same. She was having increased shortness of breath. I ordered a CAT scan of the chest on her at that time that showed a hiatal hernia and subcentimeter subpleural nodule in the right lung base. No evidence of emphysema. No bronchiectasis. The patient was treated and was discharged home to be readmitted again for the same symptoms and she was seen by my associate during her last hospital stay.. The patient is still having some shortness of breath. She is taking a prednisone burst taper and she was started a dose of 50 mg by mouth daily following her discharge from the hospital yesterday. She is having some soreness in her throat and she is febrile with a temperature of 100.6. She is having some occasional wheezing. Shortness of breath has not fully recovered. The patient is having symptoms of reflux probably a complication of a hiatal hernia and at times she feels gastric juices coming all the way up to her mouth. She is taking only Pepcid for now. The patient lived all her life in [facility] and she claims to live very close to a [employer]. She is on no oxygen at this point. She has a remote history of clot in the left lower extremity and she is currently on no anticoagulation. I saw this patient in my office on 10/15/2016 and back then she was felt to be quite appropriate and recovering from her acute asthma exacerbation. At the same time I felt that the exacerbating factor for her asthma was her ongoing symptoms of GE reflux which was probably related to a moderate-sized hiatal hernia as visualized on previous chest x-ray and CAT scan of the chest. I started this patient on Prevacid 30 mg by mouth daily. She was having some edema in lower extremities and I started on Lasix 20 mg by mouth daily. I asked her to complete a prednisone burst taper. I asked her to increase her Ativan to 1 mg 3 times a day for increased anxiety. With all this interventions , the patient was doing well until yesterday when she woke up and she was having increased cough chest congestion and wheezing and for that reason she came back to the hospital. Her chest x-ray shows a new onset right perihilar pulmonary infiltrate suggestive of pneumonia. She again is certain that she has food material coming up her esophagus up to her posterior oropharynx causing her to regurgitate and possibly aspirate. Based on all these abnormalities, the patient was rehospitalized. On 10/23/2016 I'm seeing this patient in follow-up. The patient is less short of breath compared to yesterday. As mentioned the patient is having massive regurgitation and aspiration of gastric juice/vomitus and this has been occurring on multiple occasions. She had developed a right perihilar pneumonia and she seems to be doing well on the current antibiotic coverage. I discussed the case with Dr. Radha clark from general surgery and the patient will be considered for EGD and possible surgical repair of the hiatal hernia to later stage. She is currently on IV Protonix. Antibiotic coverage would include cefepime. The patient is also IV Solu-Medrol. She is on bronchodilators around the clock. Tamiflu can be discontinued as there is no indication of any acute influenza infection. To [id number] I'm seeing the patient in follow-up. We have consulted general surgery and the patient would have a EGD tomorrow for hiatal hernia workup and ultimately she may need a fundoplication based on the fact that she is having significant regurgitation, reflux and aspiration. She is also being treated for a right perihilar pneumonia. The chest x-ray that was done yesterday showed persistent infiltration without much of an improvement. The infiltrate remains stable. Clinically however the patient is feeling better. Her cough and congestion is improved. Objective - Vital Signs Vital signs: Vital Signs Temp 98.0 F 10/24/16 07:00 Pulse 92 10/24/16 11:38 Resp 16 10/24/16 07:00 BP 152/79 10/24/16 07:00 Pulse Ox 96 10/24/16 07:00 Intake & Output 10/23/16 10/24/16 10/24/16 18:59 06:59 18:59 Intake Total 590 800 Balance 590 800 Intake: IV 800 Sodium Chloride 0.9% 1, 800 000 ml @ 100 mls/hr IV . Q10H [facility] Rx#:[id number] Oral 590 Other: Voiding Method Bedside Commode Toilet Toilet # Voids 4 1 - Exam Head exam was generally normal. There was no scleral icterus or corneal arcus. Mucous membranes were moist.Neck was supple and without jugular venous distension, thyromegaly, or carotid bruits. Carotids were easily palpable bilaterally. There was no adenopathy. Lung sounds are diminished bilaterally along with some few scattered external wheezes throughout the lung irwin.Cardiac exam revealed the PMI to be normally situated and sized. The rhythm was regular and no extrasystoles were noted during several minutes of auscultation. The first and second heart sounds were normal and physiologic splitting of the second heart sound was noted. There were no murmurs, rubs, clicks, or gallops. Abdominal exam revealed normal bowel sounds. The abdomen was soft, non-tender, and without masses, organomegaly, or appreciable enlargement of the abdominal aorta. Examination of the extremities revealed easily palpable radial, femoral and pedal pulses. There was no cyanosis, clubbing or edema. - Labs CBC & Chem 7: 10/24/16 07:00 10/24/16 07:00 Labs: Abnormal Lab Results - Last 24 Hours (Table) 10/23/16 10/23/16 10/24/16 Range/Units 16:33 20:36 06:55 RBC (3.80-5.40) m/uL Hgb (11.4-16.0) gm/dL Hct (34.0-46.0) % RDW (11.5-15.5) % Lymphocytes # (1.0-4.8) k/uL Chloride (98-107) mmol/L Creatinine (0.52-1.04) mg/dL Glucose (74-99) mg/dL POC Glucose (mg/dL) 139 H 215 H 130 H (75-99) mg/dL 10/24/16 10/24/16 10/24/16 Range/Units 07:00 07:00 11:04 RBC 3.37 L (3.80-5.40) m/uL Hgb 9.1 L (11.4-16.0) gm/dL Hct 29.3 L (34.0-46.0) % RDW 16.7 H (11.5-15.5) % Lymphocytes # 0.4 L (1.0-4.8) k/uL Chloride 109 H (98-107) mmol/L Creatinine 0.33 L (0.52-1.04) mg/dL Glucose 115 H (74-99) mg/dL POC Glucose (mg/dL) 115 H (75-99) mg/dL Assessment and Plan Plan: Impression 1 right perihilar pneumonia, rule out aspiration 2 severe persistent asthma- the patient is having complications of bronchial asthma and she was hospitalized 3 times over the past 2 months for asthma activity and exacerbations. It's likely that the patient is having massive GE reflux contributing to her poor asthma control. She is identified to have a large hiatal hernia and she is having active reflux symptoms. I was aware that the patient was having this symptoms of regurgitation and reflux and possibly aspiration. I put her on Prevacid 30 mg by mouth daily on outpatient basis. I would also consult general surgery for an EGD and possible surgical repair of the hiatal hernia of this becomes an ongoing issue. On 10/23/2016 the patient is being seen in follow-up. She is doing better. Pneumonia is being treated. She is on bronchodilators. She is on systemic steroids. She is on IV Protonix. Gen. surgery will be consulting on this patient in regards to the hiatal hernia and recurrent aspirations. On 10/24/2016, the patient is being seen in follow-up. Clinically much improved. He is still stable right perihilar pulmonary infiltrates suggestive of underlying pneumonia. She is still on the spectrum antibiotics which she is still taking. 3 hiatal hernia on Prevacid in conjunction with Pepcid 4 lower extremity edema 5 malignant neoplasm of the breast 6 hypertension 7 history of cervical cancer 8 history of uterine cancer 9 chronic atrial fibrillation 10 hypothyroidism 11 GERD 12 scoliosis deformity of the spine 13 right foot. 14 hypothyroidism 15 coronary artery disease with a previous OK in 2007 requiring a stent insertion 16 DVT of the left lower extremity 17 questionable leukemia at a young age 18 urinary incontinence with occasional urine checked infections Plan I am becoming more certain that this patient is aspirating. Her previous CAT scan of the chest showed no acute pulmonary infiltrates. It's very much likely the patient is having regurgitation and aspiration of gastric material in this patient with her gastric hiatal hernia. She is on IV cefepime and she has responded nicely to the antibiotics and there is improvement in the right perihilar pulmonary infiltrates compared to her admission date. Continue bronchodilators. Continue steroids. I discussed the case with Dr. Butler. I consulted him. The patient will have a EGD tomorrow and probably a fundoplication at a later stage regarding her symptomatic large hiatal hernia.
[2016-10-24 17:28] LABS: Glucose,Whole Blood 113 mg/dL (75-99)
[2016-10-24 20:48] LABS: Glucose,Whole Blood 168 mg/dL (75-99)
[2016-10-24] MEDS: DOXEPIN 10 MG CAP PO SCH (21:04)
[2016-10-24] MEDS: PRAZOSIN 1 MG CAP PO SCH (21:05)
[2016-10-24] MEDS: MONTELUKAST 10 MG TAB PO SCH (21:06)
[2016-10-24] MEDS: ATORVASTATIN 10 MG TAB PO SCH (21:07)
[2016-10-24] MEDS: ZOLPIDEM 5 MG TAB PO PRN (23:24)
[2016-10-25] MEDS: LEVOTHYROXINE 50 MCG TAB PO SCH (06:05)
[2016-10-25] MEDS: oxyCODONE ER 20 MG TAB.ER.12H PO SCH ×2 (06:05→18:01)
[2016-10-25] MEDS: methylPREDNISolone SOD SUCCI 125 MG/2 ML VIAL IV SCH ×3 (06:05→18:01)
[2016-10-25 07:15] LABS: Anisocytosis Slight; Basophils % (A) 0 %; CH 26.4; CHCM 30.2; Eosinophils % (A) 0 %; HCT 31.3 % (34.0-46.0); HDW 2.92; HGB 9.4 gm/dL (11.4-16.0); Hypochromasia Marked; Luc # (Auto) 0.07; Luc % (Auto) 1; Lymphocytes # (A) 0.3 k/uL (1.0-4.8); Lymphocytes % (A) 4 %; MCH 26.4 pg (25.0-35.0); MCHC 30.1 g/dL (31.0-37.0); MCV 87.8 fL (80.0-100.0); Mean Platelet Volume 6.7; Monocytes # (A) 0.2 k/uL (0-1.0); Monocytes % (A) 4 %; Neutrophils # (A) 5.4 k/uL (1.3-7.7); Neutrophils % (A) 91 %; RBC 3.56 m/uL (3.80-5.40); RDW 16.4 % (11.5-15.5); WBC (Perox) 6.29
[2016-10-25 07:21] LABS: Anion Gap 8 mmol/L; Blood Urea Nitrogen 18 mg/dL (7-17); Calcium 8.4 mg/dL (8.4-10.2); Carbon Dioxide 27 mmol/L (22-30); Chloride 106 mmol/L (98-107); Glucose 118 mg/dL (74-99); Non-African American GFR(MDRD) >60 (>60 ml/min/1.73 sqM); Potassium 3.3 mmol/L (3.5-5.1); Sodium 141 mmol/L (137-145)
[2016-10-25 07:21] LABS: Glucose,Whole Blood 123 mg/dL (75-99)
[2016-10-25] MEDS: FORMOTEROL FUMARATE 20 MCG/2 ML NEBU INHALATION SCH ×2 (07:44→19:35)
[2016-10-25] MEDS: BUDESONIDE 1 MG/2 ML NEBU INHALATION SCH ×2 (07:44→19:35)
[2016-10-25] MEDS: LEVALBUTEROL NEB (CONC) 1.25 MG/0.5 ML AMP INHALATION SCH ×4 (07:44→19:34)
[2016-10-25] MEDS: IPRATROPIUM 0.5 MG/2.5 ML NEBU INHALATION SCH ×4 (07:44→19:34)
[2016-10-25] MEDS: HYDROmorphone 1 MG/ML 1 ML SYRINGE IVP PRN ×3 (08:30→20:46)
[2016-10-25] MEDS: ASPIRIN 81 MG CHEW PO SCH (08:33)
[2016-10-25] MEDS: GABAPENTIN 400 MG CAP PO SCH ×3 (08:33→20:49)
[2016-10-25] MEDS: PANTOPRAZOLE 40 MG TABLET PO SCH (08:34)
[2016-10-25] MEDS: DULoxetine HCL 60 MG CAPSULE.DR PO SCH ×2 (08:34→20:51)
[2016-10-25] MEDS: LORazepam 1 MG TAB PO SCH ×3 (08:34→22:05)
[2016-10-25] MEDS: FUROSEMIDE 40 MG TAB PO SCH (08:35)
[2016-10-25] MEDS: CALCIUM CARBONATE 500 MG CHEWABLE PO SCH ×3 (08:35→20:51)
[2016-10-25] MEDS: BENZONATATE 100 MG CAP PO SCH ×3 (08:35→20:51)
[2016-10-25] MEDS: DOCUSATE 100 MG CAP PO SCH (08:35)
[2016-10-25] MEDS: QUEtiapine 50 MG TAB PO SCH ×2 (08:35→18:02)
[2016-10-25] MEDS: INSULIN LISPRO (humaLOG) 300 UNIT/3 ML VIAL SQ SCH ×4 (08:36→20:56)
[2016-10-25] MEDS: CEFEPIME 2 GM in SODIUM CHLORIDE 0.9% 50 ML IVPB SCH ×2 (08:39→20:59)
[2016-10-25] MEDS ORDERED: HYDROmorphone 1 MG/ML 1 ML SYRINGE IVP STA (11:16)
[2016-10-25 12:17] LABS: Glucose,Whole Blood 103 mg/dL (75-99)
[2016-10-25] MEDS ORDERED: PROPOFOL 10 MG/ML 20 ML VIAL IV ONE (12:38)
[2016-10-25] MEDS ORDERED: IV FLUID CONTINUATION 1,000 ML IV ONE (12:45)
--- NOTE | 2016-10-25 12:53 | P.OP ---
Date of Procedure: 10/25/16 Preoperative Diagnosis: GERD Postoperative Diagnosis: GERD Hiatal hernia Antral gastritis Esophagitis Procedure(s) Performed: EGD Anesthesia: MAC Surgeon: Tobias Butler Pathology: other (Antrum, esophagus) Condition: stable Disposition: PACU Description of Procedure: The patient's placed on the endoscopy table in the lateral position. She received IV sedation. The gastroscope some placed oropharynx passed into the esophagus and into the stomach. The scope was then placed through the pylorus. The first and second portion of the duodenum appeared normal. Scope was then brought back the antrum and this appeared mildly inflamed. A biopsies performed. Scope was unretroflexed and the remainder of the stomach appeared normal. There was a moderate size hiatal hernia. The GE junction was at 40 cm s. The distal esophagus appeared minimally inflamed and a biopsies performed. The proximal esophagusAppeared Normal. The scope was withdrawn for patient.
[2016-10-25] MEDS: ENOXAPARIN 40 MG/0.4 ML SYRINGE SQ SCH (13:24)
[2016-10-25] MEDS: FERROUS SULFATE 325 MG TAB PO SCH (13:24)
[2016-10-25] MEDS: HYDROcodone/APAP 10-325MG 1 EACH TAB PO PRN ×2 (13:35→22:00)
--- NOTE | 2016-10-25 16:25 | PN ---
INTERVAL HISTORY: Ms. Flores is a 66-year-old female who was admitted to the hospital with a right perihilar infiltrate. Possible aspiration is being considered and patient has multiple admissions for acute asthma exacerbation and the patient also has hiatal hernia. Patient is undergoing EGD tomorrow for evaluation of hiatal hernia and a possible fundoplication at a later time. Otherwise, the patient is being continued on antibiotics for pneumonia. Chest x-ray showed persistent infiltrates. Pulmonary and Surgery are surgery are following the patient. Otherwise, patient clinically much improved today. Denied any worsening short of breath or chest pain. No fever. No chills. No acute overnight issues. REVIEW OF SYSTEMS: CONSTITUTIONAL: No fever. No chills. RESPIRATORY: No cough or sputum production. CARDIOVASCULAR: No chest pain. No worsening shortness of breath. ABDOMEN: No nausea, vomiting, abdominal pain. GENITOURINARY: Negative. ENDOCRINE: Negative. PSYCHIATRIC: Negative. SKIN: Negative. MUSCULOSKELETAL: Negative. Other 14-point review of systems negative except as above. Current medications include: 1. [place] 10. 2. Aspirin. 3. Atorvastatin. 4. Tessalon Perles. 5. Pulmicort. 6. Cefepime. 7. Colace. 8. Doxepin. 9. Lovenox subcu. 10. Ferrous sulfate. 11. Perforomist. 12. Lasix. 13. Gabapentin. 14. Dilaudid. 15. Insulin sliding scale. 16. Ipratropium. 17. Levalbuterol. 18. Levothyroxine. 19. Ativan. 20. Solu-Medrol. 21. Singulair. 22. Zofran. 23. Oxycodone. 24. Protonix and 25. Seroquel. 26. Minipress. 27. Zolpidem. PHYSICAL EXAM: A 66-year-old female, lying in the bed; awake, alert, oriented x3, appears to be in no apparent distress. VITAL SIGNS: Blood pressure is 118/64, pulse is 99, respirations 18, temperature afebrile, pulse ox 98% on room air. HEENT: Atraumatic, normocephalic. Neck is supple. No JVD. CVS: S1, S2 heard. No murmurs. No gallop. LUNGS: Bilateral air entry is present and decreased bilateral basally. Expiratory wheezing positive and rhonchi positive as well. Nonlabored breathing. Abdomen is soft, nontender. Bowel sounds are present. CUTTER AND PRESSER: Awake, alert, oriented x3. No focal deficit. EXTREMITIES: No edema. Pulses palpable bilaterally. No clubbing or cyanosis. PSYCHIATRIC: Cooperative. LABORATORY DATA: WBC 8.4, hemoglobin 9.1, platelets 214. Sodium 140, potassium 3.9, chloride 109, bicarb is 24, BUN 13, creatinine 0.33, blood sugar is 115. Calcium 8.5. IMPRESSION: 1. Right perihilar pneumonia, possible aspiration. 2. Severe sepsis and hypotension on admission. 3. Chronic obstructive pulmonary disease with acute exacerbation and with multiple admissions. 4. Hiatal hernia. Esophagogastroduodenoscopy tomorrow for evaluation. 5. Normocytic anemia/anemia of chronic disease. 6. Hyponatremia, improved. 7. Hypoalbuminemia. 8. Asthma. 9. History of atrial fibrillation. 10. History of coronary artery disease. 11. History of deep venous thrombosis. 12. History of fibromyalgia. 13. Gastroesophageal reflux disease. 14. Hypertension. 15. Hyperlipidemia. 16. History of coronary artery, stent placement and history of myocardial infarction. 17. History of acute hypoxic respiratory failure previously. 18. History of leukemia. 19. History of breast cancer. 20. History of back pain. 21. Degenerative joint disease. 22. Anxiety, depression. 23. FULL CODE. 24. DVT proph with Lovenox subcu. DISCUSSION AND PLAN: Patient ill continued on antibiotics in the form of cefepime and continue with the breathing treatments. Continue with IV steroids and follow up closely. Continue with PPI and further recommendations based on the clinical course. Pulmonary and General Surgery is following this patient. Prognosis is guarded. Further recommendations based on the clinical course. [facility]
[2016-10-25 17:19] LABS: Glucose,Whole Blood 124 mg/dL (75-99)
[2016-10-25] MEDS: SODIUM CHLORIDE 0.9% 1,000 ML IV SCH (17:30)
--- NOTE | 2016-10-25 18:24 | P.PN ---
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 The patient started having worsening shortness of breath around August 2016. She was hospitalized initially around 2015 and after staying in hospital for that 3 days the patient was released home on a prednisone burst taper, Advair, and Singulair as maintenance and albuterol nebulized treatments around the clock. The patient got to the hospitalized on 09/25/2016 for the same. She was having increased shortness of breath. I ordered a CAT scan of the chest on her at that time that showed a hiatal hernia and subcentimeter subpleural nodule in the right lung base. No evidence of emphysema. No bronchiectasis. The patient was treated and was discharged home to be readmitted again for the same symptoms and she was seen by my associate during her last hospital stay.. The patient is still having some shortness of breath. She is taking a prednisone burst taper and she was started a dose of 50 mg by mouth daily following her discharge from the hospital yesterday. She is having some soreness in her throat and she is febrile with a temperature of 100.6. She is having some occasional wheezing. Shortness of breath has not fully recovered. The patient is having symptoms of reflux probably a complication of a hiatal hernia and at times she feels gastric juices coming all the way up to her mouth. She is taking only Pepcid for now. The patient lived all her life in [facility] and she claims to live very close to a [employer]. She is on no oxygen at this point. She has a remote history of clot in the left lower extremity and she is currently on no anticoagulation. I saw this patient in my office on 10/15/2016 and back then she was felt to be quite appropriate and recovering from her acute asthma exacerbation. At the same time I felt that the exacerbating factor for her asthma was her ongoing symptoms of GE reflux which was probably related to a moderate-sized hiatal hernia as visualized on previous chest x-ray and CAT scan of the chest. I started this patient on Prevacid 30 mg by mouth daily. She was having some edema in lower extremities and I started on Lasix 20 mg by mouth daily. I asked her to complete a prednisone burst taper. I asked her to increase her Ativan to 1 mg 3 times a day for increased anxiety. With all this interventions , the patient was doing well until yesterday when she woke up and she was having increased cough chest congestion and wheezing and for that reason she came back to the hospital. Her chest x-ray shows a new onset right perihilar pulmonary infiltrate suggestive of pneumonia. She again is certain that she has food material coming up her esophagus up to her posterior oropharynx causing her to regurgitate and possibly aspirate. Based on all these abnormalities, the patient was rehospitalized. On 10/23/2016 I'm seeing this patient in follow-up. The patient is less short of breath compared to yesterday. As mentioned the patient is having massive regurgitation and aspiration of gastric juice/vomitus and this has been occurring on multiple occasions. She had developed a right perihilar pneumonia and she seems to be doing well on the current antibiotic coverage. I discussed the case with Dr. Radha clark from general surgery and the patient will be considered for EGD and possible surgical repair of the hiatal hernia to later stage. She is currently on IV Protonix. Antibiotic coverage would include cefepime. The patient is also IV Solu-Medrol. She is on bronchodilators around the clock. Tamiflu can be discontinued as there is no indication of any acute influenza infection. 10/24/2016 I'm seeing the patient in follow-up. We have consulted general surgery and the patient would have a EGD tomorrow for hiatal hernia workup and ultimately she may need a fundoplication based on the fact that she is having significant regurgitation, reflux and aspiration. She is also being treated for a right perihilar pneumonia. The chest x-ray that was done yesterday showed persistent infiltration without much of an improvement. The infiltrate remains stable. Clinically however the patient is feeling better. Her cough and congestion is improved. Patient was reevaluated today on 10/25/2016 she seems to be doing well, and I had a discussion with her surgeon Dr. Butler, and I believe he is planning fundoplication because of severe GERD. Otherwise the patient will continue to aspirate, and continues to have recurrent pneumonia. Clinically the patient is doing well, no cough no wheezing no shortness of breath. I ordered a chest x- ray to be done in the morning, and based on that showed I would likely clear the patient for surgery. Objective - Vital Signs Vital signs: Vital Signs Temp 99.0 F 10/25/16 15:00 Pulse 99 10/25/16 16:00 Resp 16 10/25/16 16:00 BP 149/86 10/25/16 15:00 Pulse Ox 99 10/25/16 15:00 Intake & Output 10/24/16 10/25/16 10/25/16 18:59 06:59 18:59 Intake Total 400 0 530 Balance 400 0 530 Intake: IV 400 50 Sodium Chloride 0.9% 1, 400 000 ml @ 100 mls/hr IV . Q10H [facility] Rx#:[id number] Oral 0 480 Other: Voiding Method Toilet Toilet Toilet # Voids 2 - Exam Head exam was generally normal. There was no scleral icterus or corneal arcus. Mucous membranes were moist.Neck was supple and without jugular venous distension, thyromegaly, or carotid bruits. Carotids were easily palpable bilaterally. There was no adenopathy. Lung sounds are diminished bilaterally along with some few scattered external wheezes throughout the lung irwin.Cardiac exam revealed the PMI to be normally situated and sized. The rhythm was regular and no extrasystoles were noted during several minutes of auscultation. The first and second heart sounds were normal and physiologic splitting of the second heart sound was noted. There were no murmurs, rubs, clicks, or gallops. Abdominal exam revealed normal bowel sounds. The abdomen was soft, non-tender, and without masses, organomegaly, or appreciable enlargement of the abdominal aorta. Examination of the extremities revealed easily palpable radial, femoral and pedal pulses. There was no cyanosis, clubbing or edema. - Labs CBC & Chem 7: 10/25/16 06:43 10/25/16 06:43 Labs: Abnormal Lab Results - Last 24 Hours (Table) 10/24/16 10/25/16 10/25/16 Range/Units 20:47 06:43 06:43 RBC 3.56 L (3.80-5.40) m/uL Hgb 9.4 L (11.4-16.0) gm/dL Hct 31.3 L (34.0-46.0) % MCHC 30.1 L (31.0-37.0) g/dL RDW 16.4 H (11.5-15.5) % Lymphocytes # 0.3 L (1.0-4.8) k/uL Potassium 3.3 L (3.5-5.1) mmol/L BUN 18 H (7-17) mg/dL Creatinine 0.42 L (0.52-1.04) mg/dL Glucose 118 H (74-99) mg/dL POC Glucose (mg/dL) 168 H (75-99) mg/dL 10/25/16 10/25/16 10/25/16 Range/Units 07:16 12:13 17:12 RBC (3.80-5.40) m/uL Hgb (11.4-16.0) gm/dL Hct (34.0-46.0) % MCHC (31.0-37.0) g/dL RDW (11.5-15.5) % Lymphocytes # (1.0-4.8) k/uL Potassium (3.5-5.1) mmol/L BUN (7-17) mg/dL Creatinine (0.52-1.04) mg/dL Glucose (74-99) mg/dL POC Glucose (mg/dL) 123 H 103 H 124 H (75-99) mg/dL Assessment and Plan Plan: 1 right perihilar pneumonia, most likely secondary to aspiration pneumonia 2 severe persistent asthma- the patient is having complications of bronchial asthma and she was hospitalized 3 times over the past 2 months for asthma activity and exacerbations. It's likely that the patient is having massive GE reflux contributing to her poor asthma control. She is identified to have a large hiatal hernia and she is having active reflux symptoms. I was aware that the patient was having this symptoms of regurgitation and reflux and possibly aspiration. I put her on Prevacid 30 mg by mouth daily on outpatient basis. I would also consult general surgery for an EGD and possible surgical repair of the hiatal hernia of this becomes an ongoing issue. On 10/23/2016 the patient is being seen in follow-up. She is doing better. Pneumonia is being treated. She is on bronchodilators. She is on systemic steroids. She is on IV Protonix. Gen. surgery will be consulting on this patient in regards to the hiatal hernia and recurrent aspirations. On 10/24/2016, the patient is being seen in follow-up. Clinically much improved. He is still stable right perihilar pulmonary infiltrates suggestive of underlying pneumonia. She is still on the spectrum antibiotics which she is still taking. On 10/25/2016, patient is clinically better and improved. 3 hiatal hernia on Prevacid in conjunction with Pepcid 4 lower extremity edema 5 malignant neoplasm of the breast 6 hypertension 7 history of cervical cancer 8 history of uterine cancer 9 chronic atrial fibrillation 10 hypothyroidism 11 GERD 12 scoliosis deformity of the spine 13 right foot. 14 hypothyroidism 15 coronary artery disease with a previous [place] in 2006 requiring a stent insertion 16 DVT of the left lower extremity 17 questionable leukemia at a young age 18 urinary incontinence with occasional urine checked infections Recommendation: Continue present treatment plan, patient is responding well to the present course of antibiotics, I will review the chest x-ray in a.m., and will likely clear for surgery possibly on Tuesday. Time with Patient: Less than 30
[2016-10-25] MEDS: DOXEPIN 10 MG CAP PO SCH (20:50)
[2016-10-25] MEDS: MONTELUKAST 10 MG TAB PO SCH (20:50)
[2016-10-25] MEDS: ATORVASTATIN 10 MG TAB PO SCH (20:50)
[2016-10-25 20:57] LABS: Glucose,Whole Blood 162 mg/dL (75-99)
[2016-10-25] MEDS: PRAZOSIN 1 MG CAP PO SCH (20:59)
[2016-10-25] MEDS: ZOLPIDEM 5 MG TAB PO PRN (23:01)
[2016-10-25 23:02] LABS: Glucose,Whole Blood 167 mg/dL (75-99)
[2016-10-26] MEDS: methylPREDNISolone SOD SUCCI 125 MG/2 ML VIAL IV SCH ×2 (00:48→06:25)
[2016-10-26] MEDS: SODIUM CHLORIDE 0.9% 1,000 ML IV SCH (01:19)
[2016-10-26] MEDS: oxyCODONE ER 20 MG TAB.ER.12H PO SCH ×2 (05:49→18:16)
[2016-10-26] MEDS: LEVOTHYROXINE 50 MCG TAB PO SCH (06:25)
[2016-10-26 06:57] LABS: Glucose,Whole Blood 116 mg/dL (75-99)
[2016-10-26] MEDS: FORMOTEROL FUMARATE 20 MCG/2 ML NEBU INHALATION SCH ×2 (07:56→19:34)
[2016-10-26] MEDS: BUDESONIDE 1 MG/2 ML NEBU INHALATION SCH ×2 (07:56→19:34)
[2016-10-26] MEDS: IPRATROPIUM 0.5 MG/2.5 ML NEBU INHALATION SCH ×4 (07:57→19:34)
[2016-10-26] MEDS: LEVALBUTEROL NEB (CONC) 1.25 MG/0.5 ML AMP INHALATION SCH ×4 (07:57→19:35)
[2016-10-26] MEDS: PANTOPRAZOLE 40 MG TABLET PO SCH (08:10)
[2016-10-26] MEDS: HYDROmorphone 1 MG/ML 1 ML SYRINGE IVP PRN ×3 (08:10→20:46)
[2016-10-26] MEDS: GABAPENTIN 400 MG CAP PO SCH ×3 (08:11→20:48)
[2016-10-26] MEDS: DULoxetine HCL 60 MG CAPSULE.DR PO SCH ×2 (08:12→20:48)
[2016-10-26] MEDS: ENOXAPARIN 40 MG/0.4 ML SYRINGE SQ SCH (08:12)
[2016-10-26] MEDS: DOCUSATE 100 MG CAP PO SCH (08:12)
[2016-10-26] MEDS: FUROSEMIDE 40 MG TAB PO SCH (08:12)
[2016-10-26] MEDS: ASPIRIN 81 MG CHEW PO SCH (08:13)
[2016-10-26] MEDS: INSULIN LISPRO (humaLOG) 300 UNIT/3 ML VIAL SQ SCH ×4 (08:13→20:45)
[2016-10-26] MEDS: QUEtiapine 50 MG TAB PO SCH ×2 (08:13→18:16)
[2016-10-26] MEDS: BENZONATATE 100 MG CAP PO SCH ×3 (08:13→20:48)
[2016-10-26] MEDS: CALCIUM CARBONATE 500 MG CHEWABLE PO SCH ×3 (08:13→20:48)
[2016-10-26] MEDS: CEFEPIME 2 GM in SODIUM CHLORIDE 0.9% 50 ML IVPB SCH (08:19)
[2016-10-26] MEDS: LORazepam 1 MG TAB PO SCH ×3 (08:20→23:29)
--- NOTE | 2016-10-26 08:56 | XR ---
EXAMINATION TYPE: XR chest 1V portable DATE OF EXAM: 10/26/2016 7:36 AM COMPARISON: 10/23/2016 HISTORY: Pneumonia TECHNIQUE: Single frontal view of the chest is obtained. FINDINGS: Right perihilar infiltrate or mass is noted. Underlying COPD seen. Appears to been previou s surgery involving the vertebral, and right lung. Left lung is clear. Heart size stable. IMPRESSION: 1. Persistent right hilar prominence with evidence of COPD and perihilar infiltrate unchanged from th e previous exam.
--- NOTE | 2016-10-26 10:20 | PN ---
DATE OF SERVICE: 10/25/2016 INTERVAL HISTORY: Ms. Flores is a 66-year-old female admitted to hospital with right perihilar infiltrate and pneumonia, possible aspiration pneumonia. Patient had multiple admissions for acute exacerbation of asthma as well as pneumonia. The patient does have hiatal hernia. Patient underwent EGD today for evaluation of hiatal hernia and found to have hiatal hernia, duodenitis and gastritis. Otherwise, patient is symptomatically improved with antibiotics, possible hiatal hernia repair is being considered at this time. Pulmonary and General Surgery is following the patient. Patient did complain of back pain today, which improved with pain medications. No fever, no chills. No worsening short of breath or chest pain. No acute overnight issues. REVIEW OF SYSTEMS: CONSTITUTIONAL: No fever. No chills. RESPIRATORY: No cough or sputum production. CARDIOVASCULAR: No chest pain or shortness of breath. ABDOMEN: No nausea, vomiting or abdominal pain. GENITOURINARY: Negative. ENDOCRINE: Negative. PSYCHIATRIC: Negative. SKIN: Negative. All other 14-point review of systems negative except as above. CURRENT MEDICATIONS: Reviewed. PHYSICAL EXAMINATION: A 66-year-old female, lying in bed comfortably. Patient seems anxious and in no apparent distress. VITALS: Blood pressure is 144/84, pulse 106, respirations 20, temperature afebrile, pulse ox 97% on room air. HEENT: Atraumatic, normocephalic. Neck is supple. No JVD. CVS EXAM: S1, S2 heard. No murmurs, no gallop. LUNGS: Bilateral air entry is present. No wheezing. No crackles. Nonlabored breathing. ABDOMEN: Soft, nontender. Bowel sounds present. DIGITAL PROGRAM MANAGER: Awake, alert and oriented x3. No focal deficits. EXTREMITIES: No edema. Pulses palpable bilaterally. No clubbing or cyanosis. PSYCHIATRIC: Cooperative. LABORATORY DATA: WBC6.0, hemoglobin 9.4, platelets 269. Sodium 141, potassium 3.3, chloride 106, bicarb 27, BUN 18, creatinine 0.42. Calcium 8.4. IMPRESSION: 1. Right perihilar pneumonia, most likely aspiration pneumonia. 2. Severe sepsis and hypotension on admission. 3. Hiatal hernia. Suspected recurrent asthma exacerbation and aspiration secondary to that. 4. Chronic obstructive pulmonary disease with acute exacerbation and multiple admissions. 5. Normocytic anemia/anemia of chronic disease. 6. Hyponatremia, improved. 7. Hypoalbuminemia. 8. Asthma. 9. History of atrial fibrillation. 10. History of coronary artery disease. 11. History of deep venous thrombosis. 12. Fibromyalgia. 13. Gastroesophageal reflux disease. 14. Hypertension. 15. Hyperlipidemia. 16. History of coronary artery disease, status post stent placement and history of myocardial infarction. 17. History of acute hypoxic respiratory failure. 18. History of leukemia. 19. History of breast cancer. 20. Chronic back pain. 21. Degenerative disc disease. 22. Anxiety and depression. 23. Deep venous thrombosis prophylaxis with Lovenox subcutaneous. 24. FULL CODE. DISCUSSION AND PLAN: Patient will be continued on antibiotics in the form of cefepime. Continue with the breathing treatments and continue with IV steroids. Follow up closely. Pulmonary is following this patient. Patient is clinically improving. Continue with the PPI. General Surgery and Pulmonary are following this patient. Further recommendations based on clinical course.
[2016-10-26 10:59] LABS: Anisocytosis Slight; Basophils % (A) 0 %; CH 26.1; CHCM 29.1; Eosinophils % (A) 0 %; HCT 34.8 % (34.0-46.0); HGB 10.4 gm/dL (11.4-16.0); Hypochromasia Marked; Luc # (Auto) 0.05; Luc % (Auto) 1; Lymphocytes # (A) 0.2 k/uL (1.0-4.8); Lymphocytes % (A) 3 %; MCH 26.8 pg (25.0-35.0); MCHC 29.7 g/dL (31.0-37.0); MCV 90.1 fL (80.0-100.0); Mean Platelet Volume 7.3; Monocytes # (A) 0.3 k/uL (0-1.0); Monocytes % (A) 5 %; Neutrophils # (A) 5.7 k/uL (1.3-7.7); Neutrophils % (A) 92 %; RBC 3.87 m/uL (3.80-5.40); RDW 16.3 % (11.5-15.5); WBC 6.2 k/uL (3.8-10.6); WBC (Perox) 6.82
[2016-10-26 11:01] LABS: Glucose,Whole Blood 141 mg/dL (75-99)
[2016-10-26] MEDS: FERROUS SULFATE 325 MG TAB PO SCH (11:16)
[2016-10-26] MEDS: HYDROcodone/APAP 10-325MG 1 EACH TAB PO PRN ×2 (11:16→22:44)
[2016-10-26 11:17] LABS: Anion Gap 14 mmol/L; Blood Urea Nitrogen 20 mg/dL (7-17); Carbon Dioxide 22 mmol/L (22-30); Chloride 103 mmol/L (98-107); Glucose 215 mg/dL (74-99); Non-African American GFR(MDRD) >60 (>60 ml/min/1.73 sqM); Sodium 139 mmol/L (137-145)
[2016-10-26] MEDS ORDERED: Potassium Replacement Protocol 1 EACH MISC MISCELLANE PRN (11:30)
[2016-10-26] MEDS: POTASSIUM CHLORIDE 10 MEQ in WATER FOR INJECTION 1 100ML.BAG IVPB SCH ×2 (12:07→12:42)
--- NOTE | 2016-10-26 13:04 | PN ---
Patient is a 66-year-old admitted with asthma exacerbation. Patient has intractable gastroesophageal reflux disease which is contributing to her frequent asthma exacerbations apparently. Because of that reason, patient is going for Damaso fundoplication tomorrow and patient is clear on the lung exam because of which I am changing her steroid to daily basis after surgery. Whenever she is able to tolerate, patient will be switched to oral steroids. Patient had a hiatal hernia, duodenitis and gastritis and apparently patient has a perihilar infiltrate and patient is being treated for pneumonia with cefepime, although sputum cultures are so far negative because of which I am changing her antibiotics to Rocephin once daily basis. REVIEW OF SYSTEMS: RESPIRATORY: Complaining of shortness of breath. I believe her respiratory issue is mostly psychological than actually physical. CARDIOVASCULAR: No chest pain, no orthopnea, no PND, no palpitations. GASTROINTESTINAL: No diarrhea, nausea or vomiting. No abdominal pain. Normoactive bowel sounds. NEUROLOGIC: No headaches, no weakness, no numbness. Medications were reviewed, medication changes as mentioned in the interval history. PHYSICAL EXAMINATION: VITAL SIGNS: Temperature 98.6, pulse of 73, respiratory rate of 16. Blood pressure 162/77, saturating at 95% on room air. GENERAL: The patient is alert and oriented x3, not in any acute distress. Well developed, well nourished. HEENT: Pupils are round and equally reacting to light. EOMI. No scleral icterus. No conjunctival pallor. Normocephalic, atraumatic. No pharyngeal erythema. No thyromegaly. CARDIOVASCULAR: S1 and S2 present. No murmurs, rubs, or gallops. PULMONARY: Chest is clear to auscultation, no wheezing or crackles. ABDOMEN: Soft, nontender, nondistended, normoactive bowel sounds. No palpable organomegaly. MUSCULOSKELETAL: No joint swelling or deformity. EXTREMITIES: No cyanosis, clubbing, or pedal edema. NEUROLOGICAL: Gross neurological examination did not reveal any focal deficits. SKIN: No rashes. LABORATORY DATA: CBC essentially within normal limits. ASSESSMENT AND PLAN: 1. Possible right perihilar pneumonia. 2. Sepsis secondary to pneumonia. 3. Hiatal hernia and frequent aspirations leading to asthma exacerbations. 4. Chronic obstructive pulmonary disease with acute exacerbation. 5. Atrial fibrillation, rate controlled at this point of time, unsure if it is paroxysmal or not. 6. Coronary artery disease. 7. History of deep venous thrombosis in the past. 8. Fibromyalgia. 9. Hyperlipidemia. 10. Hypertension. 11. Acute hypoxic respiratory failure on admission as per Dr. Stubbs's dictation. 12. History of breast cancer in remission. 13. Anxiety, depression. PLAN: Continue present medications. The rest of the management as mentioned in the interval history itself.
[2016-10-26] MEDS: POTASSIUM CHLORIDE 10 MEQ, LIDOCAINE 2% INJ 10 MG in SODIUM CHLORIDE 0.9% 100 ML IV SCH ×2 (13:13→14:47)
--- NOTE | 2016-10-26 14:13 | P.PN ---
Subjective Patient is a 65-year-old female admitted to the hospital with acute right perihilar pneumonia secondary to aspiration suspect secondary to GERD secondary to hiatal hernia. Patient did undergo an EGD on 10/25/2016 with evidence of hiatal hernia, antral gastritis, and esophagitis. Patient has been cleared from a pulmonary standpoint and will undergo laparoscopic Damaso fundoplication tomorrow. Patient is currently complaining of nonproductive cough. Denies nausea, vomiting, shortness of breath, chest pain, abdominal pain. Afebrile. No evidence of leukocytosis. Hemoglobin 10.4. Objective - Vital Signs Vital signs: Vital Signs Temp 98.6 F 10/26/16 07:00 Pulse 73 10/26/16 07:00 Resp 16 10/26/16 07:00 BP 162/77 10/26/16 07:00 Pulse Ox 95 10/26/16 07:00 Intake & Output 10/25/16 10/26/16 10/26/16 18:59 06:59 18:59 Intake Total 530 390 Balance 530 390 Intake: IV 50 Oral 480 390 Other: Voiding Method Toilet Toilet # Voids 2 - Exam GENERAL: Pt awake and alert, well-appearing, well-nourished, and in no acute distress. LUNGS: Breath sounds clear to auscultation bilaterally. No wheezes, rales, or rhonchi. HEART: Heart S1, S2, no S3 or S4. Regular rate and rhythm. No murmurs, rubs or gallops. ABDOMEN: Soft, nontender, nondistended, normoactive bowel sounds. - Labs CBC & Chem 7: 10/26/16 09:19 10/26/16 09:19 Labs: Abnormal Lab Results - Last 24 Hours (Table) 10/25/16 10/25/16 10/25/16 Range/Units 17:12 20:55 23:00 Hgb (11.4-16.0) gm/dL MCHC (31.0-37.0) g/dL RDW (11.5-15.5) % Lymphocytes # (1.0-4.8) k/uL Potassium (3.5-5.1) mmol/L BUN (7-17) mg/dL Creatinine (0.52-1.04) mg/dL Glucose (74-99) mg/dL POC Glucose (mg/dL) 124 H 162 H 167 H (75-99) mg/dL Calcium (8.4-10.2) mg/dL 10/26/16 10/26/16 10/26/16 Range/Units 06:46 09:19 09:19 Hgb 10.4 L (11.4-16.0) gm/dL MCHC 29.7 L (31.0-37.0) g/dL RDW 16.3 H (11.5-15.5) % Lymphocytes # 0.2 L (1.0-4.8) k/uL Potassium 3.0 L* (3.5-5.1) mmol/L BUN 20 H (7-17) mg/dL Creatinine 0.39 L (0.52-1.04) mg/dL Glucose 215 H (74-99) mg/dL POC Glucose (mg/dL) 116 H (75-99) mg/dL Calcium 8.0 L (8.4-10.2) mg/dL 10/26/16 Range/Units 10:56 Hgb (11.4-16.0) gm/dL MCHC (31.0-37.0) g/dL RDW (11.5-15.5) % Lymphocytes # (1.0-4.8) k/uL Potassium (3.5-5.1) mmol/L BUN (7-17) mg/dL Creatinine (0.52-1.04) mg/dL Glucose (74-99) mg/dL POC Glucose (mg/dL) 141 H (75-99) mg/dL Calcium (8.4-10.2) mg/dL Assessment and Plan Plan: Impression: 1. Possible right perihilum pneumonia suspect secondary to aspiration secondary to severe reflux disease. 2. Status post EGD on 10/25/2016 with findings of GERD; hiatal hernia; antral gastritis; and esophagitis Plan: Patient will undergo laparoscopic Damaso fundoplication tomorrow. Patient will be kept nothing by mouth after midnight. Continue PPI. Repeat CBC and BMP in a.m. The above impression and plan have been discussed and directed by Dr. Butler. Mohan DONAHUE acting as scribe for Dr. Butler.
--- NOTE | 2016-10-26 15:08 | P.PN ---
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 The patient started having worsening shortness of breath around August 2016. She was hospitalized initially around 2015 and after staying in hospital for that 3 days the patient was released home on a prednisone burst taper, Advair, and Singulair as maintenance and albuterol nebulized treatments around the clock. The patient got to the hospitalized on 09/25/2016 for the same. She was having increased shortness of breath. I ordered a CAT scan of the chest on her at that time that showed a hiatal hernia and subcentimeter subpleural nodule in the right lung base. No evidence of emphysema. No bronchiectasis. The patient was treated and was discharged home to be readmitted again for the same symptoms and she was seen by my associate during her last hospital stay.. The patient is still having some shortness of breath. She is taking a prednisone burst taper and she was started a dose of 50 mg by mouth daily following her discharge from the hospital yesterday. She is having some soreness in her throat and she is febrile with a temperature of 100.6. She is having some occasional wheezing. Shortness of breath has not fully recovered. The patient is having symptoms of reflux probably a complication of a hiatal hernia and at times she feels gastric juices coming all the way up to her mouth. She is taking only Pepcid for now. The patient lived all her life in [facility] and she claims to live very close to a [employer]. She is on no oxygen at this point. She has a remote history of clot in the left lower extremity and she is currently on no anticoagulation. She follows with Dr. Dr. Kemp in our office to have a developer evangelist in the area established. She is seen again today in follow-up on 10/26/2016 on the regular medical floor. She is awake and alert in no acute distress. She has no shortness of breath, cough or congestion. She is feeling quite a bit better. She did undergo an EGD yesterday by Dr. Butler and was found to have a hiatal hernia, antral gastritis and esophagitis and the plan is for laparoscopic Damaso fundoplication tomorrow. Objective - Vital Signs Vital signs: Vital Signs Temp 98.1 F 10/26/16 14:11 Pulse 102 H 10/26/16 14:11 Resp 20 10/26/16 14:11 BP 163/85 10/26/16 14:11 Pulse Ox 95 10/26/16 14:11 Intake & Output 10/25/16 10/26/16 10/26/16 18:59 06:59 18:59 Intake Total 530 390 Balance 530 390 Intake: IV 50 Oral 480 390 Other: Voiding Method Toilet Toilet # Voids 2 2 - Exam GENERAL EXAM: Alert, active, comfortable in no apparent distress. HEAD: Normocephalic. EYES: Normal reaction of pupils, equal size. NOSE: Clear with pink turbinates. THROAT: No erythema or exudates. NECK: No masses, no JVD. CHEST: No chest wall deformity. LUNGS: Equal air entry with no crackles, wheeze, rhonchi or dullness. CVS: S1 and S2 normal with no audible mumurs, regular rhythm. ABDOMEN: No hepatosplenomegaly, normal bowel sounds, no guarding or rigidity. SPINE: No scoliosis or deformity SKIN: No rashes CENTRAL NERVOUS SYSTEM: No focal deficits, tone is normal in all 4 extremities. Extremities: There is no peripheral edema. No clubbing, no cyanosis. Peripheral pulses are intact. - Labs CBC & Chem 7: 10/26/16 09:19 10/26/16 09:19 Labs: Abnormal Lab Results - Last 24 Hours (Table) 10/25/16 10/25/16 10/25/16 Range/Units 17:12 20:55 23:00 Hgb (11.4-16.0) gm/dL MCHC (31.0-37.0) g/dL RDW (11.5-15.5) % Lymphocytes # (1.0-4.8) k/uL Potassium (3.5-5.1) mmol/L BUN (7-17) mg/dL Creatinine (0.52-1.04) mg/dL Glucose (74-99) mg/dL POC Glucose (mg/dL) 124 H 162 H 167 H (75-99) mg/dL Calcium (8.4-10.2) mg/dL 10/26/16 10/26/16 10/26/16 Range/Units 06:46 09:19 09:19 Hgb 10.4 L (11.4-16.0) gm/dL MCHC 29.7 L (31.0-37.0) g/dL RDW 16.3 H (11.5-15.5) % Lymphocytes # 0.2 L (1.0-4.8) k/uL Potassium 3.0 L* (3.5-5.1) mmol/L BUN 20 H (7-17) mg/dL Creatinine 0.39 L (0.52-1.04) mg/dL Glucose 215 H (74-99) mg/dL POC Glucose (mg/dL) 116 H (75-99) mg/dL Calcium 8.0 L (8.4-10.2) mg/dL 10/26/16 Range/Units 10:56 Hgb (11.4-16.0) gm/dL MCHC (31.0-37.0) g/dL RDW (11.5-15.5) % Lymphocytes # (1.0-4.8) k/uL Potassium (3.5-5.1) mmol/L BUN (7-17) mg/dL Creatinine (0.52-1.04) mg/dL Glucose (74-99) mg/dL POC Glucose (mg/dL) 141 H (75-99) mg/dL Calcium (8.4-10.2) mg/dL Assessment and Plan Plan: Impression: 1 right perihilar pneumonia, most likely secondary to aspiration pneumonia 2 severe persistent asthma- the patient is having complications of bronchial asthma and she was hospitalized 3 times over the past 2 months for asthma activity and exacerbations. It's likely that the patient is having massive GE reflux contributing to her poor asthma control. She is identified to have a large hiatal hernia and she is having active reflux symptoms. On 10/25/2016 she had undergone EGD which did reveal evidence of hiatal hernia, antral gastritis, esophagitis. 3 hiatal hernia on Prevacid in conjunction with Pepcid 4 lower extremity edema 5 malignant neoplasm of the breast 6 hypertension 7 history of cervical cancer 8 history of uterine cancer 9 chronic atrial fibrillation 10 hypothyroidism 11 GERD 12 scoliosis deformity of the spine 13 right foot. 14 hypothyroidism 15 coronary artery disease with a previous [place] in 2006 requiring a stent insertion 16 DVT of the left lower extremity 17 questionable leukemia at a young age 17 urinary incontinence with occasional urine tract infections Plan: The patient was seen and evaluated by Dr. Rollins. She has improved clinically. The plan is for laparoscopic Damaso fundoplication tomorrow. She is cleared from the pulmonary standpoint. We'll continue to follow her postoperatively as well. In the interim we'll continue with her current medications. We'll increase her activity as tolerated. She is educated regarding the use of the incentive spirometer and cough and deep breathing exercises.
[2016-10-26] MEDS ORDERED: POTASSIUM CHLORIDE ER 20 MEQ TAB.ER PO STA (16:33)
[2016-10-26 17:14] LABS: Glucose,Whole Blood 112 mg/dL (75-99)
[2016-10-26] MEDS ORDERED: POTASSIUM CHLORIDE ER 20 MEQ TAB.ER PO ONE (18:30)
[2016-10-26 20:35] LABS: Glucose,Whole Blood 105 mg/dL (75-99)
[2016-10-26] MEDS: ONDANSETRON 4 MG/2 ML VIAL IVP PRN (20:46)
[2016-10-26] MEDS: DOXEPIN 10 MG CAP PO SCH (20:47)
[2016-10-26] MEDS: ATORVASTATIN 10 MG TAB PO SCH (20:47)
[2016-10-26] MEDS: PRAZOSIN 1 MG CAP PO SCH (20:48)
[2016-10-26] MEDS: MONTELUKAST 10 MG TAB PO SCH (20:48)
[2016-10-26] MEDS: ZOLPIDEM 5 MG TAB PO PRN (22:44)
[2016-10-27] MEDS: HYDROmorphone 1 MG/ML 1 ML SYRINGE IVP PRN ×5 (03:50→21:11)
[2016-10-27] MEDS: ONDANSETRON 4 MG/2 ML VIAL IVP PRN ×2 (03:57→12:23)
[2016-10-27] MEDS: oxyCODONE ER 20 MG TAB.ER.12H PO SCH ×2 (05:28→17:50)
[2016-10-27] MEDS: LEVOTHYROXINE 50 MCG TAB PO SCH (06:20)
[2016-10-27 07:22] LABS: Glucose,Whole Blood 72 mg/dL (75-99)
[2016-10-27] MEDS: INSULIN LISPRO (humaLOG) 300 UNIT/3 ML VIAL SQ SCH ×4 (07:27→21:13)
[2016-10-27] MEDS ORDERED: DEXTROSE 50%-WATER 50 ML SYRINGE IVP ONE (08:07)
[2016-10-27] MEDS: IPRATROPIUM-ALBUTEROL 3 ML NEB INHALATION SCH ×4 (08:08→20:14)
[2016-10-27] MEDS: BUDESONIDE 1 MG/2 ML NEBU INHALATION SCH ×2 (08:08→20:14)
[2016-10-27] MEDS: DOCUSATE 100 MG CAP PO SCH (08:08)
[2016-10-27] MEDS: FORMOTEROL FUMARATE 20 MCG/2 ML NEBU INHALATION SCH ×2 (08:08→20:14)
[2016-10-27 08:23] LABS: Glucose,Whole Blood 69 mg/dL (75-99)
[2016-10-27 08:54] LABS: Glucose,Whole Blood 102 mg/dL (75-99)
[2016-10-27] MEDS ORDERED: Potassium Replacement Protocol 1 EACH MISC MISCELLANE PRN (09:00)
[2016-10-27] MEDS: LORazepam 1 MG TAB PO SCH ×3 (09:32→23:26)
[2016-10-27] MEDS: methylPREDNISolone SOD SUCCI 125 MG/2 ML VIAL IV SCH (09:32)
[2016-10-27 09:56] LABS: Anion Gap 6 mmol/L; Blood Urea Nitrogen 19 mg/dL (7-17); Carbon Dioxide 28 mmol/L (22-30); Chloride 106 mmol/L (98-107); Glucose 79 mg/dL (74-99); Non-African American GFR(MDRD) >60 (>60 ml/min/1.73 sqM); Potassium 4.4 mmol/L (3.5-5.1); Sodium 140 mmol/L (137-145)
[2016-10-27] MEDS: BENZONATATE 100 MG CAP PO SCH ×3 (10:00→21:12)
[2016-10-27] MEDS: CALCIUM CARBONATE 500 MG CHEWABLE PO SCH ×3 (10:00→21:12)
[2016-10-27] MEDS: DULoxetine HCL 60 MG CAPSULE.DR PO SCH ×2 (10:00→21:12)
[2016-10-27] MEDS: PANTOPRAZOLE 40 MG TABLET PO SCH (10:00)
[2016-10-27] MEDS: ASPIRIN 81 MG CHEW PO SCH (10:00)
[2016-10-27] MEDS: GABAPENTIN 400 MG CAP PO SCH ×3 (10:00→21:11)
[2016-10-27] MEDS: QUEtiapine 50 MG TAB PO SCH ×2 (10:00→17:43)
[2016-10-27 11:24] LABS: Glucose,Whole Blood 83 mg/dL (75-99)
[2016-10-27 11:31] LABS: Anisocytosis Slight; Basophils % (A) 0 %; CH 26.5; CHCM 31.2; Eosinophils % (A) 0 %; HCT 34.6 % (34.0-46.0); HDW 3.15; HGB 10.8 gm/dL (11.4-16.0); Hypochromasia Moderate; Luc # (Auto) 0.11; Luc % (Auto) 2; Lymphocytes # (A) 0.8 k/uL (1.0-4.8); Lymphocytes % (A) 12 %; MCH 26.5 pg (25.0-35.0); MCHC 31.1 g/dL (31.0-37.0); MCV 85.2 fL (80.0-100.0); Mean Platelet Volume 7.8; Monocytes # (A) 0.7 k/uL (0-1.0); Monocytes % (A) 9 %; Neutrophils # (A) 5.6 k/uL (1.3-7.7); Neutrophils % (A) 77 %; RBC 4.07 m/uL (3.80-5.40); RDW 16.3 % (11.5-15.5); WBC 7.2 k/uL (3.8-10.6); WBC (Perox) 7.62
[2016-10-27] MEDS: FERROUS SULFATE 325 MG TAB PO SCH (12:00)
[2016-10-27] MEDS: POTASSIUM CHLORIDE 10 MEQ in WATER FOR INJECTION 1 100ML.BAG IVPB SCH (12:36)
--- NOTE | 2016-10-27 13:05 | PN ---
Patient is admitted for asthma exacerbation. Patient was found to have gastroesophageal reflux disease contributing her asthma exacerbation. Patient is going for Damaso fundoplication today. REVIEW OF SYSTEMS: CARDIOVASCULAR: No chest pain, no orthopnea, no PND, no palpitations. PULMONARY: Denied any shortness of breath. No cough or hemoptysis. GASTROINTESTINAL: No diarrhea, nausea or vomiting. No abdominal pain. Normoactive bowel sounds. NEUROLOGIC: No headaches, no weakness, no numbness. Medications were reviewed. PHYSICAL EXAMINATION: Temperature 99.1, pulse 87, respiratory rate of 18, blood pressure 134/85, saturating at 94% on room air. GENERAL: The patient is alert and oriented x3, not in any acute distress. Well developed, well nourished. HEENT: Pupils are round and equally reacting to light. EOMI. No scleral icterus. No conjunctival pallor. Normocephalic, atraumatic. No pharyngeal erythema. No thyromegaly. CARDIOVASCULAR: S1 and S2 present. No murmurs, rubs, or gallops. PULMONARY: Chest is clear to auscultation, no wheezing or crackles. ABDOMEN: Soft, nontender, nondistended, normoactive bowel sounds. No palpable organomegaly. MUSCULOSKELETAL: No joint swelling or deformity. EXTREMITIES: No cyanosis, clubbing, or pedal edema. NEUROLOGICAL: Gross neurological examination did not reveal any focal deficits. SKIN: No rashes. LABORATORY DATA: Potassium is low at 3.0, which will be supplemented. ASSESSMENT AND PLAN: 1. Possible right perihilar pneumonia. 2. Sepsis secondary to pneumonia. 3. Asthma exacerbation. 4. Hiatal hernia leading to gastroesophageal reflux disease, which is leading to frequent asthma exacerbations. 5. Atrial fibrillation, rate controlled at this point of time. 6. Coronary artery disease. 7. Deep venous thrombosis in the past. 8. Fibromyalgia. 9. Hyperlipidemia. 10. Hypertension. 11. Acute hypoxic respiratory failure on admission as per the previous dictations. 12. History of breast cancer in remission. 13. Anxiety, depression. PLAN: Continue with present medication. Patient is going for Damaso fundoplication today.
[2016-10-27] MEDS ORDERED: ONDANSETRON 4 MG/2 ML VIAL IVP ONE ×2 (13:15→17:16)
[2016-10-27] MEDS ORDERED: DEXAMETHASONE SOD PHOSPHATE 10 MG/ML 1 ML VIAL IV ONE (13:15)
[2016-10-27] MEDS ORDERED: HYDROmorphone 1 MG/ML 1 ML SYRINGE IVP PRN (13:15)
--- NOTE | 2016-10-27 13:16 | P.PN ---
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 The patient started having worsening shortness of breath around August 2016. She was hospitalized initially around 2015 and after staying in hospital for that 3 days the patient was released home on a prednisone burst taper, Advair, and Singulair as maintenance and albuterol nebulized treatments around the clock. The patient got to the hospitalized on 09/25/2016 for the same. She was having increased shortness of breath. I ordered a CAT scan of the chest on her at that time that showed a hiatal hernia and subcentimeter subpleural nodule in the right lung base. No evidence of emphysema. No bronchiectasis. The patient was treated and was discharged home to be readmitted again for the same symptoms and she was seen by my associate during her last hospital stay.. The patient is still having some shortness of breath. She is taking a prednisone burst taper and she was started a dose of 50 mg by mouth daily following her discharge from the hospital yesterday. She is having some soreness in her throat and she is febrile with a temperature of 100.6. She is having some occasional wheezing. Shortness of breath has not fully recovered. The patient is having symptoms of reflux probably a complication of a hiatal hernia and at times she feels gastric juices coming all the way up to her mouth. She is taking only Pepcid for now. The patient lived all her life in [facility] and she claims to live very close to a [employer]. She is on no oxygen at this point. She has a remote history of clot in the left lower extremity and she is currently on no anticoagulation. She follows with Dr. Dr. Kemp in our office to have a technical product manager in the area established. She is seen again today in follow-up on 10/27/2016 on the regular medical floor. She did undergo an EGD by Dr. Butler and was found to have a hiatal hernia, antral gastritis and esophagitis and the plan is for laparoscopic Damaso fundoplication today at 2 PM. Presently, she is resting quite comfortably in bed. She denies any shortness of breath, cough or congestion. No significant abdominal discomfort. No complaints of acid reflux. Objective - Vital Signs Vital signs: Vital Signs Temp 99.1 F 10/27/16 07:00 Pulse 87 10/27/16 07:00 Resp 18 10/27/16 07:00 BP 134/85 10/27/16 07:00 Pulse Ox 94 L 10/27/16 07:00 Intake & Output 10/26/16 10/27/16 10/27/16 18:59 06:59 18:59 Intake Total 600 Balance 600 Intake: IV 200 Sodium Chloride 0.9% 1, 200 000 ml @ 100 mls/hr IV . Q10H [facility] Rx#:[id number] Oral 400 Other: Voiding Method Toilet Toilet Toilet # Voids 2 1 - Exam GENERAL EXAM: Alert, active, comfortable in no apparent distress. HEAD: Normocephalic. EYES: Normal reaction of pupils, equal size. NOSE: Clear with pink turbinates. THROAT: No erythema or exudates. NECK: No masses, no JVD. CHEST: No chest wall deformity. LUNGS: Equal air entry with no crackles, wheeze, rhonchi or dullness. CVS: S1 and S2 normal with no audible mumurs, regular rhythm. ABDOMEN: No hepatosplenomegaly, normal bowel sounds, no guarding or rigidity. SPINE: No scoliosis or deformity SKIN: No rashes CENTRAL NERVOUS SYSTEM: No focal deficits, tone is normal in all 4 extremities. Extremities: There is no peripheral edema. No clubbing, no cyanosis. Peripheral pulses are intact. - Labs CBC & Chem 7: 10/27/16 08:45 10/27/16 08:45 Labs: Abnormal Lab Results - Last 24 Hours (Table) 10/26/16 10/26/16 10/26/16 Range/Units 15:44 17:12 20:33 Hgb (11.4-16.0) gm/dL RDW (11.5-15.5) % Lymphocytes # (1.0-4.8) k/uL Potassium 3.0 L* (3.5-5.1) mmol/L BUN (7-17) mg/dL Creatinine (0.52-1.04) mg/dL POC Glucose (mg/dL) 112 H 105 H (75-99) mg/dL Calcium (8.4-10.2) mg/dL 10/27/16 10/27/16 10/27/16 Range/Units 07:19 08:05 08:33 Hgb (11.4-16.0) gm/dL RDW (11.5-15.5) % Lymphocytes # (1.0-4.8) k/uL Potassium (3.5-5.1) mmol/L BUN (7-17) mg/dL Creatinine (0.52-1.04) mg/dL POC Glucose (mg/dL) 72 L 69 L 102 H (75-99) mg/dL Calcium (8.4-10.2) mg/dL 10/27/16 10/27/16 Range/Units 08:45 08:45 Hgb 10.8 L (11.4-16.0) gm/dL RDW 16.3 H (11.5-15.5) % Lymphocytes # 0.8 L (1.0-4.8) k/uL Potassium (3.5-5.1) mmol/L BUN 19 H (7-17) mg/dL Creatinine 0.35 L (0.52-1.04) mg/dL POC Glucose (mg/dL) (75-99) mg/dL Calcium 8.0 L (8.4-10.2) mg/dL Assessment and Plan Plan: Impression: 1 right perihilar pneumonia, most likely secondary to aspiration pneumonia 2 severe persistent asthma- the patient is having complications of bronchial asthma and she was hospitalized 3 times over the past 2 months for asthma activity and exacerbations. It's likely that the patient is having massive GE reflux contributing to her poor asthma control. She is identified to have a large hiatal hernia and she is having active reflux symptoms. On 10/25/2016 she had undergone EGD which did reveal evidence of hiatal hernia, antral gastritis, esophagitis. 3 hiatal hernia on Prevacid in conjunction with Pepcid, On 10/27/2016 the plan is for Alberto fundoplication today. 4 lower extremity edema 5 malignant neoplasm of the breast 6 hypertension 7 history of cervical cancer 8 history of uterine cancer 9 chronic atrial fibrillation 10 hypothyroidism 11 GERD 12 scoliosis deformity of the spine 13 right foot. 14 hypothyroidism 15 coronary artery disease with a previous [place] in 2007 requiring a stent insertion 16 DVT of the left lower extremity 17 questionable leukemia at a young age 18 urinary incontinence with occasional urine tract infections Plan: The patient was seen and evaluated by Dr. Rollins. She has improved clinically. The plan is for laparoscopic Damaso fundoplication today. She is cleared from the pulmonary standpoint. In the interim, we'll continue with her current medications. We'll increase her activity as tolerated. She is educated regarding the use of the incentive spirometer and cough and deep breathing exercises. We will continue to follow make further recommendations based on her clinical status.
[2016-10-27] MEDS: LACTATED RINGERS 1,000 ML IV SCH ×3 (13:28→21:25)
[2016-10-27] MEDS ORDERED: fentaNYL (PF) 50 MCG/ML 2 ML AMP IV PRN ×2 (13:41→14:00)
[2016-10-27] MEDS ORDERED: fentaNYL (PF) 50 MCG/ML 2 ML AMP IV ONE (13:52)
[2016-10-27] MEDS ORDERED: methylPREDNISolone SOD SUCCI 125 MG/2 ML VIAL IV STA (13:53)
[2016-10-27 13:55] LABS: Glucose,Whole Blood 89 mg/dL (75-99)
[2016-10-27] MEDS ORDERED: LEVALBUTEROL NEB 1.25 MG/3 ML AMP INHALATION STA (13:59)
[2016-10-27] MEDS ORDERED: IPRATROPIUM 0.5 MG/2.5 ML NEBU INHALATION STA (14:03)
[2016-10-27] MEDS: LEVALBUTEROL NEB (CONC) 1.25 MG/0.5 ML AMP INHALATION SCH (14:10)
[2016-10-27] MEDS ORDERED: MIDAZOLAM 2 MG/2 ML VIAL IVP ONE (14:37)
[2016-10-27] MEDS ORDERED: METHYLENE BLUE 10 MG/ML 1 ML VIAL ONE (15:08)
[2016-10-27] MEDS ORDERED: NEOSTIGMINE 1 MG/ML 10 ML VIAL ONE (15:08)
[2016-10-27] MEDS ORDERED: fentaNYL (PF) 50 MCG/ML 2 ML AMP ONE (15:08)
[2016-10-27] MEDS ORDERED: GLYCOPYRROLATE 0.2 MG/ML 2 ML VIAL ONE (15:08)
[2016-10-27] MEDS ORDERED: LABETALOL 5 MG/ML VIAL MDV ONE (15:08)
[2016-10-27] MEDS ORDERED: ROCURONIUM BROMIDE 10 MG/ML 10 ML VIAL IV ONE (15:08)
[2016-10-27] MEDS ORDERED: LIDOCAINE 1% INJ 10MG/ML (20 ML MDV) ONE (15:08)
[2016-10-27] MEDS ORDERED: SUCCINYLCHOLINE CHLORIDE 100 MG/5 ML SYR IV ONE (15:08)
[2016-10-27] MEDS ORDERED: ePHEDrine 50 MG/ML 1 ML AMP ONE (15:08)
[2016-10-27] MEDS ORDERED: PROPOFOL 10 MG/ML 20 ML VIAL IV ONE (15:08)
[2016-10-27] MEDS ORDERED: MIDAZOLAM 2 MG/2 ML VIAL ONE (15:08)
[2016-10-27] MEDS ORDERED: HYDROmorphone (PF) 1 MG/ML ONE (15:08)
[2016-10-27] MEDS ORDERED: CLINDAMYCIN IV ONE ×2 (15:31)
[2016-10-27] MEDS ORDERED: SODIUM CHLORIDE 0.9% IV ONE ×2 (15:31)
[2016-10-27] MEDS ORDERED: BUPIVACAIN-EPI 0.25%-1:200,000 30 ML VIAL SQ ONE (15:39)
[2016-10-27] MEDS ORDERED: SODIUM CHLORIDE 0.9% IRRIGATION ONE ×2 (16:00)
[2016-10-27] MEDS ORDERED: METHYLENE BLUE IRRIGATION ONE ×2 (16:00)
[2016-10-27] MEDS ORDERED: LACTATED RINGERS 1,000 ML IV ONE ×2 (16:06→16:36)
[2016-10-27] MEDS ORDERED: NALOXONE 0.4 MG/ML 1 ML VIAL IV PRN (16:36)
--- NOTE | 2016-10-27 16:36 | P.OP ---
Date of Procedure: 10/27/16 Preoperative Diagnosis: GERD Dysphagia Postoperative Diagnosis: Recurrent hiatal hernia Procedure(s) Performed: Laparoscopic Damaso fundoplication with mesh Anesthesia: CHARISMA Surgeon: Tobias Butler Estimated Blood Loss (ml): 5 Pathology: none sent Condition: stable Disposition: PACU Description of Procedure: The patient was placed on the operating table in the supine position. The patient received general anesthesia. And was placed in dorsal lithotomy position. The patient was prepped and draped in the usual sterile fashion. The skin incision sites were anesthetized with 1% local Xylocaine. The skin was incised in the left periumbilical area and then using a blade less 5 mm trocar under direct visualization panel cavity was entered. After adequate insufflation the laparoscope was then placed into the peritoneal cavity. Next a 5 mm trochars placed in the right epigastric position. Another 5 millimeter trocar the right lateral position. Another 5 millimeter trocar in the left lateral position a 5 mm trocar is placed in the left epigastric position. And then the initial 5 mm trocar was exchanged for a 10 mm trocar. The left lateral lobe liver was retracted. The hernia was seen. There appeared to be a previous hiatal hernia.. The hiatus was quite stuck to the stomach. The crural defect was then dissected using the Harmonic scissors device. A 360 crural dissection was performed the esophagus stomach was reduced back into the peritoneal Cavity. The crural defect was then closed using 2-0 Ethibond suture. After the crura was appeared. Using the [place] bio a mesh the repair was reinforced using 2-0 Ethibond suture. Next the fundus of the stomach was mobilized using the Harmonic scissors device. The stomach was insufflated with methylene blue normal saline.. There was no injury seen to the stomach or esophagus. It was decided not to perform a complete fundal plication due to the patient's history of dysphagia.. The abdomen was irrigated there is no bleeding seen. The trochars were then withdrawn and then skin incision sites were closed using 3-0 Monocryl suture Steri-Strips are applied. Patient thought procedure well and sent to recovery room in stable condition.ssen
[2016-10-27 17:34] LABS: Glucose,Whole Blood 129 mg/dL (75-99)
[2016-10-27] MEDS: KETOROLAC 30 MG/ML 1 ML VIAL IVP SCH ×2 (17:42→23:26)
[2016-10-27] MEDS: FUROSEMIDE 40 MG TAB PO SCH (17:43)
[2016-10-27] MEDS: HYDROcodone/APAP 5-325MG 1 EACH TAB PO PRN (19:46)
[2016-10-27] MEDS: PRAZOSIN 1 MG CAP PO SCH (21:11)
[2016-10-27 21:12] LABS: Glucose,Whole Blood 116 mg/dL (75-99)
[2016-10-27] MEDS: ATORVASTATIN 10 MG TAB PO SCH (21:13)
[2016-10-27] MEDS: MONTELUKAST 10 MG TAB PO SCH (21:13)
[2016-10-27] MEDS: DOXEPIN 10 MG CAP PO SCH (21:13)
[2016-10-28] MEDS: HYDROcodone/APAP 5-325MG 1 EACH TAB PO PRN ×4 (00:53→20:02)
[2016-10-28] MEDS: HYDROmorphone 1 MG/ML 1 ML SYRINGE IVP PRN ×6 (00:54→21:55)
[2016-10-28] MEDS: LACTATED RINGERS 1,000 ML IV SCH ×3 (04:59→21:49)
[2016-10-28] MEDS: KETOROLAC 30 MG/ML 1 ML VIAL IVP SCH ×4 (06:12→23:43)
[2016-10-28] MEDS: oxyCODONE ER 20 MG TAB.ER.12H PO SCH ×2 (06:12→18:12)
[2016-10-28] MEDS: LEVOTHYROXINE 50 MCG TAB PO SCH (06:13)
[2016-10-28 07:08] LABS: Glucose,Whole Blood 69 mg/dL (75-99)
[2016-10-28] MEDS: INSULIN LISPRO (humaLOG) 300 UNIT/3 ML VIAL SQ SCH ×4 (07:26→21:50)
[2016-10-28 07:34] LABS: Glucose,Whole Blood 92 mg/dL (75-99)
[2016-10-28] MEDS: QUEtiapine 50 MG TAB PO SCH ×2 (07:36→17:04)
[2016-10-28] MEDS: CALCIUM CARBONATE 500 MG CHEWABLE PO SCH ×3 (07:36→21:49)
[2016-10-28] MEDS: GABAPENTIN 400 MG CAP PO SCH ×3 (07:37→21:49)
[2016-10-28] MEDS: PANTOPRAZOLE 40 MG TABLET PO SCH (07:38)
[2016-10-28] MEDS: ASPIRIN 81 MG CHEW PO SCH (07:38)
[2016-10-28] MEDS: DOCUSATE 100 MG CAP PO SCH (07:38)
[2016-10-28] MEDS: DULoxetine HCL 60 MG CAPSULE.DR PO SCH ×2 (07:38→21:49)
[2016-10-28] MEDS: BENZONATATE 100 MG CAP PO SCH ×3 (07:39→21:49)
[2016-10-28] MEDS: methylPREDNISolone SOD SUCCI 125 MG/2 ML VIAL IV SCH (07:40)
[2016-10-28] MEDS: FUROSEMIDE 40 MG TAB PO SCH (07:40)
[2016-10-28] MEDS: BUDESONIDE 1 MG/2 ML NEBU INHALATION SCH ×2 (08:27→21:11)
[2016-10-28] MEDS: IPRATROPIUM-ALBUTEROL 3 ML NEB INHALATION SCH ×4 (08:27→21:11)
[2016-10-28] MEDS: FORMOTEROL FUMARATE 20 MCG/2 ML NEBU INHALATION SCH ×2 (08:27→21:11)
[2016-10-28] MEDS: LORazepam 1 MG TAB PO SCH ×3 (08:28→21:55)
[2016-10-28 09:54] LABS: Anisocytosis Slight; Basophils % (A) 0 %; CH 26.6; CHCM 30.8; Eosinophils % (A) 0 %; HCT 35.9 % (34.0-46.0); HDW 3.12; HGB 10.8 gm/dL (11.4-16.0); Hypochromasia Moderate; Luc # (Auto) 0.09; Luc % (Auto) 1; Lymphocytes # (A) 0.4 k/uL (1.0-4.8); Lymphocytes % (A) 7 %; MCH 26.1 pg (25.0-35.0); MCHC 30.2 g/dL (31.0-37.0); MCV 86.6 fL (80.0-100.0); Mean Platelet Volume 7.5; Monocytes # (A) 0.5 k/uL (0-1.0); Monocytes % (A) 7 %; Neutrophils # (A) 5.2 k/uL (1.3-7.7); Neutrophils % (A) 84 %; RBC 4.15 m/uL (3.80-5.40); RDW 16.3 % (11.5-15.5); WBC 6.2 k/uL (3.8-10.6); WBC (Perox) 6.44
[2016-10-28 10:32] LABS: ALT 106 U/L (9-52); AST 39 U/L (14-36); Alkaline Phosphatase 69 U/L (38-126); Anion Gap 11 mmol/L; Blood Urea Nitrogen 13 mg/dL (7-17); Calcium 8.5 mg/dL (8.4-10.2); Carbon Dioxide 31 mmol/L (22-30); Chloride 97 mmol/L (98-107); Glucose 105 mg/dL (74-99); Non-African American GFR(MDRD) >60 (>60 ml/min/1.73 sqM); Potassium 3.7 mmol/L (3.5-5.1); Sodium 139 mmol/L (137-145); Total Bilirubin 0.6 mg/dL (0.2-1.3); Total Protein 5.3 g/dL (6.3-8.2)
--- NOTE | 2016-10-28 11:24 | FL ---
EXAMINATION TYPE: FL UGI w esophagus DATE OF EXAM: 10/28/2016 11:09 AM COMPARISON: NONE HISTORY: Alberto fundoplication TECHNIQUE: A single contrast UGI study is performed. FINDINGS: No free air is identified under the diaphragm. A minimal right pleural effusion is not excl uded Attention is paid to the distal esophagus. No suspicious extravasation of contrast is evident post Ni ssan fundoplication. Contrast passes through the distal esophagus with mild hesitancy. The stomach ap pears unremarkable. Three overhead radiographs were obtained and appear unremarkable. IMPRESSIONS: 1. No obstruction or extravasation of contrast post Alberto fundoplication.
[2016-10-28 12:18] LABS: Glucose,Whole Blood 150 mg/dL (75-99)
[2016-10-28] MEDS: FERROUS SULFATE 325 MG TAB PO SCH (13:02)
--- NOTE | 2016-10-28 14:15 | P.PN ---
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 The patient started having worsening shortness of breath around August 2016. She was hospitalized initially around 2015 and after staying in hospital for that 3 days the patient was released home on a prednisone burst taper, Advair, and Singulair as maintenance and albuterol nebulized treatments around the clock. The patient got to the hospitalized on 09/25/2016 for the same. She was having increased shortness of breath. I ordered a CAT scan of the chest on her at that time that showed a hiatal hernia and subcentimeter subpleural nodule in the right lung base. No evidence of emphysema. No bronchiectasis. The patient was treated and was discharged home to be readmitted again for the same symptoms and she was seen by my associate during her last hospital stay.. The patient is still having some shortness of breath. She is taking a prednisone burst taper and she was started a dose of 50 mg by mouth daily following her discharge from the hospital yesterday. She is having some soreness in her throat and she is febrile with a temperature of 100.6. She is having some occasional wheezing. Shortness of breath has not fully recovered. The patient is having symptoms of reflux probably a complication of a hiatal hernia and at times she feels gastric juices coming all the way up to her mouth. She is taking only Pepcid for now. The patient lived all her life in [facility] and she claims to live very close to a [employer]. She is on no oxygen at this point. She has a remote history of clot in the left lower extremity and she is currently on no anticoagulation. She follows with Dr. Dr. 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 She is seen again today 10/28/2016 in follow-up on the regular medical floor. She is status post laparoscopic Niesen fundoplication with mesh for recurrent hiatal hernia. This is postoperative day #1. She is awake and alert in no acute distress. Her pain is well controlled. She denies any worsening shortness of breath, cough or congestion. She is maintaining good O2 saturations in the upper 90s on room air. She is afebrile. Hemodynamically stable. Objective - Vital Signs Vital signs: Vital Signs Temp 98.0 F 10/28/16 07:00 Pulse 86 10/28/16 12:36 Resp 18 10/28/16 07:46 BP 117/81 10/28/16 07:00 Pulse Ox 96 10/28/16 07:00 Intake & Output 10/27/16 10/28/16 10/28/16 18:59 06:59 18:59 Intake Total 1450 1875 2290 Output Total 10 Balance 1440 1875 2290 Weight 65.771 kg 65.771 kg Intake: IV 1450 1125 1250 Lactated Ringers 1,000 ml 1125 1200 @ 125 mls/hr IV .Q8H CHANDU Rx#:[id number] cefTRIAXone 1,000 mg In 50 Sodium Chloride 0.9% 50 ml @ 100 mls/hr IVPB Q24HR CHANDU Rx#:[id number] Oral 750 1040 Output: Estimated Blood Loss 10 Other: Voiding Method Toilet Toilet Toilet # Voids 1 1 1 - Exam GENERAL EXAM: Alert, active, comfortable in no apparent distress. HEAD: Normocephalic. EYES: Normal reaction of pupils, equal size. NOSE: Clear with pink turbinates. THROAT: No erythema or exudates. NECK: No masses, no JVD. CHEST: No chest wall deformity. LUNGS: Equal air entry with no crackles, wheeze, rhonchi or dullness. CVS: S1 and S2 normal with no audible mumurs, regular rhythm. ABDOMEN: Incisions clean dry well approximated. Hypoactive bowel sounds, no guarding or rigidity. SPINE: No scoliosis or deformity SKIN: No rashes CENTRAL NERVOUS SYSTEM: No focal deficits, tone is normal in all 4 extremities. Extremities: There is no peripheral edema. No clubbing, no cyanosis. Peripheral pulses are intact. - Labs CBC & Chem 7: 10/28/16 09:17 10/28/16 09:17 Labs: Abnormal Lab Results - Last 24 Hours (Table) 10/27/16 10/27/16 10/28/16 Range/Units 17:33 21:11 07:07 Hgb (11.4-16.0) gm/dL MCHC (31.0-37.0) g/dL RDW (11.5-15.5) % Lymphocytes # (1.0-4.8) k/uL Chloride (98-107) mmol/L Carbon Dioxide (22-30) mmol/L Creatinine (0.52-1.04) mg/dL Glucose (74-99) mg/dL POC Glucose (mg/dL) 129 H 116 H 69 L (75-99) mg/dL AST (14-36) U/L ALT (9-52) U/L Total Protein (6.3-8.2) g/dL Albumin (3.5-5.0) g/dL 10/28/16 10/28/16 10/28/16 Range/Units 09:17 09:17 12:16 Hgb 10.8 L (11.4-16.0) gm/dL MCHC 30.2 L (31.0-37.0) g/dL RDW 16.3 H (11.5-15.5) % Lymphocytes # 0.4 L (1.0-4.8) k/uL Chloride 97 L (98-107) mmol/L Carbon Dioxide 31 H (22-30) mmol/L Creatinine 0.42 L (0.52-1.04) mg/dL Glucose 105 H (74-99) mg/dL POC Glucose (mg/dL) 150 H (75-99) mg/dL AST 39 H (14-36) U/L ALT 106 H (9-52) U/L Total Protein 5.3 L (6.3-8.2) g/dL Albumin 2.9 L (3.5-5.0) g/dL Assessment and Plan Plan: Impression: 1 right perihilar pneumonia, most likely secondary to aspiration pneumonia 2 severe persistent asthma- the patient is having complications of bronchial asthma and she was hospitalized 3 times over the past 2 months for asthma activity and exacerbations. It's likely that the patient is having massive GE reflux contributing to her poor asthma control. She is identified to have a large hiatal hernia and she is having active reflux symptoms. 3 hiatal hernia , status post Niesen fundoplication with mesh. Postoperative day #1. 4 lower extremity edema 5 malignant neoplasm of the breast 6 hypertension 7 history of cervical cancer 8 history of uterine cancer 9 chronic atrial fibrillation 10 hypothyroidism 11 GERD 12 scoliosis deformity of the spine 13 right foot. 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 Rollins. She had undergone laparoscopic Niesen fundoplication with mesh placement yesterday. She is doing quite well. She has no pulmonary complaints. Her pain is well controlled. We' ll continue with her current medications. We'll increase her activity as tolerated. She is educated regarding the use of the incentive spirometer and cough and deep breathing exercises. We will continue to follow make further recommendations based on her clinical status.
--- NOTE | 2016-10-28 14:52 | P.PN ---
Subjective Patient is a 65-year-old female admitted to the hospital with acute right perihilar pneumonia secondary to aspiration suspect secondary to GERD secondary to hiatal hernia. Patient did undergo an EGD on 10/25/2016 with evidence of hiatal hernia, antral gastritis, and esophagitis. Patient is status post laparoscopic Damaso fundoplication, postop day #1. Patient tolerated procedure well. Esophagram without evidence of leak or obstruction. Patient is tolerating a full liquid diet. Patient is passing flatus without bowel movements. Patient complains of mild nausea without vomiting. Incisional pain controlled. Patient is urinating without difficulty. Patient has been up ambulating. Afebrile. No evidence of leukocytosis. Hemoglobin stable at 10.8. Objective - Vital Signs Vital signs: Vital Signs Temp 98.0 F 10/28/16 07:00 Pulse 86 10/28/16 12:36 Resp 18 10/28/16 07:46 BP 117/81 10/28/16 07:00 Pulse Ox 96 10/28/16 07:00 Intake & Output 10/27/16 10/28/16 10/28/16 18:59 06:59 18:59 Intake Total 1450 1875 2290 Output Total 10 Balance 1440 1875 2290 Weight 65.771 kg 65.771 kg Intake: IV 1450 1125 1250 Lactated Ringers 1,000 ml 1125 1200 @ 125 mls/hr IV .Q8H CHANDU Rx#:[id number] cefTRIAXone 1,000 mg In 50 Sodium Chloride 0.9% 50 ml @ 100 mls/hr IVPB Q24HR CHANDU Rx#:[id number] Oral 750 1040 Output: Estimated Blood Loss 10 Other: Voiding Method Toilet Toilet Toilet # Voids 1 1 1 - Exam GENERAL: Pt awake and alert, well-appearing, well-nourished, and in no acute distress. LUNGS: Breath sounds clear to auscultation bilaterally. No wheezes, rales, or rhonchi. HEART: Heart S1, S2, no S3 or S4. Regular rate and rhythm. No murmurs, rubs or gallops. ABDOMEN: Soft, mild incisional tenderness, nondistended, normoactive bowel sounds. Laparoscopic surgical incisions approximated with Dermabond, no erythema or drainage. - Labs CBC & Chem 7: 10/28/16 09:17 10/28/16 09:17 Labs: Abnormal Lab Results - Last 24 Hours (Table) 10/27/16 10/27/16 10/28/16 Range/Units 17:33 21:11 07:07 Hgb (11.4-16.0) gm/dL MCHC (31.0-37.0) g/dL RDW (11.5-15.5) % Lymphocytes # (1.0-4.8) k/uL Chloride (98-107) mmol/L Carbon Dioxide (22-30) mmol/L Creatinine (0.52-1.04) mg/dL Glucose (74-99) mg/dL POC Glucose (mg/dL) 129 H 116 H 69 L (75-99) mg/dL AST (14-36) U/L ALT (9-52) U/L Total Protein (6.3-8.2) g/dL Albumin (3.5-5.0) g/dL 10/28/16 10/28/16 10/28/16 Range/Units 09:17 09:17 12:16 Hgb 10.8 L (11.4-16.0) gm/dL MCHC 30.2 L (31.0-37.0) g/dL RDW 16.3 H (11.5-15.5) % Lymphocytes # 0.4 L (1.0-4.8) k/uL Chloride 97 L (98-107) mmol/L Carbon Dioxide 31 H (22-30) mmol/L Creatinine 0.42 L (0.52-1.04) mg/dL Glucose 105 H (74-99) mg/dL POC Glucose (mg/dL) 150 H (75-99) mg/dL AST 39 H (14-36) U/L ALT 106 H (9-52) U/L Total Protein 5.3 L (6.3-8.2) g/dL Albumin 2.9 L (3.5-5.0) g/dL Assessment and Plan Plan: Impression: 1. Possible right perihilum pneumonia suspect secondary to aspiration secondary to severe reflux disease. 2. Status post EGD on 10/25/2016 with findings of GERD; hiatal hernia; antral gastritis; and esophagitis 3. Status post laparoscopic Damaso fundoplication. Plan: Advance diet to full liquid. Continue supportive treatment and pain management. Increase ambulation. Will order incentive spirometry. Continue medical management. Repeat CBC and BMP in a.m. The above impression and plan have been discussed and directed by Dr. Butler. Mohan DONAHUE acting as scribe for Dr. Butler.
[2016-10-28 17:17] LABS: Glucose,Whole Blood 133 mg/dL (75-99)
[2016-10-28 21:40] LABS: Glucose,Whole Blood 125 mg/dL (75-99)
[2016-10-28] MEDS: PRAZOSIN 1 MG CAP PO SCH (21:49)
[2016-10-28] MEDS: ATORVASTATIN 10 MG TAB PO SCH (21:49)
[2016-10-28] MEDS: MONTELUKAST 10 MG TAB PO SCH (21:49)
[2016-10-28] MEDS: DOXEPIN 10 MG CAP PO SCH (21:49)
--- NOTE | 2016-10-28 21:59 | DS ---
PROGRESS NOTE AND DISCHARGE SUMMARY DATE OF ADMISSION: 10/21/2016 DATE OF DISCHARGE: Patient is admitted for asthma exacerbation. Patient is having significant acid reflux, because of which patient underwent Damaso fundoplication. Patient is able to tolerate diet well and patient does have good bowel sounds. Patient is ambulating in the hallway. I believe patient can be discharged today in my opinion after advancing the diet. If cleared by Surgery, patient will be discharged today. REVIEW OF SYSTEMS: CARDIOVASCULAR: No chest pain, no orthopnea, no PND, no palpitations. PULMONARY: Denied any shortness of breath. No cough or hemoptysis. GASTROINTESTINAL: Patient is complaining of continued soreness of the abdomen. NEUROLOGIC: No headaches, no weakness, no numbness. Medications were reviewed. PHYSICAL EXAMINATION: VITAL SIGNS: Temperature 98.5, pulse of 86, respiratory rate of 18. Blood pressure is 117/81. Saturating at 96% on room air. GENERAL: The patient is alert and oriented x3, not in any acute distress. Well developed, well nourished. HEENT: Pupils are round and equally reacting to light. EOMI. No scleral icterus. No conjunctival pallor. Normocephalic, atraumatic. No pharyngeal erythema. No thyromegaly. CARDIOVASCULAR: S1 and S2 present. No murmurs, rubs, or gallops. PULMONARY: Chest is clear to auscultation, no wheezing or crackles. ABDOMEN: Patient has good bowel sounds. Surgical site area is clear. MUSCULOSKELETAL: No joint swelling or deformity. EXTREMITIES: No cyanosis, clubbing, or pedal edema. NEUROLOGICAL: Gross neurological examination did not reveal any focal deficits. SKIN: No rashes. Lab data was reviewed. ASSESSMENT AND PLAN: 1. Possible right perihilar pneumonia. 2. Sepsis secondary to pneumonia. 3. Asthma exacerbation due to acid reflux, status post Damaso fundoplication. 4. Hiatal hernia. 5. Atrial fibrillation, rate controlled. 6. Coronary artery disease. 7. Deep venous thrombosis in the past. 8. Fibromyalgia. 9. Hypertension. 10. Acute hypoxic respiratory failure on admission. 11. History of breast cancer, in remission. 12. Anxiety, depression. Patient does have some attention-seeking behavior as well. 13. Hypothyroidism. Patient can be discharged today on weaning dose of prednisone and Ceftin for 5 more days and anticoagulation as per her primary doctor and Cardiology. Patient will follow with Dr. Ramon Riggs in 3 to 7 days, Dr. Tobias Butler in about a week. Patient will be discharged home with home care. Spent greater than 35 minutes in total discharge process.
[2016-10-29] MEDS: KETOROLAC 30 MG/ML 1 ML VIAL IVP SCH ×2 (05:07→12:50)
[2016-10-29] MEDS: HYDROmorphone 1 MG/ML 1 ML SYRINGE IVP PRN (05:11)
[2016-10-29] MEDS: oxyCODONE ER 20 MG TAB.ER.12H PO SCH (06:16)
[2016-10-29] MEDS: LACTATED RINGERS 1,000 ML IV SCH ×2 (06:16→12:50)
[2016-10-29] MEDS: LEVOTHYROXINE 50 MCG TAB PO SCH (06:16)
[2016-10-29 07:12] LABS: Glucose,Whole Blood 85 mg/dL (75-99)
[2016-10-29] MEDS: BUDESONIDE 1 MG/2 ML NEBU INHALATION SCH (07:49)
[2016-10-29] MEDS: IPRATROPIUM-ALBUTEROL 3 ML NEB INHALATION SCH ×3 (07:49→15:07)
[2016-10-29] MEDS: FORMOTEROL FUMARATE 20 MCG/2 ML NEBU INHALATION SCH (07:49)
[2016-10-29 08:40] VITALS: BP 166/80; RESP 16; TEMP 97.7
[2016-10-29] MEDS: LORazepam 1 MG TAB PO SCH ×2 (08:41→15:36)
[2016-10-29] MEDS: HYDROcodone/APAP 5-325MG 1 EACH TAB PO PRN ×2 (08:41→15:36)
[2016-10-29] MEDS: INSULIN LISPRO (humaLOG) 300 UNIT/3 ML VIAL SQ SCH ×2 (08:43→12:50)
[2016-10-29] MEDS: GABAPENTIN 400 MG CAP PO SCH ×2 (08:45→15:44)
[2016-10-29] MEDS: CALCIUM CARBONATE 500 MG CHEWABLE PO SCH ×2 (08:45→15:46)
[2016-10-29] MEDS: BENZONATATE 100 MG CAP PO SCH ×2 (08:45→15:44)
[2016-10-29] MEDS: PANTOPRAZOLE 40 MG TABLET PO SCH (08:45)
[2016-10-29] MEDS: DULoxetine HCL 60 MG CAPSULE.DR PO SCH (08:45)
[2016-10-29] MEDS: FERROUS SULFATE 325 MG TAB PO SCH (08:46)
[2016-10-29] MEDS: ASPIRIN 81 MG CHEW PO SCH (08:46)
[2016-10-29] MEDS: DOCUSATE 100 MG CAP PO SCH (08:46)
[2016-10-29] MEDS: FUROSEMIDE 40 MG TAB PO SCH (08:46)
[2016-10-29] MEDS: QUEtiapine 50 MG TAB PO SCH (08:47)
[2016-10-29 11:45] LABS: Glucose,Whole Blood 76 mg/dL (75-99)
[2016-10-29] MEDS: ONDANSETRON 4 MG/2 ML VIAL IVP PRN (12:51)
--- NOTE | 2016-10-29 13:37 | P.PN ---
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 The patient started having worsening shortness of breath around August 2016. She was hospitalized initially around 2015 and after staying in hospital for that 3 days the patient was released home on a prednisone burst taper, Advair, and Singulair as maintenance and albuterol nebulized treatments around the clock. The patient got to the hospitalized on 09/25/2016 for the same. She was having increased shortness of breath. I ordered a CAT scan of the chest on her at that time that showed a hiatal hernia and subcentimeter subpleural nodule in the right lung base. No evidence of emphysema. No bronchiectasis. The patient was treated and was discharged home to be readmitted again for the same symptoms and she was seen by my associate during her last hospital stay.. The patient is still having some shortness of breath. She is taking a prednisone burst taper and she was started a dose of 50 mg by mouth daily following her discharge from the hospital yesterday. She is having some soreness in her throat and she is febrile with a temperature of 100.6. She is having some occasional wheezing. Shortness of breath has not fully recovered. The patient is having symptoms of reflux probably a complication of a hiatal hernia and at times she feels gastric juices coming all the way up to her mouth. She is taking only Pepcid for now. The patient lived all her life in [facility] and she claims to live very close to a [employer]. She is on no oxygen at this point. She has a remote history of clot in the left lower extremity and she is currently on no anticoagulation. She follows with Dr. Dr. 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 She is seen again today 10/29/2016 in follow-up. She is awake and alert in no acute distress. She denies any worsening shortness of breath, cough or congestion. She is maintaining good O2 saturations in the 90s on room air. She is status post laparoscopic Damaso fundoplication. Upper GI series with the esophagus revealed no obstruction or extravasation of contrast. He is tolerating her diet well. She's been up ambulating in the hallway. Objective - Vital Signs Vital signs: Vital Signs Temp 97.7 F 10/29/16 07:00 Pulse 80 10/29/16 12:09 Resp 16 10/29/16 07:00 BP 166/80 10/29/16 07:00 Pulse Ox 96 10/29/16 07:00 Intake & Output 10/28/16 10/29/16 10/29/16 18:59 06:59 18:59 Intake Total 2290 1325 Balance 2290 1325 Weight 65.771 kg Intake: IV 1250 1125 Lactated Ringers 1,000 ml 1200 1125 @ 125 mls/hr IV .Q8H CHANDU Rx#:[id number] cefTRIAXone 1,000 mg In 50 Sodium Chloride 0.9% 50 ml @ 100 mls/hr IVPB Q24HR CHANDU Rx#:[id number] Oral 1040 200 Other: Voiding Method Toilet Toilet Toilet # Voids 1 1 # Bowel Movements 4 - Exam GENERAL EXAM: Alert, active, comfortable in no apparent distress. HEAD: Normocephalic. EYES: Normal reaction of pupils, equal size. NOSE: Clear with pink turbinates. THROAT: No erythema or exudates. NECK: No masses, no JVD. CHEST: No chest wall deformity. LUNGS: Equal air entry with no crackles, wheeze, rhonchi or dullness. CVS: S1 and S2 normal with no audible mumurs, regular rhythm. ABDOMEN: Incisions clean dry well approximated. Hypoactive bowel sounds, no guarding or rigidity. SPINE: No scoliosis or deformity SKIN: No rashes CENTRAL NERVOUS SYSTEM: No focal deficits, tone is normal in all 4 extremities. Extremities: There is no peripheral edema. No clubbing, no cyanosis. Peripheral pulses are intact. - Labs CBC & Chem 7: 10/28/16 09:17 10/28/16 09:17 Labs: Abnormal Lab Results - Last 24 Hours (Table) 10/28/16 10/28/16 Range/Units 17:16 20:58 POC Glucose (mg/dL) 133 H 125 H (75-99) mg/dL Assessment and Plan Plan: Impression: 1 right perihilar pneumonia, most likely secondary to aspiration pneumonia. Improved both radiographically and clinically. 2 severe persistent asthma- the patient is having complications of bronchial asthma and she was hospitalized 3 times over the past 2 months for asthma activity and exacerbations. It's likely that the patient is having massive GE reflux contributing to her poor asthma control. She is identified to have a large hiatal hernia and she is having active reflux symptoms. 3 hiatal hernia , status post Niesen fundoplication with mesh. Postoperative day #2. 4 lower extremity edema 5 malignant neoplasm of the breast 6 hypertension 7 history of cervical cancer 8 history of uterine cancer 9 chronic atrial fibrillation 10 hypothyroidism 11 GERD 12 scoliosis deformity of the spine 13 right foot. 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 Rollins. She had undergone laparoscopic Damaso fundoplication with mesh placement 2 days ago. Upper GI/ barium swallow revealed no complications. She is doing quite well. She has no pulmonary complaints. Her pain is well controlled. We'll continue with her current medications. She is cleared for discharge from the pulmonary standpoint. She'll follow-up with Dr. Kemp in our office in 1-2 weeks' time. We'll repeat her chest x-ray then. She is however encouraged to call sooner with any recurrence of symptoms or other questions or concerns.
--- NOTE | 2016-10-29 16:41 | P.PN ---
Subjective Patient is a 65-year-old female admitted to the hospital with acute right perihilar pneumonia secondary to aspiration suspect secondary to GERD secondary to hiatal hernia. Patient did undergo an EGD on 10/25/2016 with evidence of hiatal hernia, antral gastritis, and esophagitis. Patient is status post laparoscopic Damaso fundoplication, postop day #2. Patient tolerated procedure well. Esophagram without evidence of leak or obstruction. Patient is tolerating a full liquid diet. Patient is passing flatus with bowel movements. Patient is complaining of back pain. Patient complains of mild nausea without vomiting. Incisional pain controlled. Patient is urinating without difficulty. Patient has been up ambulating. Afebrile. Objective - Vital Signs Vital signs: Vital Signs Temp 97.7 F 10/29/16 07:00 Pulse 80 10/29/16 12:09 Resp 16 10/29/16 07:00 BP 166/80 10/29/16 07:00 Pulse Ox 96 10/29/16 07:00 Intake & Output 10/28/16 10/29/16 10/29/16 18:59 06:59 18:59 Intake Total 2290 1325 550 Balance 2290 1325 550 Weight 65.771 kg Intake: IV 1250 1125 550 Lactated Ringers 1,000 ml 1200 1125 500 @ 125 mls/hr IV .Q8H CHANDU Rx#:[id number] cefTRIAXone 1,000 mg In 50 50 Sodium Chloride 0.9% 50 ml @ 100 mls/hr IVPB Q24HR CHANDU Rx#:[id number] Oral 1040 200 Other: Voiding Method Toilet Toilet Toilet # Voids 1 1 # Bowel Movements 4 - Exam GENERAL: Pt awake and alert, well-appearing, well-nourished, and in no acute distress. LUNGS: Breath sounds clear to auscultation bilaterally. No wheezes, rales, or rhonchi. HEART: Heart S1, S2, no S3 or S4. Regular rate and rhythm. No murmurs, rubs or gallops. ABDOMEN: Soft, mild incisional tenderness, nondistended, normoactive bowel sounds. Laparoscopic surgical incisions approximated with Dermabond, no erythema or drainage. - Labs CBC & Chem 7: 10/28/16 09:17 10/28/16 09:17 Labs: Abnormal Lab Results - Last 24 Hours (Table) 10/28/16 10/28/16 Range/Units 17:16 20:58 POC Glucose (mg/dL) 133 H 125 H (75-99) mg/dL Assessment and Plan Plan: Impression: 1. Possible right perihilum pneumonia suspect secondary to aspiration secondary to severe reflux disease. 2. Status post EGD on 10/25/2016 with findings of GERD; hiatal hernia; antral gastritis; and esophagitis 3. Status post laparoscopic Damaso fundoplication. Plan: Continue full liquid diet. Continue supportive treatment and pain management. Increase ambulation. Continue medical management. From a surgical standpoint, patient stable for discharge to home with follow-up in 2 weeks. The above impression and plan have been discussed and directed by Dr. Butler. Mohan DONAHUE acting as scribe for Dr. Butler.
[2016-10-29 16:58] VITALS: PULSE 81
--- NOTE | 2016-10-30 08:49 | DS ---
DATE OF ADMISSION: 10/21/2016 DATE OF DISCHARGE: 10/29/2016 The patient is admitted for asthma exacerbation secondary to acid reflux. The patient underwent Damaso fundoplication. The patient's barium swallow is essentially within normal limits and patient does not have any pain. Her lung exam is essentially clear. Patient was discharged yesterday, but because of the barium swallow, surgical services wanted me to keep her one more night and they cleared her for discharge today. Patient will be discharged today. Please consider my discharge summary from yesterday as a progress note and please refer to my discharge summary from yesterday for further details. No additional recommendations apart from that.
== END 2016-10-29 17:20 | disposition home health service (06) | DRG 853 ==
LOC: EC 09:55 → 5MS5E 12:35
PROVIDERS: ADMIT Hospitalist; ATTEND Hospitalist
PROC: 0DB68ZX Excision of Stomach, Via Natural or Artificial Opening Endoscopic, Diagnostic (ICD-10-PCS; 2016-10-25)
PROC: 0DB38ZX Excision of Lower Esophagus, Via Natural or Artificial Opening Endoscopic, Diagnostic (ICD-10-PCS; 2016-10-25)
PROC: 0BUR4JZ (ICD-10-PCS; principal; 2016-10-27 14:25)
PROC: 0BUS4JZ (ICD-10-PCS; principal; 2016-10-27 14:25)
DX: A41.9 Sepsis, unspecified organism (principal); J69.0 Pneumonitis due to inhalation of food and vomit; J96.01 Acute respiratory failure with hypoxia; J44.1 Chronic obstructive pulmonary disease with (acute) exacerbation; E87.1 Hypo-osmolality and hyponatremia; J45.51 Severe persistent asthma with (acute) exacerbation; E88.09 Other disorders of plasma-protein metabolism, not elsewhere classified; I48.2 Chronic atrial fibrillation; D63.8 Anemia in other chronic diseases classified elsewhere; I10 Essential (primary) hypertension; F32.9 Major depressive disorder, single episode, unspecified; E03.9 Hypothyroidism, unspecified; E78.5 Hyperlipidemia, unspecified; R65.20 Severe sepsis without septic shock; F41.9 Anxiety disorder, unspecified; G89.4 Chronic pain syndrome; I25.10 Atherosclerotic heart disease of native coronary artery without angina pectoris; K21.0 Gastro-esophageal reflux disease with esophagitis; K29.60 Other gastritis without bleeding; K29.80 Duodenitis without bleeding; K44.9 Diaphragmatic hernia without obstruction or gangrene; M19.90 Unspecified osteoarthritis, unspecified site; M41.9 Scoliosis, unspecified; M79.7 Fibromyalgia; R13.10 Dysphagia, unspecified; R32 Unspecified urinary incontinence; Y95 Nosocomial condition; Z85.3 Personal history of malignant neoplasm of breast; I25.2 Old myocardial infarction; Z85.41 Personal history of malignant neoplasm of cervix uteri; Z85.42 Personal history of malignant neoplasm of other parts of uterus; Z85.6 Personal history of leukemia; Z86.718 Personal history of other venous thrombosis and embolism; Z87.01 Personal history of pneumonia (recurrent); Z95.5 Presence of coronary angioplasty implant and graft; Z88.1 Allergy status to other antibiotic agents; Z88.5 Allergy status to narcotic agent; Z88.0 Allergy status to penicillin; Z79.82 Long term (current) use of aspirin; Z79.899 Other long term (current) drug therapy; Z79.52 Long term (current) use of systemic steroids
CPT/HCPCS: 36415; 43239; 71010; 71020; 74240; 80048; 80053; 80299; 80307; 80346; 80364; 81001; 82550; 82553; 83036; 83605; 83735; 84100; 84132; 84484; 85025; 85610; 85730; 87040; 87086; 87324; 87502; 88305; 88342; 93005; 94640; 94760; 96361; 96365; 96375; 99211; 99285

== ENCOUNTER 2016-10-30 19:30 | Emergency (ER) | payer MEDICARE ==
[2016-10-30 19:37] VITALS: RESP 16
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
[2016-10-30 21:16] VITALS: BP 132/78; PULSE 70; TEMP 98.4
== END 2016-10-30 20:45 | disposition home or self-care (01) ==
LOC: EC 19:30
DX: R10.11 Right upper quadrant pain (principal); M54.9 Dorsalgia, unspecified; G89.29 Other chronic pain; Z76.0 Encounter for issue of repeat prescription; J45.909 Unspecified asthma, uncomplicated; I48.91 Unspecified atrial fibrillation; I25.10 Atherosclerotic heart disease of native coronary artery without angina pectoris; M79.7 Fibromyalgia; K21.9 Gastro-esophageal reflux disease without esophagitis; E78.5 Hyperlipidemia, unspecified; I10 Essential (primary) hypertension; I25.2 Old myocardial infarction; E03.9 Hypothyroidism, unspecified; F32.9 Major depressive disorder, single episode, unspecified; F41.9 Anxiety disorder, unspecified; M19.90 Unspecified osteoarthritis, unspecified site; Z85.3 Personal history of malignant neoplasm of breast; Z85.41 Personal history of malignant neoplasm of cervix uteri; Z85.42 Personal history of malignant neoplasm of other parts of uterus; Z86.718 Personal history of other venous thrombosis and embolism; M41.9 Scoliosis, unspecified; Z79.82 Long term (current) use of aspirin; Z79.52 Long term (current) use of systemic steroids; Z79.1 Long term (current) use of non-steroidal anti-inflammatories (NSAID); Z79.899 Other long term (current) drug therapy; Z88.0 Allergy status to penicillin; Z88.1 Allergy status to other antibiotic agents; Z88.5 Allergy status to narcotic agent; Z88.8 Allergy status to other drugs, medicaments and biological substances; Z91.09 Other allergy status, other than to drugs and biological substances; Z90.49 Acquired absence of other specified parts of digestive tract; Z90.710 Acquired absence of both cervix and uterus; Z98.890 Other specified postprocedural states
CPT/HCPCS: 99284

== ENCOUNTER 2016-11-02 13:58 | Emergency (ER) | payer MEDICARE ==
[2016-11-02] MEDS ORDERED: LORazepam 2 MG/ML SYRINGE IV STA (14:50)
--- NOTE | 2016-11-02 14:50 | ED ---
General Adult HPI - General Source: patient, RN notes reviewed Mode of arrival: EMS <Luis Eduardo Coronel - Last Filed: 11/02/16 16:40> <Harman Rico - Last Filed: 11/02/16 19:56> - General Chief complaint: Dizziness Stated complaint: Fall Time Seen by Provider: 11/02/16 14:00 - History of Present Illness Initial comments: This is a 66-year-old female who states she comes to the emergency department today because she fell after she lost balance. Patient states she fell backward landing on her buttock and inner side of her head hit the cupboard. Patient states she thinks she strained her neck as well and this happened. Patient denies any loss of consciousness patient denies being dazed. Patient denies any near syncopal episode. Patient states she's had no chest pain palpitations difficulty breathing or shortness of breath. Patient states her lower back hurts in addition to slight strain of her neck. Patient states the left side of her head also hurts a little where she had the cupboard. Patient denies any abdominal pain patient denies any nausea vomiting diarrhea. Patient denies any hip pain. Patient denies any weakness one side versus the other patient denies any numbness. (Luis Eduardo Coronel) - Related Data Home Medications Medication Instructions Recorded Confirmed Aspirin EC [Ecotrin Low Dose] 81 mg PO DAILY 12/26/15 11/02/16 Gabapentin [Neurontin] 1,200 mg PO TID 12/26/15 11/02/16 Montelukast [Singulair] 10 mg PO HS 12/26/15 11/02/16 Nitroglycerin Sl Tabs [Nitrostat] 0.4 mg SUBLINGUAL Q5M PRN 12/26/15 11/02/16 Prazosin HCl [Minipress] 6 mg PO HS 02/10/16 11/02/16 Calcium Carbonate [Calcium] 600 mg PO TID 04/30/16 11/02/16 DULoxetine HCL [Cymbalta] 60 mg PO BID 04/30/16 11/02/16 Simvastatin [Zocor] 10 mg PO HS 06/02/16 11/02/16 Omeprazole [PriLOSEC] 20 mg PO AC-BRKFST 09/01/16 11/02/16 Etodolac [Lodine] 400 mg PO BID 09/16/16 11/02/16 Famotidine [Pepcid] 60 mg PO BID 09/16/16 11/02/16 Ferrous Gluconate 240 mg PO QAM 09/16/16 11/02/16 Levothyroxine Sodium [Synthroid] 50 mcg PO DAILY 09/25/16 11/02/16 Ondansetron [Zofran] 4 mg PO Q8H PRN 09/25/16 11/02/16 Levalbuterol Hfa Inhaler [Xopenex 1 puff INHALATION RT-Q6H 10/10/16 11/02/16 Hfa Inhaler] HYDROcodone/APAP 10-325MG [[place] 1 tab PO Q8HR PRN 10/18/16 11/02/16 10-325] Albuterol Nebulized [Ventolin 2.5 mg INHALATION RT-Q4H PRN 10/30/16 11/02/16 Nebulized] predniSONE See Taper PO DAILY 10/30/16 11/02/16 Previous Rx's Medication Instructions Recorded Benzonatate [Tessalon Perles] 100 mg PO TID #20 cap 09/30/16 Docusate [Colace] 100 mg PO DAILY cap 09/30/16 Fluticasone/Salmeterol [Advair 2 puff INHALATION RT-BID #5 09/30/16 250-50 Diskus] blst.w.dev Budesonide-Formot 160-4.5 Mcg 2 puff INHALATION RT-BID puff 10/14/16 [Symbicort 160-4.5 Mcg Inhaler] Doxepin [SINEquan] 10 mg PO HS 30 Days 10/14/16 Ipratropium-Albuterol Nebulize 3 ml INHALATION RT-QID PRN #0 10/14/16 [Duoneb 0.5 mg-3 mg/3 ml Soln] ampul.neb QUEtiapine [SEROquel] 50 mg PO BID-W/MEALS 30 Days 10/14/16 Lisinopril [Prinivil] 5 mg PO QAM #0 10/28/16 LORazepam [Ativan] 1 mg PO TID PRN #9 tab 10/30/16 oxyCODONE HCL [OxyCONTIN] 20 mg PO Q12HR PRN #6 tab 10/30/16 Allergies Allergy/AdvReac Type Severity Reaction Status Date / Time amoxicillin Allergy Unknown Verified 11/02/16 15:47 baclofen Allergy Rash/Hives Verified 11/02/16 15:47 morphine Allergy Itching Verified 11/02/16 15:47 Penicillins Allergy Unknown Verified 11/02/16 15:47 prochlorperazine Allergy Racing Verified 11/02/16 15:47 [From Compazine] Heart prochlorperazine edisylate Allergy Racing Verified 11/02/16 15:47 [From Compazine] Heart prochlorperazine maleate Allergy Racing Verified 11/02/16 15:47 [From Compazine] Heart tetracycline Allergy Unknown Verified 11/02/16 15:47 SILK TAPE Allergy Unknown Uncoded 11/02/16 14:07 Review of Systems ROS Other: All systems not noted in ROS Statement are negative. <Luis Eduardo Coronel - Last Filed: 11/02/16 16:40> ROS Other: All systems not noted in ROS Statement are negative. <Harman Rico - Last Filed: 11/02/16 19:56> ROS Statement: Those systems with pertinent positive or pertinent negative responses have been documented in the HPI. Past Medical History Past Medical History: Atrial Fibrillation, Asthma, Coronary Artery Disease (CAD) , Cancer, COPD, Deep Vein Thrombosis (DVT), Fibromyalgia, GERD/Reflux, Hyperlipidemia, Hypertension, Myocardial Infarction (non Q-wave), Osteoarthritis (OA), Thyroid Disorder Additional Past Medical History / Comment(s): Severe persistent bronchial asthma , hiatal hernia, chronic lower extremity edema, coronary artery disease, history of breast cancer, hypertension, osteoarthritis, malignancy of the cervix /cervical cancer, uterine cancer, right lower extremity DVT, chronic atrial fibrillation, hypothyroidism, GERD, scoliosis deformity of the spine, right foot drop, hiatal hernia, frequent exacerbation of COPD, cardiac murmur, urinary incontinence, rectal prolapse with repair, C5 cervical fracture with chronic neck pain, chronic anemia, E. coli urine checked infection on May 2016 Last Myocardial Infarction Date:: 2006 History of Any Multi-Drug Resistant Organisms: None Reported Date of last positivie culture/infection: None MDRO Source:: None Past Surgical History: Back Surgery, Breast Surgery, Cholecystectomy, Heart Catheterization With Stent, Hysterectomy, Tonsillectomy Additional Past Surgical History / Comment(s): Right umpectomy d/t breast cancer , back surgery x7, ortho sx-recent Fx C5-pain in neck, 02/19/2016 revision S2- Thoracic/lumbar area, bilat. cataracts removed 2014, SX FOR PROLAPSED RECTUM AT [facility]. Past Anesthesia/Blood Transfusion Reactions: No Reported Reaction Date of Last Stent Placement:: 2006 Past Psychological History: Anxiety, Depression Additional Psychological History / Comment(s): Pt states she is on medication for anxiety/depression which helps some and is going to be starting to see a councelor soon. She uses a cane/walker to ambulate. She drives. She currently has [facility] nurse twice a week and an aide twice a week. Smoking Status: Never smoker Past Alcohol Use History: None Reported Past Drug Use History: None Reported - Past Family History Father Family Medical History: Cancer Additional Family Medical History / Comment(s): skin cancer. Mother Family Medical History: Cancer Additional Family Medical History / Comment(s): uterine cancer. Daughter(s) Family Medical History: Cancer, Thyroid Disorder Additional Family Medical History / Comment(s): Thyroid CA removed <Luis Eduardo Coronel - Last Filed: 11/02/16 16:40> General Exam <Luis Eduardo Coronel - Last Filed: 11/02/16 16:40> <Harman Rico - Last Filed: 11/02/16 19:56> - General Exam Comments Initial Comments: GENERAL: Patient is well-developed and well-nourished. Patient is nontoxic and well- hydrated and is in mild distress. ENT: Neck is soft and supple. No significant lymphadenopathy is noted. Oropharynx is clear. Moist mucous membranes. Neck has full range of motion without eliciting any pain. EYES: The sclera were anicteric and conjunctiva were pink and moist. Extraocular movements were intact and pupils were equal round and reactive to light. Eyelids were unremarkable. PULMONARY: Unlabored respirations. Good breath sounds bilaterally. No audible rales rhonchi or wheezing was noted. CARDIOVASCULAR: There is a regular rate and rhythm without any murmurs gallops or rubs. Femoral pulses are equal bilaterally ABDOMEN: Soft and nontender with normal bowel sounds. No palpable organomegaly was noted. There is no palpable pulsatile mass. SKIN: Slight contusion to the temporal region of the left side of her head NEUROLOGIC: Patient is alert and oriented x3. Cranial nerves II through XII are grossly intact. Motor and sensory are also intact. Normal speech, volume and content. Symmetrical smile. Nursing stated the patient had a little right-sided weakness however when I examined her she had equal grading machine feeder strength equal plantar and dorsiflexion and she had good finger to nose testing is well. Patient had no drift for me. MUSCULOSKELETAL: Normal extremities with adequate strength and full range of motion. Patient has a little bit of lower back pain. LYMPHATICS: No significant lymphadenopathy is noted PSYCHIATRIC: Normal psychiatric evaluation. (Luis Eduardo Coronel) Medical Decision Making <Luis Eduardo Coronel - Last Filed: 11/02/16 16:40> - Lab Data Result diagrams: 11/02/16 16:37 11/02/16 16:37 <Harman Rico - Last Filed: 11/02/16 19:56> - Medical Decision Making Care of this patient will be taken over by Dr. Saleh at 5 PM (Luis Eduardo Coronel) - Lab Data Lab Results 11/02/16 11/02/16 11/02/16 Range/Units 16:37 16:37 16:37 WBC 8.5 (3.8-10.6) k/uL RBC 3.70 L (3.80-5.40) m/uL Hgb 9.8 L (11.4-16.0) gm/dL Hct 32.5 L (34.0-46.0) % MCV 87.9 (80.0-100.0) fL MCH 26.4 (25.0-35.0) pg MCHC 30.1 L (31.0-37.0) g/dL RDW 16.7 H (11.5-15.5) % Plt Count 282 (150-450) k/uL Neutrophils % 90 % Lymphocytes % 5 % Monocytes % 4 % Eosinophils % 0 % Basophils % 0 % Neutrophils # 7.6 (1.3-7.7) k/uL Lymphocytes # 0.4 L (1.0-4.8) k/uL Monocytes # 0.3 (0-1.0) k/uL Eosinophils # 0.0 (0-0.7) k/uL Basophils # 0.0 (0-0.2) k/uL Hypochromasia Marked Anisocytosis Slight Sodium 139 (137-145) mmol/L Potassium 3.5 (3.5-5.1) mmol/L Chloride 102 (98-107) mmol/L Carbon Dioxide 29 (22-30) mmol/L Anion Gap 8 mmol/L BUN 15 (7-17) mg/dL Creatinine 0.66 (0.52-1.04) mg/dL Est GFR (MDRD) Af Amer >60 (>60 ml/min/1.73 sqM) Est GFR (MDRD) Non-Af >60 (>60 ml/min/1.73 sqM) Glucose 97 (74-99) mg/dL Calcium 7.7 L (8.4-10.2) mg/dL Total Bilirubin 0.4 (0.2-1.3) mg/dL AST 14 (14-36) U/L ALT 48 (9-52) U/L Alkaline Phosphatase 73 (38-126) U/L Troponin I <0.012 (0.000-0.034) ng/mL Total Protein 5.0 L (6.3-8.2) g/dL Albumin 2.7 L (3.5-5.0) g/dL Disposition <Luis Eduardo Coronel - Last Filed: 11/02/16 16:40> <Harman Rico - Last Filed: 11/02/16 19:56> Clinical Impression: Dehydration Disposition: HOME SELF-CARE Condition: Fair Instructions: Dizziness (ED), Dehydration (ED) Referrals: Ramon Riggs DO [Primary Care Provider] - 1-2 days
--- NOTE | 2016-11-02 15:41 | CT ---
EXAMINATION TYPE: CT brain franki wo con DATE OF EXAM: 11/02/2016 3:25 PM COMPARISON: NONE HISTORY: Fall with left frontal injury and neck pain. CT DLP: 1411.80 mGycm Automated exposure control for dose reduction was used. TECHNIQUE: CT scan of the head and cervical spine are performed without contrast. FINDINGS: Moderate generalized degenerative change. Periventricular and white matter areas of low a ttenuation are nonspecific but most typical remote microvascular ischemia. Calvarium intact. Hyperostosis noted. Vascular calcification seen. Cervical spine demonstrates degenerative disc disease at all levels with severe changes at C5-C6 and suggestion of fusion of C6 and C7. Severe degenerative disc disease C7-T1 and T1-T2 also suspected. 2 mm anterolisthesis of C4 on C5. Multilevel facet arthropathy noted. IMPRESSION: 1. There is no acute fracture or dislocation evident in the cervical spine. 2. No acute intracranial hemorrhage, mass effect, or midline shift is seen.
--- NOTE | 2016-11-02 15:54 | XR ---
EXAMINATION TYPE: XR lumbosacral spine min 4V DATE OF EXAM: 11/02/2016 3:41 PM CLINICAL HISTORY: Low back pain after fall injury today. TECHNIQUE: Frontal, lateral, and oblique images of the lumbar spine are obtained. COMPARISON: CT abdomen and pelvis June 02, 2016. FINDINGS: Osseous structures are demineralized which is noted to lower radiographic sensitivity for e valuation of anatomic detail. There are 5 lumbar type vertebral bodies identified. There is redemonst ration of posterior interpedicular rods and screws at L1-L2 level. There is persistent moderate to ad vanced disc space narrowing with vacuum disc phenomenon at this level. There is slight grade 1 retrol isthesis of L1 on L2 and L2 on L3 redemonstrated. There is density consistent with artificial disc ma terial at L4-L5 level. There is some ossific fusion L5-S1 level. There is ossific fusion of the later al elements throughout the lumbar spine redemonstrated. No acute fracture or dislocation is clearly s een. Some prominence of gas-filled bowel loops in the visualized abdomen is noted. Oblique images are felt within normal normal limits but limited by underlying demineralization. Cholecystectomy clips a nd vascular calcification is noted. IMPRESSION: No acute fracture or dislocation is seen in the lumbar spine. Surgical degenerative and other findings as noted above.
[2016-11-02] MEDS: IBUPROFEN 600 MG TAB PO STA ×2 (16:10→16:11)
[2016-11-02 17:17] LABS: ALT 48 U/L (9-52); AST 14 U/L (14-36); Alkaline Phosphatase 73 U/L (38-126); Anion Gap 8 mmol/L; Blood Urea Nitrogen 15 mg/dL (7-17); Calcium 7.7 mg/dL (8.4-10.2); Carbon Dioxide 29 mmol/L (22-30); Chloride 102 mmol/L (98-107); Glucose 97 mg/dL (74-99); Non-African American GFR(MDRD) >60 (>60 ml/min/1.73 sqM); Potassium 3.5 mmol/L (3.5-5.1); Sodium 139 mmol/L (137-145); Total Bilirubin 0.4 mg/dL (0.2-1.3)
[2016-11-02 17:22] LABS: Anisocytosis Slight; Basophils % (A) 0 %; CH 26.2; CHCM 29.9; Eosinophils % (A) 0 %; HCT 32.5 % (34.0-46.0); HDW 3.04; HGB 9.8 gm/dL (11.4-16.0); Hypochromasia Marked; Luc # (Auto) 0.06; Luc % (Auto) 1; Lymphocytes # (A) 0.4 k/uL (1.0-4.8); Lymphocytes % (A) 5 %; MCH 26.4 pg (25.0-35.0); MCHC 30.1 g/dL (31.0-37.0); MCV 87.9 fL (80.0-100.0); Mean Platelet Volume 7.1; Monocytes # (A) 0.3 k/uL (0-1.0); Monocytes % (A) 4 %; Neutrophils # (A) 7.6 k/uL (1.3-7.7); Neutrophils % (A) 90 %; RDW 16.7 % (11.5-15.5); WBC 8.5 k/uL (3.8-10.6); WBC (Perox) 8.65
[2016-11-02] MEDS ORDERED: oxyCODONE ER 20 MG TAB.ER.12H PO STA (19:10)
[2016-11-02] MEDS ORDERED: HYDROcodone/APAP 10-325MG 1 EACH TAB PO ONE (19:10)
[2016-11-02 20:02] VITALS: BP 144/72; PULSE 82; RESP 16; TEMP 98.7
== END 2016-11-02 20:12 | disposition home or self-care (01) ==
LOC: EC 13:58
DX: E86.0 Dehydration (principal); R42 Dizziness and giddiness; M54.5 Low back pain; I48.91 Unspecified atrial fibrillation; J45.909 Unspecified asthma, uncomplicated; J44.9 Chronic obstructive pulmonary disease, unspecified; I25.10 Atherosclerotic heart disease of native coronary artery without angina pectoris; M79.7 Fibromyalgia; K21.9 Gastro-esophageal reflux disease without esophagitis; E78.5 Hyperlipidemia, unspecified; I10 Essential (primary) hypertension; I25.2 Old myocardial infarction; M19.90 Unspecified osteoarthritis, unspecified site; E03.9 Hypothyroidism, unspecified; M41.9 Scoliosis, unspecified; F41.9 Anxiety disorder, unspecified; F32.9 Major depressive disorder, single episode, unspecified; Z85.3 Personal history of malignant neoplasm of breast; Z86.718 Personal history of other venous thrombosis and embolism; Z79.82 Long term (current) use of aspirin; Z79.52 Long term (current) use of systemic steroids; Z79.899 Other long term (current) drug therapy; Z88.0 Allergy status to penicillin; Z88.5 Allergy status to narcotic agent; Z88.8 Allergy status to other drugs, medicaments and biological substances; Z88.1 Allergy status to other antibiotic agents; Z91.048 Other nonmedicinal substance allergy status; W01.190A Fall on same level from slipping, tripping and stumbling with subsequent striking against furniture, initial encounter
CPT/HCPCS: 99285; 96374; 36415; 93005; 80053; 84484; 85025; 72110; 72125; 70450; J2060

== ENCOUNTER → 2016-11-03 | Outpatient (CLI) | payer MEDICARE | END | disposition home or self-care (01) | LOC: LABWHC1 15:49 | PROVIDERS: ATTEND Anesthesiology | DX: Z51.81 Encounter for therapeutic drug level monitoring (principal); Z79.891 Long term (current) use of opiate analgesic | CPT/HCPCS: 80307; 80346; 80364 ==

== ENCOUNTER 2016-11-12 19:51 | Inpatient (IN) | payer MEDICARE ==
[2016-11-12 20:03] LABS: Glucose,Whole Blood 158 mg/dL (75-99)
[2016-11-12] MEDS ORDERED: RX INFO: IV CONTRAST WAS GIVEN 1 EACH MISC MISCELLANE PRN (20:13)
[2016-11-12] MEDS ORDERED: SODIUM CHLORIDE 0.9% 1,000 ML IV STA ×2 (20:13)
[2016-11-12] MEDS ORDERED: HYDROmorphone 1 MG/ML 1 ML SYRINGE IVP STA (20:17)
[2016-11-12 20:43] LABS: Anisocytosis Slight; Basophils % (A) 0 %; CHCM 31.6; Hypochromasia Moderate
[2016-11-12 20:44] LABS: ALT 24 U/L (9-52); AST 13 U/L (14-36); Alkaline Phosphatase 56 U/L (38-126); Anion Gap 12 mmol/L; Blood Urea Nitrogen 19 mg/dL (7-17); Calcium 8.4 mg/dL (8.4-10.2); Carbon Dioxide 23 mmol/L (22-30); Chloride 108 mmol/L (98-107); Glucose 140 mg/dL (74-99); Non-African American GFR(MDRD) 50 (>60 ml/min/1.73 sqM); Sodium 143 mmol/L (137-145); Total Bilirubin 0.4 mg/dL (0.2-1.3); Total Protein 5.3 g/dL (6.3-8.2)
[2016-11-12 20:46] LABS: CH 27.1; Eosinophils # (A) 0.1 k/uL (0-0.7); Eosinophils % (A) 1 %; HCT 35.4 % (34.0-46.0); HDW 3.24; HGB 11.3 gm/dL (11.4-16.0); Luc % (Auto) 3; Lymphocytes # (A) 0.9 k/uL (1.0-4.8); Lymphocytes % (A) 11 %; MCH 27.6 pg (25.0-35.0); MCHC 32.1 g/dL (31.0-37.0); Mean Platelet Volume 7.3; Monocytes # (A) 0.4 k/uL (0-1.0); Monocytes % (A) 5 %; Neutrophils # (A) 6.4 k/uL (1.3-7.7); Neutrophils % (A) 80 %; RBC 4.11 m/uL (3.80-5.40); RDW 17.2 % (11.5-15.5); WBC (Perox) 8.24
[2016-11-12 20:48] LABS: Prothrombin Time 10.5 sec (9.0-12.0)
[2016-11-12 20:50] LABS: Potassium 2.8 mmol/L (3.5-5.1)
[2016-11-12 20:55] LABS: Appearance,Urine Clear (Clear); Bilirubin,Urine Negative (Negative); Glucose,Urine (UA) Negative (Negative); Ketones,Urine Negative (Negative); Leukocyte Esterase,Urine Negative (Negative); Nitrite,Urine Negative (Negative); PH, Urine 6.5 (5.0-8.0); Partial Thromboplastin Time 21.1 sec (22.0-30.0); Protein,Urine Negative (Negative); Specific Gravity,Urine 1.003 (1.001-1.035); UA Billing (MACRO vs. MICRO) CHEM; Urobilinogen,Urine <2.0 mg/dL (<2.0)
--- NOTE | 2016-11-12 21:01 | ED ---
General Adult HPI - General Source: patient, EMS Mode of arrival: EMS Limitations: physical limitation <Peyman Jesus - Last Filed: 11/12/16 20:56> <Luis Eduardo Coronel - Last Filed: 11/12/16 22:02> - General Chief complaint: Fall Stated complaint: fall Time Seen by Provider: 11/12/16 19:55 - History of Present Illness Initial comments: This 66-year-old white female presents stating that she fell. She has felt very presyncopal today. She states that it is worse when she stands. She has had shortness of breath with exertion. She relates that she developed significant pain into her neck as well as her thoracic and lumbar region when she fell. She denies actually hitting her head. She denies any chest pains. She denies any fevers her urinary symptomatology. She presents hypotensive. In addition, she explains that she developed some right-sided weakness and numbness at 1:00 PM. She denies any history of known previous stroke. No other complaints or modifying factors. (Peyman Jesus) - Related Data Home Medications Medication Instructions Recorded Confirmed Aspirin EC [Ecotrin Low Dose] 81 mg PO DAILY 12/26/15 11/12/16 Gabapentin [Neurontin] 1,200 mg PO TID 12/26/15 11/12/16 Montelukast [Singulair] 10 mg PO HS 12/26/15 11/12/16 Nitroglycerin Sl Tabs [Nitrostat] 0.4 mg SUBLINGUAL Q5M PRN 12/26/15 11/12/16 Prazosin HCl [Minipress] 6 mg PO HS 02/10/16 11/12/16 Calcium Carbonate [Calcium] 600 mg PO TID 04/30/16 11/12/16 DULoxetine HCL [Cymbalta] 60 mg PO BID 04/30/16 11/12/16 Simvastatin [Zocor] 10 mg PO HS 06/02/16 11/12/16 Omeprazole [PriLOSEC] 20 mg PO AC-BRKFST 09/01/16 11/12/16 Etodolac [Lodine] 400 mg PO BID 09/16/16 11/12/16 Famotidine [Pepcid] 60 mg PO BID 09/16/16 11/12/16 Ferrous Gluconate 240 mg PO QAM 09/16/16 11/12/16 Levothyroxine Sodium [Synthroid] 50 mcg PO DAILY 09/25/16 11/12/16 Ondansetron [Zofran] 4 mg PO Q8H PRN 09/25/16 11/12/16 Levalbuterol Hfa Inhaler [Xopenex 1 puff INHALATION RT-Q6H 10/10/16 11/12/16 Hfa Inhaler] HYDROcodone/APAP 10-325MG [[place] 1 tab PO Q8HR PRN 10/18/16 11/12/16 10-325] Albuterol Nebulized [Ventolin 2.5 mg INHALATION RT-Q4H PRN 10/30/16 11/12/16 Nebulized] predniSONE See Taper PO DAILY 10/30/16 11/12/16 Previous Rx's Medication Instructions Recorded Benzonatate [Tessalon Perles] 100 mg PO TID #20 cap 09/30/16 Docusate [Colace] 100 mg PO DAILY cap 09/30/16 Fluticasone/Salmeterol [Advair 2 puff INHALATION RT-BID #5 09/30/16 250-50 Diskus] blst.w.dev Budesonide-Formot 160-4.5 Mcg 2 puff INHALATION RT-BID puff 10/14/16 [Symbicort 160-4.5 Mcg Inhaler] Doxepin [SINEquan] 10 mg PO HS 30 Days 10/14/16 Ipratropium-Albuterol Nebulize 3 ml INHALATION RT-QID PRN #0 10/14/16 [Duoneb 0.5 mg-3 mg/3 ml Soln] ampul.neb QUEtiapine [SEROquel] 50 mg PO BID-W/MEALS 30 Days 10/14/16 Lisinopril [Prinivil] 5 mg PO QAM #0 10/28/16 LORazepam [Ativan] 1 mg PO TID PRN #9 tab 10/30/16 oxyCODONE HCL [OxyCONTIN] 20 mg PO Q12HR PRN #6 tab 10/30/16 Allergies Allergy/AdvReac Type Severity Reaction Status Date / Time amoxicillin Allergy Unknown Verified 11/02/16 15:47 baclofen Allergy Rash/Hives Verified 11/02/16 15:47 morphine Allergy Itching Verified 11/02/16 15:47 Penicillins Allergy Unknown Verified 11/02/16 15:47 prochlorperazine Allergy Racing Verified 11/02/16 15:47 [From Compazine] Heart prochlorperazine edisylate Allergy Racing Verified 11/02/16 15:47 [From Compazine] Heart prochlorperazine maleate Allergy Racing Verified 11/02/16 15:47 [From Compazine] Heart tetracycline Allergy Unknown Verified 11/02/16 15:47 SILK TAPE Allergy Unknown Uncoded 11/02/16 14:07 Review of Systems ROS Other: All systems not noted in ROS Statement are negative. <Peyman Jesus - Last Filed: 11/12/16 20:56> ROS Other: All systems not noted in ROS Statement are negative. <Luis Eduardo Coronel - Last Filed: 11/12/16 22:02> ROS Statement: Those systems with pertinent positive or pertinent negative responses have been documented in the HPI. Past Medical History Past Medical History: Atrial Fibrillation, Asthma, Coronary Artery Disease (CAD) , Cancer, COPD, Deep Vein Thrombosis (DVT), Fibromyalgia, GERD/Reflux, Hyperlipidemia, Hypertension, Myocardial Infarction (non Q-wave), Osteoarthritis (OA), Thyroid Disorder Additional Past Medical History / Comment(s): Severe persistent bronchial asthma , hiatal hernia, chronic lower extremity edema, coronary artery disease, history of breast cancer, hypertension, osteoarthritis, malignancy of the cervix /cervical cancer, uterine cancer, right lower extremity DVT, chronic atrial fibrillation, hypothyroidism, GERD, scoliosis deformity of the spine, right foot drop, hiatal hernia, frequent exacerbation of COPD, cardiac murmur, urinary incontinence, rectal prolapse with repair, C5 cervical fracture with chronic neck pain, chronic anemia, E. coli urine checked infection on May 2016 Last Myocardial Infarction Date:: 2006 History of Any Multi-Drug Resistant Organisms: None Reported Date of last positivie culture/infection: None MDRO Source:: None Past Surgical History: Back Surgery, Breast Surgery, Cholecystectomy, Heart Catheterization With Stent, Hysterectomy, Tonsillectomy Additional Past Surgical History / Comment(s): Right umpectomy d/t breast cancer , back surgery x7, ortho sx-recent Fx C5-pain in neck, 02/19/2016 revision S2- Thoracic/lumbar area, bilat. cataracts removed 2014, SX FOR PROLAPSED RECTUM AT [facility]. Past Anesthesia/Blood Transfusion Reactions: No Reported Reaction Date of Last Stent Placement:: 2006 Past Psychological History: Anxiety, Depression Additional Psychological History / Comment(s): Pt states she is on medication for anxiety/depression which helps some and is going to be starting to see a councelor soon. She uses a cane/walker to ambulate. She drives. She currently has [facility] nurse twice a week and an aide twice a week. Smoking Status: Never smoker Past Alcohol Use History: None Reported Past Drug Use History: None Reported - Past Family History Father Family Medical History: Cancer Additional Family Medical History / Comment(s): skin cancer. Mother Family Medical History: Cancer Additional Family Medical History / Comment(s): uterine cancer. Daughter(s) Family Medical History: Cancer, Thyroid Disorder Additional Family Medical History / Comment(s): Thyroid CA removed <Peyman Jesus - Last Filed: 11/12/16 20:56> General Exam Limitations: physical limitation <Peyman Jesus - Last Filed: 11/12/16 20:56> <Luis Eduardo Coronel - Last Filed: 11/12/16 22:02> - General Exam Comments Initial Comments: GENERAL: The patient is well nourished and well hydrated. VITAL SIGNS: Heart rate, blood pressure, respiratory rate reviewed as recorded in nurse's notes. EYES: Pupils are round and reactive. Extraocular movements are intact. No conjunctival / lid redness or swelling. ENT: No external evidence of injury, swelling, or ecchymosis. Airway is patent. Throat is clear. NECK: There is tenderness noted to the bilateral paracervical musculature. No swelling or evidence of injury. No subcutaneous emphysema. Trachea is midline. No thyroid mass. HEART: Regular rate and rhythm. Good peripheral pulses. LUNGS/CHEST: Breath sounds clear and equal bilaterally. No rales, rhonchi, or wheezes. No ecchymosis, subcutaneous emphysema, or tenderness. ABDOMEN: Abdomen soft without tenderness. No palpable masses or organomegaly. No peritoneal signs. No abdominal wall swelling or ecchymosis. EXTREMITIES: No extremity tenderness. Normal muscle tone and function. There is tenderness throughout the entire thoracolumbar region. NEUROLOGIC: There is right-sided weakness noted for both upper and lower extremity. There is also numbness noted throughout the entire right side as compared to the left. There is no facial droop noted. Cranial nerve exam reveals face is symmetrical, tongue is midline, speech is clear. SKIN: No abrasions or ecchymosis is noted. No induration or masses noted. PSYCHIATRIC: Alert and oriented. Appropriate behavior and judgment. (Peyman Jesus) Medical Decision Making - Lab Data Result diagrams: 11/12/16 20:16 11/12/16 20:16 <Peyman Jesus - Last Filed: 11/12/16 20:56> - Lab Data Result diagrams: 11/12/16 20:16 11/12/16 20:16 <Luis Eduardo Coronel - Last Filed: 11/12/16 22:02> - Medical Decision Making The patient was seen and examined. All diagnostics were reviewed to this point. The patient had an EKG which shows a normal sinus rhythm at a rate of 89. There is nonspecific ST T-wave changes in the lateral leads. There is evidence of left ventricular hypertrophy. The SD interval is 146, QRS duration is 78, and the QTc interval is 489. This felt as though patient did sustain some traumatic injuries and imaging will ensue. She also is presenting with a CVA type symptoms and workup is initiated in this regard. Further care will be passed off to oncoming physician at 9 PM. (Peyman Jesus) CT of the brain and the CT of the head and neck as well as x-rays of the lumbar spine thoracic spine and the chest x-ray all showed no acute abnormalities. CT of the C-spine also shows no acute abnormalities (Luis Eduardo Coronel) - Lab Data Lab Results 11/12/16 11/12/16 11/12/16 Range/Units 20:01 20:16 20:16 WBC 8.0 (3.8-10.6) k/uL RBC 4.11 (3.80-5.40) m/uL Hgb 11.3 L (11.4-16.0) gm/dL Hct 35.4 (34.0-46.0) % MCV 86.0 (80.0-100.0) fL MCH 27.6 (25.0-35.0) pg MCHC 32.1 (31.0-37.0) g/dL RDW 17.2 H (11.5-15.5) % Plt Count 294 (150-450) k/uL Neutrophils % 80 % Lymphocytes % 11 % Monocytes % 5 % Eosinophils % 1 % Basophils % 0 % Neutrophils # 6.4 (1.3-7.7) k/uL Lymphocytes # 0.9 L (1.0-4.8) k/uL Monocytes # 0.4 (0-1.0) k/uL Eosinophils # 0.1 (0-0.7) k/uL Basophils # 0.0 (0-0.2) k/uL Hypochromasia Moderate Anisocytosis Slight PT (9.0-12.0) sec INR (<1.1) APTT (22.0-30.0) sec Sodium (137-145) mmol/L Potassium (3.5-5.1) mmol/L Chloride (98-107) mmol/L Carbon Dioxide (22-30) mmol/L Anion Gap mmol/L BUN (7-17) mg/dL Creatinine (0.52-1.04) mg/dL Est GFR (MDRD) Af Amer (>60 ml/min/1.73 sqM) Est GFR (MDRD) Non-Af (>60 ml/min/1.73 sqM) Glucose (74-99) mg/dL POC Glucose (mg/dL) 158 H (75-99) mg/dL POC Glu Training And Documentation Specialist ID Rsoa Mccann Plasma Lactic Acid Mino (0.7-2.0) mmol/L Calcium (8.4-10.2) mg/dL Total Bilirubin (0.2-1.3) mg/dL AST (14-36) U/L ALT (9-52) U/L Alkaline Phosphatase (38-126) U/L Total Creatine Kinase 24 L (30-135) U/L CK-MB (CK-2) 0.8 (0.0-2.4) ng/mL CK-MB (CK-2) Rel Index 3.3 Troponin I 0.013 (0.000-0.034) ng/mL Total Protein (6.3-8.2) g/dL Albumin (3.5-5.0) g/dL Cortisol ug/dL Urine Color Urine Appearance (Clear) Urine pH (5.0-8.0) Ur Specific Spring (1.001-1.035) Urine Protein (Negative) Urine Glucose (UA) (Negative) Urine Ketones (Negative) Urine Blood (Negative) Urine Nitrate (Negative) Urine Bilirubin (Negative) Urine Urobilinogen (<2.0) mg/dL Ur Leukocyte Esterase (Negative) 11/12/16 11/12/16 11/12/16 Range/Units 20:16 20:16 20:16 WBC (3.8-10.6) k/uL RBC (3.80-5.40) m/uL Hgb (11.4-16.0) gm/dL Hct (34.0-46.0) % MCV (80.0-100.0) fL MCH (25.0-35.0) pg MCHC (31.0-37.0) g/dL RDW (11.5-15.5) % Plt Count (150-450) k/uL Neutrophils % % Lymphocytes % % Monocytes % % Eosinophils % % Basophils % % Neutrophils # (1.3-7.7) k/uL Lymphocytes # (1.0-4.8) k/uL Monocytes # (0-1.0) k/uL Eosinophils # (0-0.7) k/uL Basophils # (0-0.2) k/uL Hypochromasia Anisocytosis PT 10.5 (9.0-12.0) sec INR 1.0 (<1.1) APTT 21.1 L (22.0-30.0) sec Sodium 143 (137-145) mmol/L Potassium 2.8 L* (3.5-5.1) mmol/L Chloride 108 H (98-107) mmol/L Carbon Dioxide 23 (22-30) mmol/L Anion Gap 12 mmol/L BUN 19 H (7-17) mg/dL Creatinine 1.10 H (0.52-1.04) mg/dL Est GFR (MDRD) Af Amer >60 (>60 ml/min/1.73 sqM) Est GFR (MDRD) Non-Af 50 (>60 ml/min/1.73 sqM) Glucose 140 H (74-99) mg/dL POC Glucose (mg/dL) (75-99) mg/dL POC Glu Training And Documentation Specialist ID Plasma Lactic Acid Mino (0.7-2.0) mmol/L Calcium 8.4 (8.4-10.2) mg/dL Total Bilirubin 0.4 (0.2-1.3) mg/dL AST 13 L (14-36) U/L ALT 24 (9-52) U/L Alkaline Phosphatase 56 (38-126) U/L Total Creatine Kinase (30-135) U/L CK-MB (CK-2) (0.0-2.4) ng/mL CK-MB (CK-2) Rel Index Troponin I (0.000-0.034) ng/mL Total Protein 5.3 L (6.3-8.2) g/dL Albumin 3.2 L (3.5-5.0) g/dL Cortisol 14 ug/dL Urine Color Yellow Urine Appearance Clear (Clear) Urine pH 6.5 (5.0-8.0) Ur Specific Spring 1.003 (1.001-1.035) Urine Protein Negative (Negative) Urine Glucose (UA) Negative (Negative) Urine Ketones Negative (Negative) Urine Blood Negative (Negative) Urine Nitrate Negative (Negative) Urine Bilirubin Negative (Negative) Urine Urobilinogen <2.0 (<2.0) mg/dL Ur Leukocyte Esterase Negative (Negative) 11/12/16 Range/Units 20:25 WBC (3.8-10.6) k/uL RBC (3.80-5.40) m/uL Hgb (11.4-16.0) gm/dL Hct (34.0-46.0) % MCV (80.0-100.0) fL MCH (25.0-35.0) pg MCHC (31.0-37.0) g/dL RDW (11.5-15.5) % Plt Count (150-450) k/uL Neutrophils % % Lymphocytes % % Monocytes % % Eosinophils % % Basophils % % Neutrophils # (1.3-7.7) k/uL Lymphocytes # (1.0-4.8) k/uL Monocytes # (0-1.0) k/uL Eosinophils # (0-0.7) k/uL Basophils # (0-0.2) k/uL Hypochromasia Anisocytosis PT (9.0-12.0) sec INR (<1.1) APTT (22.0-30.0) sec Sodium (137-145) mmol/L Potassium (3.5-5.1) mmol/L Chloride (98-107) mmol/L Carbon Dioxide (22-30) mmol/L Anion Gap mmol/L BUN (7-17) mg/dL Creatinine (0.52-1.04) mg/dL Est GFR (MDRD) Af Amer (>60 ml/min/1.73 sqM) Est GFR (MDRD) Non-Af (>60 ml/min/1.73 sqM) Glucose (74-99) mg/dL POC Glucose (mg/dL) (75-99) mg/dL POC Glu Training And Documentation Specialist ID Plasma Lactic Acid Mino 1.3 (0.7-2.0) mmol/L Calcium (8.4-10.2) mg/dL Total Bilirubin (0.2-1.3) mg/dL AST (14-36) U/L ALT (9-52) U/L Alkaline Phosphatase (38-126) U/L Total Creatine Kinase (30-135) U/L CK-MB (CK-2) (0.0-2.4) ng/mL CK-MB (CK-2) Rel Index Troponin I (0.000-0.034) ng/mL Total Protein (6.3-8.2) g/dL Albumin (3.5-5.0) g/dL Cortisol ug/dL Urine Color Urine Appearance (Clear) Urine pH (5.0-8.0) Ur Specific [place] (1.001-1.035) Urine Protein (Negative) Urine Glucose (UA) (Negative) Urine Ketones (Negative) Urine Blood (Negative) Urine Nitrate (Negative) Urine Bilirubin (Negative) Urine Urobilinogen (<2.0) mg/dL Ur Leukocyte Esterase (Negative) Disposition <Peyman Jesus - Last Filed: 11/12/16 20:56> Time of Disposition: 22:02 <Luis Eduardo Coronel - Last Filed: 11/12/16 22:02> Clinical Impression: Pre-syncope, TIA (transient ischemic attack) Disposition: ADMITTED IP TO THIS HOSP
[2016-11-12 21:08] LABS: Creatine Kinase MB 0.8 ng/mL (0.0-2.4); Troponin I 0.013 ng/mL (0.000-0.034)
--- NOTE | 2016-11-12 21:21 | CT ---
EXAMINATION TYPE: CT brain wo con for TPA DATE OF EXAM: 11/12/2016 9:07 PM COMPARISON: 11/02/2016 HISTORY: Pt states of right side weakness with fall injury. CT DLP: 1713.7 mGycm Automated exposure control for dose reduction was used. FINDINGS: Ventricles appear normal. There is no mass effect nor midline shift. There is no sign of intracranial hemorrhage. There is mild cerebral atrophy. The calvarium is intact. IMPRESSION: Mild atrophy. Otherwise negative exam. No change.
--- NOTE | 2016-11-12 21:28 | XR ---
EXAMINATION TYPE: XR lumbar spine 2 or 3V DATE OF EXAM: 11/12/2016 9:17 PM COMPARISON: 11/02/2016 HISTORY: Low back pain TECHNIQUE: 3 views FINDINGS: There is posterior fusion surgery with rods and screws present at L1-2. There is laminectom y from L1 to L5. I see no compression fracture. Sacroiliac joints appear intact. There is multilevel posterior fusion surgery throughout the remainder of the lumbar spine. The superior margin of the L3 vertebral bodies indistinct on the lateral view. There is multilevel degenerative disc space narrowin g. IMPRESSION: No compression fracture seen. Allowing for slightly different technique as see no definit e change compared to last exam. L3 vertebral body is indistinct at the L2-3 disc and this I think rel ates to the presence of screws that have been removed since older exams in 2016.
--- NOTE | 2016-11-12 21:32 | CT ---
History neuro deficits. Comparison none. TECHNIQUE: Multiple axial sections were obtained from the level of the aortic arch to the vertex of the brain wi th intravenous contrast. The IV contrast was Omnipaque 65 mL. There are 3-D post processed images. FINDINGS: There is bilateral patency of the vertebral arteries. Left vertebral artery is much larger than the r ight. There is bilateral patency of the common internal and external carotid arteries. There is mild plaque at the carotid artery bifurcations with narrowing of up to 25%. There is no sign of hemodynami valerie significant stenosis. There is no evidence of carotid dissection. There is patency of the vertebrobasilar artery system. There is patency of the right posterior commun icating artery. There is arterial flow in the anterior middle and posterior cerebral arteries. I see no evidence of aneurysm or neovascularity. There is no mass effect. There is normal contrast opacific ation of the venous sinuses. CONCLUSION: Mild plaque at the carotid artery bifurcations is less than 25% stenosis. Small right vertebral arter y. Otherwise negative exam. No intracranial abnormality.
--- NOTE | 2016-11-12 21:35 | CT ---
EXAMINATION TYPE: CT cervical spine wo con DATE OF EXAM: 11/12/2016 9:23 PM COMPARISON: 11/02/2016 HISTORY: Pt states of right side weakness with fall injury. CT DLP: 1713.7 mGycm Automated exposure control for dose reduction was used. TECHNIQUE: CT scan of the cervical spine is obtained without contrast, axial images are obtained, sa gittal and coronal reformatted images are also reviewed. FINDINGS: There is a 2 mm anterior subluxation of C4 in relation to C5. There is old fusion surgery o f the C6 and C7 vertebral bodies. Facet joints are intact. I see no compression fracture. There is sp urring at C5-6 and C7-T1. The skull base is intact. IMPRESSION: There is a degenerative first degree C4-5 spondylolisthesis that is the same or slightly worse than the recent CT scan of 11/02/2016. No fracture line is seen. Old anterior fusion surgery. No focal bone destruction.
--- NOTE | 2016-11-12 21:36 | XR ---
EXAMINATION TYPE: XR chest 1V DATE OF EXAM: 11/12/2016 9:17 PM COMPARISON: 10/26/2016 HISTORY: Weakness TECHNIQUE: Single frontal view of the chest is obtained. FINDINGS: Heart is normal. Lungs are clear of consolidation. There are no hilar masses. There are ch est leads. Costophrenic angles are clear. There is a small linear density at the lateral left lung ba se. IMPRESSION: Minimal subsegmental atelectasis at the left lung base. There is clearing of infiltrate in the right lower lobe compared to old exam. No heart failure. Previous right thoracotomy noted.
--- NOTE | 2016-11-12 21:39 | XR ---
EXAMINATION TYPE: XR thoracic spine 2V DATE OF EXAM: 11/12/2016 9:17 PM COMPARISON: NONE HISTORY: Back pain after fall TECHNIQUE: 4 views FINDINGS: There is osteopenia. There is slight anterior wedging of T9 and T8 T6 vertebra of up to 20% . There is no paraspinal mass. There is mild thoracic kyphotic deformity. There is old fusion surgery noted at L1-L2. IMPRESSION: Spondylotic changes. Mild compression deformities with osteopenia. Thoracic kyphosis appe ars slightly worse than the lateral chest x-ray of 10/23/2016. There could be minimal new acute fractur es.
[2016-11-12] MEDS ORDERED: POTASSIUM CHLORIDE ER 20 MEQ TAB.ER PO STA (21:59)
[2016-11-12] MEDS ORDERED: POTASSIUM CHLORIDE 10 MEQ, LIDOCAINE 2% INJ 10 MG in SODIUM CHLORIDE 0.9% 100 ML IVPB ONE (22:30)
[2016-11-12 23:51] VITALS: BMI 22.6
[2016-11-13] MEDS ORDERED: IPRATROPIUM-ALBUTEROL 3 ML NEB INHALATION PRN (01:31)
[2016-11-13] MEDS: MELATONIN 3 MG TABLET PO PRN ×2 (04:10→22:20)
[2016-11-13] MEDS ORDERED: POTASSIUM CHLORIDE ER 20 MEQ TAB.ER PO STA (07:34)
[2016-11-13] MEDS: ACETAMINOPHEN TAB 325 MG TAB PO PRN (08:12)
--- NOTE | 2016-11-13 10:47 | US ---
EXAMINATION TYPE: US carotid duplex BILAT DATE OF EXAM: 11/13/2016 9:53 AM COMPARISON: 01/08/2016 CLINICAL HISTORY: 66 year-old female evaluate for Stenosis. Follow up exam. TECHNIQUE: Duplex carotid ultrasound. Indirect Doppler criteria utilized. FINDINGS: Mild atherosclerotic changes seen at both bifurcations. EXAM MEASUREMENTS: RIGHT: Peak Systolic Velocity (PSV) cm/sec ----- Right CCA: 73.7 ----- Right ICA: 95.3 ----- Right ECA: 110.1 ICA/CCA ratio: 1.3 RIGHT: End Diastole cm/sec ----- Right CCA: 16.8 ----- Right ICA: 22.7 ----- Right ECA: 17.1 LEFT: Peak Systolic Velocity (PSV) cm/sec ----- Left CCA: 84.9 ----- Left ICA: 114.6 ----- Left ECA: 117.8 ICA/CCA ratio: 1.4 LEFT: End Diastole cm/sec ----- Left CCA: 22.8 ----- Left ICA: 34.6 ----- Left ECA: 15.4 VERTEBRALS (direction of flow): Right Vertebral: Antegrade Left Vertebral: Antegrade IMPRESSION: No hemodynamically significant stenosis appreciated in either internal carotid artery. Criteria for Assigning % of Stenosis / Diameter reduction (Estimation based on the indirect measurements of the internal carotid artery velocities (ICA PSV). 1. Normal (no stenosis)=ICA PSV < 125 cm/s: ratio < 2.0: ICA EDV<40 cm/s. 2. Less than 50% stenosis=ICA PSV < 125 cm/s: ratio < 2.0: ICA EDV<40 cm/s. 3. 50 to 69% stenosis=ICA PSV of 125 to 230 cm/s: ration 2.0 ? 4.0: ICA EDV 40-100 cm/s. 4. Greater than 70% stenosis to near occlusion= ICA PSV > 230 cm/s: ratio > 4.0: ICA EDV > 100 cm/s. 5. Near occlusion= ICA PSV velocities may be low or undetectable: variable ratio and ICA EDV. 6. Total occlusion=unable to detect flow.
[2016-11-13] MEDS ORDERED: NITROGLYCERIN SL TABS 0.4 MG TAB SUBLINGUAL PRN (11:04)
[2016-11-13] MEDS ORDERED: oxyCODONE ER 20 MG TAB.ER.12H PO PRN (11:04)
[2016-11-13] MEDS ORDERED: ASPIRIN 81 MG CHEW PO SCH (11:15)
[2016-11-13] MEDS: FAMOTIDINE 20 MG TAB PO SCH ×2 (12:56→20:50)
[2016-11-13] MEDS: LEVOTHYROXINE 50 MCG TAB PO SCH (12:57)
[2016-11-13] MEDS: PANTOPRAZOLE 40 MG TABLET PO SCH (12:58)
[2016-11-13] MEDS: LISINOPRIL 10 MG TAB PO SCH (12:58)
[2016-11-13] MEDS ORDERED: LEVALBUTEROL INHALATION SCH (14:00)
[2016-11-13] MEDS: HYDROcodone/APAP 5-325MG 1 EACH TAB PO PRN ×2 (16:30→22:20)
[2016-11-13] MEDS: GABAPENTIN 400 MG CAP PO SCH ×2 (16:31→20:50)
[2016-11-13] MEDS: PRAZOSIN 1 MG CAP PO SCH ×2 (16:32→20:49)
[2016-11-13] MEDS: CALCIUM CARBONATE 500 MG CHEWABLE PO SCH ×2 (16:32→20:50)
--- NOTE | 2016-11-13 16:32 | P.CNNES ---
History of Present Illness Consult date: 11/13/16 Requesting physician: Cipriano Jaime Reason for Consult: TIA History of Present Illness: Patient is a pleasant 66-year-old female who is being evaluated by the neurology service on 11/13/2016 per the request of Dr. Jaime for TIA. Patient came to [facility] due to presyncopal episode. Patient denies any loss of consciousness. Patient states she had shortness of breath upon exertion. She states she had cervicalgia and lumbago causing her to fall. Patient states that she experienced some right-sided weakness and numbness earlier in the day. She denies history of any prior stroke. Patient was on low-dose aspirin in the home setting. Patient does report chronic pain due to prior cervical surgery as well as thoracic and lumbar pain. On admission hemoglobin was 11.3, hematocrit 35.4, sodium 143, potassium 2.8. BUN was 19 and creatinine was 1.10. Patient made repetitive complaints of pain during my interview. Patient states she needs more pain medication than which is currently taking. At the time of my evaluation, patient is resting comfortably in bed and appears to be in no acute distress. Review of Systems REVIEW OF SYSTEMS: Otherwise unremarkable and noncontributory. Past Medical History Past Medical History: Atrial Fibrillation, Asthma, Coronary Artery Disease (CAD) , Cancer, COPD, Deep Vein Thrombosis (DVT), Fibromyalgia, GERD/Reflux, Hyperlipidemia, Hypertension, Myocardial Infarction (non Q-wave), Osteoarthritis (OA), Thyroid Disorder Additional Past Medical History / Comment(s): Severe persistent bronchial asthma , hiatal hernia, chronic lower extremity edema, coronary artery disease, history of breast cancer, hypertension, osteoarthritis, malignancy of the cervix /cervical cancer, uterine cancer, right lower extremity DVT, chronic atrial fibrillation, hypothyroidism, GERD, scoliosis deformity of the spine, right foot drop, hiatal hernia, frequent exacerbation of COPD, cardiac murmur, urinary incontinence, rectal prolapse with repair, C5 cervical fracture with chronic neck pain, chronic anemia, E. coli urine checked infection on May 2016 Last Myocardial Infarction Date:: 2006 History of Any Multi-Drug Resistant Organisms: None Reported Date of last positivie culture/infection: None MDRO Source:: None Past Surgical History: Back Surgery, Breast Surgery, Cholecystectomy, Heart Catheterization With Stent, Hysterectomy, Tonsillectomy Additional Past Surgical History / Comment(s): Right umpectomy d/t breast cancer , back surgery x7, ortho sx-recent Fx C5-pain in neck, 02/19/2016 revision S2- Thoracic/lumbar area, bilat. cataracts removed 2014, SX FOR PROLAPSED RECTUM AT [facility]. Past Anesthesia/Blood Transfusion Reactions: No Reported Reaction Date of Last Stent Placement:: 2006 Past Psychological History: Anxiety, Depression Additional Psychological History / Comment(s): Pt states she is on medication for anxiety/depression which helps some and is going to be starting to see a councelor soon. She uses a cane/walker to ambulate. She drives. She currently has [facility] nurse twice a week and an aide twice a week. Smoking Status: Never smoker Past Alcohol Use History: None Reported Past Drug Use History: None Reported - Past Family History Father Family Medical History: Cancer Additional Family Medical History / Comment(s): skin cancer. Mother Family Medical History: Cancer Additional Family Medical History / Comment(s): uterine cancer. Daughter(s) Family Medical History: Cancer, Thyroid Disorder Additional Family Medical History / Comment(s): Thyroid CA removed Medications and Allergies Home Medications Medication Instructions Recorded Confirmed Type Aspirin EC [Ecotrin Low Dose] 81 mg PO DAILY 12/26/15 11/13/16 History Gabapentin [Neurontin] 1,200 mg PO TID 12/26/15 11/13/16 History Montelukast [Singulair] 10 mg PO HS 12/26/15 11/13/16 History Nitroglycerin Sl Tabs [Nitrostat] 0.4 mg SUBLINGUAL Q5M PRN 12/26/15 11/13/16 History Calcium Carbonate [Calcium] 600 mg PO TID 04/30/16 11/13/16 History DULoxetine HCL [Cymbalta] 60 mg PO BID 04/30/16 11/13/16 History Omeprazole [PriLOSEC] 20 mg PO AC-BRKFST 09/01/16 11/13/16 History Famotidine [Pepcid] 60 mg PO BID 09/16/16 11/13/16 History Ferrous Gluconate 240 mg PO QAM 09/16/16 11/13/16 History Levothyroxine Sodium [Synthroid] 50 mcg PO DAILY 09/25/16 11/13/16 History Ondansetron [Zofran] 4 mg PO Q8H PRN 09/25/16 11/13/16 History Levalbuterol Hfa Inhaler [Xopenex 1 puff INHALATION RT-Q6H 10/10/16 11/13/16 History Hfa Inhaler] HYDROcodone/APAP 10-325MG [Burnside 1 tab PO Q8HR PRN 10/18/16 11/13/16 History 10-325] Albuterol Nebulized [Ventolin 2.5 mg INHALATION RT-Q4H PRN 10/30/16 11/13/16 History Nebulized] Fluticasone/Salmeterol [Advair 2 puff PO RT-BID 11/13/16 11/13/16 History 500-50 Diskus] Furosemide [Lasix] 40 mg PO DAILY 11/13/16 11/13/16 History Lansoprazole [Prevacid] 30 mg PO DAILY 11/13/16 11/13/16 History Lisinopril [Zestril] 10 mg PO DAILY 11/13/16 11/13/16 History Prazosin HCl 2 mg PO TID 11/13/16 11/13/16 History Allergies Allergy/AdvReac Type Severity Reaction Status Date / Time amoxicillin Allergy Unknown Verified 11/13/16 10:44 baclofen Allergy Rash/Hives Verified 11/13/16 10:44 morphine Allergy Itching Verified 11/13/16 10:44 Penicillins Allergy Unknown Verified 11/13/16 10:44 prochlorperazine Allergy Racing Verified 11/13/16 10:44 [From Compazine] Heart prochlorperazine edisylate Allergy Racing Verified 11/13/16 10:44 [From Compazine] Heart prochlorperazine maleate Allergy Racing Verified 11/13/16 10:44 [From Compazine] Heart tetracycline Allergy Unknown Verified 11/13/16 10:44 SILK TAPE Allergy Unknown Uncoded 11/02/16 14:07 Physical Examination - Vital Signs Vital Signs: Vital Signs Temp Pulse Pulse Resp BP Pulse Ox 11/13/16 11:26 98.4 F 82 20 147/84 96 11/13/16 08:00 99.2 F 88 20 155/70 99 11/13/16 04:00 85 18 127/58 97 11/13/16 01:46 84 11/13/16 01:42 84 11/13/16 00:00 98 F 95 16 131/65 98 11/12/16 22:32 98 F 95 18 131/65 98 Intake and Output 11/13/16 11/13/16 11/13/16 06:59 14:59 22:59 Intake Total 300 980 Output Total 450 Balance 300 530 Intake: IV 800 Sodium Chloride 0.9% 1, 800 000 ml @ 100 mls/hr IV . Q10H STA Rx#:[id number] Intake, IV Titration 300 Amount Potassium Chloride 10 meq 100 Lidocaine 2% Inj 10 mg In Sodium Chloride 0.9% 100 ml @ 100 mls/hr IVPB ONCE ONE Rx#:[id number] Sodium Chloride 0.9% 1, 200 000 ml @ 100 mls/hr IV . Q10H STA Rx#:[id number] Oral 180 Output: Urine 450 Other: Voiding Method Toilet Toilet # Voids 1 # Bowel Movements 1 PHYSICAL EXAM: GENERAL APPEARANCE: Patient is a well-developed, female who appears to be in no acute distress. HEENT: Normocephalic, atraumatic, no facial asymmetry is seen. Neck is supple with no masses felt. CARDIOVASCULAR: Regular rate and rhythm. ABDOMEN: Nontender, nondistended. EXTREMITIES: Show no edema or clubbing. NEUROLOGICAL EXAM: Patient is awake, alert, and oriented 3. Speech and language are normal. Strength is 4-/5 in right upper and lower extremity and 5/ 5 in left upper and lower extremity. Sensory exam is decreased to right lower extremity. No facial asymmetry is seen on cranial nerve testing. No tremors or seizure-like activity is noted. Results - Laboratory Findings CBC and BMP: 11/12/16 20:16 11/13/16 05:57 Abnormal Lab Findings: Abnormal Labs 11/13/16 05:57 Potassium 3.0 L* Assessment and Plan (1) TIA (transient ischemic attack) Status: Acute (2) Acute exacerbation of chronic low back pain Status: Acute (3) Anxiety Status: Acute Plan: Recommendation: It does appear patient may have had a TIA with right-sided weakness. Patient does state weakness is ongoing however. I will order an MRI of the brain to evaluate possible CVA. As you recall, carotid Dopplers were negative for any hemodynamically significant stenosis. CT of the brain was negative for any acute process but did show mild atrophy. CTA was negative for any acute finding. I will switch her aspirin to Plavix 75 mg by mouth daily. I will order an EEG, fasting lipid panel and serum homocysteine level. Continue neurological checks. Continue pain control for ongoing cervical and lumbar pain. Patient appears quite focused on her chronic pain syndrome she may need a psychiatric consult. I recommend PT OT to evaluate and treat. I will continue to follow with you. Further recommendations to follow. Thank you for allowing me to participate in the care of your patient. Feel free to call me with any questions or concerns. I performed an examination of the patient and discussed the management with the MECHANIC FOREMAN. I have reviewed the MECHANIC FOREMAN notes and agree with the findings and plan of care.
[2016-11-13] MEDS: BENZONATATE 100 MG CAP PO SCH ×2 (16:33→20:49)
[2016-11-13 16:59] LABS: Potassium 3.4 mmol/L (3.5-5.1)
[2016-11-13] MEDS: QUEtiapine 50 MG TAB PO SCH (17:39)
[2016-11-13] MEDS ORDERED: Potassium Replacement Protocol 1 EACH MISC MISCELLANE PRN (18:15)
[2016-11-13] MEDS: ATORVASTATIN 40 MG TAB PO SCH (18:46)
[2016-11-13] MEDS: POTASSIUM CHLORIDE ER 20 MEQ TAB.ER PO SCH ×2 (18:46→20:49)
--- NOTE | 2016-11-13 18:56 | HP ---
DATE OF ADMISSION: 11/12/2016 CHIEF COMPLAINT: Right-sided weakness and near syncope. HISTORY OF PRESENT ILLNESS: This is a 66-year-old female well known to our service comes in the hospital with complaints of losing strength and "buckling down" while trying to ambulate with her walker at home. Patient stated that the onset of symptoms were only 2 weeks ago. Patient has complained of some right-sided weakness which has been ongoing for the last 2 weeks as well. On initial evaluation in the ER, patient apparently did state that her symptoms onset was prior that day, hence patient underwent a CT angiography and a neurology evaluation as well to rule out TIA. The patient states her main complaints are pain in her lower back radiating to her C-spine. Patient does have a history of spinal surgeries in the past. The patient denies having any numbness in the right upper lung and lower extremity. Denies having any difficulty with speech, headaches, blurry vision, nausea, vomiting, chest pain, difficulty in breathing. In the ER, evaluations including angiography and other imaging studies did not reveal any acute abnormalities. REVIEW OF SYSTEMS: Fourteen-point review of systems was done. No other than positive other than what was mentioned in HPI. Past medical history includes: Remote atrial fibrillation, asthma, coronary artery disease, COPD, history of deep venous thrombosis, fibromyalgia, GERD, dyslipidemia, degenerative disc disease, osteoarthritis, hypothyroidism, COPD. PAST SURGICAL HISTORY: Includes spinal surgery, breast surgery, cholecystectomy, cardiac catheterization with PCI, hysterectomy, tonsillectomy. SOCIAL HISTORY: Patient currently uses a walker, resides alone. Denies any alcohol or illicit drug use. Remote history of smoking. FAMILY HISTORY: Not pertinent to current admission. ALLERGIES: MULTIPLE ALLERGIES, INCLUDING AMOXICILLIN, BACLOFEN, MORPHINE, PENICILLIN, COMPAZINE, TETRACYCLINE, SILK. Home medications include: 1. Aspirin. 2. Gabapentin. 3. Montelukast. 4. Nitroglycerin. 5. Calcium. 6. Duloxetine. 7. Omeprazole. 8. Pepcid. 9. Ferrous gluconate. 10. Levothyroxine. 11. Zofran. 12. Xopenex. 13. Bedford 10/325. 14. Ventolin. 15. Advair. 16. Lasix. 17. Prevacid. 18. Zestril. 19. Prazosin. Medication doses were reviewed and appropriately reconciled on admission. PHYSICAL EXAM: A temperature of 98.4, heart rate 82, respiratory rate 20, blood pressure 147/84. Saturating 96% on room air. GENERAL APPEARANCE: Alert, oriented x3. Appears to be in some distress regarding her back pain. HEENT: Head is atraumatic, normocephalic. Pupils are equal, round, and reactive to light and accommodation. Extraocular movements are intact. Neck is supple. No JVD. He does state to have some tenderness and range of motion of the neck. LUNGS: Good air movement. No rhonchi or wheezing appreciated. HEART: S1, S2 heard. Appears to be in regular rhythm. No murmurs appreciated. ABDOMEN: Soft, nontender, no organomegaly. Bowel sounds are intact. LOWER EXTREMITIES: No edema appreciated. NEUROLOGIC EXAM: Cranial nerves II through XII grossly intact. No speech abnormalities noted. Right upper and lower extremity strength appears to be around 4/5; however, repeated examination is somewhat inconsistent. Left upper and lower extremity strength is 5 out of 5, deep tendon reflexes are within normal limits. Laboratory data include hemoglobin 11.3, hematocrit 35.4, white count is 8, platelets of 294, sodium 143, potassium 2.8, BUN 19, creatinine of 1.10. ASSESSMENT AND PLAN: 1. Near syncope. 2. Rule out transient ischemic attack. 3. Chronic low back pain. 4. History of anxiety. 5. History of hypertension. 6. Coronary artery disease. 7. Hypothyroidism. 8. Dyslipidemia. 9. Chronic obstructive pulmonary disease that is stable. 10. Remote history of atrial fibrillation. PLAN: Recommendations were reviewed. Continue ongoing care. Patient is to undergo neuro checks. In regards to her chronic back pain, I did discuss with the patient in detail that it is a chronic issue. IV medications are not indicated at this time. Patient will be placed and continued on oral medications including 15 mg b.i.d. of morphine XR and Bedford 5/325 for breakthrough pain. No anxiety medications will be given. There is some concern over pain seeking behavior in this and previous admissions. The patient does seem to have some weakness which is slightly inconsistent and does not really account for a CVA as underlying etiology, however MRI is already ordered. We will need to rule cerebrovascular accident. Patient's timing of symptoms is close to 2 weeks hence no acute intervention is indicated. Patient is to continue with antiplatelet agent and a statin at this time. PT, OT will be consulted. Social work will also be consulted. Patient currently lives alone. This was discussed with the patient and will likely be discharged depending on her safety at home.
[2016-11-13] MEDS ORDERED: SYMBICORT 160-4.5 MCG INHALER INHALATION SCH (20:00)
[2016-11-13] MEDS: SYMBICORT 160-4.5 MCG INHALER INHALATION SCH (20:46)
[2016-11-13] MEDS: IPRATROPIUM-ALBUTEROL 3 ML NEB INHALATION PRN (20:46)
[2016-11-13] MEDS: MONTELUKAST 10 MG TAB PO SCH (20:49)
[2016-11-13] MEDS: DULoxetine HCL 60 MG CAPSULE.DR PO SCH (20:49)
[2016-11-13] MEDS: oxyCODONE ER 15 MG TAB.ER.12H PO SCH (20:50)
[2016-11-13] MEDS ORDERED: MELATONIN 3 MG TABLET PO SCH (21:00)
[2016-11-14] MEDS: HYDROcodone/APAP 5-325MG 1 EACH TAB PO PRN ×3 (04:05→16:46)
[2016-11-14] MEDS: QUEtiapine 50 MG TAB PO SCH ×2 (06:21→16:46)
[2016-11-14] MEDS: LEVOTHYROXINE 50 MCG TAB PO SCH (06:21)
[2016-11-14] MEDS: PANTOPRAZOLE 40 MG TABLET PO SCH (06:21)
[2016-11-14 06:26] LABS: ALT 25 U/L (9-52); AST 16 U/L (14-36); Alkaline Phosphatase 56 U/L (38-126); Anion Gap 6 mmol/L; Blood Urea Nitrogen 8 mg/dL (7-17); Calcium 8.2 mg/dL (8.4-10.2); Carbon Dioxide 24 mmol/L (22-30); Chloride 115 mmol/L (98-107); Glucose 87 mg/dL (74-99); Non-African American GFR(MDRD) >60 (>60 ml/min/1.73 sqM); Potassium 3.4 mmol/L (3.5-5.1); Sodium 145 mmol/L (137-145); Total Bilirubin 0.5 mg/dL (0.2-1.3)
[2016-11-14 06:41] LABS: Anisocytosis Slight; Basophils % (A) 1 %; CH 26.5; CHCM 29.6; Eosinophils # (A) 0.1 k/uL (0-0.7); Eosinophils % (A) 2 %; HCT 32.3 % (34.0-46.0); HDW 3.16; Hypochromasia Marked; Luc # (Auto) 0.17; Luc % (Auto) 4; Lymphocytes # (A) 0.8 k/uL (1.0-4.8); Lymphocytes % (A) 20 %; MCH 27.1 pg (25.0-35.0); MCHC 30.2 g/dL (31.0-37.0); MCV 89.9 fL (80.0-100.0); Monocytes # (A) 0.3 k/uL (0-1.0); Monocytes % (A) 7 %; Neutrophils # (A) 2.8 k/uL (1.3-7.7); Neutrophils % (A) 66 %; WBC 4.3 k/uL (3.8-10.6); WBC (Perox) 4.55
[2016-11-14 06:43] LABS: HGB 9.8 gm/dL (11.4-16.0)
[2016-11-14] MEDS ORDERED: NON-FORMULARY DRUG (Omeprazole 20 MG) PO SCH (07:30)
[2016-11-14] MEDS: IPRATROPIUM-ALBUTEROL 3 ML NEB INHALATION PRN ×4 (08:15→20:21)
[2016-11-14] MEDS: SYMBICORT 160-4.5 MCG INHALER INHALATION SCH ×2 (08:15→20:20)
[2016-11-14] MEDS: oxyCODONE ER 15 MG TAB.ER.12H PO SCH ×2 (09:12→20:54)
[2016-11-14] MEDS: BENZONATATE 100 MG CAP PO SCH ×3 (09:13→20:51)
[2016-11-14] MEDS: CALCIUM CARBONATE 500 MG CHEWABLE PO SCH ×3 (09:14→20:51)
[2016-11-14] MEDS: CLOPIDOGREL 75 MG TAB PO SCH (09:14)
[2016-11-14] MEDS: ATORVASTATIN 40 MG TAB PO SCH (09:14)
[2016-11-14] MEDS: FAMOTIDINE 20 MG TAB PO SCH ×2 (09:15→20:51)
[2016-11-14] MEDS: DULoxetine HCL 60 MG CAPSULE.DR PO SCH ×2 (09:15→20:52)
[2016-11-14] MEDS: GABAPENTIN 400 MG CAP PO SCH ×3 (09:16→20:52)
[2016-11-14] MEDS: LISINOPRIL 10 MG TAB PO SCH (09:16)
[2016-11-14] MEDS: FUROSEMIDE 40 MG TAB PO SCH (09:16)
[2016-11-14] MEDS: PRAZOSIN 1 MG CAP PO SCH ×3 (09:17→21:08)
[2016-11-14] MEDS ORDERED: Potassium Replacement Protocol 1 EACH MISC MISCELLANE PRN (11:56)
[2016-11-14] MEDS: FERROUS SULFATE 325 MG TAB PO SCH (11:58)
[2016-11-14] MEDS: POTASSIUM CHLORIDE ER 20 MEQ TAB.ER PO SCH ×2 (12:20→13:13)
[2016-11-14] MEDS: ACETAMINOPHEN TAB 325 MG TAB PO PRN (14:11)
[2016-11-14] MEDS ORDERED: POTASSIUM CHLORIDE ER 20 MEQ TAB.ER PO SCH (16:00)
--- NOTE | 2016-11-14 16:39 | PN ---
SUBJECTIVE/ HOSPITAL COURSE: This is a 66-year-old lady history of COPD and chronic back pain that comes in the hospital with complaints of right-sided weakness that are 2 weeks in duration. With suspicion for transient ischemic attack, Neurology was consulted. Examination on the day of admission was not impressive for a stroke. Patient's weakness is not consistent on repeated examinations. This a.m. patient states that she feels better, states to have some weakness, however, is improved already. Patient states that she is claustrophobic and requires anxiolytics to undergo the MRI. PHYSICAL EXAMINATION: VITAL SIGNS: Temperature 98.8, heart rate is 90, respiratory rate 16, blood pressure 141/76, saturating 98% on room air. GENERAL APPEARANCE: Alert, oriented x3 in no distress. HEENT: Head is atraumatic, normocephalic. Pupils are equal, round, and reactive to light and accommodation. Neck is supple. No JVD. LUNGS: Good air entry. Clear to auscultation. No rhonchi or wheezing. HEART: S1, S2 are slightly tachycardic. No murmurs appreciated. ABDOMEN: Soft, nontender, no organomegaly. Bowel sounds intact. LOWER EXTREMITIES: No edema. NEUROLOGIC EXAM: NEURO: Cranial nerves II through XII grossly intact. Strength on left side is 5 out of 5 and on the right side is 4 out of 5 however is inconsistent on repeated examinations. Patient is also able to bear weight and move herself up when patient notices that she is not being watched. LABORATORY DATA: Hemoglobin 9.8, hematocrit 32.3, white count 3.6, platelets of 263, sodium 145, potassium 3.4, chloride 115, bicarb 24, BUN 8, creatinine 0.37. TSH is 0.070. ASSESSMENT AND PLAN: 1. Near syncopal episode rule transient ischemic attack/cerebrovascular accident. 2. History of chronic obstructive pulmonary disease that is stable. 3. History of hypertension that is stable. 4. Coronary artery disease. 5. Peripheral neuropathy. 6. Chronic back pain, status post multiple back surgeries. 7. Hypothyroidism. 8. Major depression. PLAN: Continue ongoing care. Patient will undergo MRI. Examination is inconsistent and weakness from a cerebrovascular accident is not improved rapidly. However, patient has isolated upper and lower extremity weakness and not very consistent; however, we will continue monitoring. The patient can be triaged out of the step down unit. Continue telemetry monitoring. If patient MRI is negative, will likely be discharged to home. Social work has been on consult. Continue PT, OT therapy.
[2016-11-14] MEDS: MONTELUKAST 10 MG TAB PO SCH (20:52)
[2016-11-14 21:15] LABS: Glucose,Whole Blood 96 mg/dL (75-99)
[2016-11-15] MEDS: HYDROcodone/APAP 5-325MG 1 EACH TAB PO PRN ×3 (00:46→16:49)
[2016-11-15 00:47] VITALS: RESP 16
[2016-11-15] MEDS: LEVOTHYROXINE 50 MCG TAB PO SCH (06:29)
[2016-11-15] MEDS ORDERED: DIAZEPAM 5 MG TAB PO STA (06:54)
[2016-11-15 07:36] LABS: Glucose,Whole Blood 86 mg/dL (75-99)
[2016-11-15] MEDS: oxyCODONE ER 15 MG TAB.ER.12H PO SCH (07:42)
[2016-11-15] MEDS: PANTOPRAZOLE 40 MG TABLET PO SCH (07:42)
[2016-11-15] MEDS: CALCIUM CARBONATE 500 MG CHEWABLE PO SCH ×2 (07:43→15:20)
[2016-11-15] MEDS: BENZONATATE 100 MG CAP PO SCH ×2 (07:43→15:19)
[2016-11-15] MEDS: QUEtiapine 50 MG TAB PO SCH (07:43)
[2016-11-15] MEDS: ATORVASTATIN 40 MG TAB PO SCH (07:43)
[2016-11-15] MEDS: DULoxetine HCL 60 MG CAPSULE.DR PO SCH (07:44)
[2016-11-15] MEDS: FUROSEMIDE 40 MG TAB PO SCH (07:44)
[2016-11-15] MEDS: FAMOTIDINE 20 MG TAB PO SCH (07:44)
[2016-11-15] MEDS: GABAPENTIN 400 MG CAP PO SCH ×2 (07:44→15:20)
[2016-11-15] MEDS: LISINOPRIL 10 MG TAB PO SCH (07:44)
[2016-11-15] MEDS: PRAZOSIN 1 MG CAP PO SCH ×2 (07:44→15:20)
[2016-11-15] MEDS: CLOPIDOGREL 75 MG TAB PO SCH (07:44)
[2016-11-15] MEDS: SYMBICORT 160-4.5 MCG INHALER INHALATION SCH (08:30)
--- NOTE | 2016-11-15 10:26 | MR ---
EXAMINATION TYPE: MR brain wo con DATE OF EXAM: 11/15/2016 8:59 AM COMPARISON: Correlation CT 11/12/2016. HISTORY: 66-year-old female TIA, right-sided weakness. TECHNIQUE: Multiplanar, multisequence images of the brain and brainstem without IV contrast. Diffusi on weighted imaging is performed. FINDINGS: No evidence for acute infarction, hemorrhage, mass, mass effect, midline shift, herniation, effacemen t of basal cisterns, or extra-axial fluid collection. The ventricles and sulci are age-appropriate. Major intracranial flow voids are intact. T2/FLAIR weighted sequences show moderate scattered burden of bright white matter change located in t he periventricular, deep, and subcortical white matter of both cerebral hemispheres. These number estrella roximately 45-50 on the right and 40 on the left. Midline structures demonstrate normal morphology. The craniocervical junction is normal. Mild mucosal thickening within the ethmoid air cells and slight leftward nasal septal deviation. Bila teral cataract surgery. Otherwise, globes appear intact. IMPRESSION: 1. No acute intracranial abnormality seen. 2. Mild generalized cerebral atrophy 3. Foci of bright white matter change in both cerebral hemispheres. Findings are nonspecific but prob ably represent moderate scattered burden of chronic small vessel ischemic disease.
[2016-11-15 11:35] LABS: Glucose,Whole Blood 94 mg/dL (75-99)
[2016-11-15] MEDS: IPRATROPIUM-ALBUTEROL 3 ML NEB INHALATION PRN ×2 (11:59→16:10)
[2016-11-15] MEDS: FERROUS SULFATE 325 MG TAB PO SCH (12:31)
[2016-11-15 15:58] VITALS: BP 112/63; TEMP 97.2
--- NOTE | 2016-11-15 16:15 | P.PN ---
Subjective Principal diagnosis: Patient is a pleasant 63-year-old female who is being followed by the neurology service for right-sided weakness and possible TIA. Patient states she became weak on her right side at home lasting few hours. Patient denies any loss of consciousness. Patient states she had significant cervicalgia and lumbago causing her to fall. Patient states she experienced right-sided weakness and numbness earlier in the day, however on further interview she reports this has been ongoing for a few weeks. Patient was on low-dose aspirin in the home setting. CT of the brain showed mild cerebral atrophy but no acute intracranial process. CTA was negative for any acute process as well. Patient' s lipid panel and homocysteine level were within normal limits. EEG was done and is normal. Patient had MRI of the brain done which showed no acute intracranial abnormality. MRI did show significant chronic small vessel ischemic disease. At the time of my evaluation, patient is resting comfortably in bed and appears to be in no acute distress. Objective - Vital Signs Vital signs: Vital Signs Temp 97.1 F L 11/15/16 07:00 Pulse 72 11/15/16 12:19 Resp 16 11/15/16 07:00 BP 161/91 11/15/16 07:00 Pulse Ox 97 11/15/16 07:00 Intake & Output 11/14/16 11/15/16 11/15/16 18:59 06:59 18:59 Intake Total 1878 100 500 Output Total 1350 Balance 528 100 500 Weight 64 kg Intake: IV 1551 Invasive Line 1 1536 Invasive Line 2 15 Oral 327 100 500 Output: Urine 1350 Other: Voiding Method Toilet Toilet # Voids 1 1 1 - Exam PHYSICAL EXAM: GENERAL APPEARANCE: Patient is a well-developed, female who appears to be in no acute distress. HEENT: Normocephalic, atraumatic, no facial asymmetry is seen. Neck is supple with no masses felt. CARDIOVASCULAR: Regular rate and rhythm. ABDOMEN: Nontender, nondistended. EXTREMITIES: Show no edema or clubbing. NEUROLOGICAL EXAM: Patient is awake, alert, and oriented 3. Speech and language are normal. No facial asymmetry is seen on cranial nerve testing. Strength is 5-/5 in rightt upper and lower extremity and 5/5 in left upper and lower extremity. Sensory exam is diminished to right lower extremity and normal to all other extremities. No tremors or seizure-like activity is noted. - Labs CBC & Chem 7: 11/14/16 06:00 11/14/16 17:54 Assessment and Plan (1) TIA (transient ischemic attack) Status: Acute (2) Acute exacerbation of chronic low back pain Status: Acute (3) Anxiety Status: Acute Plan: Recommendation: It did appear patient may have had a TIA with right-sided weakness, however, patient now reveals right-sided weakness is not new for her. Her exam does not lead me to believe this is a CVA. MRI of the brain does not reveal any acute process. Patient does state weakness is ongoing however. Physical examination is inconsistent. As you recall, carotid Dopplers were negative for any hemodynamically significant stenosis. CT of the brain was negative for any acute process but did show mild atrophy. CTA was negative for any acute finding. I recommend continuing antiplatelet therapy. EEG was normal. As previously mentioned, fasting lipid panel and serum homocysteine level were within normal limits. Continue neurological checks. Continue pain control for ongoing cervical and lumbar pain. Psychiatric consult and recommendations noted. Patient's exam and negative studies are not consistent with CVA. Patient is stable for discharge from neurology standpoint. I will continue to follow with you on an as-needed basis. Feel free to call with any questions or concerns area did I performed an examination of the patient and discussed the management with the INFORMATION TECHNOLOGY AUDIT MANAGER. I have reviewed the INFORMATION TECHNOLOGY AUDIT MANAGER notes and agree with the findings and plan of care.
[2016-11-15 16:21] VITALS: PULSE 76
--- NOTE | 2016-11-15 18:02 | P.DS ---
Providers Date of admission: 11/12/16 22:11 Expected date of discharge: 11/15/16 Attending physician: Taco Gabriel MD Primary care physician: Ramon Riggs - Discharge Diagnosis(es) (1) COPD (chronic obstructive pulmonary disease) Current Visit: Yes Status: Acute (2) TIA (transient ischemic attack) Current Visit: Yes Status: Acute (3) Anxiety Current Visit: No Status: Acute (4) Chronic pain Current Visit: No Status: Acute (5) Dehydration Current Visit: No Status: Acute (6) Depression (emotion) Current Visit: No Status: Acute (7) S/P cervical spinal fusion Current Visit: No Status: Acute (8) Spinal stenosis of lumbar region Current Visit: No Status: Acute Priority: High (9) Major depressive disorder Current Visit: No Status: Chronic Priority: Medium Hospital Course: pt is admitted to the hospital with complaints of right sided weakness. On initial exam , weakness was inconsistent, with no other abnormalities noted. Pt was evaluated by neurology CTA was negative. Workup including a MRI was negative. However pts weakness improved , and several RN'S noted, her ambulation was inconsistent with weakness, however weakness was stated during physician evaluations. Pt was seen in the past with copd exacerbations, there alwasy appears to be some concern of pt having pain seeking behaviour, this was reported by multiple physicians. During this entire, visit, pts main concern was her pain control. I did review with her that her condiiton was chronic and needs to be addressed by her pain specialist on a outpatient basiss. Physical exam Gen: alert oriented times 3 HEENT: normal NECK is supple no jvd, Lungs CTA, no rhonchi, wheezing, crackles HEart RRR< no murmurs Abdomen, soft non tender no organomegaly.bowel sounds intact Neuro cranial nerves 2-12 grossly intact, gait is normal, no motor or sensory deficits noted. Plan - Discharge Summary Discharge Medication List Aspirin EC [Ecotrin Low Dose] 81 mg PO DAILY 12/26/15 [History] Gabapentin [Neurontin] 1,200 mg PO TID 12/26/15 [History] Montelukast [Singulair] 10 mg PO HS 12/26/15 [History] Nitroglycerin Sl Tabs [Nitrostat] 0.4 mg SUBLINGUAL Q5M PRN 12/26/15 [History] Calcium Carbonate [Calcium] 600 mg PO TID 04/30/16 [History] DULoxetine HCL [Cymbalta] 60 mg PO BID 04/30/16 [History] Omeprazole [PriLOSEC] 20 mg PO AC-BRKFST 09/01/16 [History] Famotidine [Pepcid] 60 mg PO BID 09/16/16 [History] Ferrous Gluconate 240 mg PO QAM 09/16/16 [History] Levothyroxine Sodium [Synthroid] 50 mcg PO DAILY 09/25/16 [History] Ondansetron [Zofran] 4 mg PO Q8H PRN 09/25/16 [History] Benzonatate [Tessalon Perles] 100 mg PO TID #20 cap 09/30/16 [Rx] Levalbuterol Hfa Inhaler [Xopenex Hfa Inhaler] 1 puff INHALATION RT-Q6H [History] Budesonide-Formot 160-4.5 Mcg [Symbicort 160-4.5 Mcg Inhaler] 2 puff INHALATION RT-BID puff 10/14/16 [Rx] Ipratropium-Albuterol Nebulize [Duoneb 0.5 mg-3 mg/3 ml Soln] 3 ml INHALATION RT -QID PRN #0 ampul.neb 10/14/16 [Rx] QUEtiapine [SEROquel] 50 mg PO BID-W/MEALS 30 Days 10/14/16 [Rx] HYDROcodone/APAP 10-325MG [[place] 10-325] 1 tab PO Q8HR PRN 10/18/16 [History] Albuterol Nebulized [Ventolin Nebulized] 2.5 mg INHALATION RT-Q4H PRN 10/30/16 [ History] oxyCODONE HCL [OxyCONTIN] 20 mg PO Q12HR PRN #6 tab 10/30/16 [Rx] Fluticasone/Salmeterol [Advair 500-50 Diskus] 2 puff PO RT-BID 11/13/16 [History ] Furosemide [Lasix] 40 mg PO DAILY 11/13/16 [History] Lansoprazole [Prevacid] 30 mg PO DAILY 11/13/16 [History] Lisinopril [Zestril] 10 mg PO DAILY 11/13/16 [History] Prazosin HCl 2 mg PO TID 11/13/16 [History] Follow up Appointment(s)/Referral(s): [facility], [NON-STAFF] - Ramon Riggs DO [Primary Care Provider] - 11/16/16 2:00 pm Patient Instructions/Handouts: Transient Ischemic Attack (DC), Fall Prevention (DC) Discharge Disposition: HOME SELF-CARE
--- NOTE | 2016-11-16 05:42 | EEG ---
DATE OF SERVICE: 11/15/2016 REASON FOR TESTING: Transient ischemic attack. AGE: 66Y DESCRIPTION OF THE PROCEDURE: This EEG was performed using a 21-channel digital electroencephalograph, following the international 10 to 20 system. DESCRIPTION OF THE RECORDING: From the beginning of the tracing, and with the patient's eyes closed, the background rhythm was mostly consisting of 8 Hz alpha frequency in the posterior occipital leads. No obvious asymmetry is seen. Photic stimulation was performed with a good driving response seen. No pathological waves were elicited. Hyperventilation was not performed. The patient remains awake throughout the tracing. No epileptiform discharges were seen. Her EKG lead showed a regular rate and rhythm. INTERPRETATION: This awake EEG can be considered within normal limits. There was no asymmetry seen. No epileptiform discharges were noticed. The absence of epileptiform discharges does not rule out the diagnosis of epilepsy, therefore, clinical correlation is recommended.
== END 2016-11-15 18:20 | disposition home health service (06) | DRG 69 ==
LOC: EC 19:51 → 6SEL 22:11 → 4MS4W 11-14 17:36
PROVIDERS: ADMIT Internal Medicine; ATTEND Internal Medicine
DX: G45.9 Transient cerebral ischemic attack, unspecified (principal); I95.9 Hypotension, unspecified; I48.2 Chronic atrial fibrillation; J44.9 Chronic obstructive pulmonary disease, unspecified; E86.0 Dehydration; G62.9 Polyneuropathy, unspecified; M41.9 Scoliosis, unspecified; I25.2 Old myocardial infarction; F32.9 Major depressive disorder, single episode, unspecified; G89.4 Chronic pain syndrome; M79.7 Fibromyalgia; F41.9 Anxiety disorder, unspecified; E03.9 Hypothyroidism, unspecified; I25.10 Atherosclerotic heart disease of native coronary artery without angina pectoris; K44.9 Diaphragmatic hernia without obstruction or gangrene; R60.9 Edema, unspecified; I10 Essential (primary) hypertension; M48.06 Spinal stenosis, lumbar region; J45.50 Severe persistent asthma, uncomplicated; F40.240 Claustrophobia; E78.5 Hyperlipidemia, unspecified; M19.90 Unspecified osteoarthritis, unspecified site; R55 Syncope and collapse; D64.9 Anemia, unspecified; R32 Unspecified urinary incontinence; M21.371 Foot drop, right foot; K21.9 Gastro-esophageal reflux disease without esophagitis; Z85.3 Personal history of malignant neoplasm of breast; Z80.49 Family history of malignant neoplasm of other genital organs; Z80.8 Family history of malignant neoplasm of other organs or systems; Z76.5 Malingerer [conscious simulation]; Z98.1 Arthrodesis status; Z87.891 Personal history of nicotine dependence; Z86.718 Personal history of other venous thrombosis and embolism; Z90.49 Acquired absence of other specified parts of digestive tract; Z87.81 Personal history of (healed) traumatic fracture; Z98.42 Cataract extraction status, left eye; Z98.41 Cataract extraction status, right eye; Z88.1 Allergy status to other antibiotic agents; Z88.5 Allergy status to narcotic agent; Z88.0 Allergy status to penicillin; Z88.8 Allergy status to other drugs, medicaments and biological substances; Z91.048 Other nonmedicinal substance allergy status; Z79.82 Long term (current) use of aspirin; Z79.891 Long term (current) use of opiate analgesic; Z79.51 Long term (current) use of inhaled steroids; Z79.899 Other long term (current) drug therapy; Z90.710 Acquired absence of both cervix and uterus; Z85.41 Personal history of malignant neoplasm of cervix uteri; Z90.11 Acquired absence of right breast and nipple; Z95.5 Presence of coronary angioplasty implant and graft
CPT/HCPCS: 36415; 70450; 70496; 70498; 70551; 71010; 72070; 72100; 72125; 80053; 80061; 81003; 82533; 82550; 82553; 83090; 83605; 83735; 84132; 84439; 84443; 84484; 85025; 85610; 85730; 87086; 93005; 93880; 94640; 94760; 95819; 96365; 96366; 96375; 99285

== ENCOUNTER 2016-11-18 14:28 | Emergency (ER) | payer MEDICARE ==
[2016-11-18] MEDS ORDERED: SODIUM CHLORIDE 0.9% 500 ML IV STA (15:04)
--- NOTE | 2016-11-18 15:05 | ED ---
General Adult HPI - General Chief complaint: Weakness Stated complaint: weakness Time Seen by Provider: 11/18/16 14:45 Source: patient, EMS, RN notes reviewed Mode of arrival: EMS Limitations: altered mental status - History of Present Illness Initial comments: This is a 66-year-old female presents emergency Department because she states her extremities are twitching every once a while. Patient states it's not one- sided other it's both sides. Patient denies any headache patient denies any focal weakness or numbness. Patient denies any chest pain or palpitations. Patient denies difficulty breathing or shortness of breath. Patient denies any fever chills or cough per patient denies abdominal pain. Patient denies nausea vomiting diarrhea. Patient is alert and oriented 2 she does not know the date at this time. Patient states she was just released from the hospital recently but she does not know why she was here. Patient denies any injury or trauma. Patient is a very poor historian. - Related Data Home Medications Medication Instructions Recorded Confirmed Aspirin EC [Ecotrin Low Dose] 81 mg PO DAILY 12/26/15 11/18/16 Gabapentin [Neurontin] 1,200 mg PO TID 12/26/15 11/18/16 Montelukast [Singulair] 10 mg PO HS 12/26/15 11/18/16 Nitroglycerin Sl Tabs [Nitrostat] 0.4 mg SUBLINGUAL Q5M PRN 12/26/15 11/18/16 Calcium Carbonate [Calcium] 600 mg PO TID 04/30/16 11/18/16 DULoxetine HCL [Cymbalta] 60 mg PO BID 04/30/16 11/18/16 Omeprazole [PriLOSEC] 20 mg PO AC-BRKFST 09/01/16 11/18/16 Famotidine [Pepcid] 60 mg PO BID 09/16/16 11/18/16 Ferrous Gluconate 240 mg PO QAM 09/16/16 11/18/16 Levothyroxine Sodium [Synthroid] 50 mcg PO DAILY 09/25/16 11/18/16 Ondansetron [Zofran] 4 mg PO Q8H PRN 09/25/16 11/18/16 Levalbuterol Hfa Inhaler [Xopenex 1 puff INHALATION RT-Q6H 10/10/16 11/18/16 Hfa Inhaler] HYDROcodone/APAP 10-325MG [[place] 1 tab PO Q8HR PRN 10/18/16 11/18/16 10-325] Albuterol Nebulized [Ventolin 2.5 mg INHALATION RT-Q4H PRN 10/30/16 11/18/16 Nebulized] Fluticasone/Salmeterol [Advair 2 puff PO RT-BID 11/13/16 11/18/16 500-50 Diskus] Furosemide [Lasix] 40 mg PO DAILY 11/13/16 11/18/16 Lansoprazole [Prevacid] 30 mg PO DAILY 11/13/16 11/18/16 Lisinopril [Zestril] 10 mg PO DAILY 11/13/16 11/18/16 Prazosin HCl 2 mg PO TID 11/13/16 11/18/16 Previous Rx's Medication Instructions Recorded Benzonatate [Tessalon Perles] 100 mg PO TID #20 cap 09/30/16 Budesonide-Formot 160-4.5 Mcg 2 puff INHALATION RT-BID puff 10/14/16 [Symbicort 160-4.5 Mcg Inhaler] Ipratropium-Albuterol Nebulize 3 ml INHALATION RT-QID PRN #0 10/14/16 [Duoneb 0.5 mg-3 mg/3 ml Soln] ampul.neb QUEtiapine [SEROquel] 50 mg PO BID-W/MEALS 30 Days 10/14/16 oxyCODONE HCL [OxyCONTIN] 20 mg PO Q12HR PRN #6 tab 10/30/16 Allergies Allergy/AdvReac Type Severity Reaction Status Date / Time amoxicillin Allergy Unknown Verified 11/18/16 15:01 baclofen Allergy Rash/Hives Verified 11/18/16 15:01 morphine Allergy Itching Verified 11/18/16 15:01 Penicillins Allergy Unknown Verified 11/18/16 15:01 prochlorperazine Allergy Racing Verified 11/18/16 15:01 [From Compazine] Heart prochlorperazine edisylate Allergy Racing Verified 11/18/16 15:01 [From Compazine] Heart prochlorperazine maleate Allergy Racing Verified 11/18/16 15:01 [From Compazine] Heart tetracycline Allergy Unknown Verified 11/18/16 15:01 SILK TAPE Allergy Unknown Uncoded 11/18/16 14:31 Review of Systems ROS Statement: Those systems with pertinent positive or pertinent negative responses have been documented in the HPI. ROS Other: All systems not noted in ROS Statement are negative. Past Medical History Past Medical History: Atrial Fibrillation, Asthma, Coronary Artery Disease (CAD) , Cancer, COPD, Deep Vein Thrombosis (DVT), Fibromyalgia, GERD/Reflux, Hyperlipidemia, Hypertension, Myocardial Infarction (non Q-wave), Osteoarthritis (OA), Thyroid Disorder Additional Past Medical History / Comment(s): Severe persistent bronchial asthma , hiatal hernia, chronic lower extremity edema, coronary artery disease, history of breast cancer, hypertension, osteoarthritis, malignancy of the cervix /cervical cancer, uterine cancer, right lower extremity DVT, chronic atrial fibrillation, hypothyroidism, GERD, scoliosis deformity of the spine, right foot drop, hiatal hernia, frequent exacerbation of COPD, cardiac murmur, urinary incontinence, rectal prolapse with repair, C5 cervical fracture with chronic neck pain, chronic anemia, E. coli urine checked infection on May 2016 Last Myocardial Infarction Date:: 2006 History of Any Multi-Drug Resistant Organisms: None Reported Date of last positivie culture/infection: None MDRO Source:: None Past Surgical History: Back Surgery, Breast Surgery, Cholecystectomy, Heart Catheterization With Stent, Hysterectomy, Tonsillectomy Additional Past Surgical History / Comment(s): Right umpectomy d/t breast cancer , back surgery x7, ortho sx-recent Fx C5-pain in neck, 02/19/2016 revision S2- Thoracic/lumbar area, bilat. cataracts removed 2014, SX FOR PROLAPSED RECTUM AT [facility]. Past Anesthesia/Blood Transfusion Reactions: No Reported Reaction Date of Last Stent Placement:: 2006 Past Psychological History: Anxiety, Depression Additional Psychological History / Comment(s): Pt states she is on medication for anxiety/depression which helps some and is going to be starting to see a councelor soon. She uses a cane/walker to ambulate. She drives. She currently has [facility] nurse twice a week and an aide twice a week. Smoking Status: Never smoker Past Alcohol Use History: None Reported Past Drug Use History: None Reported - Past Family History Father Family Medical History: Cancer Additional Family Medical History / Comment(s): skin cancer. Mother Family Medical History: Cancer Additional Family Medical History / Comment(s): uterine cancer. Daughter(s) Family Medical History: Cancer, Thyroid Disorder Additional Family Medical History / Comment(s): Thyroid CA removed General Exam - General Exam Comments Initial Comments: GENERAL: Patient is well-developed and well-nourished. Patient is nontoxic and well- hydrated and is in no acute distress. ENT: Neck is soft and supple. No significant lymphadenopathy is noted. Oropharynx is clear. Moist mucous membranes. Neck has full range of motion without eliciting any pain. EYES: The sclera were anicteric and conjunctiva were pink and moist. Extraocular movements were intact and pupils were equal round and reactive to light. Eyelids were unremarkable. PULMONARY: Unlabored respirations. Good breath sounds bilaterally. No audible rales rhonchi or wheezing was noted. CARDIOVASCULAR: There is a regular rate and rhythm without any murmurs gallops or rubs. ABDOMEN: Soft and nontender with normal bowel sounds. No palpable organomegaly was noted. There is no palpable pulsatile mass. SKIN: Skin is clear with no lesions or rashes and otherwise unremarkable. NEUROLOGIC: Patient is alert and oriented 2. Cranial nerves II through XII are grossly intact. Motor and sensory are also intact. Normal speech, volume and content. Symmetrical smile. Patient occasionally has jerky movement of one of her extremities but is not any given extremity all 4 do it at different times. MUSCULOSKELETAL: Normal extremities with adequate strength and full range of motion. No lower extremity swelling or edema. No calf tenderness. LYMPHATICS: No significant lymphadenopathy is noted PSYCHIATRIC: Normal psychiatric evaluation. Normal interpersonal interactions appears functionally intact in deals appropriately with others. No signs of depression. Patient appears mildly anxious. Limitations: altered mental status Course Vital Signs 11/18/16 11/18/16 11/18/16 14:31 14:37 15:15 Temperature 97.2 F L Pulse Rate 87 89 Respiratory 10 L 10 L 18 Rate Blood Pressure 99/56 99/58 O2 Sat by Pulse 100 96 Oximetry 11/18/16 16:15 Temperature Pulse Rate 78 Respiratory 18 Rate Blood Pressure 104/56 O2 Sat by Pulse 97 Oximetry Medical Decision Making - Medical Decision Making EKG shows sinus rhythm with occasional PAC at a rate of 91 bpm KS interval is 136 dresses 92 QT interval 356 QTC is 437 per patient's EKG shows no ST segment elevation or depression or T-wave abdomen is noted. Patient's chest x-ray showed no acute abnormality. I went back into the room to reevaluate the patient patient stated that she is no longer having any symptoms and felt comfortable going home. Patient is no longer having any twitching or spasticity. - Lab Data Result diagrams: 11/18/16 15:27 11/18/16 15:27 Lab Results 11/18/16 11/18/16 11/18/16 Range/Units 15:27 15:27 15:27 WBC 6.0 (3.8-10.6) k/uL RBC 4.59 (3.80-5.40) m/uL Hgb 12.2 (11.4-16.0) gm/dL Hct 40.6 (34.0-46.0) % MCV 88.4 (80.0-100.0) fL MCH 26.5 (25.0-35.0) pg MCHC 30.0 L (31.0-37.0) g/dL RDW 16.5 H (11.5-15.5) % Plt Count 202 (150-450) k/uL Neutrophils % 76 % Lymphocytes % 9 % Monocytes % 9 % Eosinophils % 1 % Basophils % 1 % Neutrophils # 4.5 (1.3-7.7) k/uL Lymphocytes # 0.6 L (1.0-4.8) k/uL Monocytes # 0.6 (0-1.0) k/uL Eosinophils # 0.1 (0-0.7) k/uL Basophils # 0.0 (0-0.2) k/uL Hypochromasia Marked Anisocytosis Slight PT 10.1 (9.0-12.0) sec INR 1.0 (<1.1) APTT 24.4 (22.0-30.0) sec Sodium 140 (137-145) mmol/L Potassium 4.1 (3.5-5.1) mmol/L Chloride 101 (98-107) mmol/L Carbon Dioxide 26 (22-30) mmol/L Anion Gap 13 mmol/L BUN 19 H (7-17) mg/dL Creatinine 1.30 H (0.52-1.04) mg/dL Est GFR (MDRD) Af Amer 50 (>60 ml/min/1.73 sqM) Est GFR (MDRD) Non-Af 41 (>60 ml/min/1.73 sqM) Glucose 86 (74-99) mg/dL Plasma Lactic Acid Mino (0.7-2.0) mmol/L Calcium 9.3 (8.4-10.2) mg/dL Magnesium 2.2 (1.6-2.3) mg/dL Total Bilirubin 0.6 (0.2-1.3) mg/dL AST 30 (14-36) U/L ALT 32 (9-52) U/L Alkaline Phosphatase 72 (38-126) U/L Total Creatine Kinase (30-135) U/L CK-MB (CK-2) (0.0-2.4) ng/mL CK-MB (CK-2) Rel Index Troponin I (0.000-0.034) ng/mL Total Protein 6.6 (6.3-8.2) g/dL Albumin 3.8 (3.5-5.0) g/dL Urine Color Urine Appearance (Clear) Urine pH (5.0-8.0) Ur Specific [place] (1.001-1.035) Urine Protein (Negative) Urine Glucose (UA) (Negative) Urine Ketones (Negative) Urine Blood (Negative) Urine Nitrate (Negative) Urine Bilirubin (Negative) Urine Urobilinogen (<2.0) mg/dL Ur Leukocyte Esterase (Negative) Urine Opiates Screen (NotDetected) Ur Oxycodone Screen (NotDetected) Urine Methadone Screen (NotDetected) Ur Propoxyphene Screen (NotDetected) Ur Barbiturates Screen (NotDetected) U Tricyclic Antidepress (NotDetected) Ur Phencyclidine Scrn (NotDetected) Ur Amphetamines Screen (NotDetected) U Methamphetamines Scrn (NotDetected) U Benzodiazepines Scrn (NotDetected) Urine Cocaine Screen (NotDetected) U Marijuana (THC) Screen (NotDetected) 11/18/16 11/18/16 11/18/16 Range/Units 15:27 15:27 16:24 WBC (3.8-10.6) k/uL RBC (3.80-5.40) m/uL Hgb (11.4-16.0) gm/dL Hct (34.0-46.0) % MCV (80.0-100.0) fL MCH (25.0-35.0) pg MCHC (31.0-37.0) g/dL RDW (11.5-15.5) % Plt Count (150-450) k/uL Neutrophils % % Lymphocytes % % Monocytes % % Eosinophils % % Basophils % % Neutrophils # (1.3-7.7) k/uL Lymphocytes # (1.0-4.8) k/uL Monocytes # (0-1.0) k/uL Eosinophils # (0-0.7) k/uL Basophils # (0-0.2) k/uL Hypochromasia Anisocytosis PT (9.0-12.0) sec INR (<1.1) APTT (22.0-30.0) sec Sodium (137-145) mmol/L Potassium (3.5-5.1) mmol/L Chloride (98-107) mmol/L Carbon Dioxide (22-30) mmol/L Anion Gap mmol/L BUN (7-17) mg/dL Creatinine (0.52-1.04) mg/dL Est GFR (MDRD) Af Amer (>60 ml/min/1.73 sqM) Est GFR (MDRD) Non-Af (>60 ml/min/1.73 sqM) Glucose (74-99) mg/dL Plasma Lactic Acid Mino 0.9 (0.7-2.0) mmol/L Calcium (8.4-10.2) mg/dL Magnesium (1.6-2.3) mg/dL Total Bilirubin (0.2-1.3) mg/dL AST (14-36) U/L ALT (9-52) U/L Alkaline Phosphatase (38-126) U/L Total Creatine Kinase 28 L (30-135) U/L CK-MB (CK-2) 0.9 (0.0-2.4) ng/mL CK-MB (CK-2) Rel Index 3.2 Troponin I <0.012 (0.000-0.034) ng/mL Total Protein (6.3-8.2) g/dL Albumin (3.5-5.0) g/dL Urine Color Yellow Urine Appearance Clear (Clear) Urine pH 6.5 (5.0-8.0) Ur Specific [place] 1.005 (1.001-1.035) Urine Protein Negative (Negative) Urine Glucose (UA) Negative (Negative) Urine Ketones Negative (Negative) Urine Blood Negative (Negative) Urine Nitrate Negative (Negative) Urine Bilirubin Negative (Negative) Urine Urobilinogen <2.0 (<2.0) mg/dL Ur Leukocyte Esterase Negative (Negative) Urine Opiates Screen (NotDetected) Ur Oxycodone Screen (NotDetected) Urine Methadone Screen (NotDetected) Ur Propoxyphene Screen (NotDetected) Ur Barbiturates Screen (NotDetected) U Tricyclic Antidepress (NotDetected) Ur Phencyclidine Scrn (NotDetected) Ur Amphetamines Screen (NotDetected) U Methamphetamines Scrn (NotDetected) U Benzodiazepines Scrn (NotDetected) Urine Cocaine Screen (NotDetected) U Marijuana (THC) Screen (NotDetected) 11/18/16 Range/Units 16:24 WBC (3.8-10.6) k/uL RBC (3.80-5.40) m/uL Hgb (11.4-16.0) gm/dL Hct (34.0-46.0) % MCV (80.0-100.0) fL MCH (25.0-35.0) pg MCHC (31.0-37.0) g/dL RDW (11.5-15.5) % Plt Count (150-450) k/uL Neutrophils % % Lymphocytes % % Monocytes % % Eosinophils % % Basophils % % Neutrophils # (1.3-7.7) k/uL Lymphocytes # (1.0-4.8) k/uL Monocytes # (0-1.0) k/uL Eosinophils # (0-0.7) k/uL Basophils # (0-0.2) k/uL Hypochromasia Anisocytosis PT (9.0-12.0) sec INR (<1.1) APTT (22.0-30.0) sec Sodium (137-145) mmol/L Potassium (3.5-5.1) mmol/L Chloride (98-107) mmol/L Carbon Dioxide (22-30) mmol/L Anion Gap mmol/L BUN (7-17) mg/dL Creatinine (0.52-1.04) mg/dL Est GFR (MDRD) Af Amer (>60 ml/min/1.73 sqM) Est GFR (MDRD) Non-Af (>60 ml/min/1.73 sqM) Glucose (74-99) mg/dL Plasma Lactic Acid M[place] (0.7-2.0) mmol/L Calcium (8.4-10.2) mg/dL Magnesium (1.6-2.3) mg/dL Total Bilirubin (0.2-1.3) mg/dL AST (14-36) U/L ALT (9-52) U/L Alkaline Phosphatase (38-126) U/L Total Creatine Kinase (30-135) U/L CK-MB (CK-2) (0.0-2.4) ng/mL CK-MB (CK-2) Rel Index Troponin I (0.000-0.034) ng/mL Total Protein (6.3-8.2) g/dL Albumin (3.5-5.0) g/dL Urine Color Urine Appearance (Clear) Urine pH (5.0-8.0) Ur Specific [place] (1.001-1.035) Urine Protein (Negative) Urine Glucose (UA) (Negative) Urine Ketones (Negative) Urine Blood (Negative) Urine Nitrate (Negative) Urine Bilirubin (Negative) Urine Urobilinogen (<2.0) mg/dL Ur Leukocyte Esterase (Negative) Urine Opiates Screen Not Detected (NotDetected) Ur Oxycodone Screen Detected H (NotDetected) Urine Methadone Screen Not Detected (NotDetected) Ur Propoxyphene Screen Not Detected (NotDetected) Ur Barbiturates Screen Not Detected (NotDetected) U Tricyclic Antidepress Detected H (NotDetected) Ur Phencyclidine Scrn Not Detected (NotDetected) Ur Amphetamines Screen Not Detected (NotDetected) U Methamphetamines Scrn Not Detected (NotDetected) U Benzodiazepines Scrn Detected H (NotDetected) Urine Cocaine Screen Not Detected (NotDetected) U Marijuana (THC) Screen Not Detected (NotDetected) Disposition Clinical Impression: Involuntary movements Disposition: HOME SELF-CARE Additional Instructions: Patient is to follow-up with her primary medical care doctor or return to emergency department or any worsening or new symptoms. Referrals: Ramon Riggs DO [Primary Care Provider] - 1-2 days Time of Disposition: 17:08
[2016-11-18 15:20] VITALS: RESP 18
--- NOTE | 2016-11-18 15:37 | XR ---
EXAMINATION TYPE: XR chest 2V DATE OF EXAM: 11/18/2016 3:25 PM COMPARISON: 11/12/2016 TECHNIQUE: PA and lateral views submitted. HISTORY: Weakness FINDINGS: Subsegmental changes are seen bilaterally with poor inspiration. No pneumothorax. Arthropathy of the shoulders seen. Postsurgical change involving the lumbar spine. IMPRESSION: 1. Patchy bilateral infiltrates may be related to atelectasis from poor inspiration rather than pneum onia. Correlate clinically.
[2016-11-18 15:56] LABS: Anisocytosis Slight; Basophils % (A) 1 %; CH 26.7; CHCM 30.3; Eosinophils # (A) 0.1 k/uL (0-0.7); Eosinophils % (A) 1 %; HCT 40.6 % (34.0-46.0); HDW 3.07; HGB 12.2 gm/dL (11.4-16.0); Hypochromasia Marked; Luc # (Auto) 0.23; Luc % (Auto) 4; Lymphocytes # (A) 0.6 k/uL (1.0-4.8); Lymphocytes % (A) 9 %; MCH 26.5 pg (25.0-35.0); MCV 88.4 fL (80.0-100.0); Mean Platelet Volume 6.8; Monocytes # (A) 0.6 k/uL (0-1.0); Monocytes % (A) 9 %; Neutrophils # (A) 4.5 k/uL (1.3-7.7); Neutrophils % (A) 76 %; RBC 4.59 m/uL (3.80-5.40); RDW 16.5 % (11.5-15.5); WBC (Perox) 6.52
[2016-11-18 15:57] LABS: Calcium 9.3 mg/dL (8.4-10.2); Magnesium 2.2 mg/dL (1.6-2.3); Potassium 4.1 mmol/L (3.5-5.1); Total Bilirubin 0.6 mg/dL (0.2-1.3); Total Protein 6.6 g/dL (6.3-8.2)
[2016-11-18 16:02] LABS: Partial Thromboplastin Time 24.4 sec (22.0-30.0); Prothrombin Time 10.1 sec (9.0-12.0)
[2016-11-18 16:08] LABS: Creatine Kinase 28 U/L (30-135)
[2016-11-18 16:22] LABS: Creatine Kinase MB 0.9 ng/mL (0.0-2.4); Troponin I <0.012 ng/mL (0.000-0.034)
[2016-11-18 16:46] LABS: Appearance,Urine Clear (Clear); Bilirubin,Urine Negative (Negative); Glucose,Urine (UA) Negative (Negative); Ketones,Urine Negative (Negative); Leukocyte Esterase,Urine Negative (Negative); Nitrite,Urine Negative (Negative); PH, Urine 6.5 (5.0-8.0); Protein,Urine Negative (Negative); Specific Gravity,Urine 1.005 (1.001-1.035); UA Billing (MACRO vs. MICRO) CHEM; Urobilinogen,Urine <2.0 mg/dL (<2.0)
[2016-11-18 17:14] VITALS: BP 117/57; PULSE 75; TEMP 98.1
[2016-11-18 17:42] LABS: Glucose,Whole Blood 88 mg/dL (75-99)
== END 2016-11-18 17:40 | disposition home or self-care (01) ==
LOC: EC 14:28
DX: R25.9 Unspecified abnormal involuntary movements (principal); R53.1 Weakness; R41.82 Altered mental status, unspecified; I25.10 Atherosclerotic heart disease of native coronary artery without angina pectoris; J44.9 Chronic obstructive pulmonary disease, unspecified; J45.909 Unspecified asthma, uncomplicated; I48.91 Unspecified atrial fibrillation; K21.9 Gastro-esophageal reflux disease without esophagitis; I10 Essential (primary) hypertension; E78.5 Hyperlipidemia, unspecified; I25.2 Old myocardial infarction; M19.90 Unspecified osteoarthritis, unspecified site; M79.7 Fibromyalgia; Z86.718 Personal history of other venous thrombosis and embolism; E03.9 Hypothyroidism, unspecified; Z95.5 Presence of coronary angioplasty implant and graft; F41.9 Anxiety disorder, unspecified; F32.9 Major depressive disorder, single episode, unspecified; Z79.82 Long term (current) use of aspirin; Z79.899 Other long term (current) drug therapy; Z79.52 Long term (current) use of systemic steroids; Z79.51 Long term (current) use of inhaled steroids; Z88.0 Allergy status to penicillin; Z88.5 Allergy status to narcotic agent; Z88.1 Allergy status to other antibiotic agents; Z88.8 Allergy status to other drugs, medicaments and biological substances; Z91.048 Other nonmedicinal substance allergy status
CPT/HCPCS: 36415; 71020; 80053; 80306; 81003; 82550; 82553; 83605; 83735; 84484; 85025; 85610; 85730; 93005; 96360; 99285

== ENCOUNTER 2016-11-27 16:16 | Inpatient (IN) | payer MEDICARE ==
[2016-11-27] MEDS ORDERED: SODIUM CHLORIDE 0.9% 1,000 ML IV STA (16:41)
[2016-11-27] MEDS ORDERED: LORazepam 2 MG/ML SYRINGE IV STA (16:41)
--- NOTE | 2016-11-27 17:13 | ED ---
General Adult HPI - General Chief complaint: Altered Mental Status Stated complaint: general Time Seen by Provider: 11/27/16 16:24 Source: EMS Mode of arrival: EMS Limitations: altered mental status - History of Present Illness Initial comments: Patient is a 66-year-old female with degenerative disc disease, fibromyalgia, osteoarthritis, chronic pain, heart murmur, A. fib, CAD, COPD, DVT, hyperlipidemia, hypertension presenting with altered mental status. Patient is unable to provide a history. States she hurts all over. Patient is able to tell me her name. Patient does not know where she is or what year it is. - Related Data Home Medications Medication Instructions Recorded Confirmed Aspirin EC [Ecotrin Low Dose] 81 mg PO DAILY 12/26/15 11/27/16 Gabapentin [Neurontin] 1,200 mg PO TID 12/26/15 11/27/16 Montelukast [Singulair] 10 mg PO HS 12/26/15 11/27/16 Nitroglycerin Sl Tabs [Nitrostat] 0.4 mg SUBLINGUAL Q5M PRN 12/26/15 11/27/16 Calcium Carbonate [Calcium] 600 mg PO TID 04/30/16 11/27/16 DULoxetine HCL [Cymbalta] 60 mg PO BID 04/30/16 11/27/16 Omeprazole [PriLOSEC] 20 mg PO AC-BRKFST 09/01/16 11/27/16 Famotidine [Pepcid] 60 mg PO BID 09/16/16 11/27/16 Ferrous Gluconate 240 mg PO QAM 09/16/16 11/27/16 Levothyroxine Sodium [Synthroid] 50 mcg PO DAILY 09/25/16 11/27/16 Ondansetron [Zofran] 4 mg PO Q8H PRN 09/25/16 11/27/16 Levalbuterol Hfa Inhaler [Xopenex 1 puff INHALATION RT-Q6H 10/10/16 11/27/16 Hfa Inhaler] HYDROcodone/APAP 10-325MG [[place] 1 tab PO Q8HR PRN 10/18/16 11/27/16 10-325] Albuterol Nebulized [Ventolin 2.5 mg INHALATION RT-Q4H PRN 10/30/16 11/27/16 Nebulized] Fluticasone/Salmeterol [Advair 2 puff PO RT-BID 11/13/16 11/27/16 500-50 Diskus] Furosemide [Lasix] 40 mg PO DAILY 11/13/16 11/27/16 Lansoprazole [Prevacid] 30 mg PO DAILY 11/13/16 11/27/16 Lisinopril [Zestril] 10 mg PO DAILY 11/13/16 11/27/16 Prazosin HCl 2 mg PO TID 11/13/16 11/27/16 Benzonatate [Tessalon Perles] 100 mg PO TID PRN 11/27/16 11/27/16 Previous Rx's Medication Instructions Recorded Budesonide-Formot 160-4.5 Mcg 2 puff INHALATION RT-BID puff 10/14/16 [Symbicort 160-4.5 Mcg Inhaler] Ipratropium-Albuterol Nebulize 3 ml INHALATION RT-QID PRN #0 10/14/16 [Duoneb 0.5 mg-3 mg/3 ml Soln] ampul.neb QUEtiapine [SEROquel] 50 mg PO BID-W/MEALS 30 Days 10/14/16 oxyCODONE HCL [OxyCONTIN] 20 mg PO Q12HR PRN #6 tab 10/30/16 Allergies Allergy/AdvReac Type Severity Reaction Status Date / Time amoxicillin Allergy Unknown Verified 11/27/16 19:04 baclofen Allergy Rash/Hives Verified 11/27/16 19:04 morphine Allergy Itching Verified 11/27/16 19:04 Penicillins Allergy Unknown Verified 11/27/16 19:04 prochlorperazine Allergy Racing Verified 11/27/16 19:04 [From Compazine] Heart prochlorperazine edisylate Allergy Racing Verified 11/27/16 19:04 [From Compazine] Heart prochlorperazine maleate Allergy Racing Verified 11/27/16 19:04 [From Compazine] Heart tetracycline Allergy Unknown Verified 11/27/16 19:04 SILK TAPE Allergy Unknown Uncoded 11/18/16 14:31 Review of Systems ROS Statement: Those systems with pertinent positive or pertinent negative responses have been documented in the HPI. Unable to obtain due to altered mental status ROS Other: All systems not noted in ROS Statement are negative. Past Medical History Past Medical History: Atrial Fibrillation, Asthma, Coronary Artery Disease (CAD) , Cancer, COPD, Deep Vein Thrombosis (DVT), Fibromyalgia, GERD/Reflux, Hyperlipidemia, Hypertension, Myocardial Infarction (non Q-wave), Osteoarthritis (OA), Thyroid Disorder Additional Past Medical History / Comment(s): Severe persistent bronchial asthma , hiatal hernia, chronic lower extremity edema, coronary artery disease, history of breast cancer, hypertension, osteoarthritis, malignancy of the cervix /cervical cancer, uterine cancer, right lower extremity DVT, chronic atrial fibrillation, hypothyroidism, GERD, scoliosis deformity of the spine, right foot drop, hiatal hernia, frequent exacerbation of COPD, cardiac murmur, urinary incontinence, rectal prolapse with repair, C5 cervical fracture with chronic neck pain, chronic anemia, E. coli urine checked infection on May 2016 Last Myocardial Infarction Date:: 2006 History of Any Multi-Drug Resistant Organisms: None Reported Date of last positivie culture/infection: None MDRO Source:: None Past Surgical History: Back Surgery, Breast Surgery, Cholecystectomy, Heart Catheterization With Stent, Hysterectomy, Tonsillectomy Additional Past Surgical History / Comment(s): Right umpectomy d/t breast cancer , back surgery x7, ortho sx-recent Fx C5-pain in neck, 02/19/2016 revision S2- Thoracic/lumbar area, bilat. cataracts removed 2014, SX FOR PROLAPSED RECTUM AT [facility]. Past Anesthesia/Blood Transfusion Reactions: No Reported Reaction Date of Last Stent Placement:: 2006 Past Psychological History: Anxiety, Depression Additional Psychological History / Comment(s): Pt states she is on medication for anxiety/depression which helps some and is going to be starting to see a councelor soon. She uses a cane/walker to ambulate. She drives. She currently has [facility] nurse twice a week and an aide twice a week. Smoking Status: Never smoker Past Alcohol Use History: None Reported Past Drug Use History: None Reported - Past Family History Father Family Medical History: Cancer Additional Family Medical History / Comment(s): skin cancer. Mother Family Medical History: Cancer Additional Family Medical History / Comment(s): uterine cancer. Daughter(s) Family Medical History: Cancer, Thyroid Disorder Additional Family Medical History / Comment(s): Thyroid CA removed General Exam - General Exam Comments Initial Comments: Constitutional: Patient appears well-developed and well-nourished. Confused appearing. Head: Normocephalic and atraumatic. Eyes: Conjunctivae and EOM are normal. Right eye exhibits no discharge. Left eye exhibits no discharge. No scleral icterus. Neck: Normal range of motion. Neck supple. Cardiovascular: Normal rate and regular rhythm. + murmur heard. Pulmonary/Chest: Effort normal and breath sounds normal. No respiratory distress. No wheezes. Abdominal: Soft. No distension. There is no tenderness. There is no rebound and no guarding. Musculoskeletal: Normal range of motion. No edema or tenderness. Neuro Exam: Patient is alert and oriented to person only. Does not know year or where she is. CN 2: no visual field deficits, PERRL CN 3, 4, 6: EOMI CN 5: facial sensation intact b/l CN 7: Eyebrow raise and smile equal b/l CN 8: hearing intact to conversation CN 9, 10: palate elevation equal, no hoarseness to voice CN 11: shoulder shrug equal b/l CN 12: tongue protrusion w/o deviation Sensory: Intact to light touch, upper and lower extremities Motor: No pronator drift, no atrophy, normal muscle tone, b/l muscle strength 5/ 5 of hand flexors, biceps, triceps, quads, hamstrings, plantar and dorsiflexion Skin: Skin is warm and dry. Not diaphoretic. Nursing notes and vitals reviewed. Limitations: altered mental status Course Vital Signs 11/27/16 16:27 Temperature 99.4 F Pulse Rate 106 H Respiratory 18 Rate Blood Pressure 168/100 O2 Sat by Pulse 98 Oximetry - Reevaluation(s) Reevaluation #1: 11/27/16 19:33 Patient states she feels much better. Patient alert and oriented 2. Patient conversant. EKG Findings - EKG Comments: EKG Findings:: Rate 98. NSR with PAC. No ST-T wave changes. VT internal normal . QRS interval normal. QTc duration 459ms. Medical Decision Making - Medical Decision Making Patient is a 66-year-old female presenting with altered mental status. Patient has a history of chronic pain as well as chronic benzo use. Patient initially alert and oriented to herself. Patient given Ativan for possible benzo withdrawal as patient is known to me for chronic opiate/benzo use. Laboratory work with unremarkable CBC. BMP with sodium 146, potassium 3.1 which was placed. UA showing large urine WBCs greater 182. Patient was started on Levaquin for urinary tract infection given penicillin ALLERGY. UDS showing oxycodone, benzos, TCAs. CT head showed cerebral atrophy without acute abnormality. Chest x-ray unremarkable. Patient appears to be confused when compared to prior visits. Patient was resting comfortably in bed. Patient does ambulate without difficulties. Course of stay improved but still confused. Denies pain. Discussed physical exam and diagnostic tests with patient. Questions answered and patient is agreeable to staying in the hospital. Discussed H&P and pertinent diagnostic tests with admitting physician who agrees with plan and accepts admission of patient. - Lab Data Result diagrams: 11/27/16 17:25 11/27/16 17:25 Lab Results 11/27/16 11/27/16 11/27/16 Range/Units 17:25 17:25 17:25 WBC 6.6 (3.8-10.6) k/uL RBC 5.43 H (3.80-5.40) m/uL Hgb 14.6 (11.4-16.0) gm/dL Hct 45.3 (34.0-46.0) % MCV 83.4 D (80.0-100.0) fL MCH 26.8 (25.0-35.0) pg MCHC 32.1 (31.0-37.0) g/dL RDW 16.7 H (11.5-15.5) % Plt Count 349 (150-450) k/uL Neutrophils % 76 % Lymphocytes % 13 % Monocytes % 7 % Eosinophils % 0 % Basophils % 0 % Neutrophils # 5.0 (1.3-7.7) k/uL Lymphocytes # 0.8 L (1.0-4.8) k/uL Monocytes # 0.5 (0-1.0) k/uL Eosinophils # 0.0 (0-0.7) k/uL Basophils # 0.0 (0-0.2) k/uL Anisocytosis Slight PT (9.0-12.0) sec INR (<1.1) APTT (22.0-30.0) sec Sodium 146 H (137-145) mmol/L Potassium 3.1 L (3.5-5.1) mmol/L Chloride 102 (98-107) mmol/L Carbon Dioxide 28 (22-30) mmol/L Anion Gap 16 mmol/L BUN 9 (7-17) mg/dL Creatinine 0.46 L (0.52-1.04) mg/dL Est GFR (MDRD) Af Amer >60 (>60 ml/min/1.73 sqM) Est GFR (MDRD) Non-Af >60 (>60 ml/min/1.73 sqM) Glucose 106 H (74-99) mg/dL Calcium 10.1 (8.4-10.2) mg/dL Magnesium 1.7 (1.6-2.3) mg/dL Total Bilirubin 1.0 (0.2-1.3) mg/dL AST 25 (14-36) U/L ALT 26 (9-52) U/L Alkaline Phosphatase 106 (38-126) U/L Troponin I <0.012 (0.000-0.034) ng/mL Lipase 89 (23-300) U/L Urine Color Urine Appearance (Clear) Urine pH (5.0-8.0) Ur Specific [place] (1.001-1.035) Urine Protein (Negative) Urine Glucose (UA) (Negative) Urine Ketones (Negative) Urine Blood (Negative) Urine Nitrate (Negative) Urine Bilirubin (Negative) Urine Urobilinogen (<2.0) mg/dL Ur Leukocyte Esterase (Negative) Urine WBC (0-5) /hpf Hyaline Casts (0-2) /lpf Urine Mucus (None) /hpf Urine Opiates Screen (NotDetected) Ur Oxycodone Screen (NotDetected) Urine Methadone Screen (NotDetected) Ur Propoxyphene Screen (NotDetected) Ur Barbiturates Screen (NotDetected) U Tricyclic Antidepress (NotDetected) Ur Phencyclidine Scrn (NotDetected) Ur Amphetamines Screen (NotDetected) U Methamphetamines Scrn (NotDetected) U Benzodiazepines Scrn (NotDetected) Urine Cocaine Screen (NotDetected) U Marijuana (THC) Screen (NotDetected) 11/27/16 11/27/16 Range/Units 17:25 19:25 WBC (3.8-10.6) k/uL RBC (3.80-5.40) m/uL Hgb (11.4-16.0) gm/dL Hct (34.0-46.0) % MCV (80.0-100.0) fL MCH (25.0-35.0) pg MCHC (31.0-37.0) g/dL RDW (11.5-15.5) % Plt Count (150-450) k/uL Neutrophils % % Lymphocytes % % Monocytes % % Eosinophils % % Basophils % % Neutrophils # (1.3-7.7) k/uL Lymphocytes # (1.0-4.8) k/uL Monocytes # (0-1.0) k/uL Eosinophils # (0-0.7) k/uL Basophils # (0-0.2) k/uL Anisocytosis PT 10.9 (9.0-12.0) sec INR 1.1 (<1.1) APTT 22.1 (22.0-30.0) sec Sodium (137-145) mmol/L Potassium (3.5-5.1) mmol/L Chloride (98-107) mmol/L Carbon Dioxide (22-30) mmol/L Anion Gap mmol/L BUN (7-17) mg/dL Creatinine (0.52-1.04) mg/dL Est GFR (MDRD) Af Amer (>60 ml/min/1.73 sqM) Est GFR (MDRD) Non-Af (>60 ml/min/1.73 sqM) Glucose (74-99) mg/dL Calcium (8.4-10.2) mg/dL Magnesium (1.6-2.3) mg/dL Total Bilirubin (0.2-1.3) mg/dL AST (14-36) U/L ALT (9-52) U/L Alkaline Phosphatase (38-126) U/L Troponin I (0.000-0.034) ng/mL Lipase (23-300) U/L Urine Color Dark Yellow Urine Appearance Cloudy H (Clear) Urine pH 7.0 (5.0-8.0) Ur Specific [place] 1.018 (1.001-1.035) Urine Protein 1+ H (Negative) Urine Glucose (UA) Negative (Negative) Urine Ketones 1+ H (Negative) Urine Blood Negative (Negative) Urine Nitrate Negative (Negative) Urine Bilirubin Negative (Negative) Urine Urobilinogen 2.0 (<2.0) mg/dL Ur Leukocyte Esterase Large H (Negative) Urine WBC >182 H (0-5) /hpf Hyaline Casts 7 H (0-2) /lpf Urine Mucus Occasional H (None) /hpf Urine Opiates Screen Not Detected (NotDetected) Ur Oxycodone Screen Detected H (NotDetected) Urine Methadone Screen Not Detected (NotDetected) Ur Propoxyphene Screen Not Detected (NotDetected) Ur Barbiturates Screen Not Detected (NotDetected) U Tricyclic Antidepress Detected H (NotDetected) Ur Phencyclidine Scrn Not Detected (NotDetected) Ur Amphetamines Screen Not Detected (NotDetected) U Methamphetamines Scrn Not Detected (NotDetected) U Benzodiazepines Scrn Detected H (NotDetected) Urine Cocaine Screen Not Detected (NotDetected) U Marijuana (THC) Screen Not Detected (NotDetected) Disposition Clinical Impression: Altered mental status, Opiate dependence, Benzodiazepine dependence, Urinary tract infection Disposition: ADMITTED IP TO THIS [facility] Decision to Admit Reason: Admit from EC
[2016-11-27 17:41] LABS: Anisocytosis Slight; Basophils % (A) 0 %; CH 27.6; CHCM 33.2; Eosinophils % (A) 0 %; HCT 45.3 % (34.0-46.0); HDW 3.36; HGB 14.6 gm/dL (11.4-16.0); Luc # (Auto) 0.23; Luc % (Auto) 4; Lymphocytes # (A) 0.8 k/uL (1.0-4.8); Lymphocytes % (A) 13 %; MCH 26.8 pg (25.0-35.0); MCHC 32.1 g/dL (31.0-37.0); Mean Platelet Volume 7.6; Monocytes # (A) 0.5 k/uL (0-1.0); Monocytes % (A) 7 %; Neutrophils % (A) 76 %; RBC 5.43 m/uL (3.80-5.40); RDW 16.7 % (11.5-15.5); WBC 6.6 k/uL (3.8-10.6); WBC (Perox) 6.74
[2016-11-27 17:48] LABS: MCV 83.4 fL (80.0-100.0)
[2016-11-27 17:49] LABS: INR 1.1 (<1.1); Partial Thromboplastin Time 22.1 sec (22.0-30.0); Prothrombin Time 10.9 sec (9.0-12.0)
[2016-11-27 17:52] LABS: ALT 26 U/L (9-52); AST 25 U/L (14-36); Alkaline Phosphatase 106 U/L (38-126); Anion Gap 16 mmol/L; Blood Urea Nitrogen 9 mg/dL (7-17); Calcium 10.1 mg/dL (8.4-10.2); Carbon Dioxide 28 mmol/L (22-30); Chloride 102 mmol/L (98-107); Glucose 106 mg/dL (74-99); Magnesium 1.7 mg/dL (1.6-2.3); Non-African American GFR(MDRD) >60 (>60 ml/min/1.73 sqM); Potassium 3.1 mmol/L (3.5-5.1); Sodium 146 mmol/L (137-145)
--- NOTE | 2016-11-27 18:23 | XR ---
EXAMINATION TYPE: XR chest 2V DATE OF EXAM: 11/27/2016 6:08 PM COMPARISON: 11/18/2016 HISTORY: Altered mental status TECHNIQUE: Frontal and lateral views of the chest are obtained. FINDINGS: There is no heart failure nor confluent pneumonic infiltrate. There are no hilar masses. T here are chest leads. Thoracic aorta is atheromatous. Bony thorax is intact. IMPRESSION: No acute lung disease. Normal heart. There is significant improved inspiration compared to last exam.
--- NOTE | 2016-11-27 18:43 | CT ---
EXAMINATION TYPE: CT brain wo con DATE OF EXAM: 11/27/2016 6:21 PM COMPARISON: 11/12/2016 HISTORY: CT DLP: mGycm Automated exposure control for dose reduction was used. FINDINGS: There is cerebral cortical atrophy. There is no mass effect nor midline shift. There is no sign of in tracranial hemorrhage. The calvarium is intact. IMPRESSION: Cerebral atrophy. No acute intracranial abnormality. No change.
[2016-11-27] MEDS ORDERED: POTASSIUM CHLORIDE ER 20 MEQ TAB.ER PO STA (19:05)
[2016-11-27 19:46] LABS: Appearance,Urine Cloudy (Clear); Bilirubin,Urine Negative (Negative); Glucose,Urine (UA) Negative (Negative); Ketones,Urine 1+ (Negative); Leukocyte Esterase,Urine Large (Negative); Mucus,Urine Occasional /hpf; Nitrite,Urine Negative (Negative); Particle Count 28199; Protein,Urine 1+ (Negative); Specific Gravity,Urine 1.018 (1.001-1.035); UA Billing (MACRO vs. MICRO) MICRO; WBC,Urine >182 /hpf (0-5)
[2016-11-27] MEDS ORDERED: SODIUM CHLORIDE 0.9% 1,000 ML IV ONE (20:11)
[2016-11-27] MEDS ORDERED: LORazepam 2 MG/ML SYRINGE IV PRN (20:13)
[2016-11-27] MEDS ORDERED: THIAMINE 100 MG/ML 2 ML VIAL IM STA (20:13)
[2016-11-27] MEDS: LEVOFLOXACIN 500MG-D5W PMX 500 MG in DEXTROSE/WATER 1 100ML.BAG IVPB STA ×2 (20:24→21:10)
[2016-11-27 22:28] VITALS: BMI 19.8
[2016-11-27] MEDS: LORazepam 2 MG/ML SYRINGE IV PRN (22:45)
[2016-11-28] MEDS: LORazepam 2 MG/ML SYRINGE IV PRN ×4 (08:50→14:33)
[2016-11-28 11:05] LABS: Anisocytosis Slight; CHCM 31.7; HCT 37.7 % (34.0-46.0); HDW 3.28; HGB 12.4 gm/dL (11.4-16.0); Hypochromasia Slight; MCHC 32.8 g/dL (31.0-37.0); MCV 85.5 fL (80.0-100.0); Mean Platelet Volume 7.4; RBC 4.41 m/uL (3.80-5.40); RDW 16.5 % (11.5-15.5); WBC 6.5 k/uL (3.8-10.6)
[2016-11-28 11:19] LABS: Anion Gap 11 mmol/L; Blood Urea Nitrogen 10 mg/dL (7-17); Calcium 8.6 mg/dL (8.4-10.2); Carbon Dioxide 24 mmol/L (22-30); Chloride 107 mmol/L (98-107); Glucose 94 mg/dL (74-99); Non-African American GFR(MDRD) >60 (>60 ml/min/1.73 sqM); Potassium 3.1 mmol/L (3.5-5.1); Sodium 142 mmol/L (137-145)
[2016-11-28] MEDS: THIAMINE 100 MG TAB PO SCH ×2 (12:29→17:00)
[2016-11-28] MEDS ORDERED: BENZONATATE 100 MG CAP PO PRN (15:52)
[2016-11-28] MEDS ORDERED: ALBUTEROL NEBULIZED 2.5 MG/3 ML INHALATION PRN (15:52)
[2016-11-28] MEDS ORDERED: IPRATROPIUM-ALBUTEROL 3 ML NEB INHALATION PRN (15:52)
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
[2016-11-28] MEDS: LORazepam 1 MG TAB PO PRN (17:00)
[2016-11-28] MEDS: POTASSIUM CHLORIDE ER 20 MEQ TAB.ER PO SCH ×2 (17:00→18:16)
[2016-11-28] MEDS: DIPHENOX-ATROP 2.5-0.025 MG 1 EACH TAB PO PRN (17:00)
[2016-11-28] MEDS: QUEtiapine 50 MG TAB PO SCH (17:00)
[2016-11-28] MEDS: oxyCODONE ER 20 MG TAB.ER.12H PO PRN (18:17)
[2016-11-28] MEDS: SYMBICORT 160-4.5 MCG INHALER INHALATION SCH (20:22)
[2016-11-28] MEDS: LEVOFLOXACIN 500 MG TAB PO SCH (20:39)
[2016-11-28] MEDS: DULoxetine HCL 60 MG CAPSULE.DR PO SCH (20:39)
[2016-11-28] MEDS ORDERED: FAMOTIDINE 20 MG TAB PO SCH (21:00)
[2016-11-29] MEDS: LEVOTHYROXINE 50 MCG TAB PO SCH (06:00)
[2016-11-29] MEDS: SYMBICORT 160-4.5 MCG INHALER INHALATION SCH ×2 (08:26→20:35)
[2016-11-29] MEDS: LORazepam 1 MG TAB PO PRN ×3 (08:38→20:42)
[2016-11-29] MEDS: DULoxetine HCL 60 MG CAPSULE.DR PO SCH ×2 (08:38→20:38)
[2016-11-29] MEDS: PANTOPRAZOLE 40 MG TABLET PO SCH (08:38)
[2016-11-29] MEDS: DIPHENOX-ATROP 2.5-0.025 MG 1 EACH TAB PO PRN (08:38)
[2016-11-29] MEDS: oxyCODONE ER 20 MG TAB.ER.12H PO PRN ×2 (08:38→20:38)
[2016-11-29] MEDS: QUEtiapine 50 MG TAB PO SCH ×2 (08:39→17:53)
[2016-11-29] MEDS: LISINOPRIL 10 MG TAB PO SCH (08:39)
[2016-11-29 09:17] LABS: Anisocytosis Slight; Basophils # (A) 0.1 k/uL (0-0.2); Basophils % (A) 1 %; CH 27.2; CHCM 31.2; Eosinophils # (A) 0.1 k/uL (0-0.7); Eosinophils % (A) 1 %; HCT 40.6 % (34.0-46.0); HDW 3.28; HGB 12.4 gm/dL (11.4-16.0); Hypochromasia Moderate; Luc # (Auto) 0.26; Luc % (Auto) 4; Lymphocytes % (A) 17 %; MCH 26.7 pg (25.0-35.0); MCHC 30.6 g/dL (31.0-37.0); MCV 87.3 fL (80.0-100.0); Mean Platelet Volume 7.7; Monocytes # (A) 0.3 k/uL (0-1.0); Monocytes % (A) 5 %; Neutrophils # (A) 4.4 k/uL (1.3-7.7); Neutrophils % (A) 72 %; RBC 4.65 m/uL (3.80-5.40); RDW 16.4 % (11.5-15.5); WBC 6.2 k/uL (3.8-10.6); WBC (Perox) 6.41
[2016-11-29 09:41] LABS: ALT 26 U/L (9-52); AST 22 U/L (14-36); Alkaline Phosphatase 72 U/L (38-126); Anion Gap 10 mmol/L; Blood Urea Nitrogen 8 mg/dL (7-17); Calcium 9.2 mg/dL (8.4-10.2); Carbon Dioxide 24 mmol/L (22-30); Chloride 111 mmol/L (98-107); Glucose 132 mg/dL (74-99); Non-African American GFR(MDRD) >60 (>60 ml/min/1.73 sqM); Potassium 4.2 mmol/L (3.5-5.1); Sodium 145 mmol/L (137-145); Total Bilirubin 0.6 mg/dL (0.2-1.3)
[2016-11-29] MEDS: THIAMINE 100 MG TAB PO SCH ×2 (14:33→17:53)
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
[2016-11-29] MEDS: LEVOFLOXACIN 500 MG TAB PO SCH (20:38)
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
[2016-11-30] MEDS: LEVOTHYROXINE 50 MCG TAB PO SCH (06:09)
[2016-11-30 07:31] VITALS: BP 149/69; PULSE 84; RESP 20; TEMP 98.8
[2016-11-30] MEDS: SYMBICORT 160-4.5 MCG INHALER INHALATION SCH (08:16)
[2016-11-30] MEDS: PANTOPRAZOLE 40 MG TABLET PO SCH (08:50)
[2016-11-30] MEDS: oxyCODONE ER 20 MG TAB.ER.12H PO PRN (08:50)
[2016-11-30] MEDS: LISINOPRIL 10 MG TAB PO SCH (08:50)
[2016-11-30] MEDS: QUEtiapine 50 MG TAB PO SCH (08:50)
[2016-11-30] MEDS: DULoxetine HCL 60 MG CAPSULE.DR PO SCH (08:50)
[2016-11-30] MEDS: LORazepam 1 MG TAB PO PRN ×2 (08:51→15:15)
[2016-11-30] MEDS: THIAMINE 100 MG TAB PO SCH (12:35)
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
== END 2016-11-30 15:28 | disposition home or self-care (01) | DRG 883 ==
LOC: EC 16:16 → 4MS4W 20:11
PROVIDERS: ADMIT Internal Medicine; ATTEND Internal Medicine
DX: F68.10 Factitious disorder imposed on self, unspecified (principal); J44.9 Chronic obstructive pulmonary disease, unspecified; F33.1 Major depressive disorder, recurrent, moderate; N30.00 Acute cystitis without hematuria; F13.20 Sedative, hypnotic or anxiolytic dependence, uncomplicated; I48.2 Chronic atrial fibrillation; M41.9 Scoliosis, unspecified; E87.6 Hypokalemia; I10 Essential (primary) hypertension; I25.10 Atherosclerotic heart disease of native coronary artery without angina pectoris; B95.2 Enterococcus as the cause of diseases classified elsewhere; F41.9 Anxiety disorder, unspecified; I25.2 Old myocardial infarction; F41.0 Panic disorder [episodic paroxysmal anxiety]; E78.5 Hyperlipidemia, unspecified; K21.9 Gastro-esophageal reflux disease without esophagitis; G89.4 Chronic pain syndrome; M54.2 Cervicalgia; M54.9 Dorsalgia, unspecified; M19.90 Unspecified osteoarthritis, unspecified site; M79.7 Fibromyalgia; R53.1 Weakness; I67.9 Cerebrovascular disease, unspecified; K44.9 Diaphragmatic hernia without obstruction or gangrene; J45.50 Severe persistent asthma, uncomplicated; E03.9 Hypothyroidism, unspecified; M21.371 Foot drop, right foot; R41.82 Altered mental status, unspecified; R01.1 Cardiac murmur, unspecified; R60.9 Edema, unspecified; R32 Unspecified urinary incontinence; M25.519 Pain in unspecified shoulder; Z91.19 Patient's noncompliance with other medical treatment and regimen; Z87.19 Personal history of other diseases of the digestive system; Z87.81 Personal history of (healed) traumatic fracture; Z86.718 Personal history of other venous thrombosis and embolism; Z81.8 Family history of other mental and behavioral disorders; Z90.11 Acquired absence of right breast and nipple; Z98.42 Cataract extraction status, left eye; Z98.41 Cataract extraction status, right eye; Z95.5 Presence of coronary angioplasty implant and graft; Z87.440 Personal history of urinary (tract) infections; Z79.82 Long term (current) use of aspirin; Z85.3 Personal history of malignant neoplasm of breast; Z80.8 Family history of malignant neoplasm of other organs or systems; Z79.899 Other long term (current) drug therapy; Z88.0 Allergy status to penicillin; Z79.891 Long term (current) use of opiate analgesic; Z79.51 Long term (current) use of inhaled steroids; Z90.710 Acquired absence of both cervix and uterus; Z90.49 Acquired absence of other specified parts of digestive tract; Z80.49 Family history of malignant neoplasm of other genital organs; Z85.41 Personal history of malignant neoplasm of cervix uteri; Z88.1 Allergy status to other antibiotic agents; Z88.5 Allergy status to narcotic agent; Z88.8 Allergy status to other drugs, medicaments and biological substances; Z91.048 Other nonmedicinal substance allergy status
CPT/HCPCS: 70450; 71020; 80048; 80053; 80306; 81001; 82247; 83690; 83735; 84075; 84450; 84460; 84484; 85025; 85027; 85610; 85730; 87077; 87086; 87186; 87324; 93005; 94640; 96361; 96365; 96372; 96375; 99285

== ENCOUNTER 2016-12-03 19:03 | Emergency (ER) | payer MEDICARE ==
[2016-12-03 19:19] VITALS: RESP 16; TEMP 99.2
--- NOTE | 2016-12-03 19:45 | ED ---
General Adult HPI - General Chief complaint: Back Pain/Injury Stated complaint: back pain Time Seen by Provider: 12/03/16 19:24 Source: patient, EMS, RN notes reviewed, old records reviewed Mode of arrival: EMS Limitations: no limitations - History of Present Illness Initial comments: Chief complaint and history of present illness a 66-year-old female brought emergency room by EMS because of low back pain which started 6-1/2 hours ago. I gave her bolus Zofran and fentanyl. Patient reports the pain has subsided but started to come back. Patient denies any new injuries. States that chronic back pain. He usually sees a pain pain clinic and ran out of oxycodone one month ago. Taking ibuprofen and Tylenol as needed. - Related Data Home Medications Medication Instructions Recorded Confirmed Aspirin EC [Ecotrin Low Dose] 81 mg PO DAILY 12/26/15 12/03/16 Gabapentin [Neurontin] 1,200 mg PO TID 12/26/15 12/03/16 Montelukast [Singulair] 10 mg PO HS 12/26/15 12/03/16 Nitroglycerin Sl Tabs [Nitrostat] 0.4 mg SUBLINGUAL Q5M PRN 12/26/15 12/03/16 Calcium Carbonate [Calcium] 600 mg PO TID 04/30/16 12/03/16 DULoxetine HCL [Cymbalta] 60 mg PO BID 04/30/16 12/03/16 Omeprazole [PriLOSEC] 20 mg PO AC-BRKFST 09/01/16 12/03/16 Famotidine [Pepcid] 60 mg PO BID 09/16/16 12/03/16 Ferrous Gluconate 240 mg PO QAM 09/16/16 12/03/16 Levothyroxine Sodium [Synthroid] 50 mcg PO DAILY 09/25/16 12/03/16 Ondansetron [Zofran] 4 mg PO Q8H PRN 09/25/16 12/03/16 Levalbuterol Hfa Inhaler [Xopenex 1 puff INHALATION RT-Q6H 10/10/16 12/03/16 Hfa Inhaler] HYDROcodone/APAP 10-325MG [[place] 1 tab PO Q8HR PRN 10/18/16 12/03/16 10-325] Albuterol Nebulized [Ventolin 2.5 mg INHALATION RT-Q4H PRN 10/30/16 12/03/16 Nebulized] Fluticasone/Salmeterol [Advair 2 puff PO RT-BID 11/13/16 12/03/16 500-50 Diskus] Furosemide [Lasix] 40 mg PO DAILY 11/13/16 12/03/16 Lansoprazole [Prevacid] 30 mg PO DAILY 11/13/16 12/03/16 Lisinopril [Zestril] 10 mg PO DAILY 11/13/16 12/03/16 Prazosin HCl 2 mg PO TID 11/13/16 12/03/16 Benzonatate [Tessalon Perles] 100 mg PO TID PRN 11/27/16 12/03/16 Previous Rx's Medication Instructions Recorded Budesonide-Formot 160-4.5 Mcg 2 puff INHALATION RT-BID puff 10/14/16 [Symbicort 160-4.5 Mcg Inhaler] Ipratropium-Albuterol Nebulize 3 ml INHALATION RT-QID PRN #0 10/14/16 [Duoneb 0.5 mg-3 mg/3 ml Soln] ampul.neb QUEtiapine [SEROquel] 50 mg PO BID-W/MEALS 30 Days 10/14/16 oxyCODONE HCL [OxyCONTIN] 20 mg PO Q12HR PRN #6 tab 10/30/16 Levofloxacin [Levaquin] 500 mg PO Q24H #5 tab 11/29/16 Hydrocodone/Acetaminophen [[place] 1 each PO Q6HR PRN #10 tab 12/03/16 5-325] methylPREDNISolone Dose Pack 4 mg PO DIRECTED #21 package 12/03/16 [Medrol Dose Pack] Allergies Allergy/AdvReac Type Severity Reaction Status Date / Time amoxicillin Allergy Unknown Verified 12/03/16 19:47 baclofen Allergy Rash/Hives Verified 12/03/16 19:47 morphine Allergy Itching Verified 12/03/16 19:47 Penicillins Allergy Unknown Verified 12/03/16 19:47 prochlorperazine Allergy Racing Verified 12/03/16 19:47 [From Compazine] Heart prochlorperazine edisylate Allergy Racing Verified 12/03/16 19:47 [From Compazine] Heart prochlorperazine maleate Allergy Racing Verified 12/03/16 19:47 [From Compazine] Heart tetracycline Allergy Unknown Verified 12/03/16 19:47 SILK TAPE Allergy Unknown Uncoded 11/18/16 14:31 Review of Systems ROS Statement: Those systems with pertinent positive or pertinent negative responses have been documented in the HPI. Review of systems no visual acuity changes or headache denying any chest pain or shortness of breath. No apparent nausea vomiting. She has low back pain. Raised on her buttocks to her eggs. She had this on again off again for many years she states she's had 5 back surgeries. Denies any chills. Patient does appear anxious. All systems are reviewed. Past medical problems A. fib, asthma , coronary disease, cervical breast and uterine cancer. COPD, DVT many years ago, fibromyalgia, GERD, hyperlipidemia, hypertension, previous [place]. Osteoarthritis as well as hypothyroidism. The patient's surgeries include cervical thoracic and back fusion. She reports that 5 back surgeries. She had breast surgery for breast cancer. Is also cholecystectomy, heart catheterization with one stent hysterectomy because of uterine cancer tonsillectomy adenoids and uvula removed. Family history significant for mother had uterine cancer. Patient has ALLERGIES to amoxicillin baclofen and morphine penicillin. Seen. Patient denies smoking denies drinking ROS Other: All systems not noted in ROS Statement are negative. Past Medical History Past Medical History: Atrial Fibrillation, Asthma, Coronary Artery Disease (CAD) , Cancer, COPD, Deep Vein Thrombosis (DVT), Fibromyalgia, GERD/Reflux, Hyperlipidemia, Hypertension, Myocardial Infarction (non Q-wave), Osteoarthritis (OA), Thyroid Disorder Additional Past Medical History / Comment(s): Severe persistent bronchial asthma , hiatal hernia, chronic lower extremity edema, coronary artery disease, history of breast cancer, hypertension, osteoarthritis, malignancy of the cervix /cervical cancer, uterine cancer, right lower extremity DVT, chronic atrial fibrillation, hypothyroidism, GERD, scoliosis deformity of the spine, right foot drop, hiatal hernia, frequent exacerbation of COPD, cardiac murmur, urinary incontinence, rectal prolapse with repair, C5 cervical fracture with chronic neck pain, chronic anemia, E. coli urine checked infection on May 2016 Last Myocardial Infarction Date:: 2006 History of Any Multi-Drug Resistant Organisms: None Reported Date of last positivie culture/infection: None MDRO Source:: None Past Surgical History: Back Surgery, Breast Surgery, Cholecystectomy, Heart Catheterization With Stent, Hysterectomy, Tonsillectomy Additional Past Surgical History / Comment(s): Right umpectomy d/t breast cancer , back surgery x7, ortho sx-recent Fx C5-pain in neck, 02/19/2016 revision S2- Thoracic/lumbar area, bilat. cataracts removed 2014, SX FOR PROLAPSED RECTUM AT [facility]. Past Anesthesia/Blood Transfusion Reactions: No Reported Reaction Date of Last Stent Placement:: 2006 Past Psychological History: Anxiety, Depression Additional Psychological History / Comment(s): Pt states she is on medication for anxiety/depression which helps some and is going to be starting to see a councelor soon. She uses a cane/walker to ambulate. She drives. She currently has [facility] nurse twice a week and an aide twice a week. Smoking Status: Never smoker Past Alcohol Use History: None Reported Past Drug Use History: None Reported - Past Family History Father Family Medical History: Cancer Additional Family Medical History / Comment(s): skin cancer. Mother Family Medical History: Cancer Additional Family Medical History / Comment(s): uterine cancer. Daughter(s) Family Medical History: Cancer, Thyroid Disorder Additional Family Medical History / Comment(s): Thyroid CA removed General Exam - General Exam Comments Initial Comments: General: The patient is awake and alert, complains of low back pain started 6 hours ago no specific injury. Vital signs show temperature 99.2 pulse 98 respiratory rate 16 pulse ox 96% on room air blood pressure 140/82. Elevated systolic noted. The patient will be following up with her family physician in next 1-4 weeks. Eye: Pupils are equal, round and reactive to light, extra-ocular movements are intact ; there is normal conjunctiva bilaterally. No signs of icterus. Evidence of bilateral cataract removal. Ears, nose, mouth and throat: There are moist mucous membranes , patient had her uvula removed and she was 16 when she had a tonsillectomy done. Neck: The neck is supple, there is no tenderness, no anterior cervical lymphadenopathy. Cardiovascular: Irregular rate and rhythm. Patient does have a history of A. fib. No murmur appreciated this time. Respiratory: Lungs are clear to auscultation, respirations are non-labored, breath sounds are equal. No wheezes, stridor, rales, or rhonchi. Gastrointestinal: Soft, non-distended, non-tender abdomen without masses or organomegaly noted. There is no rebound or guarding present. No CVA tenderness. Bowel sounds are unremarkable. Back: Patient complains low back pain, chronic. Has been through the pain clinic for this. Right out of her OxyContin tablets one month ago. Denies any injuries. Pain with both active and passive movement of her legs. Pain radiates to the low back to the upper buttock area neurovascular status to the feet appear to be intact. Good pulses. Musculoskeletal: Normal ROM, no tenderness, There is no pedal edema. There is no calf tenderness or swelling. Sensation intact. Pulses equal bilaterally 2+. Neurological: CN II-XII intact, There are no obvious motor or sensory deficits. . Speech is normal. Patient is anxious Skin: Skin is warm and dry and no rashes or lesions are noted. Psychiatric: Extremely anxious. Limitations: no limitations Course Vital Signs 12/03/16 19:14 Temperature 99.2 F Pulse Rate 98 Respiratory 16 Rate Blood Pressure 140/82 O2 Sat by Pulse 96 Oximetry Medical Decision Making - Medical Decision Making X-ray of the lumbosacral spine was done and reviewed by radiologist his findings are there is osteopenia. There is posterior fusiform surgery at L1- L2. There is multilevel laminectomy. The radiologist did not see any acute fracture. Sacroiliac joints are normal. There is degenerative disc space narrowing at L4-L5 and L5-S1 and L1 to L2 L3. Impression multilevel spondylosis. Previous surgery. No acute bony abnormality. No change. As read by Dr. Field The patient reports feeling better at this time. She did receive pain medication and reviewed by EMS. She did not receive anything here that states she's feeling much better. No complaint of numbness tingling or dysfunction. She will be given a taxi Ride home. She is requesting several pain pills because taken at home. She ran out of her oxycodone one month ago. She states that she has to get reestablished with her chronic pain doctor. Advised to return emergency room as needed Disposition Clinical Impression: Lumbosacral pain, Lumbar radiculopathy Disposition: HOME SELF-CARE Condition: Fair Instructions: Acute Low Back Pain (ED), Chronic Back Pain (ED), Lumbar Radiculopathy (ED) Additional Instructions: Take medications as directed follow up with her family physician. Prescriptions: Hydrocodone/Acetaminophen [[place] 5-325] 1 each PO Q6HR PRN #10 tab PRN Reason: Pain methylPREDNISolone Dose Pack [Medrol Dose Pack] 4 mg PO DIRECTED #21 package Time of Disposition: 21:26
--- NOTE | 2016-12-03 20:51 | XR ---
EXAMINATION TYPE: XR lumbosacral spine min 4V DATE OF EXAM: 12/03/2016 8:40 PM COMPARISON: 11/12/2016 HISTORY: Back pain TECHNIQUE: 5 views FINDINGS: There is osteopenia. There is posterior fusion surgery at L1-2. There is multilevel laminec percy. I see no acute fracture. Sacroiliac joints are normal. There is degenerative disc space narrowi ng at L4-5 and L5 S1 L1 to L2-3. IMPRESSION: Multilevel spondylosis. Previous surgery. No acute bony abnormality. No change.
[2016-12-03] MEDS ORDERED: predniSONE 20 MG TAB PO STA (21:24)
[2016-12-03 21:56] VITALS: BP 138/70; PULSE 70
== END 2016-12-03 21:54 | disposition home or self-care (01) ==
LOC: EC 19:03
DX: M51.16 Intervertebral disc disorders with radiculopathy, lumbar region (principal); M51.17 Intervertebral disc disorders with radiculopathy, lumbosacral region; M47.26 Other spondylosis with radiculopathy, lumbar region; I10 Essential (primary) hypertension; E03.9 Hypothyroidism, unspecified; F32.9 Major depressive disorder, single episode, unspecified; F41.9 Anxiety disorder, unspecified; M85.88 Other specified disorders of bone density and structure, other site; J44.9 Chronic obstructive pulmonary disease, unspecified; K21.9 Gastro-esophageal reflux disease without esophagitis; M79.7 Fibromyalgia; M19.90 Unspecified osteoarthritis, unspecified site; Z79.82 Long term (current) use of aspirin; Z79.51 Long term (current) use of inhaled steroids; Z79.899 Other long term (current) drug therapy; Z88.0 Allergy status to penicillin; Z88.1 Allergy status to other antibiotic agents; Z88.5 Allergy status to narcotic agent; Z88.8 Allergy status to other drugs, medicaments and biological substances
CPT/HCPCS: 99284; 72110; J7512

== ENCOUNTER 2016-12-09 18:09 | Emergency (ER) | payer MEDICARE ==
[2016-12-09 18:52] VITALS: BP 146/73; PULSE 68; RESP 20; TEMP 97.9
--- NOTE | 2016-12-09 19:04 | ED ---
Nausea/Vomiting/Diarrhea HPI - General Chief complaint: Nausea/Vomiting/Diarrhea Stated complaint: uncontrolled bowel Time Seen by Provider: 12/09/16 18:22 Source: patient, RN notes reviewed Mode of arrival: wheelchair Limitations: no limitations - History of Present Illness Initial comments: Patient is a 66-year-old female with a chief complaint of diarrhea for approximately 3 days. Patient reports everything she eats has diarrhea afterward. Patient reports she was seen early in the emergency department today given a full workup including CT abdomen and pelvis. All the workup was negative. She did not have a stool culture done at that time. Patient states that she ate in the hospital cafeteria some soup and afterwards she was driving home and had diarrhea on her car seat. She states that she does feel slightly nauseated right now. She states that she has a history of ulcerative colitis as a teen however has never had any exacerbations recently. She states that she has had colonoscopies but does not remember her last one. Patient denies any recent fever, chills, shortness of breath, chest pain, back pain, abdominal pain, nausea vomiting, numbness or tingling, dysuria or hematuria, constipation or diarrhea, headaches or visual changes, or any other current symptoms - Related Data Home Medications Medication Instructions Recorded Confirmed Aspirin EC [Ecotrin Low Dose] 81 mg PO DAILY 12/26/15 12/09/16 Gabapentin [Neurontin] 1,200 mg PO TID 12/26/15 12/09/16 Montelukast [Singulair] 10 mg PO HS 12/26/15 12/09/16 Nitroglycerin Sl Tabs [Nitrostat] 0.4 mg SUBLINGUAL Q5M PRN 12/26/15 12/09/16 Calcium Carbonate [Calcium] 600 mg PO TID 04/30/16 12/09/16 DULoxetine HCL [Cymbalta] 60 mg PO BID 04/30/16 12/09/16 Omeprazole [PriLOSEC] 20 mg PO AC-BRKFST 09/01/16 12/09/16 Famotidine [Pepcid] 60 mg PO BID 09/16/16 12/09/16 Ferrous Gluconate 240 mg PO QAM 09/16/16 12/09/16 Levothyroxine Sodium [Synthroid] 50 mcg PO DAILY 09/25/16 12/09/16 Ondansetron [Zofran] 4 mg PO Q8H PRN 09/25/16 12/09/16 Levalbuterol Hfa Inhaler [Xopenex 1 puff INHALATION RT-Q6H 10/10/16 12/09/16 Hfa Inhaler] Albuterol Nebulized [Ventolin 2.5 mg INHALATION RT-Q4H PRN 10/30/16 12/09/16 Nebulized] Fluticasone/Salmeterol [Advair 2 puff INHALATION RT-BID 11/13/16 12/09/16 500-50 Diskus] Furosemide [Lasix] 40 mg PO DAILY 11/13/16 12/09/16 Lansoprazole [Prevacid] 30 mg PO DAILY 11/13/16 12/09/16 Lisinopril [Zestril] 10 mg PO DAILY 11/13/16 12/09/16 Prazosin HCl 2 mg PO TID 11/13/16 12/09/16 Benzonatate [Tessalon Perles] 100 mg PO TID PRN 11/27/16 12/09/16 Hydrocodone/Acetaminophen [[place] 1 tab PO Q6HR PRN 12/09/16 12/09/16 5-325] methylPREDNISolone Dose Pack See Taper PO DAILY 12/09/16 12/09/16 [Medrol Dose Pack] Previous Rx's Medication Instructions Recorded Budesonide-Formot 160-4.5 Mcg 2 puff INHALATION RT-BID puff 10/14/16 [Symbicort 160-4.5 Mcg Inhaler] Ipratropium-Albuterol Nebulize 3 ml INHALATION RT-QID PRN #0 10/14/16 [Duoneb 0.5 mg-3 mg/3 ml Soln] ampul.neb QUEtiapine [SEROquel] 50 mg PO BID-W/MEALS 30 Days 10/14/16 oxyCODONE HCL [OxyCONTIN] 20 mg PO Q12HR PRN #6 tab 10/30/16 Dicyclomine [Bentyl] 20 mg PO TID #30 tablet 12/09/16 Allergies Allergy/AdvReac Type Severity Reaction Status Date / Time amoxicillin Allergy Unknown Verified 12/09/16 19:00 baclofen Allergy Rash/Hives Verified 12/09/16 19:00 morphine Allergy Itching Verified 12/09/16 19:00 Penicillins Allergy Unknown Verified 12/09/16 19:00 prochlorperazine Allergy Racing Verified 12/09/16 19:00 [From Compazine] Heart prochlorperazine edisylate Allergy Racing Verified 12/09/16 19:00 [From Compazine] Heart prochlorperazine maleate Allergy Racing Verified 12/09/16 19:00 [From Compazine] Heart tetracycline Allergy Unknown Verified 12/09/16 19:00 SILK TAPE Allergy Unknown Uncoded 12/09/16 18:52 Review of Systems ROS Statement: Those systems with pertinent positive or pertinent negative responses have been documented in the HPI. ROS Other: All systems not noted in ROS Statement are negative. Past Medical History Past Medical History: Atrial Fibrillation, Asthma, Coronary Artery Disease (CAD) , Cancer, COPD, Deep Vein Thrombosis (DVT), Fibromyalgia, GERD/Reflux, Hyperlipidemia, Hypertension, Myocardial Infarction (non Q-wave), Osteoarthritis (OA), Thyroid Disorder Additional Past Medical History / Comment(s): Severe persistent bronchial asthma , hiatal hernia, chronic lower extremity edema, coronary artery disease, history of breast cancer, hypertension, osteoarthritis, malignancy of the cervix /cervical cancer, uterine cancer, right lower extremity DVT, chronic atrial fibrillation, hypothyroidism, GERD, scoliosis deformity of the spine, right foot drop, hiatal hernia, frequent exacerbation of COPD, cardiac murmur, urinary incontinence, rectal prolapse with repair, C5 cervical fracture with chronic neck pain, chronic anemia, E. coli urine checked infection on May 2016 Last Myocardial Infarction Date:: 2006 History of Any Multi-Drug Resistant Organisms: None Reported Date of last positivie culture/infection: None MDRO Source:: None Past Surgical History: Back Surgery, Breast Surgery, Cholecystectomy, Heart Catheterization With Stent, Hysterectomy, Tonsillectomy Additional Past Surgical History / Comment(s): Right umpectomy d/t breast cancer , back surgery x7, ortho sx-recent Fx C5-pain in neck, 02/19/2016 revision S2- Thoracic/lumbar area, bilat. cataracts removed 2014, SX FOR PROLAPSED RECTUM AT [facility]. Past Anesthesia/Blood Transfusion Reactions: No Reported Reaction Date of Last Stent Placement:: 2006 Past Psychological History: Anxiety, Depression Additional Psychological History / Comment(s): Pt states she is on medication for anxiety/depression which helps some and is going to be starting to see a councelor soon. She uses a cane/walker to ambulate. She drives. She currently has [facility] nurse twice a week and an aide twice a week. Smoking Status: Never smoker Past Alcohol Use History: None Reported Past Drug Use History: None Reported - Past Family History Father Family Medical History: Cancer Additional Family Medical History / Comment(s): skin cancer. Mother Family Medical History: Cancer Additional Family Medical History / Comment(s): uterine cancer. Daughter(s) Family Medical History: Cancer, Thyroid Disorder Additional Family Medical History / Comment(s): Thyroid CA removed General Exam - General Exam Comments Initial Comments: Anxious 66-year-old female. No acute distress. Limitations: no limitations General appearance: alert, in no apparent distress Head exam: Present: atraumatic, normocephalic, normal inspection Eye exam: Present: normal appearance, PERRL, EOMI. Absent: scleral icterus, conjunctival injection, periorbital swelling ENT exam: Present: normal exam, mucous membranes moist Neck exam: Present: normal inspection. Absent: tenderness, meningismus, lymphadenopathy Respiratory exam: Present: normal lung sounds bilaterally. Absent: respiratory distress, wheezes, rales, rhonchi, stridor Cardiovascular Exam: Present: regular rate, normal rhythm, normal heart sounds. Absent: systolic murmur, diastolic murmur, rubs, gallop, clicks GI/Abdominal exam: Present: soft, normal bowel sounds. Absent: distended, tenderness, guarding, rebound, rigid Extremities exam: Present: normal inspection, full ROM, normal capillary refill. Absent: tenderness, pedal edema, joint swelling, calf tenderness Back exam: Present: normal inspection Neurological exam: Present: alert, oriented X3, CN II-XII intact Psychiatric exam: Present: normal affect, normal mood Skin exam: Present: warm, dry, intact, normal color. Absent: rash Course Vital Signs 12/09/16 18:50 Temperature 97.9 F Pulse Rate 68 Respiratory 20 Rate Blood Pressure 146/73 O2 Sat by Pulse 96 Oximetry Medical Decision Making - Medical Decision Making Patient is a 66-year-old female with chief complaint of diarrhea after she is for approximately 3 days. She was initially sent to the emergency department by her primary care doctor. She was seen earlier today and had a full workup which was all negative. Patient was driving home after eating soup and the Dysuria and had an episode of diarrhea and her car. She reports that she linda back here directly and felt that she needed to be seen and admitted. Patient was discharged by mouth Bentyl. I discussed the patient needs to continue to use the by mouth Bentyl and to increase fiber in her diet. Patient understands. We will do a stool culture at this time. Patient states that the diarrhea only occurs with eating. I discussed that she needs to remain hydrated with fluids. Patient agrees. - Lab Data Lab Results 12/09/16 Range/Units 18:56 Stool Occult Blood Negative (Negative) Disposition Clinical Impression: Diarrhea Disposition: HOME SELF-CARE Condition: Good Instructions: Acute Diarrhea (ED) Additional Instructions: Patient instructed to follow up with primary care provider. Remain hydrated with increasing oral fluids. Have diet of significant fiber including fruits and vegetables and whole grains. Return to emergency Department if any worsening signs or symptoms occur. Referrals: Ramon Riggs DO [Primary Care Provider] - 1-2 days Luna Del Valle MD [STAFF PHYSICIAN] - 1-2 days Time of Disposition: 19:02
== END 2016-12-09 20:08 | disposition home or self-care (01) ==
LOC: EC 18:09
DX: R19.7 Diarrhea, unspecified (principal); Z79.899 Other long term (current) drug therapy; Z79.82 Long term (current) use of aspirin; Z88.1 Allergy status to other antibiotic agents; Z88.5 Allergy status to narcotic agent; Z88.0 Allergy status to penicillin; Z88.8 Allergy status to other drugs, medicaments and biological substances; I10 Essential (primary) hypertension; K21.9 Gastro-esophageal reflux disease without esophagitis; E07.9 Disorder of thyroid, unspecified; M19.90 Unspecified osteoarthritis, unspecified site; Z79.51 Long term (current) use of inhaled steroids; Z95.5 Presence of coronary angioplasty implant and graft; Z85.3 Personal history of malignant neoplasm of breast; J44.9 Chronic obstructive pulmonary disease, unspecified; Z86.718 Personal history of other venous thrombosis and embolism; K44.9 Diaphragmatic hernia without obstruction or gangrene; F41.9 Anxiety disorder, unspecified; F32.9 Major depressive disorder, single episode, unspecified
CPT/HCPCS: 36415; 82272; 87045; 87046; 89055; 99284

== ENCOUNTER 2016-12-13 14:55 | Inpatient (IN) | payer MEDICARE ==
[2016-12-13] MEDS ORDERED: SODIUM CHLORIDE 0.9% 1,000 ML IV ONE (17:52)
[2016-12-13] MEDS ORDERED: ONDANSETRON 4 MG/2 ML VIAL IVP STA (17:52)
[2016-12-13] MEDS ORDERED: MAG HYDROX/AL HYDROX/SIMETH 30 ML, HYOSCYAMINE ELIXIR 10 ML, CIMETIDINE HCL 300 MG, LID... PO STA ×4 (17:52)
[2016-12-13] MEDS ORDERED: ACETAMINOPHEN IV (For NPO) 1,000 MG in EMPTY BAG 1 BAG IVPB STA (17:53)
[2016-12-13 19:05] LABS: Anisocytosis Slight; Basophils % (A) 0 %; CH 27.6; CHCM 31.7; Eosinophils % (A) 0 %; HCT 44.2 % (34.0-46.0); HDW 3.05; HGB 13.7 gm/dL (11.4-16.0); Hypochromasia Slight; Luc # (Auto) 0.07; Luc % (Auto) 1; Lymphocytes # (A) 0.2 k/uL (1.0-4.8); Lymphocytes % (A) 3 %; MCH 27.1 pg (25.0-35.0); MCV 87.4 fL (80.0-100.0); Mean Platelet Volume 7.4; Monocytes # (A) 0.2 k/uL (0-1.0); Monocytes % (A) 3 %; Neutrophils % (A) 93 %; RBC 5.06 m/uL (3.80-5.40); RDW 16.3 % (11.5-15.5); WBC 7.5 k/uL (3.8-10.6); WBC (Perox) 7.32
[2016-12-13 19:10] LABS: Appearance,Urine Clear (Clear); Bacteria,Urine Rare /hpf; Bilirubin,Urine Negative (Negative); Glucose,Urine (UA) Negative (Negative); Ketones,Urine Negative (Negative); Leukocyte Esterase,Urine Small (Negative); Mucus,Urine Many /hpf; Nitrite,Urine Negative (Negative); Particle Count 14264; Protein,Urine 1+ (Negative); RBC,Urine 8 /hpf (0-5); Specific Gravity,Urine 1.028 (1.001-1.035); UA Billing (MACRO vs. MICRO) MICRO; Urobilinogen,Urine <2.0 mg/dL (<2.0); WBC,Urine 9 /hpf (0-5)
[2016-12-13 19:11] LABS: ALT 31 U/L (9-52); AST 30 U/L (14-36); Alkaline Phosphatase 75 U/L (38-126); Anion Gap 12 mmol/L; Blood Urea Nitrogen 16 mg/dL (7-17); Calcium 8.8 mg/dL (8.4-10.2); Carbon Dioxide 16 mmol/L (22-30); Chloride 110 mmol/L (98-107); Glucose 98 mg/dL (74-99); Non-African American GFR(MDRD) >60 (>60 ml/min/1.73 sqM); Sodium 138 mmol/L (137-145); Total Bilirubin 0.8 mg/dL (0.2-1.3); Total Protein 6.5 g/dL (6.3-8.2)
--- NOTE | 2016-12-13 19:22 | XR ---
EXAMINATION TYPE: XR abdomen acute w cxr DATE OF EXAM: 12/13/2016 7:12 PM COMPARISON: Chest x-ray 11/27/2016 HISTORY: Abdominal pain and nausea and vomiting TECHNIQUE: Supine, upright, and left side down lateral decubitus views of the abdomen are obtained. FINDINGS: There is mild linear density in the left midlung. There are multiple intestinal air-fluid levels. The re is mild enlargement of large and small bowel loops. Old multilevel laminectomy is noted in the lum bar spine. There is no sign of pneumoperitoneum. There is probably intestinal gas extending to the re ctum. There are clips from cholecystectomy. I see no sign of a mass. IMPRESSION: Focal atelectasis in the left midlung. No heart failure. Mild pleural scarring at the lateral left lety ng base. Chest x-ray stable compared to 11/27/2016. Intestinal gas and fluid consistent with ileus. No free air.
[2016-12-13] MEDS ORDERED: SULFAMETHOX-TMP 800-160MG 1 EACH TAB PO STA (20:04)
--- NOTE | 2016-12-13 20:14 | ED ---
General Adult HPI - General Chief complaint: Abdominal Pain Stated complaint: Vomiting/With Blood Source: patient Mode of arrival: wheelchair Limitations: no limitations - History of Present Illness Initial comments: 66-year-old female with extensive past medical history presented for evaluation of nausea, vomiting, diarrhea, abdominal pain. She was just evaluated at this facility on Tuesday and discharged with instructions to follow- up with her primary care physician and given referral for Dr. Del Valle deflector operator. She called Dr. Del Valle and was able to get an appointment for January 10 but no earlier. She states that she has had associated bloating and hematochezia with her diarrhea. She states a distant history of ulcerative colitis which she hasn't been treated for hasn't had any flareups. - Related Data Home Medications Medication Instructions Recorded Confirmed Aspirin EC [Ecotrin Low Dose] 81 mg PO DAILY 12/26/15 12/13/16 Gabapentin [Neurontin] 1,200 mg PO TID 12/26/15 12/13/16 Montelukast [Singulair] 10 mg PO HS 12/26/15 12/13/16 Nitroglycerin Sl Tabs [Nitrostat] 0.4 mg SUBLINGUAL Q5M PRN 12/26/15 12/13/16 Calcium Carbonate [Calcium] 600 mg PO TID 04/30/16 12/13/16 DULoxetine HCL [Cymbalta] 60 mg PO BID 04/30/16 12/13/16 Omeprazole [PriLOSEC] 20 mg PO AC-BRKFST 09/01/16 12/13/16 Famotidine [Pepcid] 60 mg PO BID 09/16/16 12/13/16 Ferrous Gluconate 240 mg PO QAM 09/16/16 12/13/16 Levothyroxine Sodium [Synthroid] 50 mcg PO DAILY 09/25/16 12/13/16 Ondansetron [Zofran] 4 mg PO Q8H PRN 09/25/16 12/13/16 Levalbuterol Hfa Inhaler [Xopenex 1 puff INHALATION RT-Q6H 10/10/16 12/13/16 Hfa Inhaler] Albuterol Nebulized [Ventolin 2.5 mg INHALATION RT-Q4H PRN 10/30/16 12/13/16 Nebulized] Fluticasone/Salmeterol [Advair 2 puff INHALATION RT-BID 11/13/16 12/13/16 500-50 Diskus] Furosemide [Lasix] 40 mg PO DAILY 11/13/16 12/13/16 Lansoprazole [Prevacid] 30 mg PO DAILY 11/13/16 12/13/16 Lisinopril [Zestril] 10 mg PO DAILY 11/13/16 12/13/16 Prazosin HCl 2 mg PO TID 11/13/16 12/13/16 HYDROcodone/APAP 7.5-325MG [[place] 1 tab PO Q8H PRN 12/13/16 12/13/16 7.5-325] QUEtiapine XR [SEROquel XR] 150 mg PO HS 12/13/16 12/13/16 Previous Rx's Medication Instructions Recorded Budesonide-Formot 160-4.5 Mcg 2 puff INHALATION RT-BID puff 10/14/16 [Symbicort 160-4.5 Mcg Inhaler] Ipratropium-Albuterol Nebulize 3 ml INHALATION RT-QID PRN #0 10/14/16 [Duoneb 0.5 mg-3 mg/3 ml Soln] ampul.neb QUEtiapine [SEROquel] 50 mg PO BID-W/MEALS 30 Days 10/14/16 oxyCODONE HCL [OxyCONTIN] 20 mg PO Q12HR PRN #6 tab 10/30/16 Dicyclomine [Bentyl] 20 mg PO TID #30 tablet 12/09/16 Allergies Allergy/AdvReac Type Severity Reaction Status Date / Time amoxicillin Allergy Unknown Verified 12/13/16 15:58 baclofen Allergy Rash/Hives Verified 12/13/16 15:58 morphine Allergy Itching Verified 12/13/16 15:58 Penicillins Allergy Unknown Verified 12/13/16 15:58 prochlorperazine Allergy Racing Verified 12/13/16 15:58 [From Compazine] Heart prochlorperazine edisylate Allergy Racing Verified 12/13/16 15:58 [From Compazine] Heart prochlorperazine maleate Allergy Racing Verified 12/13/16 15:58 [From Compazine] Heart tetracycline Allergy Unknown Verified 12/13/16 15:58 SILK TAPE Allergy Unknown Uncoded 12/13/16 15:58 Review of Systems ROS Statement: Those systems with pertinent positive or pertinent negative responses have been documented in the HPI. ROS Other: All systems not noted in ROS Statement are negative. Constitutional: Denies: fever, chills Eyes: Denies: eye pain, eye discharge, vision change ENT: Denies: ear pain, throat pain, dental pain Respiratory: Denies: cough, dyspnea, wheezes, hemoptysis Cardiovascular: Denies: chest pain, palpitations, dyspnea on exertion, orthopnea Endocrine: Denies: fatigue, polydipsia, polyuria Gastrointestinal: Reports: abdominal pain, nausea, vomiting, diarrhea, hematochezia. Denies: hematemesis Genitourinary: Denies: urgency, dysuria Musculoskeletal: Denies: back pain, arthralgia Skin: Denies: rash, lesions Neurological: Denies: headache, weakness Psychiatric: Denies: anxiety, depression Past Medical History Past Medical History: Atrial Fibrillation, Asthma, Coronary Artery Disease (CAD) , Cancer, COPD, Deep Vein Thrombosis (DVT), Fibromyalgia, GERD/Reflux, Hyperlipidemia, Hypertension, Myocardial Infarction (non Q-wave), Osteoarthritis (OA), Thyroid Disorder Additional Past Medical History / Comment(s): Severe persistent bronchial asthma , hiatal hernia, chronic lower extremity edema, coronary artery disease, history of breast cancer, hypertension, osteoarthritis, malignancy of the cervix /cervical cancer, uterine cancer, right lower extremity DVT, chronic atrial fibrillation, hypothyroidism, GERD, scoliosis deformity of the spine, right foot drop, hiatal hernia, frequent exacerbation of COPD, cardiac murmur, urinary incontinence, rectal prolapse with repair, C5 cervical fracture with chronic neck pain, chronic anemia, E. coli urine checked infection on May 2016 Last Myocardial Infarction Date:: 2006 History of Any Multi-Drug Resistant Organisms: None Reported Date of last positivie culture/infection: None MDRO Source:: None Past Surgical History: Back Surgery, Breast Surgery, Cholecystectomy, Heart Catheterization With Stent, Hysterectomy, Tonsillectomy Additional Past Surgical History / Comment(s): Right umpectomy d/t breast cancer , back surgery x7, ortho sx-recent Fx C5-pain in neck, 02/19/2016 revision S2- Thoracic/lumbar area, bilat. cataracts removed 2014, SX FOR PROLAPSED RECTUM AT [facility]. Past Anesthesia/Blood Transfusion Reactions: No Reported Reaction Date of Last Stent Placement:: 2006 Past Psychological History: Anxiety, Depression Additional Psychological History / Comment(s): Pt states she is on medication for anxiety/depression which helps some and is going to be starting to see a councelor soon. She uses a cane/walker to ambulate. She drives. She currently has [facility] nurse twice a week and an aide twice a week. Smoking Status: Never smoker Past Alcohol Use History: None Reported Past Drug Use History: None Reported - Past Family History Father Family Medical History: Cancer Additional Family Medical History / Comment(s): skin cancer. Mother Family Medical History: Cancer Additional Family Medical History / Comment(s): uterine cancer. Daughter(s) Family Medical History: Cancer, Thyroid Disorder Additional Family Medical History / Comment(s): Thyroid CA removed General Exam Limitations: no limitations General appearance: alert, in distress Head exam: Present: atraumatic, normocephalic, normal inspection Eye exam: Present: normal appearance, PERRL, EOMI. Absent: scleral icterus, conjunctival injection, periorbital swelling ENT exam: Present: normal exam, mucous membranes moist Neck exam: Present: normal inspection. Absent: tenderness, meningismus, lymphadenopathy Respiratory exam: Present: normal lung sounds bilaterally. Absent: respiratory distress, wheezes, rales, rhonchi, stridor Cardiovascular Exam: Present: normal rhythm, tachycardia GI/Abdominal exam: Present: soft, tenderness. Absent: distended, guarding, rebound, rigid, normal bowel sounds, diminished bowel sounds Rectal exam: Present: deferred Extremities exam: Present: normal inspection, full ROM, normal capillary refill. Absent: tenderness, pedal edema, joint swelling, calf tenderness Back exam: Present: normal inspection Neurological exam: Present: alert, oriented X3, CN II-XII intact Psychiatric exam: Present: normal affect, normal mood Skin exam: Present: warm, dry, intact, normal color. Absent: rash Course Vital Signs 12/13/16 12/13/16 12/13/16 15:55 17:00 18:56 Temperature 99.0 F 99.4 F Pulse Rate 107 H 95 101 H Respiratory 16 18 16 Rate Blood Pressure 91/54 137/67 135/64 O2 Sat by Pulse 99 95 99 Oximetry 12/13/16 21:40 Temperature 98.4 F Pulse Rate 102 H Respiratory 16 Rate Blood Pressure 121/72 O2 Sat by Pulse 95 Oximetry Medical Decision Making - Medical Decision Making 66-year-old female presented for evaluation of nausea vomiting diarrhea and abdominal pain. She was evaluated at this facility on Tuesday and workup was negative and she was discharged home with instructions to follow-up with a GI specialist. She made an appointment with Dr. Del Valle but was only able to get in as early as January 10. Her symptoms progressively worsened over the weekend she returns for further evaluation. On physical examination she doesn' t mildly distressed abdomen is mildly tender to palpation. Otherwise there are no significant abnormalities. All the labs revealed no significant abnormalities either her acute abdominal series did show multiple air-fluid levels consistent with ileus. The patient was informed of these results and through show decision-making it was determined that she would be admitted for further evaluation and treatment. Dr. Jaime accepted the admission and requested consult with general surgery. Dr. Butler was notified of the consult placed for his service and had no further requests. - Lab Data Result diagrams: 12/13/16 18:50 12/13/16 18:50 Lab Results 12/13/16 12/13/16 12/13/16 Range/Units 18:50 18:50 18:50 WBC 7.5 (3.8-10.6) k/uL RBC 5.06 (3.80-5.40) m/uL Hgb 13.7 (11.4-16.0) gm/dL Hct 44.2 (34.0-46.0) % MCV 87.4 (80.0-100.0) fL MCH 27.1 (25.0-35.0) pg MCHC 31.0 (31.0-37.0) g/dL RDW 16.3 H (11.5-15.5) % Plt Count 250 (150-450) k/uL Neutrophils % 93 % Lymphocytes % 3 % Monocytes % 3 % Eosinophils % 0 % Basophils % 0 % Neutrophils # 7.0 (1.3-7.7) k/uL Lymphocytes # 0.2 L (1.0-4.8) k/uL Monocytes # 0.2 (0-1.0) k/uL Eosinophils # 0.0 (0-0.7) k/uL Basophils # 0.0 (0-0.2) k/uL Hypochromasia Slight Anisocytosis Slight Sodium 138 (137-145) mmol/L Potassium 4.0 (3.5-5.1) mmol/L Chloride 110 H (98-107) mmol/L Carbon Dioxide 16 L (22-30) mmol/L Anion Gap 12 mmol/L BUN 16 (7-17) mg/dL Creatinine 0.47 L (0.52-1.04) mg/dL Est GFR (MDRD) Af Amer >60 (>60 ml/min/1.73 sqM) Est GFR (MDRD) Non-Af >60 (>60 ml/min/1.73 sqM) Glucose 98 (74-99) mg/dL Plasma Lactic Acid Mino (0.7-2.0) mmol/L Calcium 8.8 (8.4-10.2) mg/dL Total Bilirubin 0.8 (0.2-1.3) mg/dL AST 30 (14-36) U/L ALT 31 (9-52) U/L Alkaline Phosphatase 75 (38-126) U/L Troponin I <0.012 (0.000-0.034) ng/mL Total Protein 6.5 (6.3-8.2) g/dL Albumin 3.7 (3.5-5.0) g/dL Lipase 50 (23-300) U/L Urine Color Urine Appearance (Clear) Urine pH (5.0-8.0) Ur Specific [place] (1.001-1.035) Urine Protein (Negative) Urine Glucose (UA) (Negative) Urine Ketones (Negative) Urine Blood (Negative) Urine Nitrite (Negative) Urine Bilirubin (Negative) Urine Urobilinogen (<2.0) mg/dL Ur Leukocyte Esterase (Negative) Urine RBC (0-5) /hpf Urine WBC (0-5) /hpf Urine Bacteria (None) /hpf Hyaline Casts (0-2) /lpf Urine Mucus (None) /hpf 12/13/16 12/13/16 Range/Units 18:50 19:32 WBC (3.8-10.6) k/uL RBC (3.80-5.40) m/uL Hgb (11.4-16.0) gm/dL Hct (34.0-46.0) % MCV (80.0-100.0) fL MCH (25.0-35.0) pg MCHC (31.0-37.0) g/dL RDW (11.5-15.5) % Plt Count (150-450) k/uL Neutrophils % % Lymphocytes % % Monocytes % % Eosinophils % % Basophils % % Neutrophils # (1.3-7.7) k/uL Lymphocytes # (1.0-4.8) k/uL Monocytes # (0-1.0) k/uL Eosinophils # (0-0.7) k/uL Basophils # (0-0.2) k/uL Hypochromasia Anisocytosis Sodium (137-145) mmol/L Potassium (3.5-5.1) mmol/L Chloride (98-107) mmol/L Carbon Dioxide (22-30) mmol/L Anion Gap mmol/L BUN (7-17) mg/dL Creatinine (0.52-1.04) mg/dL Est GFR (MDRD) Af Amer (>60 ml/min/1.73 sqM) Est GFR (MDRD) Non-Af (>60 ml/min/1.73 sqM) Glucose (74-99) mg/dL Plasma Lactic Acid [place] 0.7 (0.7-2.0) mmol/L Calcium (8.4-10.2) mg/dL Total Bilirubin (0.2-1.3) mg/dL AST (14-36) U/L ALT (9-52) U/L Alkaline Phosphatase (38-126) U/L Troponin I (0.000-0.034) ng/mL Total Protein (6.3-8.2) g/dL Albumin (3.5-5.0) g/dL Lipase (23-300) U/L Urine Color Dark Yellow Urine Appearance Clear (Clear) Urine pH 6.0 (5.0-8.0) Ur Specific [place] 1.028 (1.001-1.035) Urine Protein 1+ H (Negative) Urine Glucose (UA) Negative (Negative) Urine Ketones Negative (Negative) Urine Blood Negative (Negative) Urine Nitrite Negative (Negative) Urine Bilirubin Negative (Negative) Urine Urobilinogen <2.0 (<2.0) mg/dL Ur Leukocyte Esterase Small H (Negative) Urine RBC 8 H (0-5) /hpf Urine WBC 9 H (0-5) /hpf Urine Bacteria Rare H (None) /hpf Hyaline Casts 21 H (0-2) /lpf Urine Mucus Many H (None) /hpf Disposition Clinical Impression: UTI (urinary tract infection), Nausea and vomiting, Ileus Disposition: ADMITTED IP TO THIS [facility] Decision to Admit Reason: Admit from EC Decision Date: 12/13/16 Decision Time: 21:27
[2016-12-13] MEDS ORDERED: MORPHINE SULFATE 4 MG/ML SYRINGE IV PRN (20:31)
[2016-12-13] MEDS ORDERED: NALOXONE 0.4 MG/ML 1 ML VIAL IV PRN (20:31)
[2016-12-13] MEDS ORDERED: IBUPROFEN 400 MG TAB PO PRN (20:31)
[2016-12-13] MEDS ORDERED: ACETAMINOPHEN TAB 325 MG TAB PO PRN (20:31)
[2016-12-13] MEDS ORDERED: ALBUTEROL NEBULIZED 2.5 MG/3 ML INHALATION PRN (20:35)
[2016-12-13] MEDS ORDERED: IPRATROPIUM-ALBUTEROL 3 ML NEB INHALATION PRN (20:35)
[2016-12-13] MEDS: SODIUM CHLORIDE 0.9% 1,000 ML IV SCH (21:32)
[2016-12-13] MEDS: KETOROLAC 30 MG/ML 1 ML VIAL IVP PRN (22:56)
[2016-12-13] MEDS: ONDANSETRON 4 MG/2 ML VIAL IVP PRN (22:58)
[2016-12-13] MEDS ORDERED: MELATONIN 3 MG TABLET PO PRN (22:58)
[2016-12-13] MEDS: FAMOTIDINE 20 MG TAB PO SCH (23:34)
[2016-12-13] MEDS: PRAZOSIN 1 MG CAP PO SCH (23:34)
[2016-12-13] MEDS: DICYCLOMINE 20 MG TAB PO SCH (23:34)
[2016-12-13] MEDS: GABAPENTIN 400 MG CAP PO SCH (23:34)
[2016-12-13] MEDS: DULoxetine HCL 60 MG CAPSULE.DR PO SCH (23:34)
[2016-12-14 03:30] VITALS: BMI 22.4
[2016-12-14] MEDS: KETOROLAC 30 MG/ML 1 ML VIAL IVP PRN ×2 (04:59→16:04)
[2016-12-14] MEDS: SODIUM CHLORIDE 0.9% 1,000 ML IV SCH ×3 (05:01→20:49)
[2016-12-14] MEDS: LEVOTHYROXINE 50 MCG TAB PO SCH (05:02)
[2016-12-14] MEDS: SYMBICORT 160-4.5 MCG INHALER INHALATION SCH ×2 (07:43→18:37)
[2016-12-14] MEDS: PRAZOSIN 1 MG CAP PO SCH (07:53)
[2016-12-14] MEDS: FUROSEMIDE 40 MG TAB PO SCH (07:53)
[2016-12-14] MEDS: LISINOPRIL 10 MG TAB PO SCH (07:53)
[2016-12-14] MEDS: FAMOTIDINE 20 MG TAB PO SCH ×2 (07:53→21:38)
[2016-12-14] MEDS: DULoxetine HCL 60 MG CAPSULE.DR PO SCH ×2 (07:53→21:37)
[2016-12-14] MEDS: DICYCLOMINE 20 MG TAB PO SCH ×3 (07:53→21:38)
[2016-12-14] MEDS: FERROUS SULFATE 325 MG TAB PO SCH (07:53)
[2016-12-14] MEDS: GABAPENTIN 400 MG CAP PO SCH ×3 (07:54→21:39)
[2016-12-14] MEDS: QUEtiapine 50 MG TAB PO SCH ×2 (07:55→19:13)
[2016-12-14] MEDS ORDERED: SALMETEROL INHALATION SCH (08:00)
[2016-12-14] MEDS ORDERED: FLUTICASONE INHALATION SCH (08:00)
[2016-12-14 08:15] LABS: ALT 33 U/L (9-52); AST 27 U/L (14-36); Alkaline Phosphatase 47 U/L (38-126); Anion Gap 6 mmol/L; Blood Urea Nitrogen 11 mg/dL (7-17); Calcium 7.9 mg/dL (8.4-10.2); Carbon Dioxide 19 mmol/L (22-30); Chloride 116 mmol/L (98-107); Glucose 67 mg/dL (74-99); Magnesium 1.9 mg/dL (1.6-2.3); Non-African American GFR(MDRD) >60 (>60 ml/min/1.73 sqM); Phosphorous 2.9 mg/dL (2.5-4.5); Potassium 3.8 mmol/L (3.5-5.1); Sodium 141 mmol/L (137-145); Total Bilirubin 0.4 mg/dL (0.2-1.3); Total Protein 4.5 g/dL (6.3-8.2)
[2016-12-14 08:29] LABS: Anisocytosis Slight; Basophils % (A) 2 %; CH 27.2; CHCM 31.4; Eosinophils # (A) 0.1 k/uL (0-0.7); Eosinophils % (A) 3 %; HCT 31.3 % (34.0-46.0); Hypochromasia Slight; Luc # (Auto) 0.09; Luc % (Auto) 4; Lymphocytes # (A) 0.4 k/uL (1.0-4.8); Lymphocytes % (A) 17 %; MCH 27.1 pg (25.0-35.0); MCHC 31.1 g/dL (31.0-37.0); Mean Platelet Volume 7.8; Monocytes # (A) 0.2 k/uL (0-1.0); Monocytes % (A) 7 %; Neutrophils # (A) 1.5 k/uL (1.3-7.7); Neutrophils % (A) 67 %; RBC 3.59 m/uL (3.80-5.40); RDW 16.2 % (11.5-15.5); WBC 2.2 k/uL (3.8-10.6); WBC (Perox) 2.14
[2016-12-14 08:35] LABS: HGB 9.7 gm/dL (11.4-16.0)
[2016-12-14] MEDS: ONDANSETRON 4 MG/2 ML VIAL IVP PRN ×2 (10:33→19:20)
[2016-12-14] MEDS: ACETAMINOPHEN IV (For NPO) 1,000 MG in EMPTY BAG 1 BAG IVPB SCH ×3 (10:33→23:31)
--- NOTE | 2016-12-14 16:10 | P.GSCN ---
History of Present Illness Consult date: 12/14/16 Reason for Consult: Ileus/abdominal pain Requesting physician: Arpit Hu History of present illness: Patient is a 66-year-old female presenting to the hospital with complaints of nausea, vomiting, diarrhea, and abdominal pain. Patient recently underwent laparoscopic Damaso fundoplication for hiatal hernia. Patient was evaluated in the emergency department on 12/09/2016 with complaints of some soft to loose stools that have been ongoing at that time for 3-4 days with associated abdominal cramping. Per chart, patient had been out of her pain medications and had been taking ibuprofen for pain. Workup at that time including CT of abdomen and pelvis revealed no acute intra-abdominal process. Patient was discharged home and then apparently returned later in the evening complaining of diarrhea with slight nausea. Patient was again discharged home on Bentyl and instructed to increase fiber in diet, stool cultures were collected. Patient was instructed to follow-up with Dr. Rader from gastrointestinal service. Patient reports that she tried to call Dr. Del Valle and was unable to get an appointment until January 10. Patient now reports diarrhea and vomiting associated with abdominal bloating associated with hematochezia. Patient reports that she was treated for ulcerative colitis in her 30s. Patient underwent an x-ray of the abdomen which showed interstitial gas and fluid consistent with ileus. No history of fevers. Patient afebrile. No evidence of leukocytosis. Stool cultures negative. Past Medical History Past Medical History: Atrial Fibrillation, Asthma, Coronary Artery Disease (CAD) , Cancer, COPD, Deep Vein Thrombosis (DVT), Fibromyalgia, GERD/Reflux, Hyperlipidemia, Hypertension, Myocardial Infarction (non Q-wave), Osteoarthritis (OA), Thyroid Disorder Additional Past Medical History / Comment(s): Severe persistent bronchial asthma , hiatal hernia, chronic lower extremity edema, coronary artery disease, history of breast cancer, hypertension, osteoarthritis, malignancy of the cervix /cervical cancer, uterine cancer, right lower extremity DVT, chronic atrial fibrillation, hypothyroidism, GERD, scoliosis deformity of the spine, right foot drop, hiatal hernia, frequent exacerbation of COPD, cardiac murmur, urinary incontinence, rectal prolapse with repair, C5 cervical fracture with chronic neck pain, chronic anemia, E. coli urine checked infection on May 2016 Last Myocardial Infarction Date:: 2006 History of Any Multi-Drug Resistant Organisms: None Reported Year Discovered:: None MDRO Source:: None Past Surgical History: Back Surgery, Breast Surgery, Cholecystectomy, Heart Catheterization With Stent, Hysterectomy, Tonsillectomy Additional Past Surgical History / Comment(s): Right umpectomy d/t breast cancer , back surgery x7, ortho sx-recent Fx C5-pain in neck, 02/19/2016 revision S2- Thoracic/lumbar area, bilat. cataracts removed 2014, SX FOR PROLAPSED RECTUM AT [facility]. Past Anesthesia/Blood Transfusion Reactions: No Reported Reaction Date of Last Stent Placement:: 2006 Past Psychological History: Anxiety, Depression Additional Psychological History / Comment(s): Pt states she is on medication for anxiety/depression which helps some and is going to be starting to see a councelor soon. She uses a cane/walker to ambulate. She drives. She currently has [facility] nurse twice a week and an aide twice a week. Smoking Status: Never smoker Past Alcohol Use History: None Reported Past Drug Use History: None Reported - Past Family History Father Family Medical History: Cancer Additional Family Medical History / Comment(s): skin cancer. Mother Family Medical History: Cancer Additional Family Medical History / Comment(s): uterine cancer. Daughter(s) Family Medical History: Cancer, Thyroid Disorder Additional Family Medical History / Comment(s): Thyroid CA removed Medications and Allergies Home Medications Medication Instructions Recorded Confirmed Type Aspirin EC [Ecotrin Low Dose] 81 mg PO DAILY 12/26/15 12/13/16 History Gabapentin [Neurontin] 1,200 mg PO TID 12/26/15 12/13/16 History Montelukast [Singulair] 10 mg PO HS 12/26/15 12/13/16 History Nitroglycerin Sl Tabs [Nitrostat] 0.4 mg SUBLINGUAL Q5M PRN 12/26/15 12/13/16 History Calcium Carbonate [Calcium] 600 mg PO TID 04/30/16 12/13/16 History DULoxetine HCL [Cymbalta] 60 mg PO BID 04/30/16 12/13/16 History Omeprazole [PriLOSEC] 20 mg PO AC-BRKFST 09/01/16 12/13/16 History Famotidine [Pepcid] 60 mg PO BID 09/16/16 12/13/16 History Ferrous Gluconate 240 mg PO QAM 09/16/16 12/13/16 History Levothyroxine Sodium [Synthroid] 50 mcg PO DAILY 09/25/16 12/13/16 History Ondansetron [Zofran] 4 mg PO Q8H PRN 09/25/16 12/13/16 History Levalbuterol Hfa Inhaler [Xopenex 1 puff INHALATION RT-Q6H 10/10/16 12/13/16 History Hfa Inhaler] Albuterol Nebulized [Ventolin 2.5 mg INHALATION RT-Q4H PRN 10/30/16 12/13/16 History Nebulized] Fluticasone/Salmeterol [Advair 2 puff INHALATION RT-BID 11/13/16 12/13/16 History 500-50 Diskus] Furosemide [Lasix] 40 mg PO DAILY 11/13/16 12/13/16 History Lansoprazole [Prevacid] 30 mg PO DAILY 11/13/16 12/13/16 History Lisinopril [Zestril] 10 mg PO DAILY 11/13/16 12/13/16 History Prazosin HCl 2 mg PO TID 11/13/16 12/13/16 History HYDROcodone/APAP 7.5-325MG [[place] 1 tab PO Q8H PRN 12/13/16 12/13/16 History 7.5-325] QUEtiapine XR [SEROquel XR] 150 mg PO HS 12/13/16 12/13/16 History Allergies Allergy/AdvReac Type Severity Reaction Status Date / Time amoxicillin Allergy Unknown Verified 12/13/16 15:58 baclofen Allergy Rash/Hives Verified 12/13/16 15:58 morphine Allergy Itching Verified 12/13/16 15:58 Penicillins Allergy Unknown Verified 12/13/16 15:58 prochlorperazine Allergy Racing Verified 12/13/16 15:58 [From Compazine] Heart prochlorperazine edisylate Allergy Racing Verified 12/13/16 15:58 [From Compazine] Heart prochlorperazine maleate Allergy Racing Verified 12/13/16 15:58 [From Compazine] Heart tetracycline Allergy Unknown Verified 12/13/16 15:58 SILK TAPE Allergy Unknown Uncoded 12/13/16 15:58 Surgical - Exam Vital Signs Temp Pulse Resp BP Pulse Ox 99.0 F 107 H 16 91/54 99 12/13/16 15:55 12/13/16 15:55 12/13/16 15:55 12/13/16 15:55 12/13/16 15:55 GENERAL: Pt awake and alert, well-nourished, anxious. HEAD: Atraumatic, normocephalic. EYES: Pupils equal, round and reactive. sclera anicteric, conjunctiva are normal. ENT: Moist mucous membranes. LUNGS: Breath sounds diminished to auscultation bilaterally. No wheezes, rales , or rhonchi. HEART: Heart S1, S2, no S3 or S4. Regular rate and rhythm. No murmurs, rubs or gallops. ABDOMEN: Soft, mild diffuse tenderness, nondistended, normoactive bowel sounds. No guarding, no rebound. No masses or organomegaly appreciated. NEUROLOGICAL: Pt oriented x 3. PSYCH: Anxious. Results - Labs 12/14/16 07:10 12/14/16 07:10 Abnormal Lab Results - Last 24 Hours (Table) 12/14/16 12/14/16 Range/Units 07:10 07:10 WBC 2.2 L (3.8-10.6) k/uL RBC 3.59 L (3.80-5.40) m/uL Hgb 9.7 L D (11.4-16.0) gm/dL Hct 31.3 L (34.0-46.0) % RDW 16.2 H (11.5-15.5) % Lymphocytes # 0.4 L (1.0-4.8) k/uL Chloride 116 H (98-107) mmol/L Carbon Dioxide 19 L (22-30) mmol/L Creatinine 0.48 L (0.52-1.04) mg/dL Glucose 67 L (74-99) mg/dL Calcium 7.9 L (8.4-10.2) mg/dL Total Protein 4.5 L (6.3-8.2) g/dL Albumin 2.3 L (3.5-5.0) g/dL Lipase 12 L (23-300) U/L Diabetes panel 12/14/16 Range/Units 07:10 Sodium 141 (137-145) mmol/L Potassium 3.8 (3.5-5.1) mmol/L Chloride 116 H (98-107) mmol/L Carbon Dioxide 19 L (22-30) mmol/L BUN 11 (7-17) mg/dL Creatinine 0.48 L (0.52-1.04) mg/dL Glucose 67 L (74-99) mg/dL Calcium 7.9 L (8.4-10.2) mg/dL AST 27 (14-36) U/L ALT 33 (9-52) U/L Alkaline Phosphatase 47 (38-126) U/L Total Protein 4.5 L (6.3-8.2) g/dL Albumin 2.3 L (3.5-5.0) g/dL Calcium panel 12/14/16 Range/Units 07:10 Calcium 7.9 L (8.4-10.2) mg/dL Phosphorus 2.9 (2.5-4.5) mg/dL Albumin 2.3 L (3.5-5.0) g/dL Pituitary panel 12/14/16 Range/Units 07:10 Sodium 141 (137-145) mmol/L Potassium 3.8 (3.5-5.1) mmol/L Chloride 116 H (98-107) mmol/L Carbon Dioxide 19 L (22-30) mmol/L BUN 11 (7-17) mg/dL Creatinine 0.48 L (0.52-1.04) mg/dL Glucose 67 L (74-99) mg/dL Calcium 7.9 L (8.4-10.2) mg/dL Adrenal panel 12/14/16 Range/Units 07:10 Sodium 141 (137-145) mmol/L Potassium 3.8 (3.5-5.1) mmol/L Chloride 116 H (98-107) mmol/L Carbon Dioxide 19 L (22-30) mmol/L BUN 11 (7-17) mg/dL Creatinine 0.48 L (0.52-1.04) mg/dL Glucose 67 L (74-99) mg/dL Calcium 7.9 L (8.4-10.2) mg/dL Total Bilirubin 0.4 (0.2-1.3) mg/dL AST 27 (14-36) U/L ALT 33 (9-52) U/L Alkaline Phosphatase 47 (38-126) U/L Total Protein 4.5 L (6.3-8.2) g/dL Albumin 2.3 L (3.5-5.0) g/dL - Imaging Abdominal x-ray: report reviewed Assessment and Plan Plan: Impression: 1. Ileus suspect secondary to pain medications. Plan: 1. Continue patient on a clear liquid diet. Continue supportive treatment and pain management. Continue IV hydration. Continue follow medical team. Patient is not a surgical candidate at this time. The above impression and plan have been discussed and directed by Dr. Butler. Mohan DONAHUE acting as scribe for Dr. Butler.
[2016-12-14] MEDS ORDERED: HYDROcodone/APAP 7.5-325MG 1 EACH TAB PO PRN (16:36)
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
[2016-12-15] MEDS: SODIUM CHLORIDE 0.9% 1,000 ML IV SCH (04:47)
[2016-12-15] MEDS: LEVOTHYROXINE 50 MCG TAB PO SCH (05:49)
[2016-12-15] MEDS: KETOROLAC 30 MG/ML 1 ML VIAL IVP PRN (06:19)
[2016-12-15 07:00] LABS: Aty Lym Flag Moderate; CH 26.5; CHCM 28.9; HCT 33.8 % (34.0-46.0); HDW 3.13; HGB 10.2 gm/dL (11.4-16.0); Hypochromasia Marked; MCH 27.6 pg (25.0-35.0); MCHC 30.1 g/dL (31.0-37.0); MCV 91.9 fL (80.0-100.0); RBC 3.68 m/uL (3.80-5.40); RDW 15.9 % (11.5-15.5); WBC 2.3 k/uL (3.8-10.6); WBC (Perox) 2.32
[2016-12-15 07:25] LABS: Anion Gap 7 mmol/L; Blood Urea Nitrogen 6 mg/dL (7-17); Calcium 7.8 mg/dL (8.4-10.2); Carbon Dioxide 17 mmol/L (22-30); Chloride 118 mmol/L (98-107); Glucose 62 mg/dL (74-99); Non-African American GFR(MDRD) >60 (>60 ml/min/1.73 sqM); Potassium 3.8 mmol/L (3.5-5.1); Sodium 142 mmol/L (137-145)
[2016-12-15] MEDS: SYMBICORT 160-4.5 MCG INHALER INHALATION SCH (07:28)
[2016-12-15 07:38] VITALS: RESP 16
[2016-12-15 07:48] LABS: Add Differential Manual Differential
[2016-12-15 07:51] LABS: Manual Review Performed; Nucleated Red Blood Cells 0 /100 WBC (0-0); Total Cells Counted 100
[2016-12-15 07:52] LABS: Ovalocytes Present
[2016-12-15] MEDS: DICYCLOMINE 20 MG TAB PO SCH (08:43)
[2016-12-15] MEDS: DULoxetine HCL 60 MG CAPSULE.DR PO SCH (08:43)
[2016-12-15] MEDS: QUEtiapine 50 MG TAB PO SCH (08:44)
[2016-12-15] MEDS: LISINOPRIL 10 MG TAB PO SCH (08:44)
[2016-12-15] MEDS: FAMOTIDINE 20 MG TAB PO SCH (08:44)
[2016-12-15] MEDS: GABAPENTIN 400 MG CAP PO SCH (08:44)
[2016-12-15] MEDS: FUROSEMIDE 40 MG TAB PO SCH (08:45)
[2016-12-15] MEDS: FERROUS SULFATE 325 MG TAB PO SCH (12:04)
[2016-12-15 14:04] VITALS: BP 119/76; PULSE 83; TEMP 98.7
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
--- NOTE | 2016-12-15 14:35 | P.PN ---
Subjective Patient is evaluated at bedside. Patient is feeling better reports improvement in abdominal pain. Patient states she had 2 episodes of diarrhea this morning. Denies nausea or vomiting. Patient is tolerating a full liquid diet. Patient is urinating without difficulty. Afebrile. Objective - Vital Signs Vital signs: Vital Signs Temp 98.7 F 12/15/16 14:03 Pulse 83 12/15/16 14:03 Resp 16 12/15/16 14:03 BP 119/76 12/15/16 14:03 Pulse Ox 98 12/15/16 14:03 Intake & Output 12/14/16 12/15/16 12/15/16 18:59 06:59 18:59 Intake Total 1070 500 456 Balance 1070 500 456 Weight 61.235 kg Intake: Intake, IV Titration 500 Amount ACETAMINOPHEN IV (For NPO 250 ) 1,000 mg In Empty Bag 1 bag @ 400 mls/hr IVPB Q6HR [facility] Rx#:[id number] Sodium Chloride 0.9% 1, 250 000 ml @ 125 mls/hr IV . Q8H [facility] Rx#:[id number] Oral 1070 456 Other: # Voids 2 1 1 # Bowel Movements 1 1 - Exam GENERAL: Pt awake and alert, well-nourished, anxious. HEAD: Atraumatic, normocephalic. EYES: Pupils equal, round and reactive. sclera anicteric, conjunctiva are normal. ENT: Moist mucous membranes. LUNGS: Breath sounds diminished to auscultation bilaterally. No wheezes, rales , or rhonchi. HEART: Heart S1, S2, no S3 or S4. Regular rate and rhythm. No murmurs, rubs or gallops. ABDOMEN: Soft, mild generalized tenderness, nondistended, normoactive bowel sounds. No guarding, no rebound. No masses or organomegaly appreciated. NEUROLOGICAL: Pt oriented x 3. PSYCH: Anxious. - Labs CBC & Chem 7: 12/15/16 06:36 12/15/16 06:36 Labs: Abnormal Lab Results - Last 24 Hours (Table) 12/15/16 12/15/16 Range/Units 06:36 06:36 WBC 2.3 L (3.8-10.6) k/uL RBC 3.68 L (3.80-5.40) m/uL Hgb 10.2 L (11.4-16.0) gm/dL Hct 33.8 L (34.0-46.0) % MCHC 30.1 L (31.0-37.0) g/dL RDW 15.9 H (11.5-15.5) % Neutrophils # (Manual) 1.2 L (1.3-7.7) k/uL Lymphocytes # (Manual) 0.6 L (1.0-4.8) k/uL Chloride 118 H (98-107) mmol/L Carbon Dioxide 17 L (22-30) mmol/L BUN 6 L (7-17) mg/dL Creatinine 0.47 L (0.52-1.04) mg/dL Glucose 62 L (74-99) mg/dL Calcium 7.8 L (8.4-10.2) mg/dL Assessment and Plan Plan: Impression: 1. Ileus suspect secondary to pain medications, improving. Plan: 1. Advance diet to regular. Continue supportive treatment and pain management. Continue follow medical team. Patient is not a surgical candidate at this time. The above impression and plan have been discussed and directed by Dr. Butler. Mohan DONAHUE acting as scribe for Dr. Butler.
== END 2016-12-15 15:37 | disposition home or self-care (01) | DRG 389 ==
LOC: EC 14:55 → 3SUR 20:31
PROVIDERS: ADMIT Internal Medicine; ATTEND Internal Medicine
DX: K56.7 Ileus, unspecified (principal); E87.2 Acidosis; I48.0 Paroxysmal atrial fibrillation; F11.20 Opioid dependence, uncomplicated; G62.9 Polyneuropathy, unspecified; E87.8 Other disorders of electrolyte and fluid balance, not elsewhere classified; I10 Essential (primary) hypertension; F32.9 Major depressive disorder, single episode, unspecified; K92.1 Melena; J44.9 Chronic obstructive pulmonary disease, unspecified; T40.2X5A Adverse effect of other opioids, initial encounter; D50.9 Iron deficiency anemia, unspecified; I25.10 Atherosclerotic heart disease of native coronary artery without angina pectoris; I48.2 Chronic atrial fibrillation; J45.50 Severe persistent asthma, uncomplicated; E78.5 Hyperlipidemia, unspecified; G89.29 Other chronic pain; F41.9 Anxiety disorder, unspecified; I25.2 Old myocardial infarction; M79.7 Fibromyalgia; K44.9 Diaphragmatic hernia without obstruction or gangrene; K21.9 Gastro-esophageal reflux disease without esophagitis; M19.90 Unspecified osteoarthritis, unspecified site; M54.5 Low back pain; M54.2 Cervicalgia; M21.371 Foot drop, right foot; R32 Unspecified urinary incontinence; E03.9 Hypothyroidism, unspecified; M41.9 Scoliosis, unspecified; Z80.49 Family history of malignant neoplasm of other genital organs; Z80.8 Family history of malignant neoplasm of other organs or systems; Z98.42 Cataract extraction status, left eye; Z98.41 Cataract extraction status, right eye; Z79.82 Long term (current) use of aspirin; Z79.899 Other long term (current) drug therapy; Z85.3 Personal history of malignant neoplasm of breast; Z87.440 Personal history of urinary (tract) infections; Z86.718 Personal history of other venous thrombosis and embolism; Z87.19 Personal history of other diseases of the digestive system; Z87.81 Personal history of (healed) traumatic fracture; Z85.41 Personal history of malignant neoplasm of cervix uteri; Z85.42 Personal history of malignant neoplasm of other parts of uterus; Z90.49 Acquired absence of other specified parts of digestive tract; Z90.710 Acquired absence of both cervix and uterus; Z95.5 Presence of coronary angioplasty implant and graft; Z90.11 Acquired absence of right breast and nipple; Z88.1 Allergy status to other antibiotic agents; Z88.5 Allergy status to narcotic agent; Z88.0 Allergy status to penicillin; Z88.8 Allergy status to other drugs, medicaments and biological substances; Z91.048 Other nonmedicinal substance allergy status; Z79.1 Long term (current) use of non-steroidal anti-inflammatories (NSAID); Z79.51 Long term (current) use of inhaled steroids
CPT/HCPCS: 36415; 74022; 80048; 80053; 81001; 83605; 83690; 83735; 84100; 84484; 85025; 93005; 94640; 96361; 96374; 99211; 99285

== ENCOUNTER → 2016-12-13 | Outpatient (CLI) | payer MEDICARE ==
[2016-12-13 14:01] VITALS: BP 122/71; PULSE 103; RESP 16; TEMP 98
--- NOTE | 2016-12-13 14:32 | P.PN ---
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 The patient also has pain in both legs however she feels increasing weakness in the lower extremities more on the right side than the left side. By physical exam she has decreased muscle strength for knee flexion and extension on the right side to 3 out of 5 compared to the left side which was 5 out of 5 and also to right ankle flexion and extension which was 4 out of 5 compared to the left side was normal. Her reflexes in the right lower extremity also were significantly decreased compared to the left side including right knee reflex and right ankle reflex. The patient also has occasional diarrhea for which she went to the ER a few days ago but she still has diarrhea which wakes her up at night and she requested few pills of Lomotil 12 her only to sleep well during the night. He denies any fever or any blood in her stool she occasionally throws up but not recently. Today I will send the patient to have lumbar MRI with and without contrast for this increasing weakness in the right lower extremity. I will continue her pain medications including [place] 7.5 mg 3 times a day and OxyContin 20 mg twice a day. I will give her only 5 pills of Lomotil to help her sleep during the night but I asked her to contact her family physician regarding her diarrhea.
== END ==
LOC: PNWHC3 13:44
DX: M54.5 Low back pain (principal); G89.29 Other chronic pain
CPT/HCPCS: 99211